=== PATIENT | female | born 1980 | race Caucasian/White ===

== ENCOUNTER 2023-03-11 06:54 | Emergency (ER) | payer SELFPAY ==
[2023-03-11 06:59] VITALS: BP 124/94; PULSE 99; RESP 18; TEMP 36.5; O2SAT 96; BMI 47.4
--- NOTE | 2023-03-11 07:28 | ECG_ITS ---
[facility] Test Date: 2023-03-11 Pat Name: ZELDA SANCHEZ Department: Room: - Gender: Female Viscosity Tester: : 1980 Requested By: MICKIE ALVAREZ Order Number: [id number] Reading MD: ELIGIO DEVLIN Measurements Intervals [place] Rate: 78 P: 27 LA: 142 QRS: 44 QRSD: 72 T: 15 QT: 358 QTc: 391 Interpretive Statements 1100 Sinus rhythm 4068 Nonspecific [place] abnormality 8102 Low QRS voltage in chest leads 9130 borderline ECG No previous ECG available for comparison Electronically Signed On 03-12-2023 9:48:39 EDT by ELIGIO DEVLIN
[2023-03-11 07:51] LABS: Basophils Percent Auto 0.8 % (0.2-2.0); Eosinophils Absolute Auto 0.1 10^3/uL (0.0-0.7); Eosinophils Percent Auto 2.2 % (0.9-7.0); Hematocrit 43.1 % (36.0-48.0); Hemoglobin 13.9 g/dL (12.0-16.0); Immature Granulocytes Abs Auto 0.02 10^3/uL (0.00-0.03); Immature Granulocytes Pct Auto 0.4 % (0.0-0.5); Lymphocytes Absolute Auto 2.6 10^3/uL (1.2-3.8); Lymphocytes Percent Auto 51.8 % (20.5-60.0); Mean Corpuscular HGB Conc 32.3 g/dL (29.9-35.2); Mean Corpuscular Hemoglobin 26.7 pg (26.7-34.0); Mean Corpuscular Volume 82.9 fL (81.0-99.0); Mean Platelet Volume 10.3 fL (9.5-13.5); Monocytes Absolute Auto 0.3 10^3/uL (0.3-0.8); Monocytes Percent Auto 6.7 % (1.7-12.0); Neutrophils Absolute Auto 1.9 10^3/uL (1.4-6.5); Neutrophils Percent Auto 38.1 % (43.0-75.0); Platelet Count 159 10^3/uL (150-450); Red Cell Distribution Width 13.3 % (11.0-15.0); White Blood Count 5.1 10^3/uL (4.0-11.0)
[2023-03-11 08:06] VITALS: O2SAT 96
[2023-03-11 08:20] LABS: Alanine Aminotransferase 40 U/L (14-59); Albumin Globulin Ratio 0.8; Albumin Level 3.8 g/dL (3.4-5.0); Alkaline Phosphatase 73 U/L (46-116); Anion Gap 13.8; Aspartate Amino Transferase 37 U/L (15-37); BUN Creatinine Ratio 16.3; Bilirubin Total 0.4 mg/dL (0.2-1.0); Calcium 9.4 mg/dL (8.5-10.1); Carbon Dioxide 26.7 mmol/L (21.0-32.0); Chloride 101 mmol/L (98-107); Estimated GFR (African America >60 (>=60); Estimated GFR (Non-African Ame >60 (>=60); Globulin 4.6 g/dL; Glucose 157 mg/dL (74-106); Potassium 4.5 mmol/L (3.5-5.1); Sodium 137 mmol/L (136-145); Total Protein 8.4 g/dL (6.4-8.2)
--- NOTE | 2023-03-11 09:50 | ED_ITS ---
HPI - General Adult General Chief complaint: Neuro Symptoms/Deficit Stated complaint: FACIAL TWITCHING Time Seen by Provider: 03/11/23 07:50 Source: patient Mode of arrival: walk-in Limitations: no limitations History of Present Illness HPI narrative: Patient is a 22-year-old female who is presenting to the Emergency Room with chief complaint of right facial twitching, right cervical muscle twitching this been intermittent since last night and this morning. Patient has no strokelike signs or symptoms. Patient has multiple medical diagnoses, multiple medications that she is not taking because she ran out Medications and has not scheduled an appointment with her PCP. Patient read the Internet, so all different signs and symptoms that could be related to facial and neck twitching, including stroke. Patient chief concern is stroke. Patient came into the Emergency Room. Patient is diabetic. Patient has multiple medications that she is not taking further no reason except being noncompliant. Patient has no headache or neck pain. No chest pain or shortness of breath. No abdominal pain, nausea or vomiting. No other acute complaints. . All systems are negative except as noted/marked. All systems reviewed and otherwise negative. . Nurses note and vital signs reviewed and patient is not hypoxic. General: The patient appears well and in no apparent distress. Patient is resting comfortably on cart. Patient is not toxic, lethargic, or listless Skin: Warm, dry, no pallor noted. There is no rash noted. No petechiae, purpura. Head: Normocephalic, atraumatic, Patient currently does not have the twitching to the right for headache, right side of her neck. Patient has no pain over the temporal area, no signs or concerns for giant cell temporal arteritis on physical exam currently. Patient has full range of motion of cervical spine no difficulty. No midline or paracervical tenderness to palpation. Full range of motion the difficulty to cervical spine. Eye: Normal conjunctiva, no drainage, EOMI. PERRL Ears, Nose, Mouth, and Throat: oral mucosa is moist. Nares patent. Mouth without vesicles. Cardiovascular: Regular Rate and Rhythm, no murmur, gallop, rub Respiratory: Patient is in no distress, no accessory muscle use, lungs are clear to auscultation, no wheezing, rales or rhonchi Back: non-tender, no CVA tenderness bilaterally to percussion. No CT LS midline pain GI: soft, obese, no tenderness to palpation, no masses appreciated. No rebound, guarding, or rigidity noted. No flank pain bilateral, No distention Musculoskeletal: Patient has full range of motion of all of the extremities, no motor, sensory, or focal neurological deficits Neurological: A&O x3, normal speech; NIH 0 Psychiatric: Cooperative Related Data Home Medications Medication Instructions Recorded Confirmed No Known Home Medications 03/11/23 03/11/23 Allergies Allergy/AdvReac Type Severity Reaction Status Date / Time No Known Drug Allergies Allergy Verified 03/11/23 07:04 [facility] Medical History (Updated 03/11/23 @ 09:30 by Nilton Lloyd MD) Exam Constitutional Vital Signs, click to edit/add: Last Vital Signs Temp 97.7 F 03/11/23 06:59 Pulse 99 H 03/11/23 06:59 Resp 18 03/11/23 06:59 BP 124/94 H 03/11/23 06:59 Pulse Ox 96 03/11/23 08:06 O2 Del Method Room Air 03/11/23 08:06 Course Vital Signs Vital signs: Vital Signs Temperature 97.7 F 03/11/23 06:59 Pulse Rate 99 H 03/11/23 06:59 Respiratory Rate 18 03/11/23 06:59 Blood Pressure 124/94 H 03/11/23 06:59 Pulse Oximetry 96 03/11/23 06:59 Oxygen Delivery Method Room Air 03/11/23 06:59 Temperature 97.7 F 03/11/23 06:59 Pulse Rate 99 H 03/11/23 06:59 Respiratory Rate 18 03/11/23 06:59 Blood Pressure 124/94 H 03/11/23 06:59 Pulse Oximetry 96 03/11/23 08:06 Oxygen Delivery Method Room Air 03/11/23 08:06 Medical Decision Making MDM Narrative Medical decision making narrative: Patient labwork shows no acute findings. Education was done at bedside. Patient will follow-up the PCP. Patient understands she needs to call the PCP today, and she needs get back on all of her medications could be part of her symptomatology today. Patient understands and agrees. Patient thankful for help. Patient has no strokelike signs or symptoms today. Lab Data Lab results reviewed: Yes I reviewed the patient's lab results Labs: Lab Results 03/11/23 Range/Units 07:15 WBC 5.1 (4.0-11.0) 10^3/uL RBC 5.20 (4.20-5.40) 10^6/uL Hgb 13.9 (12.0-16.0) g/dL Hct 43.1 (36.0-48.0) % MCV 82.9 (81.0-99.0) fL MCH 26.7 (26.7-34.0) pg MCHC 32.3 (29.9-35.2) g/dL RDW 13.3 (11.0-15.0) % Plt Count 159 (150-450) 10^3/uL MPV 10.3 (9.5-13.5) fL Neut % (Auto) 38.1 L (43.0-75.0) % Lymph % (Auto) 51.8 (20.5-60.0) % [place] % (Auto) 6.7 (1.7-12.0) % Eos % (Auto) 2.2 (0.9-7.0) % Baso % (Auto) 0.8 (0.2-2.0) % Neut # (Auto) 1.9 (1.4-6.5) 10^3/uL Lymph # (Auto) 2.6 (1.2-3.8) 10^3/uL [place] # (Auto) 0.3 (0.3-0.8) 10^3/uL Eos # (Auto) 0.1 (0.0-0.7) 10^3/uL Baso # (Auto) 0.0 (0.0-0.1) 10^3/uL Abs Immat Gran (auto) 0.02 (0.00-0.03) 10^3/uL Imm/Tot Granulo (auto) 0.4 (0.0-0.5) % Sodium 137 (136-145) mmol/L Potassium 4.5 (3.5-5.1) mmol/L Chloride 101 (98-107) mmol/L Carbon Dioxide 26.7 (21.0-32.0) mmol/L Anion Gap 13.8 BUN 15.0 (7.0-18.0) mg/dL Creatinine 0.92 (0.55-1.02) mg/dL Est GFR ( Amer) >60 (>=60) Est GFR (Non-Af Amer) >60 (>=60) BUN/Creatinine Ratio 16.3 Glucose 157 H (74-106) mg/dL Calcium 9.4 (8.5-10.1) mg/dL Total Bilirubin 0.4 (0.2-1.0) mg/dL AST 37 (15-37) U/L ALT 40 (14-59) U/L Alkaline Phosphatase 73 (46-116) U/L Total Protein 8.4 H (6.4-8.2) g/dL Albumin 3.8 (3.4-5.0) g/dL Globulin 4.6 g/dL Albumin/Globulin Ratio 0.8 ECG Data Attestation: I personally reviewed and interpreted this ECG as follows: Interpretation: EKG interpretation. Normal sinus rhythm at 78 beats a minute. Normal axis deviation. No acute ST elevation, no acute ectopy. QTC of 391. Discharge Plan Discharge Chief Complaint: Neuro Symptoms/Deficit Clinical Impression: Facial twitching, Medical non-compliance Patient Disposition: Home, Self-Care Time of Disposition Decision: 09:30 Prescriptions / Home Meds: No Action No Known Home Medications Additional Instructions: He needs to call your nurse practitioner Janki today to secure a follow-up appointment, have your medications reestablished Stand Alone Forms: Portal Instructions Referrals: Janki Mora [Primary Care Provider] - 1 week Discharge Date/Time: 03/11/23 09:35
== END 2023-03-11 09:35 | disposition home or self-care (01) ==
PROVIDERS: Emergency Provider Emergency Medicine; PCP Nurse Practitioner
DX: R25.3 Fasciculation (principal); Z91.148 Patient's other noncompliance with medication regimen for other reason; E11.9 Type 2 diabetes mellitus without complications
CPT/HCPCS: 36415; 80053; 85025; 93005; 99284

== ENCOUNTER 2023-12-09 08:13 | Outpatient (OUT) | payer OTHER, SELFPAY ==
[2023-12-09 09:01] LABS: Basophils Percent Auto 0.6 % (0.2-2.0); Eosinophils Absolute Auto 0.2 10^3/uL (0.0-0.7); Eosinophils Percent Auto 3.2 % (0.9-7.0); Hematocrit 41.6 % (36.0-48.0); Hemoglobin 12.9 g/dL (12.0-16.0); Immature Granulocytes Abs Auto 0.02 10^3/uL (0.00-0.03); Immature Granulocytes Pct Auto 0.4 % (0.0-0.5); Lymphocytes Absolute Auto 2.3 10^3/uL (1.2-3.8); Lymphocytes Percent Auto 47.6 % (20.5-60.0); Mean Corpuscular Hemoglobin 26.6 pg (26.7-34.0); Mean Corpuscular Volume 85.8 fL (81.0-99.0); Mean Platelet Volume 10.1 fL (9.5-13.5); Monocytes Absolute Auto 0.3 10^3/uL (0.3-0.8); Monocytes Percent Auto 6.7 % (1.7-12.0); Neutrophils Percent Auto 41.5 % (43.0-75.0); Platelet Count 157 10^3/uL (150-450); Red Blood Count 4.85 10^6/uL (4.20-5.40); Red Cell Distribution Width 13.5 % (11.0-15.0); White Blood Count 4.8 10^3/uL (4.0-11.0)
[2023-12-09 09:13] LABS: Alanine Aminotransferase 99 U/L (14-59); Albumin Globulin Ratio 0.8; Albumin Level 3.5 g/dL (3.4-5.0); Alkaline Phosphatase 75 U/L (46-116); Aspartate Amino Transferase 50 U/L (15-37); BUN Creatinine Ratio 15.2; Bilirubin Total 0.2 mg/dL (0.2-1.0); Calcium 9.1 mg/dL (8.5-10.1); Carbon Dioxide 27.2 mmol/L (21.0-32.0); Chloride 99 mmol/L (98-107); Chol HDL Ratio 3.7; Cholesterol 260 mg/dL (<=200); Estimated GFR (African America >60 (>=60); Estimated GFR (Non-African Ame >60 (>=60); Globulin 4.2 g/dL; Glucose 251 mg/dL (74-106); HDL Cholesterol 70 mg/dL (40-60); Potassium 4.2 mmol/L (3.5-5.1); Sodium 135 mmol/L (136-145); Total Protein 7.7 g/dL (6.4-8.2); Triglycerides 199 mg/dL (<=150); VLDL CHOLESTEROL 39.8 mg/dL
[2023-12-09 09:59] LABS: Estimated Average Glucose 243 mg/dL; Glycohemoglobin A1C 10.1 % (4.5-6.2)
[2023-12-09 17:13] LABS: Bilirubin Urine NEGATIVE (NEGATIVE); Blood Urine NEGATIVE (NEGATIVE); Clarity Urine CLEAR (CLEAR); Color Urine LT. YELLOW (YELLOW); Glucose Urine UA 500 mg/dL (NEGATIVE); Ketones Urine NEGATIVE (NEGATIVE); Leukocyte Esterase Urine NEGATIVE (NEGATIVE); Nitrite Urine NEGATIVE (NEGATIVE); Protein Urine NEGATIVE (NEG/TRACE); Urobilinogen Urine 0.2 EU/dL (0.2-1.0)
[2023-12-09 17:18] LABS: Urine Microscopic Indicated NO
[2023-12-09 17:21] LABS: Microalbum Creatinine Ratio Ur 59.4 mg/g (0.0-29.9)
== END 2023-12-09 08:14 | disposition home or self-care (01) ==
LOC: LAB 08:14
PROVIDERS: PCP Nurse Practitioner; Visit Provider Nurse Practitioner
DX: I10 Essential (primary) hypertension (principal); E11.9 Type 2 diabetes mellitus without complications
CPT/HCPCS: 36415; 80053; 80061; 81003; 82043; 82570; 83036; 85025

== ENCOUNTER 2024-02-29 23:13 | Emergency (ER) | payer OTHER, SELFPAY ==
[2024-02-29 23:16] VITALS: BP 170/118; PULSE 98; TEMP 36.4; O2SAT 99; BMI 45.4
--- NOTE | 2024-02-29 23:41 | PC.NURSE ---
Patient c/o low back pain after doing yard work. Denies any urinary sx, denies numbness/ tingling down legs or weakness
--- NOTE | 2024-02-29 23:51 | ED.BACK1 ---
HPI HPI - Back Pain/Injury General Chief Complaint: Back Pain/Injury Stated Complaint: BACK PAIN Time Seen by Provider: 02/29/24 23:17 Source: patient Mode of arrival: walk-in Limitations: no limitations History of Present Illness HPI Narrative: This 43-year-old female with a history of type 2 diabetes and morbid obesity presents for evaluation of low back pain. The patient states she was doing a lot of yard work over the weekend. She was pushing, pulling, bending and twisting. She states she initially felt fine but over the course of the last several days has developed some pain in her low back. There is no radiation into her buttocks or upper back. She has no loss of bowel or bladder control. She has no lower extremity pain or swelling. She states she has taken some Tylenol but it has not helped. She also took a hot bath without relief. She denies any urinary symptoms but is recently getting over a yeast infection. Related Data Home Medications ?Medication ?Instructions ?Recorded ?Confirmed alcohol swabs (BD Alcohol Swabs) pad topical 02/29/24 atorvastatin 10 mg tablet mg 02/29/24 blood sugar diagnostic (True 02/29/24 02/29/24 Metrix Glucose Test Strip) duloxetine 30 mg capsule,delayed mg PO 02/29/24 release empagliflozin 10 mg tablet mg 02/29/24 (Jardiance) estradiol 1 mg tablet mg 02/29/24 fluconazole 150 mg tablet mg 02/29/24 lancets 33 gauge (Unilet Lancet) 02/29/24 02/29/24 lisinopril 20 mg tablet mg 02/29/24 metformin 500 mg tablet mg 02/29/24 metronidazole 500 mg tablet mg 02/29/24 Allergies Allergy/AdvReac Type Severity Reaction Status Date / Time No Known Drug Allergies Allergy Verified 02/29/24 23:21 Opioid HPI Opioid Management Most Recent Opioid Data: Last Pain Scale 0 03/11/23 08:06 Prescription drug monitoring program results: PDMP reviewed and no issues identified [facility] Medical History (Updated 03/01/24 @ 00:02 by Penny Shepard MD) Diabetes ?E11.9 - Type 2 diabetes mellitus without complications (ICD-10) Gout ?M10.9 - Gout, unspecified (ICD-10) Anxiety ?F41.9 - Anxiety disorder, unspecified (ICD-10) Hypertension ?I10 - Essential (primary) hypertension (ICD-10) Exam Narrative Exam Narrative: Vital signs and Nursing Notes reviewed: Patient is afebrile with a normal pulse, blood pressure is elevated at 170/118, she is not hypoxic with pulse ox of 99% on room air General: Awake, alert, oriented, overweight female sitting comfortably in a chair, no respiratory distress HEENT: Normocephalic atraumatic, mucous membranes are moist and pink, eyes are clear, normal conjunctiva, vision is grossly intact Neck: Supple, no meningeal signs, no anterior or posterior cervical lymphadenopathy Chest: Lungs are clear to auscultation with good air entry, there is no wheezing rhonchi or rales appreciated no accessory muscle use, patient is speaking in complete sentences-no chest wall tenderness to palpation CVS: Regular rate and rhythm S1-S2, no murmurs rubs or gallops, pulses are brisk and equal bilaterally ABD: Soft, nondistended, nontender, no rebound guarding or rigidity, bowel sounds are normal, no pulsatile masses appreciated Musc: There is no midline cervical or thoracic tenderness. There is mild tenderness at the sacral base. There is no skin rash, induration or other notable abnormality in this area. There is no step-off Extremities: Moving all extremities, no lower extremity tenderness or swelling noted, negative Homans' sign, pulses are brisk and equal bilaterally Skin: Normal in appearance without rash,pallor, petechiae or purpura Neuro: No focal deficits, upper and lower extremity strength and sensation is intact. There is no saddle anesthesia. Constitutional Vital Signs, click to edit/add: Last Vital Signs Temp 97.6 F 02/29/24 23:16 Pulse 98 H 02/29/24 23:16 Resp 02/29/24 23:16 BP 170/118 H 02/29/24 23:16 Pulse Ox 99 02/29/24 23:16 Course Vital Signs Vital signs: Vital Signs Temperature 97.6 F 02/29/24 23:16 Pulse Rate 98 H 02/29/24 23:16 Respiratory Rate 02/29/24 23:16 Blood Pressure 170/118 H 02/29/24 23:16 Pulse Oximetry 99 02/29/24 23:16 Temperature 97.6 F 02/29/24 23:16 Pulse Rate 98 H 02/29/24 23:16 Respiratory Rate 02/29/24 23:16 Blood Pressure 170/118 H 02/29/24 23:16 Pulse Oximetry 99 02/29/24 23:16 MDM - Back Pain/Injury MDM Narrative Medical decision making narrative: This 43-year-old female presents for evaluation of low back pain after doing yard work over the weekend that she does not typically do. She has been using Tylenol and took a hot bath without significant improvement. She states when she tried to roll over to lie on her side to go to sleep she felt stiff and increased pain in her back. She has no neurologic symptoms related to this. She has no urinary symptoms. She is tender in the lumbosacral region of her back. There is no skin rash or bony deformity in this area. I did not feel that any radiographic studies were indicated. She has no activity on her OARRS report. She was medicated emergency department with IM Toradol and IM Norflex and given a [place] and Zofran to use tonight and 2 [place] to use as needed if necessary for ongoing pain. She will be discharged home with a prescription for Parafon forte and ibuprofen. She was encouraged to drink plenty of fluids, rest, do gentle stretching and return to the emergency department for worsening symptoms, weakness numbness loss of bowel or bladder control or any concerns. Discharge Plan Discharge Stand Alone Forms: Portal Instructions Chief Complaint: Back Pain/Injury Clinical Impression: Strain of lumbar region Patient Disposition: Home, Self-Care Time of Disposition Decision: 00:02 Condition: Good Prescriptions / Home Meds: No Action metformin 500 mg tablet atorvastatin 10 mg tablet fluconazole 150 mg tablet lisinopril 20 mg tablet metronidazole 500 mg tablet (DME) True Metrix Glucose Test Strip Strip MISCELLANEOUS estradiol 1 mg tablet alcohol swabs [BD Alcohol Swabs] Pads, Medicated TOPICAL duloxetine 30 mg capsule,delayed release(DR/EC) PO (DME) lancets [Unilet Lancet] 33 gauge misc MISCELLANEOUS Jardiance 10 mg tablet Print Language: Frisian Instructions: Muscle Strain (ED), Low Back Strain (ED), Back Pain (ED), Core Strengthening Exercises (ED) Referrals: Janki Mora, UTILITY LOCATE TECHNICIAN [Primary Care Provider] - 1 week
[2024-03-01] MEDS: ONDANSETRON 4 MG RAPDIS TABLET SL (00:26)
[2024-03-01] MEDS: HYDROCODONE/ACET 5-325 MG TABLET 1 TAB PO (00:26)
[2024-03-01] MEDS: ORPHENADRINE 60 MG/ 2 ML VIAL IM (00:27)
[2024-03-01] MEDS: KETOROLAC TROMETHAMINE 60 MG/2 ML VIAL IM (00:28)
[2024-03-01] MEDS: HYDROCODONE/ACET 5-325 MG TABLET 2 TAB PO (00:29)
== END 2024-03-01 00:43 | disposition home or self-care (01) ==
PROVIDERS: Emergency Provider Emergency Medicine; PCP Nurse Practitioner
DX: S39.012A Strain of muscle, fascia and tendon of lower back, initial encounter (principal); X50.9XXA Other and unspecified overexertion or strenuous movements or postures, initial encounter; Y93.H2 Activity, gardening and landscaping; E66.01 Morbid (severe) obesity due to excess calories; E11.9 Type 2 diabetes mellitus without complications; Z79.84 Long term (current) use of oral hypoglycemic drugs; Z68.42 Body mass index [BMI] 45.0-49.9, adult
CPT/HCPCS: 96372; 99284; J1885; J2360; Q0162

== ENCOUNTER 2024-03-31 10:43 | Outpatient (OUT) | payer OTHER, SELFPAY ==
[2024-03-31 11:10] LABS: Estimated Average Glucose 212 mg/dL
[2024-03-31 11:36] LABS: Alanine Aminotransferase 81 U/L (14-59); Albumin Globulin Ratio 1.1; Albumin Level 3.9 g/dL (3.4-5.0); Alkaline Phosphatase 65 U/L (46-116); Anion Gap 16.1; Aspartate Amino Transferase 38 U/L (15-37); BUN Creatinine Ratio 18.3; Bilirubin Total 0.2 mg/dL (0.2-1.0); Calcium 9.2 mg/dL (8.5-10.1); Chloride 98 mmol/L (98-107); Chol HDL Ratio 2.6; Cholesterol 172 mg/dL (<=200); Estimated GFR (African America >60 (>=60); Estimated GFR (Non-African Ame 58 (>=60); Globulin 3.7 g/dL; Glucose 193 mg/dL (74-106); HDL Cholesterol 67 mg/dL (40-60); Potassium 4.1 mmol/L (3.5-5.1); Sodium 137 mmol/L (136-145); Total Protein 7.6 g/dL (6.4-8.2); Triglycerides 122 mg/dL (<=150); VLDL CHOLESTEROL 24.4 mg/dL
== END 2024-03-31 10:44 | disposition home or self-care (01) ==
LOC: LAB 10:44
PROVIDERS: PCP Nurse Practitioner; Visit Provider Nurse Practitioner
DX: E78.2 Mixed hyperlipidemia (principal); E11.9 Type 2 diabetes mellitus without complications; I10 Essential (primary) hypertension
CPT/HCPCS: 36415; 80053; 80061; 83036

== ENCOUNTER 2024-09-30 16:35 | Emergency (ER) | payer OTHER, SELFPAY ==
[2024-09-30 16:43] VITALS: BP 114/68; PULSE 76; TEMP 36.7; O2SAT 100; BMI 39.5
--- OUTSIDE RECORDS SUMMARY | 2024-09-30 16:46 | XMS_ITS | CCD ---
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 Name Role Phone HECTOR RUSSELL Unavailable Unavailable RASHEED DUFFY Unavailable Unavailable AICHHOLZ, DOG POUND ATTENDANT JANKI Admitting Unavailable AICHHOLZ, DOG POUND ATTENDANT JANKI Attending Unavailable AICHHOLZ, DOG POUND ATTENDANT JANKI Primary Care Unavailable AICHHOLZ, DOG POUND ATTENDANT JANKI Consulting Unavailable AICHHOLZ, DOG POUND ATTENDANT JANKI Admitting Unavailable AICHHOLZ, DOG POUND ATTENDANT JANKI Attending Unavailable AICHHOLZ, DOG POUND ATTENDANT JANKI Primary Care Unavailable AICHHOLZ, DOG POUND ATTENDANT JANKI Consulting Unavailable AICHHOLZ, DOG POUND ATTENDANT JANKI Admitting Unavailable AICHHOLZ, DOG POUND ATTENDANT JANKI Attending Unavailable AICHHOLZ, DOG POUND ATTENDANT JANKI Primary Care Unavailable AICHHOLZ, DOG POUND ATTENDANT JANKI Consulting Unavailable AICHHOLZ, DOG POUND ATTENDANT JANKI Admitting Unavailable AICHHOLZ, DOG POUND ATTENDANT JANKI Attending Unavailable AICHHOLZ, DOG POUND ATTENDANT JANKI Primary Care Unavailable AICHHOLZ, DOG POUND ATTENDANT JANKI Consulting Unavailable MATIAS, SERVANDO B Attending Unavailable AICHHOLZ, JANKI J Referring Unavailable AICHHOLZ, JANKI J Primary Care Unavailable MATIAS, SERVANDO B Referring Unavailable AICHHOLZ, JANKI J Primary Care Unavailable MATIAS, SERVANDO B Referring Unavailable AICHHOLZ, JANKI J Primary Care Unavailable MATIAS, SERVANDO B Referring Unavailable AICHHOLZ, JANKI J Primary Care Unavailable Aichholz GAS USAGE METER CLERK, Janki Unavailable Srinath Lay MD Primary Care Provider Aicpako GAS USAGE METER CLERK, Janki Unavailable KIM JANKI Attending Unavailable AICHHOLZ, JANKI Attending Unavailable AICHHOLZ, JANKI Attending Unavailable JANKI MORA Attending Unavailable KIM JANKI Attending Unavailable KIM JANKI Attending Unavailable JANKI MORA Attending Unavailable JANKI MORA Attending Unavailable Medications Current Medications Medication Drug Class(es) Dates Sig (Normalized) Sig (Original) amoxicillin 875 mg / clavulanate 125 mg oral tablet (2 sources) Penicillin-class Antibacterial Start: 04-09-2024 End: 04-19-2024 take 1 tablet by mouth in the morning amoxicillin-clavu lanate (Augmentin) 875-125 MG tablet Indications: Right acute otitis media Take 1 tablet (875 mg) by mouth in the morning and 1 tablet (875 mg) before bedtime. Do all this for 10 days. Take with food. 20 tablet 04/09/2024 04/19/2024 Active aspirin 81 mg delayed release oral tablet (4 sources) Platelet Aggregation Inhibitor, Nonsteroidal Anti-inflammatory Drug Start: 09-10-2024 End: 10-10-2024 take 1 tablet by mouth once daily aspirin 81 MG EC tablet Indications: Primary hypertension (CMS/HCC) , Type 2 diabetes mellitus without complication, without long-term current use of insulin (CMS/HCC) Take 1 tablet (81 mg) by mouth Daily 30 tablet 11 09/10/2024 10/10/2024 Active Blood Glucose Monitoring Suppl (Blood Glucose System Jasvir) kit (13 sources) Start: 03-07-2024 End: 03-07-2025 Blood Glucose Monitoring Suppl (Blood Glucose System Jasvir) kit Indications: Type 2 diabetes mellitus without complication, without long-term current use of insulin (CMS/HCC) 1 kit Daily 1 kit 03/07/2024 03/07/2025 Active dicyclomine hydrochloride 20 mg oral tablet (12 sources) Anticholinergic Start: 07-22-2024 take 1 tablet by mouth every six hours as needed dicyclomine (Bentyl) 20 MG tablet Take 20 mg by mouth every 6 (six) hours if needed 07/22/2024 Active Start: 05-16-2024 End: 07-05-2024 take 1 tablet by mouth every six hours dicyclomine (Bentyl) 20 MG tablet Indications: Unspecified abdominal pain Take 1 tablet (20 mg) by mouth every 6 (six) hours if needed (abd cramping) 120 tablet 1 06/05/2024 07/05/2024 Active 0.5 ml dulaglutide 3 mg/ml auto-injector (12 sources) GLP-1 Receptor Agonist Start: 04-09-2024 End: 05-29-2024 inject 0.75 mg by subcutaneous injection every week dulaglutide (Trulicity) 0.75 MG/0.5ML solution pen-injector Indications: Type 2 diabetes mellitus without complication, without long-term current use of insulin (CMS/HCC) Inject 0.75 mg under the skin 1 (one) time per week for 28 days 2 mL 04/10/2024 05/08/2024 Active Start: 04-09-2024 End: 05-29-2024 inject 1.5 mg by subcutaneous injection every week dulaglutide (Trulicity) 1.5 MG/0.5ML solution pen-injector Indications: Type 2 diabetes mellitus without complication, without long-term current use of insulin (CMS/HCC) Inject 1.5 mg under the skin 1 (one) time per week for 28 days 2 mL 2 04/10/2024 05/08/2024 Active Dulaglutide (Trulicity) 3 MG/0.5ML solution auto-injector (14 sources) Start: 09-10-2024 End: 10-08-2024 Dulaglutide (Trulicity) 3 MG/0.5ML solution auto-injector Indications: Type 2 diabetes mellitus without complication, without long-term current use of insulin (CMS/HCC) Inject 3 mg under the skin every 7 (seven) days for 28 days 2 mL 3 09/10/2024 10/08/2024 Active Start: 07-30-2024 End: 09-10-2024 Dulaglutide (Trulicity) 3 MG /0.5ML solution auto-injector Indications: Type 2 diabetes mellitus without complication, without long-term current use of insulin (CMS/HCC) Inject 3 mg under the skin every 7 (seven) days for 28 days 2 mL 3 07/30/2024 09/10/2024 Discontinued (Reorder) Start: 07-30-2024 Dulaglutide (T rulicity) 3 MG/0.5ML solution auto-injector Indications: Type 2 diabetes mellitus without complication, without long-term current use of insulin (CMS/HCC) Inject 3 mg under the skin every 7 (seven) days for 28 days 2 mL 3 07/30/2024 Active Start: 07-30-2024 End: 08-27-2024 Dulaglutide (Trulicity) 3 MG /0.5ML solution auto-injector Indications: Type 2 diabetes mellitus without complication, without long-term current use of insulin (CMS/HCC) Inject 3 mg under the skin every 7 (seven) days for 28 days 2 mL 3 07/30/2024 08/27/2024 Active Start: 05-29-2024 End: 07-30-2024 Dulaglutide (Trulicity) 3 MG /0.5ML solution auto-injector Indications: Type 2 diabetes mellitus without complication, without long-term current use of insulin (CMS/HCC) Inject 3 mg under the skin every 7 (seven) days for 28 days 2 mL 2 05/29/2024 07/30/2024 Discontinued (Reorder) Start: 05-29-2024 Dulaglutide (T rulicity) 3 MG/0.5ML solution auto-injector Indications: Type 2 diabetes mellitus without complication, without long-term current use of insulin (CMS/HCC) Inject 3 mg under the skin every 7 (seven) days for 28 days 2 mL 2 05/29/2024 Active Start: 05-29-2024 End: 06-26-2024 Dulaglutide (Trulicity) 3 MG /0.5ML solution auto-injector Indications: Type 2 diabetes mellitus without complication, without long-term current use of insulin (CMS/HCC) Inject 3 mg under the skin every 7 (seven) days for 28 days 2 mL 2 05/29/2024 06/26/2024 Active DULoxetine 60 mg delayed release oral capsule (14 sources) Serotonin and Norepinephrine Reuptake Inhibitor Start: 04-09-2024 End: 07-05-2024 take 1 capsule by mouth once daily DULoxetine (Cymbalta) [address] capsule Indications: Anxiety and depression (CMS/HCC) Take 1 capsule (60 mg) by mouth Daily 30 capsule 5 06/05/2024 Active estradiol 1 mg oral tablet (13 sources) Estrogen Start: 02-22-2024 take 0.5 mg by mouth in the morning estradiol (Estrace) 1 MG tablet Take 0.5 mg by mouth in the morning. 02/22/2024 Active fluconazole 150 mg oral tablet (14 sources) Azole Antifungal Start: 04-09-2024 End: 04-11-2024 fluconazole (Diflucan) 150 MG tablet Indications: Vaginal yeast infection 1 pill every 3 days for total of 3 doses 3 tablet 04/11/2024 Active indomethacin 25 mg oral capsule (1 source) Nonsteroidal Anti-inflammatory Drug Start: 08-09-2024 End: 08-16-2024 indomethacin (Indocin) 25 MG capsule Indications: Other secondary gout, multiple sites, unspecified chronicity Take 1 capsule (25 mg) by mouth in the morning and 1 capsule (25 mg) at noon and 1 capsule (25 mg) in the evening. Take with meals. Do all this for 7 days. 21 capsule 08/09/2024 08/16/2024 Active isopropyl alcohol 0.7 ml/ml medicated pad (7 sources) Start: 06-21-2024 Alcohol Swabs (B-D SINGLE USE SWABS REGULAR) pads 1 each by Other route Daily 06/21/2024 Active metFORMIN hydrochloride 500 mg oral tablet (15 sources) Biguanide Start: 01-25-2024 End: 08-29-2024 take 2 tablets by mouth in the morning metFORMIN (Glucophage) 500 MG tablet Indications: Type 2 diabetes mellitus without complication, without long-term current use of insulin (CMS/HCC) Take 2 tablets (1,000 mg) by mouth in the morning and 2 tablets (1,000 mg) in the evening. Take with meals. 120 tablet 2 07/30/2024 Active pantoprazole 40 mg delayed release oral tablet (16 sources) Proton Pump Inhibitor Start: 04-09-2024 End: 08-29-2024 take 1 tablet by mouth before mealtime pantoprazole (ProtoNix) 40 MG EC tablet Indications: Gastroesophageal reflux disease without esophagitis Take 1 tablet (40 mg) by mouth in the morning. Take before meals. 30 tablet 5 07/30/2024 Active Completed/Discontinued Medications Medication Drug Class(es) Dates Sig (Normalized) Sig (Original) ARIPiprazole 5 mg oral tablet (6 sources) Atypical Antipsychotic Start: 07-30-2024 End: 09-10-2024 take 1 tablet by mouth once daily ARIPiprazole (Abilify) 5 MG tablet Indications: Anxiety and depression (CMS/HCC) Take 1 tablet (5 mg) by mouth Daily 30 tablet 1 07/30/2024 09/10/2024 Discontinued (Side effects) atorvastatin 10 mg oral tablet (18 sources) HMG-CoA Reductase Inhibitor Start: 03-07-2024 End: 10-10-2024 take 1 tablet by mouth at bedtime atorvastatin (Lipitor) 10 MG tablet Indications: Mixed hyperlipidemia (CMS/HCC) Take 1 tablet (10 mg) by mouth at bedtime 30 tablet 5 07/30/2024 09/10/2024 Discontinued (Reorder) chlorzoxazone 500 mg oral tablet (5 sources) Muscle Relaxant Start: 03-01-2024 End: 05-29-2024 take 1 tablet by mouth every eight hours as needed chlorzoxazone (Parafon Forte) 500 MG tablet Take 500 mg by mouth every 8 (eight) hours if needed for muscle spasms 03/01/2024 05/29/2024 Discontinued (Therapy completed) empagliflozin 25 mg oral tablet (17 sources) Sodium-Glucose Cotransporter 2 Inhibitor Start: 03-07-2024 End: 10-10-2024 take 1 tablet by mouth once daily empagliflozin (Jardiance) 25 MG Indications: Type 2 diabetes mellitus without complication, without long-term current use of insulin (CMS/HCC) Take 1 tablet (25 mg) by mouth Daily 30 tablet 5 07/30/2024 09/10/2024 Discontinued (Reorder) lisinopril 40 mg oral tablet (18 sources) Angiotensin Converting Enzyme Inhibitor Start: 04-09-2024 End: 10-10-2024 take 1 tablet by mouth once daily lisinopril 40 MG tablet Indications: Primary hypertension (CMS/HCC) Take 1 tablet (40 mg) by mouth Daily 30 tablet 5 07/30/2024 09/10/2024 Discontinued (Reorder) Problems Active Problems Problem Classification Problem Date Documented Date Episodic/Chronic Anxiety disorders (18 sources) Mixed anxiety and depressive disorder; Translations: [Anxiety disorder, unspecified] Onset: 11-29-2023 11-29-2023 Chronic Cancer of ovary (18 sources) Malignant neoplasm of unspecified ovary; Translations: [Malignant tumor of ovary] Onset: 08-07-2018 11-29-2023 Chronic Cancer of ovary (1 source) Personal history of malignant neoplasm of ovary; Translations: [Personal history of malignant neoplasm of ovary] Onset: 02-22-2024 Episodic Complications of surgical procedures or medical care (1 source) Symptomatic postprocedural ovarian failure; Translations: [Symptomatic postprocedural ovarian failure] Onset: 02-22-2024 Chronic Diabetes mellitus with complications (13 sources) Hyperglycemia due to type 2 diabetes mellitus; Translations: [Type 2 diabetes mellitus with hyperglycemia] Onset: 04-09-2024 04-09-2024 Chronic Diabetes mellitus without complication (20 sources) Type 2 diabetes mellitus without complications; Translations: [Type 2 diabetes mellitus without complication] Onset: 11-26-2021 11-29-2023 Chronic Disorders of lipid metabolism (18 sources) Mixed hyperlipidemia; Translations: [Mixed hyperlipidemia] Onset: 12-11-2023 12-11-2023 Chronic Esophageal disorders (16 sources) Gastroesophageal reflux disease without esophagitis; Translations: [Gastro-esophageal reflux disease without esophagitis] Onset: 04-09-2024 04-09-2024 Chronic Essential hypertension (20 sources) Essential hypertension; Translations: [Essential (primary) hypertension] Onset: 11-29-2023 11-29-2023 Chronic Gout and other crystal arthropathies (5 sources) Secondary gout; 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, multiple sites] Onset: 08-09-2024 08-09-2024 Chronic Nutritional deficiencies (4 sources) Vitamin D deficiency, unspecified; Translations: [VITAMIN D DEFICIENCY UNSPECIFIED] Onset: 11-23-2021 Chronic Other female genital disorders (1 source) Abnormal uterine and vaginal bleeding, unspecified; Translations: [Abnormal uterine and vaginal bleeding, unspecified] Onset: 02-22-2024 Chronic Other female genital disorders (2 sources) Other specified noninflammatory disorders of vagina; Translations: [Other specified noninflammatory disorders of vagina] Onset: 02-22-2024 Episodic Other inflammatory condition of skin (17 sources) Psoriasis; Translations: [Psoriasis, unspecified] Onset: 03-08-2024 03-08-2024 Chronic Other nutritional; endocrine; and metabolic disorders (4 sources) Hypercalcemia; Translations: [HYPERCALCEMIA] Onset: 08-27-2021 Chronic Other nutritional; endocrine; and metabolic disorders (1 source) Body mass index (BMI) 40.0-44.9, adult; Translations: [Body mass index (BMI) 40.0-44.9, adult] Onset: 02-22-2024 Chronic Other nutritional; endocrine; and metabolic disorders (14 sources) Morbid obesity; Translations: [Morbid (severe) obesity due to excess calories] Onset: 12-13-2023 12-13-2023 Chronic Other nutritional; endocrine; and metabolic disorders (5 sources) Obesity caused by energy imbalance; Translations: [Morbid (severe) obesity due to excess calories] Onset: 12-13-2023 09-10-2024 Chronic Other nutritional; endocrine; and metabolic disorders (5 sources) Body mass index 40+ - severely obese; Translations: [Body mass index (BMI) 40.0-44.9, adult] Onset: 09-10-2024 09-10-2024 Chronic Unclassified (3 sources) CONTACT W/AND (SUSP) EXPOS COVID-19; Translations: [CONTACT W/AND (SUSP) EXPOS COVID-19] Onset: 08-20-2022 Unclassified (1 source) Annual Exam Onset: 02-22-2024 Past or Other Problems Problem Classification Problem Date Documented Da te Episodic/Chronic Abdominal pain (14 sources) Finding of sensation of abdomen; Translations: [Unspecified abdominal pain] Onset: 03-07-2024 03-07-2024 Episodic Genitourinary symptoms and ill-defined conditions (15 sources) Frequency of micturition; Translations: [Dysuria] Onset: 11-29-2023 11-29-2023 Episodic Malaise and fatigue (4 sources) Other fatigue; Translations: [OTHER FATIGUE] Onset: 12-16-2021 Episodic Mycoses (14 sources) Candidiasis of vagina; Translations: [Vaginal yeast infection] Onset: 04-09-2024 04-09-2024 Episodic Other gastrointestinal disorders (15 sources) Diarrhea; Translations: [Diarrhea, unspecified] Onset: 11-29-2023 11-29-2023 Episodic Other screening for suspected conditions (not mental disorders or infectious disease) (15 sources) Encounter for screening mammogram for malignant neoplasm of breast; Translations: [Patient encounter status] Onset: 11-29-2023 11-29-2023 Episodic Otitis media and related conditions (13 sources) Acute right otitis media; Translations: [Otitis media, unspecified, right ear] Onset: 04-09-2024 04-09-2024 Episodic Residual codes; unclassified (1 source) Asymptomatic menopausal state; Translations: [Asymptomatic menopausal state] Onset: 11-23-2018 Episodic Residual codes; unclassified (13 sources) Menopause present; Translations: [Asymptomatic menopausal state] Onset: 11-23-2018 11-29-2023 Episodic Spondylosis; intervertebral disc disorders; other back problems (13 sources) Low back pain; Translations: [Lumbar back pain] Onset: 03-07-2024 03-07-2024 Episodic Unclassified (1 source) CONTACT W/AND (SUSP) EXPOS COVID-19; Translations: [CONTACT W/AND (SUSP) EXPOS COVID-19] Onset: 08-18-2022 Results Test Name Value Interpretation Reference Range Facility HbA1c (Bld) [Mass fraction]o n 07-30-2024 Interpretation and review of laboratory results Abnormal [facility] 07-30-2024 HbA1c (Bld) [Mass fraction] 7.40 % [facility] MAMM SCREENING BILATERAL W C realtime reporter 03-05-2024 MAMM SCREENING BILATERAL W CAD MAMM SCREENING BILATERAL W CAD EXAM: MAMM SCREENING BILATERAL W CAD, 03/02/2024 2:17 PM CLINICAL INDICATIONS: Screening, Visit for screening mammogram COMPARISON: No prior studies currently available for comparison. TECHNIQUE: Bilateral digital tomosynthesis MLO and CC views of the breasts were obtained, with creation of synthetic 2D views. Computer aided detection was utilized. FINDINGS: The breasts are almost entirely fatty. There are no suspicious masses, calcifications, or areas of architectural distortion. IMPRESSION: No mammographic evidence of malignancy. BI-RADS: BI-RADS 1 - Negative Recommendation: Routine screening mammogram in 1 year. Finalized by Javier Merino MD on 03/05/2024 11:28 AM 1 a MAMM 1 YR Normal [facility] Cancer Ag 125 Qnon CA 125 7 U/mL Normal 0-35 [facility] Comment on above: Result Comment: The method used for this test is [employer] DXI chemiluminescent immunoassay. Values obtained by different assay methods cannot be used interchangeably. Performed By: #### 1 [id number] #### [facility] ([id number]) [address] [place] [address] URINALYSISon 02-22-2024 Bilirubin Ql (U) Negative Normal NEG [facility] Comment on above: Performed By: #### U A #### [facility] ([id number]) [address], [address] [place] [address] BLOOD/HGB Negative Normal NEG [facility] Comment on above: Performed By: #### U A #### [facility] ([id number]) [address], [address] [place] [address] Color (U) YELLOW Normal YELLOW [facility] Comment on above: Performed By: #### U A #### [facility] ([id number]) [address], [address] [place] [address] Glucose Ql (U) >1000 Abnormal NEG [facility] Comment on above: Performed By: #### U A #### [facility] ([id number]) [address], [address] [place] [address] Ketones Ql (U) Negative Normal NEG [facility] Comment on above: Performed By: #### U A #### [facility] ([id number]) [address], [address] [place] [address] Leukocyte esterase Test strip Ql (U) Negative Normal NEG [facility] Comment on above: Result Comment: HIGH CONCENTRATIONS OF GLUCOSE MAY DECREASE THE REACTIVITY OF THE DIPSTICK LEUKOCYTE TEST PAD. Performed By: #### U A #### [facility] ([id number]) [address], [address] [place] [address] Nitrite Ql (U) Negative Normal NEG [facility] Comment on above: Performed By: #### U A #### [facility] ([id number]) [address], [address] [place] [address] pH (U) 6.0 [pH] Normal 5.0-8.5 [facility] Comment on above: Performed By: #### U A #### [facility] ([id number]) [address] [place] [address], [address] [place] [address] Protein Ql (U) Trace Abnormal NEG [facility] Comment on above: Performed By: #### U A #### [facility] ([id number]) [address] [facility], [address] [place] [address] R.B.CELLS 1 /hpf Normal 0-5 [facility] Comment on above: Performed By: #### U A #### [facility] ([id number]) [address] [place] [address] [address] [place] [address] Specific gravity (U) [Rel density] 1.026 Normal 1.003-1.035 [facility] Comment on above: Performed By: #### U A #### [facility] ([id number]) [address] [place] [address], [address] [place] [address] SQUAMOUS EPITHELIUM 15 /hpf High 0-5 [facility] Comment on above: Performed By: #### U A #### [facility] ([id number]) [address] [place] [address], [address] [place] [address] TURBIDITY CLEAR Normal CLEAR [facility] Comment on above: Performed By: #### U A #### [facility] ([id number]) [address] [facility], [address] [place] [address] Urobilinogen (U) [Mass/Vol] mg/dL Normal <1.1 [facility] Comment on above: Performed By: #### U A #### [facility] ([id number]) [address] [place] [address], [address] [place] [address] W.B.CELLS 2 /hpf Normal 0-5 [facility] Comment on above: Performed By: #### U A #### [facility] ([id number]) [address] [place] [address], [address] [place] [address] VAGINITIS PANEL PCRon 2023 VAGINITIS PANEL PCR BACT. VAGINOSIS DNA Detected (qualifier value) Qualitative results are reported based on detection and quantitation of targeted organism markers which include: Lactobacillus spp. (L. crispatus and L. jensenii), Gardnerella vaginalis, Atopobium vaginae, Bacterial Vaginosis Associated Bacteria-2 (BVAB-2) and Megasphaera-1 FARZANA SPECIES DNA Detected (qualifier value) Farzana species result based on detection of one or more of the following species: C. albicans, C. tropicalis, C. parapsilosis or C. dubliniensis FARZANA KRUSEI DNA Not detected (qualifier value) No Farzana krusei detected FARZANA GLABRATA DNA Not detected (qualifier value) No Farzana glabrata detected TRICHOMONAS VAG DNA Not detected (qualifier value) No Trichomonas vaginalis detected NOTE BD MAX Vaginal Panel has not been evaluated for patients under 18 years old. Results for these patients should be reviewed and assessed in accordance with clinical presentation to determine patient diagnosis. Normal [facility] Comment on above: Performed By: #### V PPCR #### [facility] ([id number]) [address] [place] [address], [address] [place] [address] Covid-19 PCR (CVDTB)on 07-23 SARS-CoV-2 (COVID-19) RNA UGO+probe Ql (Unsp spec) Not detected Normal NOT DETECTED [facility] Comment on above: Result Comment: This test is not yet approved or cleared by the [place] FDA. When there are no FDA-approved or cleared tests available, and other criteria are met, FDA can make tests available under an emergency access mechanism called an Emergency Use Authorization (EUA). The EUA for this test is supported by the Assistant Housekeeping Manager of Health and Human Service's (HHS's) declaration that circumstances exist to justify the emergency use of in vitro diagnostics for the detection and/or diagnosis of the virus that causes COVID-19. This EUA will remain in effect (meaning this test can be used) for the duration of the COVID-19 declaration justifying emergency of IVDs, unless it is terminated or revoked by FDA (after which the test may no longer be used). When diagnostic testing is negative, the possibility of a false negative should be considered in the context of a patient's recent exposures and the presence of clinical signs and symptoms consistent with SARS-CoV-2. Performed By: #### C VDTB #### [facility] [address] [place] [address] Dr. Morena Heredia THYROID ANTIBODIESon Thyroglobulin Antibody <1.0 Normal 0.0-0.9 [facility] Comment on above: Result Comment: Thyr oglobulin Antibody measured by [employer] Performed By: #### T HYRABS #### [facility] [address] [place] [address] Dr. Morena Heredia Thyroid Peroxidase (TPO) Ab <8 Normal 0-34 [facility] Comment on above: Performed By: #### T HYBS #### [facility] [facility] [address] [place] [address] Dr. Morena Heredia CBC AUTO DIFFon 12-16-2021 BASO # 0.1 103/ul Normal 0.0-0.1 [facility] [place] Comment on above: Performed By: #### C BC #### [facility] [address] [place] [address] Dr. Morena Heredia Basophils/100 WBC (Bld) 1.1 % Normal 0.2-2.0 [facility] [place] Comment on above: Performed By: #### C BC #### [facility] [address] [place] [address] Dr. Morena Heredia EO # 0.3 103/ul Normal 0.0-0.7 [facility] [place] Comment on above: Performed By: #### C BC #### [facility] [address] [place] [address] Dr. Morena Heredia Eosinophils/100 WBC (Bld) 4.4 % Normal 0.9-7.0 [facility] [place] Comment on above: Performed By: #### C BC #### [facility] [address] [place] [address] Dr. Morena Heredia Erythrocyte distribution width (RBC) [Ratio] 15.2 % Critically high 11.0-15.0 [facility] [place] Comment on above: Performed By: #### C BC #### [facility] [address] [place] [address] Dr. Morena Heredia Hematocrit (Bld) [Volume fraction] 41.2 % Normal 36.0-48.0 [facility] [place] Comment on above: Performed By: #### C BC #### [facility] [address] [place] [address] Dr. Morena Heredia Hemoglobin (Bld) [Mass/Vol] 12.8 g/dL Normal 12.0-16.0 [facility] [place] Comment on above: Performed By: #### C BC #### [facility] [address] [place] [address] Dr. Morena Heredia IG # 0.01 10e3/ul Normal 0.00-0.03 [facility] [place] Comment on above: Performed By: #### C BC #### [facility] [address] [place] [address] Dr. Morena Heredia IG % 0.2 % Normal 0.0-0.5 [facility] [place] Comment on above: Performed By: #### C BC #### [facility] [address] [place] [address] Dr. Morena Heredia LYMPH # 2.5 103/ul Normal 1.2-3.8 [facility] [place] Comment on above: Performed By: #### C BC #### [facility] [address] [place] [address] Dr. Morena Heredia Lymphocytes/100 WBC (Bld) 43.3 % Normal 20.5-60.0 [facility] [place] Comment on above: Performed By: #### C BC #### [facility] [address] [place] [address] Dr. Morena Heredia MANUAL DIFF REQ NO Normal [facility] Comment on above: Performed By: #### C BC #### [facility] [address] [place] [address] Dr. Morena Heredia MCH (RBC) [Entitic mass] 26.3 pg Critically low 26.7-34.0 [facility] [place] Comment on above: Performed By: #### C BC #### [facility] [address] [address] [address] Morena Heredia MCHC (RBC) [Mass/Vol] 31.1 g/dL Normal 29.9-35.2 [facility] [place] Comment on above: Performed By: #### C BC #### [facility] [address] [address] [address] Morena Heredia MCV (RBC) [Entitic vol] 84.8 fL Normal 81.0-99.0 [facility] [place] Comment on above: Performed By: #### C BC #### [facility] [address] [place] [address] Dr. Morena Heredia MONO # 0.4 103/ul Normal 0.3-0.8 [facility] [place] Comment on above: Performed By: #### C BC #### [facility] [address] [place] [address] Dr. Morena Heredia Monocytes/100 WBC (Bld) 6.3 % Normal 1.7-12.0 [facility] [place] Comment on above: Performed By: #### C BC #### [facility] [address] [place] [address] Dr. Morena Heredia NEUT # 2.5 103/ul Normal 1.4-6.5 [facility] [place] Comment on above: Performed By: #### C BC #### [facility] [address] [place] [address] Dr. Morena Heredia Neutrophils/100 WBC (Bld) 44.7 % Normal 43.0-75.0 [facility] Comment on above: Performed By: #### C BC #### [facility] [address] [place] [address] Dr. Morena Heredia Platelet mean volume (Bld) [Entitic vol] 11.5 fL Normal 9.5-13.5 [facility] Comment on above: Performed By: #### C BC #### [facility] [address] [place] [address] Dr. Morena Heredia PLT 155 103/ul Normal 150-450 [facility] Comment on above: Performed By: #### C BC #### [facility] [address] [place] [address] Dr. Morena Heredia RBC 4.86 106/ul Normal 4.20-5.40 [facility] Comment on above: Performed By: #### C BC #### [facility] [address] [place] [address] Dr. Morena Heredia WBC 5.7 103/ul Normal 4.0-11.0 [facility] Comment on above: Performed By: #### C BC #### [facility] [address] [place] [address] Dr. Morena Heredia FERRITINon 12-16-2021 Ferritin [Mass/Vol] 71.0 ng/mL Normal 6.2-137.0 [facility] Comment on above: Performed By: #### I BERNADETTE, FERR, VITB12, FT4 #### [facility] [address] [place] [address] Dr. Morena Heredia FREE T4on 12-16-2021 Free T4 [Mass/Vol] 1.10 ng/dL Normal 0.76-1.46 [facility] Comment on above: Performed By: #### C MP, TSH #### [facility] [address] [place] [address] Dr. Morena Heredia IRONon 12-16-2021 Iron [Mass/Vol] 47.0 ug/dL Critically low 50.0-170.0 [facility] Comment on above: Performed By: #### C MP, TSH #### [facility] [address] [place] [address] Dr. Morena Heredia PROF 14(COMP METB)on 022 Albumin [Mass/Vol] 4.1 g/dL Normal 3.4-5.0 [facility] Comment on above: Performed By: #### C MP, TSH #### [facility] [address] [place] [address] Dr. Morena Heredia Albumin/Globulin [Mass ratio] 1.1 {ratio} Normal [facility] [place] Comment on above: Performed By: #### C MP, TSH #### [facility] [address] [address] [address] Morena Heredia ALP [Catalytic activity/Vol] 58 U/L Normal 46-116 [facility] Comment on above: Performed By: #### C MP, TSH #### [facility] [address] [address] [address] Morena Heredia ALT [Catalytic activity/Vol] 59 U/L Normal 14-59 [facility] Comment on above: Performed By: #### C MP, TSH #### [facility] [address] [address] [address] Morena Heredia Anion gap [Moles/Vol] 13.3 mmol/L Normal [facility] [place] Comment on above: Performed By: #### C MP, TSH #### [facility] [address] [place] [address] Dr. Morena Heredia AST [Catalytic activity/Vol] 41 U/L Critically high 15-37 [facility] [place] Comment on above: Performed By: #### C MP, TSH #### [facility] [address] [place] [address] Dr. Morena Heredia Bilirubin [Mass/Vol] 0.4 mg/dL Normal 0.2-1.0 [facility] [place] Comment on above: Performed By: #### C MP, TSH #### [facility] [address] [place] [address] Dr. Morena Heredai Calcium [Mass/Vol] 9.2 mg/dL Normal 8.5-10.1 [facility] Comment on above: Performed By: #### C MP, TSH #### [facility] [address] [place] [address] Dr. Morena Heredia Chloride [Moles/Vol] 93 mmol/L Critically low 98-107 [facility] Comment on above: Performed By: #### C MP, TSH #### [facility] [address] [address] [address] Morena Heredia CO2 [Moles/Vol] 29.2 mmol/L Normal 21.0-32.0 [facility] Comment on above: Performed By: #### C MP, TSH #### [facility] [address] [address] [address] Morena Heredia Creatinine [Mass/Vol] 1.04 mg/dL Critically high 0.55-1.02 [facility] [place] Comment on above: Performed By: #### C MP, TSH #### [facility] [address] [address] [address] Morena Heredia EGFR-AF NIUEAN >60 Normal >=60 [facility] Comment on above: Performed By: #### C MP, TSH #### [facility] [address] [address] [address] Morena Heredia EGFR-NON AF NIUEAN >60 Normal >=60 [facility] [place] Comment on above: Performed By: #### C MP, TSH #### [facility] [address] [place] [address] Dr. Morena Heredia Globulin (S) [Mass/Vol] 3.8 g/dL Normal [facility] [place] Comment on above: Performed By: #### C MP, TSH #### [facility] [address] [address] [address] Morena Heredia Glucose [Mass/Vol] 109 mg/dL Critically high 74-106 [facility] Comment on above: Performed By: #### C MP, TSH #### [facility] [address] [place] [address] Dr. Morena Heredia Potassium [Moles/Vol] 4.5 mmol/L Normal 3.5-5.1 [facility] [place] Comment on above: Performed By: #### C MP, TSH #### [facility] [address] [place] [address] Dr. Morena Heredia Protein [Mass/Vol] 7.9 g/dL Normal 6.1-8.2 [facility] Comment on above: Performed By: #### C MP, TSH #### [facility] [address] [place] [address] Dr. Morena Heredia Sodium [Moles/Vol] 131 mmol/L Critically low 136-145 [facility] Comment on above: Performed By: #### C MP, TSH #### [facility] [address] [place] [address] Dr. Morena Heredia Urea nitrogen [Mass/Vol] 14.0 mg/dL Normal 7.0-18.0 [facility] [place] Comment on above: Performed By: #### C MP, TSH #### [facility] [address] [place] [address] Dr. Morena Heredia Urea nitrogen/Creatinine [Mass ratio] 13.5 mg/mg Normal [facility] [place] Comment on above: Performed By: #### C MP, TSH #### [facility] [address] [place] [address] Dr. Morena Heredia TSHon 12-16-2021 TSH 2.484 uIU/mL Normal 0.470-4.680 [facility] Comment on above: Performed By: #### C MP, TSH #### [facility] [address] [place] [address] Dr. Morena Heredia TSH RANGE SEE BELOW Normal [facility] Comment on above: Result Comment: <0.3 4 UIU/ml HYPERTHYROID 0.34-5.60 UIU/ml EUTHYROID >5.60 UIU/ml HYPOTHYROID Performed By: #### C MP, TSH #### [facility] [address] [place] [address] Dr. Morena Heredia VITAMIN B12on 12-16-2021 Cobalamin (Vitamin B12) [Mass/Vol] 478.0 pg/mL Normal 239.0-931.0 [facility] [place] Comment on above: Performed By: #### C MP, TSH #### [facility] [address] [place] [address] Dr. Morena Heredia GLYCOHEMOGLOBIN A1Con 2021 ADA RECOMMENDATION ADA THERAPEUTIC TARGET 6.0 - 7.0 ACTION SUGGESTED > 7.0 Normal [facility] [place] Comment on above: Performed By: #### C MP, TSH #### [facility] [address] [place] [address] Dr. Morena Heredia Glucose [Mass/Vol] 186 mg/dL Normal [facility] Comment on above: Performed By: #### C MP, TSH #### [facility] [address] [place] [address] Dr. Morena Heredia HbA1c (Bld) [Mass fraction] 8.1 % Critically high <=6.0 [facility] [place] Comment on above: Performed By: #### C MP, TSH #### [facility] [address] [place] [address] Dr. Morena Heredia PROF 14(COMP METB)on 022 Albumin [Mass/Vol] 3.7 g/dL Normal 3.4-5.0 [facility] Comment on above: Performed By: #### C MP #### [facility] [address] [place] [address] Dr. Morena Heredia Albumin/Globulin [Mass ratio] 0.9 {ratio} Normal [facility] [place] Comment on above: Performed By: #### C MP #### [facility] [address] [place] [address] Dr. Morena Heredia ALP [Catalytic activity/Vol] 69 U/L Normal 46-116 [facility] [place] Comment on above: Performed By: #### C MP #### [facility] [address] [place] [address] Dr. Morena Heredia ALT [Catalytic activity/Vol] 99 U/L Critically high 14-59 [facility] Comment on above: Performed By: #### C MP #### [facility] [address] [place] [address] Dr. Morena Heredia Anion gap [Moles/Vol] 13.9 mmol/L Normal [facility] Comment on above: Performed By: #### C MP #### [facility] [address] [place] [address] Dr. Morena Heredia AST [Catalytic activity/Vol] 61 U/L Critically high 15-37 [facility] [place] Comment on above: Performed By: #### C MP #### [facility] [address] [place] [address] Dr. Morena Heredia Bilirubin [Mass/Vol] 0.3 mg/dL Normal 0.2-1.3 [facility] [place] Comment on above: Performed By: #### C MP #### [facility] [address] [place] [address] Dr. Morena Heredia Calcium [Mass/Vol] 9.2 mg/dL Normal 8.5-10.1 [facility] Comment on above: Performed By: #### C MP #### [facility] [address] [address] [address] Morena Heredia Chloride [Moles/Vol] 98 mmol/L Normal 98-107 [facility] [place] Comment on above: Performed By: #### C MP #### [facility] [address] [place] [address] Dr. Morena Heredia CO2 [Moles/Vol] 27.4 mmol/L Normal 22.0-30.0 [facility] Comment on above: Performed By: #### C MP #### [facility] [address] [place] [address] Dr. Morena Heredia Creatinine [Mass/Vol] 1.02 mg/dL Normal 0.52-1.04 [facility] [place] Comment on above: Performed By: #### C MP #### [facility] [address] [place] [address] Dr. Morena Heredia EGFR-AF NIUEAN >60 Normal >=60 [facility] Comment on above: Performed By: #### C MP #### [facility] [address] [place] [address] Dr. Morena Heredia EGFR-NON AF NIUEAN 60 mL/min/1.73m2 Normal >=60 [facility] [place] Comment on above: Performed By: #### C MP #### [facility] [address] [place] [address] Dr. Morena Heredia Globulin (S) [Mass/Vol] 4.1 g/dL Normal [facility] [place] Comment on above: Performed By: #### C MP #### [facility] [address] [place] [address] Dr. Morena Heredia Glucose [Mass/Vol] 152 mg/dL Critically high 74-106 [facility] Comment on above: Performed By: #### C MP #### [facility] [address] [place] [address] Dr. Morena Heredia Potassium [Moles/Vol] 4.3 mmol/L Normal 3.4-5.0 [facility] [place] Comment on above: Performed By: #### C MP #### [facility] [address] [address] [address] Morena Heredia Protein [Mass/Vol] 7.8 g/dL Normal 6.1-8.2 [facility] Comment on above: Performed By: #### C MP #### [facility] [address] [address] [address] Morena Heredia Sodium [Moles/Vol] 135 mmol/L Critically low 137-145 [facility] Comment on above: Performed By: #### C MP #### [facility] [address] [address] [address] Morena Heredia Urea nitrogen [Mass/Vol] 12.0 mg/dL Normal 7.0-18.0 [facility] [place] Comment on above: Performed By: #### C MP #### [facility] [address] [address] [address] Morena Heredia Urea nitrogen/Creatinine [Mass ratio] 11.8 mg/mg Normal [facility] [place] Comment on above: Performed By: #### C MP #### [facility] [address] [address] [address] Morena Heredia VITAMIN D 25 OHon 11-23-2021 VIT D 25-OH 17.6 ng/mL Normal [facility] Comment on above: Performed By: #### C MP, TSH #### [facility] [address] [place] [address] Dr. Morena Heredia VIT D RANGES SEE BELOW Normal [facility] Comment on above: Result Comment: <20 ng/mL Vit D deficient 20 - <30 ng/mL Vit D insufficient 30 - 100 ng/mL Vit D sufficient >100 ng/mL Potential Toxicity Performed By: #### C MP, TSH #### [facility] [address] [place] [address] Dr. Morena Heredia PTH INTACTon 08-28-2021 PTH, Intact 28 pg/mL Normal 15-65 [facility] [place] Comment on above: Performed By: #### P THINT #### [facility] [address] [address] [address] Morena Heredia VIT D 25-OH LABCORPon 2021 Vitamin D, 25-Hydroxy 16.2 ng/mL Critically low 30.0-100.0 [facility] Comment on above: Result Comment: Gi min D deficiency has been defined by the [place] [employer] and an Endocrine Society practice guideline as a level of serum 25-OH vitamin D less than 20 ng/mL (1,2). The Endocrine Society went on to further define vitamin D insufficiency as a level between 21 and 29 ng/mL (2). 1. IOM ([place] [employer]). 2010. Dietary reference intakes for calcium and D. [place]: The National Academies Press. 2. Margaret MF, Citlali SMITH, Nay PERRY, et al. Evaluation, treatment, and prevention of vitamin D deficiency: an Endocrine Society clinical practice guideline. JCEM. 2010; 96(7):1911-30. Performed By: #### C MP, TSH #### [facility] [address] [address] [address] Morena Heredia FREE T4on 08-27-2021 Free T4 [Mass/Vol] 1.17 ng/dL Normal 0.78-2.19 [facility] Comment on above: Performed By: #### F T4 #### [facility] [address] [address] [address] Morena Heredia GLYCOHEMOGLOBIN A1Con 2021 ADA RECOMMENDATION ADA THERAPEUTIC TARGET 6.0 - 7.0 ACTION SUGGESTED > 7.0 Normal [facility] Comment on above: Performed By: #### A 1C #### [facility] [address] [address] [address] Morena Heredia Glucose [Mass/Vol] 212 mg/dL Normal [facility] Comment on above: Performed By: #### A 1C #### [facility] [address] [place] [address] Dr. Morena Heredia HbA1c (Bld) [Mass fraction] 9.0 % Critically high <=6.0 [facility] Comment on above: Performed By: #### A 1C #### [facility] [address] [place] [address] Dr. Morena Heredia PROF 14(COMP METB)on 022 Albumin [Mass/Vol] 3.9 g/dL Normal 3.5-5.0 [facility] Comment on above: Performed By: #### C MP, TSH #### [facility] [address] [place] [address] Dr. Morena Heredia Albumin/Globulin [Mass ratio] 1.0 {ratio} Normal [facility] [place] Comment on above: Performed By: #### C MP, TSH #### [facility] [address] [place] [address] Dr. Morena Heredia ALP [Catalytic activity/Vol] 92 U/L Normal 38-126 [facility] [place] Comment on above: Performed By: #### C MP, TSH #### [facility] [address] [place] [address] Dr. Morena Heredia ALT [Catalytic activity/Vol] 157 U/L Critically high 9-52 [facility] Comment on above: Performed By: #### C MP, TSH #### [facility] [address] [place] [address] Dr. Morena Heredia Anion gap [Moles/Vol] 16.3 mmol/L Normal [facility] Comment on above: Performed By: #### C MP, TSH #### [facility] [address] [place] [address] Dr. Morena Heredia AST [Catalytic activity/Vol] 127 U/L Critically high 14-36 [facility] [place] Comment on above: Performed By: #### C MP, TSH #### [facility] [address] [place] [address] Dr. Morena Heredia Bilirubin [Mass/Vol] 0.3 mg/dL Normal 0.2-1.3 [facility] Comment on above: Performed By: #### C MP, TSH #### [facility] [address] [place] [address] Dr. Morena Heredia Calcium [Mass/Vol] 9.5 mg/dL Normal 8.4-10.2 [facility] Comment on above: Performed By: #### C MP, TSH #### [facility] [address] [address] [address] Morena Heredia Chloride [Moles/Vol] 92 mmol/L Critically low 98-107 [facility] [place] Comment on above: Performed By: #### C MP, TSH #### [facility] [address] [address] [address] Morena Heredia CO2 [Moles/Vol] 24.9 mmol/L Normal 22.0-30.0 [facility] Comment on above: Performed By: #### C MP, TSH #### [facility] [address] [address] [address] Morena Heredia Creatinine [Mass/Vol] 1.13 mg/dL Critically high 0.52-1.04 [facility] Comment on above: Performed By: #### C MP, TSH #### [facility] [address] [place] [address] Dr. Morena Heredia EGFR-AF NIUEAN >60 Normal >=60 [facility] Comment on above: Performed By: #### C MP, TSH #### [facility] [address] [address] [address] Morena Heredia EGFR-NON AF NIUEAN 53 mL/min/1.73m2 Critically low >=60 [facility] Comment on above: Performed By: #### C MP, TSH #### [facility] [address] [place] [address] Dr. Morena Heredia Globulin (S) [Mass/Vol] 4.1 g/dL Normal [facility] Comment on above: Performed By: #### C MP, TSH #### [facility] [address] [address] [address] Morena Heredia Glucose [Mass/Vol] 323 mg/dL Critically high 74-106 [facility] Comment on above: Performed By: #### C MP, TSH #### [facility] [address] [address] [address] Morena Heredia Potassium [Moles/Vol] 4.2 mmol/L Normal 3.4-5.0 [facility] Comment on above: Performed By: #### C MP, TSH #### [facility] [address] [address] [address] Morena Heredia Protein [Mass/Vol] 8.0 g/dL Normal 6.1-8.2 [facility] Comment on above: Performed By: #### C MP, TSH #### [facility] Laboratory [address] [address] [address] Morena Heredia Sodium [Moles/Vol] 129 mmol/L Critically low 137-145 Th [facility] Comment on above: Performed By: #### C MP, TSH #### [facility] [address] [address] [address] Morena Heredia Urea nitrogen [Mass/Vol] 20.0 mg/dL Critically high 7.0-17.0 [facility] Comment on above: Performed By: #### C MP, TSH #### [facility] [address] [place] [address] Dr. Morena Heredia Urea nitrogen/Creatinine [Mass ratio] 17.7 mg/mg Normal [facility] Comment on above: Performed By: #### C MP, TSH #### [facility] [address] [address] [address] Morena Heredia TSHon 08-27-2021 TSH 5.049 uIU/mL Critically high 0.470-4.680 [facility] Comment on above: Performed By: #### C MP, TSH #### [facility] [address] [place] [address] Dr. Morena Heredia TSH RANGE SEE BELOW Normal [facility] Comment on above: Result Comment: <0.3 4 UIU/ml HYPERTHYROID 0.34-5.60 UIU/ml EUTHYROID >5.60 UIU/ml HYPOTHYROID Performed By: #### C MP, TSH #### [facility] [address] [place] [address] Dr. Morena Heredia Glucose Poct Glucometerson 0 03-05-2021 Commemt1 Glu2: Cleaned Meter Normal [facility] Comment on above: Result Comment: PERF ORMED BY: [facility] [address] [address] PATHOLOGIST BASKET ASSEMBLER MARY CABAN M.D. Performed By: #### G HAZEL #### Point of Care testing , Glucose [Mass/Vol] 213 mg/dL [facility] Comment on above: Result Comment: [facility] Glucose Reference Range is dependent on time and content of last meal. Glucose of more than 200 mg/dL in a nonstressed, ambulatory subject supports the diagnosis of Diabetes Mellitus. Performed By: #### G HAZEL #### Point of Care testing , Bony 03-05-2021 L - -------- Specimen: [id number] Received: 03/05/21 Status: TOSHAPilo Master Num: [id number] Spec Type: Surgical Subm Dr: Yuniel Brown Jr, DO Tissues: A Colon Biopsy (RANDOM COLON) Procedures: HE Stain/2, Gross/Micro L4 -------- Patient Age/Sex Location Account Attending Physician -------- Zelda Sanchez 40/F [id number] Yuniel Brown Jr, DO -------- SPEC NUM: [id number] RECD: 03/05/21 STATUS: RODNEY THAO NUM: [id number] MEREDITH: 03/05/21 DR: Yuniel Brown Jr, DO ENTERED: 03/05/21 [facility] DR: SPEC TYPE: Surgical DEPT: S ORDERED: HE Stain/2, Gross/Micro L4 ORDERED: HE Stain/2, Gross/Micro L4 Pathological Diagnosis Random colon biopsy: Colonic mucosa, no significant histopathologic changes. Gross Description Received in formalin, labeled with the patient's name, identifers, and random colon biopsy are two quiñonez?pink semitranslucent tissue bits 0.3 cm and 0.5 cm in greatest dimension. They are submitted in total one cassette. Microscopic Description Two H E reviewed. Microscopic examination confirms the diagnosis. CPT Codes 63410 -------- -------- Specimen: [id number] Received: 03/05/21 Status: RODNEY Thao Num: [id number] Spec Type: Surgical Subm Dr: Yuniel Brown Jr, DO Tissues: A Colon Biopsy (RANDOM COLON) Procedures: HE Stain/2, Gross/Micro L4 -------- Patient: Zelda Sanchez [id number] (Continued) -------- Signed (signature on file) Nickolas Sexton MD 03/06/21 1034 Normal [facility] COVID[facility]19 [place] [facility] [place] [facility] SARS-CoV-2 (COVID-19) RNA UGO+probe Ql (Unsp spec) Negative Normal Negative [facility] Comment on above: Order Comment: Healt hcare Worker?: N Result Comment: Testing for SARS-CoV-2 by RT-PCR This test was developed and its performance characteristics determined by [employer]) and validated at the [facility]. This test has not been FDA cleared or approved. This test has been authorized by FDA under an Emergency Use Authorization (EUA). This test has been validated in accordance with the FDA's Guidance Document (Policy for Diagnostics Testing in Laboratories Certified to Perform High Complexity Testing under CLIA prior to Emergency Use Authorization for Coronavirus Disease-2019 during the Public Health Emergency) issued on November 22, 2019. This test is only authorized for the duration of time the declaration that circumstances exist justifying the authorization of the emergency use of in vitro diagnostic tests for detection of SARS-CoV-2 virus and/or diagnosis of COVID-19 infection under section 564(b)(1) of the Act, 21 U.S.C. 360bbb-3(b)(1), unless the authorization is terminated or revoked sooner. PERFORMED BY: [place] [address] PATHOLOGIST BASKET ASSEMBLER MARY CABAN M.D. Performed By: #### C OVID 19 [place] [facility] [place] #### [id number] [facility] CNOVon 03-14-2017 CNOV Office Visit ([id number]) ----ZELDA SANCHEZ ([id number]) 1980 FDate Time Provider Department03/14/17 2:30 PM HECTOR RUSSELL [id number] During your visit today, we recorded the following information about you: Blood pressure Weight Height Last Period 134/88 108.7 kg 1.524 m 02/14/17Hector Russell MD 03/14/2017 5:01 PM SignedSUBJECTIVE: Zelda Sanchez is a 36 year old female Patient presents with:Consult Pt was told to have severe scar tissue at the time of an attempted TL.She is here asking for a hysterectomy due to very heavy periods that areaffecting her life.She had x 2.CURRENT MEDICATIONS:Current Outpatient Prescriptions:lisinop ril-hydrochlorothiazi de (PRINZIDE, ZESTORETIC) 20-25 mg per tablet Take1 tablet by mouth once daily.lisinopril-hydr ochlorothiazide (PRINZIDE,ZESTORETIC) 10-12.5 mg per tablet Take1 tablet by mouth once daily.No current facility-administered medications for this visit.Reviewed:PAST SURGICAL HISTORYNo date: NONEPAST MEDICAL HISTORYDiagnosis Date- HTN (hypertension)- Menorrhagia- Pelvic adhesionsSocial History Marital status: Spouse name: Years of education: Number of children:Social History Main Topics Smoking status: Former Smoker Packs/day: 0.00 Years: 0.00 Smokeless status: Never Used Alcohol use: Yes Comment: social Drug use: No Sexual activity: Not Currently control/protection: AbstinenceReview of patient's allergies indicates no known allergies.REVIEW OF SYSTEMS:GENERAL: No weight loss, malaise or feversHEENT: Negative for frequent or significant headaches, No changes in hearing orvision, no nose bleeds or other nasal problemsNECK: Negative for lumps, goiter, pain and significant neck swellingRESPIRATORY: Negative for cough, hemoptysis, wheezing, COPD, dyspnea orshortness of breathCARDIOVASCULAR: Negative for chest pain, leg swelling, hypertension, CHF orpalpitationsGI: No nausea, vomiting, or diarrheaPHYSICAL EXAMINATION:BP 134/88 Ht 5' 0ANDquot; (1.52m) Wt 239 lb 9.6 oz (108.7kg) LMP 02/14/2017 BMI 46.79 kg/(m2).GENERAL APPEARANCE: pleasant, well developed, well nourished, white female inno apparent distressNECK: Full range of motion, no adenopathy, thyroid normal, no goiter andlymphnodes normal, no lymphadenopathyASSESS MENT/PLAN:1. Menorrhagia with regular cycle - ICD9: 626.2, ICD10: N92.0Explained to pt that the best option would be a Mirena IUD.states that she prefers hysterectomy.Advised that insurance might not approve it.Advised her that I do not do TLH and that it will have to be an open BRAD.She wants to think about her options and decide.Hector Russell, MDReferring Provider: RASHEED DUFFY [[id number]]Allergies As of Date: 03/14/2017(No Known Allergies)Date Reviewed: 03/14/2017Reviewed by: Dahiana Arteaga Ma - Fully AssessedReason for Visit: Consult [173]Primary Visit Diagnosis:Menorrhagia with regular cycle [N92.0]Prescriptions as of 03/14/2017 Sig: LISINOPRIL 20 MG-HYDROCHLOROT* Take 1 tablet by mouth once d* LISINOPRIL 10 MG-HYDROCHLOROT* Take 1 tablet by mouth once d*Problem List As Of Date: 03/14/2017(None)Cesar er Number: [id number] Status:Closed by HECTOR RUSSELL MD on 03/14/17 [facility] PROGRESSon 03-14-2017 PROGRESS HNO ID: [id number]: Hector RamonrService: (none)Author Type: PhysicianType: Progress NotesFiled: 03/14/2017 5:01 PMNote Text:SUBJECTIVE: Zelda Sanchez is a 36 year old female Patient presents with:Consult Pt was told to have severe scar tissue at the time of an attempted TL.She is here asking for a hysterectomy due to very heavy periods that areaffecting her life.She had x 2.CURRENT MEDICATIONS:Current Outpatient Prescriptions:lisinop ril-hydrochlorothiazi de (PRINZIDE, ZESTORETIC) 20-25 mg per tabletTake 1 tablet by mouth once daily.lisinopril-hydr ochlorothiazide (PRINZIDE,ZESTORETIC) 10-12.5 mg per tabletTake 1 tablet by mouth once daily.No current facility-administered medications for this visit.Reviewed:PAST SURGICAL HISTORYNo date: NONEPAST MEDICAL HISTORYDiagnosis Date- HTN (hypertension)- Menorrhagia- Pelvic adhesionsSocial History Marital status: Spouse name: Years of education: Number of children:Social History Main Topics Smoking status: Former Smoker Packs/day: 0.00 Years: 0.00 Smokeless status: Never Used Alcohol use: Yes Comment: social Drug use: No Sexual activity: Not Currently control/protection: AbstinenceReview of patient's allergies indicates no known allergies.REVIEW OF SYSTEMS:GENERAL: No weight loss, malaise or feversHEENT: Negative for frequent or significant headaches, No changes inhearing or vision, no nose bleeds or other nasal problemsNECK: Negative for lumps, goiter, pain and significant neck swellingRESPIRATORY: Negative for cough, hemoptysis, wheezing, COPD, dyspnea orshortness of breathCARDIOVASCULAR: Negative for chest pain, leg swelling, hypertension, CHFor palpitationsGI: No nausea, vomiting, or diarrheaPHYSICAL EXAMINATION:BP 134/88 Ht 5' 0 (1.52m) Wt 239 lb 9.6 oz (108.7kg) LMP 02/14/2017 BMI 46.79 kg/(m2).GENERAL APPEARANCE: pleasant, well developed, well nourished, white femalein no apparent distressNECK: Full range of motion, no adenopathy, thyroid normal, no goiter andlymphnodes normal, no lymphadenopathyASSESS MENT/PLAN:1. Menorrhagia with regular cycle - ICD9: 626.2, ICD10: N92.0Explained to pt that the best option would be a Mirena IUD.states that she prefers hysterectomy.Advised that insurance might not approve it.Advised her that I do not do TLH and that it will have to be an open BRAD.She wants to think about her options and decide.Hector Russell MD [facility] Vital Signs Date Time Vital Sign Value Performing Clinician Anandai brooklyn 09-10-2024 14:17-0500 Body height 149.9 cm Janki Mora GAS USAGE METER CLERK Work Phone: [facility] 09-10-2024 14:17-0500 Body mass index (BMI) [Ratio] 42.6 kg/m2 Janki Mora GAS USAGE METER CLERK Work Phone: [facility] 09-10-2024 14:17-0500 Body temperature 98.29 [degF] Janki Mora GAS USAGE METER CLERK Work Phone: [facility] 09-10-2024 14:17-0500 Body weight 95.66 kg Janki Mora GAS USAGE METER CLERK Work Phone: [facility] 09-10-2024 14:17-0500 Diastolic blood pressure 76 mm[Hg] Janki Mora GAS USAGE METER CLERK Work Phone: [facility] 09-10-2024 14:17-0500 Heart rate 83 /min Janki Mora GAS USAGE METER CLERK Work Phone: [facility] 09-10-2024 14:17-0500 Respiratory rate 20 /min Janki Mora GAS USAGE METER CLERK Work Phone: [facility] 09-10-2024 14:17-0500 SaO2% (BldA) [Mass fraction] 94 % Janki Shawnholz GAS USAGE METER CLERK Work Phone: [facility] 09-10-2024 14:17-0500 Systolic blood pressure 116 mm[Hg] Janki Júniorhholz GAS USAGE METER CLERK Work Phone: [facility] 07-30-2024 13:56-0500 Body height 149.9 cm Janki Júniorhholz GAS USAGE METER CLERK Work Phone: [facility] 07-30-2024 13:56-0500 Body mass index (BMI) [Ratio] 42.58 kg/m2 Janki Aichholz GAS USAGE METER CLERK Work Phone: [facility] 07-30-2024 13:56-0500 Body temperature 98.1 [degF] Janki Júniorhholz GAS USAGE METER CLERK Work Phone: [facility] 07-30-2024 13:56-0500 Body weight 95.62 kg Janki Júniorhholz GAS USAGE METER CLERK Work Phone: [facility] 07-30-2024 13:56-0500 Diastolic blood pressure 70 mm[Hg] Janki Aichholz GAS USAGE METER CLERK Work Phone: [facility] 07-30-2024 13:56-0500 Heart rate 90 /min Janki Aichholz GAS USAGE METER CLERK Work Phone: [facility] 07-30-2024 13:56-0500 Respiratory rate 22 /min Janki Aichholz GAS USAGE METER CLERK Work Phone: [facility] 07-30-2024 13:56-0500 SaO2% (BldA) [Mass fraction] 99 % Janki Aichholz GAS USAGE METER CLERK Work Phone: [facility] 07-30-2024 13:56-0500 Systolic blood pressure 110 mm[Hg] Janki Aichholz GAS USAGE METER CLERK Work Phone: [facility] 05-29-2024 14:06-0400 Body height 149.9 cm Janki Aichholz GAS USAGE METER CLERK Work Phone: [facility] 05-29-2024 14:06-0400 Body mass index (BMI) [Ratio] 44.64 kg/m2 Janki Mora GAS USAGE METER CLERK Work Phone: [facility] 05-29-2024 14:06-0400 Body temperature 98.8 [degF] Janki Odonnellz GAS USAGE METER CLERK Work Phone: [facility] 05-29-2024 14:06-0400 Body weight 100.25 kg Janki Odonnellz GAS USAGE METER CLERK Work Phone: [facility] 05-29-2024 14:06-0400 Diastolic blood pressure 76 mm[Hg] Janki Odonnellz GAS USAGE METER CLERK Work Phone: [facility] 05-29-2024 14:06-0400 Heart rate 91 /min Janki Odonnellkostas GAS USAGE METER CLERK Work Phone: [facility] 05-29-2024 14:06-0400 Respiratory rate 20 /min Janki Mora GAS USAGE METER CLERK Work Phone: [facility] 05-29-2024 14:06-0400 SaO2% (BldA) [Mass fraction] 96 % Janki Odonnellz GAS USAGE METER CLERK Work Phone: [facility] 05-29-2024 14:06-0400 Systolic blood pressure 110 mm[Hg] Janki Odonnellz GAS USAGE METER CLERK Work Phone: [facility] Healthcare Encounters Encounter Date Encounter Type Care Provider Facility Start: 09-10-2024 End: 09-10-2024 Bamboo flowsheet Janki Escobarjoe GAS USAGE METER CLERK Work Phone: [facility] Start: 09-10-2024 End: 09-10-2024 Bamboo flowsheet Janki Escobarjoe GAS USAGE METER CLERK Work Phone: [facility] Start: 09-10-2024 End: 09-10-2024 Office outpatient visit 25 minutes Janki Callejaspako GAS USAGE METER CLERK Work Phone: [facility] Comment on above: Anxiety and depressi on (CMS/HCC) (Primary Dx); Morbid (severe) obesity due to excess calories (CMS/HCC); Body mass index (BMI) 40.0-44.9, adult (CMS/HCC); Malignant neoplasm of unspecified ovary (CMS/HCC); Primary hypertension (CMS/HCC); Type 2 diabetes mellitus without complication, without long-term current use of insulin (CMS/HCC); Mixed hyperlipidemia (CMS/HCC) Start: 09-10-2024 End: 09-10-2024 ambulatory JANKI AICHHOLZ Not Available Start: 08-09-2024 End: 08-09-2024 Refill Janki Aichholz GAS USAGE METER CLERK Work Phone: [facility] Comment on above: Other secondary gout , multiple sites, unspecified chronicity (Primary Dx) Start: 07-30-2024 End: 07-30-2024 Bamboo flowsheet Janki Aichholz GAS USAGE METER CLERK Work Phone: [facility] Start: 07-30-2024 End: 07-30-2024 Bamboo flowsheet Janki Aichholz GAS USAGE METER CLERK Work Phone: [facility] Start: 07-30-2024 End: 07-30-2024 Office outpatient visit 25 minutes Janki Bellez GAS USAGE METER CLERK Work Phone: [facility] Comment on above: Type 2 diabetes mare itus without complication, without long- term current use of insulin (CMS/HCC) (Primary Dx); Primary hypertension (CMS/HCC); Gastroesophageal reflux disease without esophagitis; Anxiety and depression (CMS/HCC); Morbid obesity (CMS/HCC); Mixed hyperlipidemia (CMS/HCC); Malignant neoplasm of ovary, unspecified laterality (CMS/HCC); Psoriasis (CMS/HCC) Start: 07-30-2024 End: 07-30-2024 ambulatory JANKI AICHHOLZ Not Available Start: 06-05-2024 End: 06-05-2024 Refill Janki Aichholz GAS USAGE METER CLERK Work Phone: [facility] Comment on above: Anxiety and depressi on (CMS/HCC); Gastroesophageal reflux disease without esophagitis; Primary hypertension (CMS/HCC); Mixed hyperlipidemia (CMS/HCC); Unspecified abdominal pain Start: 05-29-2024 End: 05-29-2024 Bamboo flowsheet Janki Aichholz GAS USAGE METER CLERK Work Phone: [facility] FM Start: 05-29-2024 End: 05-29-2024 Bamboo flowsheet Janki Aichholz GAS USAGE METER CLERK Work Phone: [facility] FM Start: 05-29-2024 End: 05-29-2024 Office outpatient visit 25 minutes Janki Aichholz GAS USAGE METER CLERK Work Phone: [facility] FM Comment on above: Primary hypertension ([facility]) (Primary Dx); Type 2 diabetes mellitus without complication, without long-term current use of insulin ([facility]); Diarrhea, unspecified type; Morbid obesity ([facility]) Start: 05-29-2024 End: 05-29-2024 ambulatory JANKI AICHHOLZ Not Available Start: 04-11-2024 End: 04-11-2024 Refill Janki Aichholz GAS USAGE METER CLERK Work Phone: [facility] FM Comment on above: Vaginal yeast infect ion Start: 04-10-2024 End: 04-10-2024 Refill Janki Aichholz GAS USAGE METER CLERK Work Phone: [facility] FM Comment on above: Type 2 diabetes mare itus without complication, without long- term current use of insulin ([facility]) Start: 04-09-2024 End: 04-09-2024 ambulatory JANKI AICHHOLZ Not Available Start: 03-07-2024 End: 03-07-2024 ambulatory JANKI AICHHOLZ Not Available Start: 03-02-2024 End: 03-02-2024 ambulatory [facility] Start: 02-22-2024 End: 02-22-2024 ambulatory [facility] Start: 02-22-2024 End: 02-22-2024 ambulatory [facility] Start: 01-25-2024 End: 01-25-2024 ambulatory JANKI AICHHOLZ Not Available Start: 12-13-2023 End: 12-13-2023 ambulatory JANIK AICHHOLZ Not Available Start: 11-29-2023 End: 11-29-2023 ambulatory JANKI AICHHOLZ Not Available Start: 08-18-2022 End: 08-18-2022 ambulatory DOG POUND ATTENDANT JANKI AICHHOLZ Facility:[facility] Start: 12-16-2021 End: 12-17-2021 ambulatory DOG POUND ATTENDANT JANKI AICHHOLZ Facility:[facility] Start: 11-23-2021 End: 11-24-2021 ambulatory DOG POUND ATTENDANT JANKI AICHHOLZ Facility:[facility] Start: 08-27-2021 End: 08-28-2021 ambulatory DOG POUND ATTENDANT JANKI AICHHOLZ Facility:[facility] Start: 03-14-2017 End: 03-15-2017 [facility] Procedures Date Procedure Procedure Detail Performing Clinician Start: 07-30-2024 Hemoglobin glycosyla levon a1c Janki Aichholz GAS USAGE METER CLERK Work Phone: Start: 03-02-2024 Mammography Janki Shawnh olz GAS USAGE METER CLERK Work Phone: Plan of Treatment Date Care Activity Detail Author Start: 03-22-2026 Glaucoma screening Diabetes: R etinopathy Screening [facility] Start: 03-02-2025 Screening for malign ant neoplasm of breast Mammogram [facility] Start: 12-09-2024 Urine screening for protein Diabetes: Urine Protein Screening [facility] Start: 10-28-2024 Hemoglobin A1c measurement Diabetes: Hemoglobin A1C [facility] Start: 09-10-2024 End: 09-10-2024 Patient encounter procedure [facility] Comment on above: Primary hypertension (CMS/HCC) (Primary Dx); Morbid (severe) obesity due to excess calories (CMS/HCC); Body mass index (BMI) 40.0-44.9, adult (CMS/HCC); Malignant neoplasm of unspecified ovary (CMS/HCC); Anxiety and depression (CMS/HCC) Start: 07-30-2024 End: 07-30-2024 [facility] Comment on above: Primary hypertension (CMS/HCC) (Primary Dx); Gastroesophageal reflux disease without esophagitis; Type 2 diabetes mellitus without complication, without long-term current use of insulin (CMS/HCC); Anxiety and depression ([facility]) Start: 07-01-2024 Hemoglobin A1c measurement Diabetes: Hemoglobin A1C [facility] Start: 05-29-2024 End: 05-29-2024 Patient encounter procedure 05/29/2024 2:00 PM EDT Office Visit [facility] [address] [place] [phone] Janki Mora, GAS USAGE METER CLERK [address] [place] [phone] Arrived [facility] Comment on above: Arrived Start: 05-10-2024 End: 05-10-2024 Patient encounter procedure 05/10/2024 1:20 PM EDT Office Visit [facility] [address] [place] [phone] Janki Mora, GAS USAGE METER CLERK [address] [place] [phone] [facility] Start: 04-22-2024 Glaucoma screening Diabetes: R etinopathy Screening [facility] Comment on above: Postponed from 04/12 (Other Patient Reasons) Start: 04-22-2024 Screening for malign ant neoplasm of cervix Cervical Cancer Screening [facility] Comment on above: Postponed from 04/12 (Other Patient Reasons) Start: 2010 Screening for malign ant neoplasm of cervix [facility] Start: 2001 Screening for malign ant neoplasm of cervix Pap Smear [facility] Start: 1990 Glaucoma screening Diabetes: R etinopathy Screening [facility] Payers Date Payer Category Payer Private Health Insurance [id number] 2023 Private Health Insurance [id number] 2023 Medicaid [employer] [place] [id number] 2023-Present [address] [place] [id number] 2023 Medicaid (Managed Care) [facility] MEDICAID [id number] 1980 Unknown [id number] 2.16.840.1.315475.3.579.2. 593 1980 Unknown [id number] 2.16.840.1.779520.3.579.2. 593 1980 Unknown [id number] 2.16.840.1.679535.3.579.2. 593 1980 Unknown [id number] 2.16.840.1.173059.3.579.2. 593 1980 Unknown [id number] 2.16.840.1.574264.3.579.2. 1286 1980 Unknown [id number] 2.16.840.1.013504.3.579.2. 1286 1980 Unknown [id number] 2.16.840.1.144185.3.579.2. 1286 1980 Unknown [id number] 2.16.840.1.587319.3.579.2. 1286 1980 Unknown [id number] 2.16.840.1.938411.3.579.2. 1259 1980 Unknown [id number] 2.16.840.1.678478.3.579.2. 1259 1980 Unknown [id number] 2.16.840.1.901485.3.579.2. 9 1980 Unknown [id number] 2.16.840.1.315851.3.579.2. 1258 1980 Unknown [id number] 2.16.840.1.846437.3.579.2. 1258 1980 Unknown [id number] 2.16.840.1.637115.3.579.2. 1258 1980 Unknown [id number] 2.16.840.1.913344.3.579.2. 1258 1980 Unknown [id number] 2.16.840.1.100386.3.579.2. 1259 Unknown [id number] Social History Date Type Detail Facility Start: 11-29-2023 Tobacco smoking status [facility] Ex-smoke r [facility] End: 08-22-2022 History of tobacco use Current smoker [facility] End: 08-22-2022 History of tobacco use Cigarette Smoker [facility] Start: 11-29-2023 Tobacco use and exposure Smoke less tobacco non-user [facility] Start: 04-09-2024 End: 09-10-2024 Alcoholic beverage intake [facility] ([facility] Start: 12-13-2023 End: 09-10-2024 History of Social function [facility] Start: 12-13-2023 End: 09-10-2024 Social connection and isolation panel [facility] Do you belong to any clubs or organizations such as roman catholic groups, unions, fraternal or athletic groups, or school groups? No [facility] Are you now , , , , never or living with a partner? [facility] How often to you hav e a drink containing alcohol? 2-4 times a month [facility] How many [address] inks containing alcohol do you have on a typical day? 1 or 2 [facility] How often do you hav e 6 or more drinks on 1 occasion? Less than monthly [facility] How hard is it for y ou to pay for the very basics like food, housing, medical care, and heating Very hard [facility] Do you feel stress - tense, restless, nervous, or anxious, or unable to sleep at night because your mind is troubled all the time - these days [OSQ] Very much [facility] (I/We) worried wheth er (my/our) food would run out before (I/we) got money to buy more. Often true [facility] In the past 12 month s, has lack of transportation kept you from medical appointments or from getting medications? No [facility] In the past 12 month s, was there a time when you were not able to pay the mortgage or rent on time? Yes [facility] Start: 11-29-2023 Alcohol Comment coffee: 5-6cups [facility] Start: 1980 Sex assigned at Not on file [facility] Medical Equipment Procedure Code Equipment Code Equipment Origin al Text Equipment Identifier Dates [id number] Start: 06-21-2024 End: 11-07-2024 Clinical Notes 05-29-2024 to 09-10-2024 Janki Mora NP - 09/10/2024 2:38 PM THAO BYRNE - 09/10/2024 2:00 PM Neena Mora NP - 09/10/2024 2:00 PM Neena Mora NP - 09/10/2024 6:34 AM ESTPatient Instructions Note Date & Type Note Facility 09-10-2024 History of Presen t illness Narrative Associated Problem(s): Type 2 diabetes mellitus without complication, without long-term current use of insulin ([facility]) Please check blood pressure daily and record DASH diet Limit caffeine Take medication as directed Contact office if chest pain, pressure, dizziness, shortness of breath, swelling legs Recommend slow position changes A1c 7.4% 07/30/24 ,(04/14 was 9%, 7 months ago 10.1%-great job at reduction) 7 day average-132 14 day average-143 30 day average-145 Fasting 8am was at 131 today Pt has not been contacted by dermatology as of today 09/10 Images from the original note were not included. Zelda Sanchez is a 44 y.o. female presents with chief complaint of Diabetes HPI: 7 day average-132 14 day average-143 30 day average-145 Fasting 8am was at 131 today Pt has not been contacted by dermatology as of today 09/10: psoriasis, has number and pt will call Depression/anxiety: last visit started abilify, in addition to her duloxetine as well: stopped taking the abilify made feel dizzy. Went away since she stopped it. Does not want to try anything in addition to this. No SI/HI Diabetes She presents for her follow-up diabetic visit. She has type 2 diabetes mellitus. Her disease course has been improving. Hypoglycemia symptoms include headaches and nervousness/anxiousness. Pertinent negatives for hypoglycemia include no dizziness, seizures or tremors. Pertinent negatives for diabetes include no blurred vision, no chest pain, no polydipsia, no polyphagia, no polyuria and no visual change. There are no hypoglycemic complications. Pertinent negatives for diabetic complications include no CVA, heart disease or nephropathy. Risk factors for coronary artery disease include diabetes mellitus, hypertension, sedentary lifestyle and obesity. Current diabetic treatment includes oral agent (dual therapy) (GLP 1). Her overall blood glucose range is 130-140 mg/dl. An ROCHELLE inhibitor/angiotensin II receptor lesly is being taken. She does not see a pot washer.Eye exam is current. SUBJECTIVE: MEDICATIONS: Current Outpatient Medications Medication Instructions Alcohol Swabs (B-D SINGLE USE SWABS REGULAR) pads 1 each, Daily ARIPiprazole (ABILIFY) 5 mg, Oral, Daily atorvastatin (LIPITOR) 10 mg, Oral, Nightly Blood Glucose Monitoring Suppl (Blood Glucose System Jasvir) kit 1 kit, Does not apply, Daily dicyclomine (BENTYL) 20 mg, Every 6 hours PRN Drug [place] Unilet Lancets 33G mis USE DIRECTED to test BLOOD SUGAR DAILY DULoxetine (CYMBALTA) 60 mg, Oral, Daily empagliflozin (JARDIANCE) 25 mg, Oral, Daily estradiol (ESTRACE) 0.5 mg, Oral, Daily RT fluconazole (Diflucan) 150 MG tablet 1 pill every 3 days for total of 3 doses glucose blood (True Metrix Blood Glucose Test) test strip 1 each, Other, Daily lisinopril 40 mg, Oral, Daily metFORMIN (GLUCOPHAGE) 1,000 mg, Oral, 2 times daily with meals pantoprazole (PROTONIX) 40 mg, Oral, Daily before breakfast Trulicity 3 mg, Subcutaneous, Every 7 days ALLERGIES: No Known Allergies REVIEW OF SYMPTOMS: Review of Systems Constitutional: Negative for appetite change, chills and fever. HENT: Negative for congestion, ear pain and sore throat. Eyes: Negative for blurred vision, pain, discharge, redness and visual disturbance. Respiratory: Negative for cough, shortness of breath and wheezing. Cardiovascular: Negative for chest pain, palpitations and leg swelling. Gastrointestinal: Negative for abdominal pain, blood in stool, constipation, diarrhea, nausea and vomiting. Genitourinary: Negative for difficulty urinating, dysuria and frequency. Musculoskeletal: Negative for arthralgias, back pain, joint swelling and myalgias. Skin: Negative for rash and wound. Neurological: Positive for headaches. Negative for dizziness, tremors, seizures and syncope. Psychiatric/Behavioral: Negative for behavioral problems, self-injury and suicidal ideas. The patient is nervous/anxious. Depression Hematological: Does not bruise/bleed easily. Endocrine: Negative for polydipsia, polyphagia and polyuria. Allergic/Immunologic: Negative for environmental allergies and food allergies. PAST MEDICAL HISTORY No past medical history on file. Past Surgical History: Procedure Laterality Date INNER EAR SURGERY Right TOTAL ABDOMINAL HYSTERECTOMY W/ BILATERAL SALPINGOOPHORECTOMY family history is not on file. OBJECTIVE: Visit Vitals BP 116/76 (BP Location: Left arm, Patient Position: Sitting, BP Cuff Size: Adult long) Pulse 83 Temp 98.3 F (Temporal) Resp 20 Ht 4' 11 Wt 210 lb 14.4 oz SpO2 94% BMI 42.60 kg/m Smoking Status Former BSA 2 m Physical Exam Vitals and nursing note reviewed. Constitutional: General: She is not in acute distress. Appearance: Normal appearance. HENT: Head: Normocephalic and atraumatic. Right Ear: External ear normal. Left Ear: External ear normal. Nose: Nose normal. Mouth/Throat: Mouth: Mucous membranes are moist. Eyes: Extraocular Movements: Extraocular movements intact. Conjunctiva/sclera: Conjunctivae normal. Neck: Vascular: No carotid bruit. Cardiovascular: Rate and Rhythm: Normal rate and regular rhythm. Pulses: Normal pulses. Heart sounds: Normal heart sounds. Pulmonary: Effort: Pulmonary effort is normal. Breath sounds: Normal breath sounds. No wheezing or rales. Abdominal: General: Bowel sounds are normal. There is no distension. Palpations: Abdomen is soft. There is no mass. Tenderness: There is no abdominal tenderness. Musculoskeletal: General: Normal range of motion. Cervical back: Normal range of motion and neck supple. Right lower leg: No edema. Left lower leg: No edema. Lymphadenopathy: Cervical: No cervical adenopathy. Skin: General: Skin is warm and dry. Capillary Refill: Capillary refill takes 2 to 3 seconds. Findings: No rash. Neurological: General: No focal deficit present. Mental Status: She is alert and oriented to person, place, and time. Psychiatric: Mood and Affect: Mood normal. Behavior: Behavior normal. Thought Content: Thought content normal. Judgment: Judgment normal. ASSESSMENT AND PLAN: No follow-ups on file. Problem List Items Addressed This Visit Malignant neoplasm of unspecified ovary ([facility]) Has had hyst, non compliant with fu with [employer] Encouraged pt to schedule Primary hypertension ([facility]) Please check blood pressure daily and record DASH diet Limit caffeine Take medication as directed Contact office if chest pain, pressure, dizziness, shortness of breath, swelling legs Recommend slow position changes Current med rochelle Relevant Medications lisinopril 40 MG tablet Type 2 diabetes mellitus without complication, without long-term current use of insulin ([facility]) Please check blood pressure daily and record DASH diet Limit caffeine Take medication as directed Contact office if chest pain, pressure, dizziness, shortness of breath, swelling legs Recommend slow position changes A1c 7.4% 07/30/24 ,(04/14 was 9%, 7 months ago 10.1%-great job at reduction) Relevant Medications empagliflozin (Jardiance) 25 MG Dulaglutide (Trulicity) 3 MG/0.5ML solution auto-injector Anxiety and depression ([facility]) - Primary Last appt added meagan, she stopped this d/t dizziness, does not want to try new meds. Does feel that her depression is a huge contributor to her unable to remain working Attempted to file for disability, was denied She does still try to apply for jobs Mixed hyperlipidemia (CMS/HCC) Relevant Medications atorvastatin (Lipitor) 10 MG tablet Morbid (severe) obesity due to excess calories (CMS/HCC) Discussed with patient their BMI (actual, verses recommended). We have also discussed lifestyle modifications: attempts to perform physical activity as chronic conditions allow, also to monitor dietary intake: increasing protein/fruits/veggies and lowering carb intake (unless contraindicated). Limit sodas, juices, and sugary drinks. Also discussed oral medications that can be utilized for weight loss, as well as surgical options for weight loss. Is currently taking trulicity for her DM, and is demonstrating weight loss Current weight loss: 23 pounds Body mass index (BMI) 40.0-44.9, adult (CMS/HCC) Associated Problem(s): Anxiety and depression (CMS/HCC) Last appt added meagan, she stopped this d/t dizziness, does not want to try new meds. Does feel that her depression is a huge contributor to her unable to remain working. Although her other chronic conditions to contribute as well: DM, gout, etc Attempted to file for disability, was denied She does still try to apply for jobs Associated Problem(s): Morbid (severe) obesity due to excess calories (CMS/HCC) Discussed with patient their BMI (actual, verses recommended). We have also discussed lifestyle modifications: attempts to perform physical activity as chronic conditions allow, also to monitor dietary intake: increasing protein/fruits/veggies and lowering carb intake (unless contraindicated). Limit sodas, juices, and sugary drinks. Also discussed oral medications that can be utilized for weight loss, as well as surgical options for weight loss. Is currently taking trulicity for her DM, and is demonstrating weight loss Current weight loss: 23 pounds Associated Problem(s): Malignant neoplasm of unspecified ovary (CMS/HCC) Has had hyst, non compliant with fu with [employer] Encouraged pt to schedule Associated Problem(s): Primary hypertension (CMS/HCC) Please check blood pressure daily and record DASH diet Limit caffeine Take medication as directed Contact office if chest pain, pressure, dizziness, shortness of breath, swelling legs Recommend slow position changes Current med rochelle documented in this encounter [facility] 09-10-2024 Instructions Janki Mora NP - 09/10/2024 2:00 PM EST No changes in meds Keep working on weight loss documented in this encounter [facility] 07-30-2024 History of Presen t illness Narrative Associated Problem(s): Psoriasis (CMS/HCC) Refer to derm, could not see [facility] derm d/t bill not paid Will trial [facility] Associated Problem(s): Malignant neoplasm of ovary (CMS/HCC) Has had hyst, non compliant with fu with [employer] Encouraged pt to schedule Associated Problem(s): Anxiety and depression (CMS/HCC) cont duloxetine to 60mg , will abilify at 5mg daily Many life stressors: single parent, car is not working, soon with autism/bipolar 6 weeks Associated Problem(s): Morbid obesity (CMS/HCC) Discussed with patient their BMI (actual, verses recommended). We have also discussed lifestyle modifications: attempts to perform physical activity as chronic conditions allow, also to monitor dietary intake: increasing protein/fruits/veggies and lowering carb intake (unless contraindicated). Limit sodas, juices, and sugary drinks. Also discussed oral medications that can be utilized for weight loss, as well as surgical options for weight loss. Has lost 23 pounds so far Pt has been having headaches lately Pt is wandering if she has gout Pt is also having dry cracked heels/ bottom of her feet are bleeding. Pt is concerned she is getting psoriasis below the knee, hands and patches on her head (she states she is bleeding and she can not get in to see derm until she pays her bill) 7 day avg-[id number] 14 day avg-[id number] 30 day avg-[id number] Today at 11:28am 183 Images from the original note were not included. Zelda Sanchez is a 44 y.o. female presents with chief complaint of Hypertension HPI: Hypertension This is a chronic problem. The current episode started more than 1 year ago. The problem is unchanged. The problem is controlled. Associated symptoms include headaches. Pertinent negatives include no blurred vision, chest pain, palpitations, peripheral edema or shortness of breath. Risk factors for coronary artery disease include diabetes mellitus, dyslipidemia, obesity and sedentary lifestyle. Past treatments include ROCHELLE inhibitors. The current treatment provides significant improvement. There are no compliance problems. Diabetes She has type 2 diabetes mellitus. Her disease course has been improving. Hypoglycemia symptoms include headaches and nervousness/anxiousness. Pertinent negatives for hypoglycemia include no dizziness, seizures, sleepiness or tremors. Associated symptoms include polydipsia and polyuria. Pertinent negatives for diabetes include no blurred vision, no chest pain, no polyphagia and no visual change. There are no hypoglycemic complications. Symptoms are improving. There are no diabetic complications. Risk factors for coronary artery disease include diabetes mellitus, hypertension, obesity, dyslipidemia and sedentary lifestyle. Current diabetic treatment includes oral agent (dual therapy) (GLP 1). Her overall blood glucose range is 140-180 mg/dl. An ROCHELLE inhibitor/angiotensin II receptor lesly is being taken. Eye exam is current. Psoriasis This is a chronic problem. The current episode started more than 1 year ago. The problem occurs constantly. The problem has been gradually worsening since onset. The affected locations include the scalp, left elbow and right elbow. Associated symptoms include itching and plaques. Nothing aggravates the symptoms. Past treatments include topical steroids. The treatment provided no relief. Depression Visit Type: follow-up Patient presents with the following symptoms: depressed mood, excessive worry, irritability, muscle tension and nervousness/anxiety. Patient is not experiencing: anhedonia, palpitations, shortness of breath, suicidal ideas, suicidal planning and thoughts of . Frequency of symptoms: constantly Severity: moderate Compliance with medications: 76-100% SUBJECTIVE: MEDICATIONS: Current Outpatient Medications Medication Instructions Alcohol Swabs (B-D SINGLE USE SWABS REGULAR) pads 1 each, Daily ARIPiprazole (ABILIFY) 5 mg, Oral, Daily atorvastatin (LIPITOR) 10 mg, Oral, Nightly Blood Glucose Monitoring Suppl (Blood Glucose System Jasvir) kit 1 kit, Does not apply, Daily dicyclomine (BENTYL) 20 mg, Every 6 hours PRN Drug [place] Unilet [facility] DIRECTED to test BLOOD SUGAR DAILY DULoxetine (CYMBALTA) 60 mg, Oral, Daily empagliflozin (JARDIANCE) 25 mg, Oral, Daily estradiol (ESTRACE) 0.5 mg, Oral, Daily RT fluconazole (Diflucan) 150 MG tablet 1 pill every 3 days for total of 3 doses glucose blood (True Metrix Blood Glucose Test) test strip 1 each, Other, Daily lisinopril 40 mg, Oral, Daily metFORMIN (GLUCOPHAGE) 1,000 mg, Oral, 2 times daily with meals pantoprazole (PROTONIX) 40 mg, Oral, Daily before breakfast Trulicity 3 mg, Subcutaneous, Every 7 days ALLERGIES: No Known Allergies REVIEW OF SYMPTOMS: Review of Systems Constitutional: Positive for irritability. Negative for appetite change, chills and fever. HENT: Negative for congestion, ear pain and sore throat. Eyes: Negative for blurred vision, pain, discharge, redness and visual disturbance. Respiratory: Negative for cough, shortness of breath and wheezing. Cardiovascular: Negative for chest pain, palpitations and leg swelling. Gastrointestinal: Negative for abdominal pain, blood in stool, constipation, diarrhea, nausea and vomiting. Genitourinary: Negative for difficulty urinating, dysuria and frequency. Musculoskeletal: Negative for arthralgias, back pain, joint swelling and myalgias. Skin: Positive for itching and rash. Negative for wound. Thickened skin bilat heels, dry and cracked Neurological: Positive for headaches. Negative for dizziness, tremors, seizures and syncope. Psychiatric/Behavioral: Positive for depression. Negative for behavioral problems, self-injury and suicidal ideas. The patient is nervous/anxious. Depression Hematological: Bruises/bleeds easily. Endocrine: Positive for polydipsia and polyuria. Negative for polyphagia. Allergic/Immunologic: Negative for environmental allergies and food allergies. PAST MEDICAL HISTORY History reviewed. No pertinent past medical history. Past Surgical History: Procedure Laterality Date INNER EAR SURGERY Right TOTAL ABDOMINAL HYSTERECTOMY W/ BILATERAL SALPINGOOPHORECTOMY family history is not on file. OBJECTIVE: Visit Vitals BP 110/70 (BP Location: Left arm, Patient Position: Sitting, BP Cuff Size: Adult long) Pulse 90 Temp 98.1 F (Temporal) Resp 22 Ht 4' 11 Wt 210 lb 12.8 oz SpO2 99% BMI 42.58 kg/m Smoking Status Former BSA 2 m Physical Exam Vitals and nursing note reviewed. Constitutional: General: She is not in acute distress. Appearance: Normal appearance. HENT: Head: Normocephalic and atraumatic. Right Ear: External ear normal. Left Ear: External ear normal. Nose: Nose normal. Mouth/Throat: Mouth: Mucous membranes are moist. Eyes: Extraocular Movements: Extraocular movements intact. Conjunctiva/sclera: Conjunctivae normal. Cardiovascular: Rate and Rhythm: Normal rate and regular rhythm. Pulses: Normal pulses. Heart sounds: Normal heart sounds. Pulmonary: Effort: Pulmonary effort is normal. Breath sounds: Normal breath sounds. No wheezing or rales. Abdominal: General: Bowel sounds are normal. There is no distension. Palpations: Abdomen is soft. There is no mass. Tenderness: There is no abdominal tenderness. Musculoskeletal: General: Normal range of motion. Cervical back: Normal range of motion and neck supple. Skin: General: Skin is warm and dry. Capillary Refill: Capillary refill takes 2 to 3 seconds. Findings: No rash (rash c/w psoriasis to bilat elbows, wrist and scalp). Comments: Soles of feet with dry cracked skin, discussed skin care Neurological: General: No focal deficit present. Mental Status: She is alert and oriented to person, place, and time. Psychiatric: Mood and Affect: Mood normal. Behavior: Behavior normal. Thought Content: Thought content normal. Judgment: Judgment normal. ASSESSMENT AND PLAN: Follow up in about 6 weeks (around 09/10/2024) for Recheck. Problem List Items Addressed This Visit Malignant neoplasm of ovary ([facility]) Has had hyst, non compliant with fu with [employer] Encouraged pt to schedule Primary hypertension ([facility]) Please check blood pressure daily and record DASH diet Limit caffeine Take medication as directed Contact office if chest pain, pressure, dizziness, shortness of breath, swelling legs Recommend slow position changes Current med rochelle Relevant Medications lisinopril 40 MG tablet Type 2 diabetes mellitus without complication, without long-term current use of insulin ([facility]) - Primary Please check blood pressure daily and record DASH diet Limit caffeine Take medication as directed Contact office if chest pain, pressure, dizziness, shortness of breath, swelling legs Recommend slow position changes A1c 7.4%, 04/14 was 9%, 7 months ago 10.1%-great job at reduction Relevant Medications Dulaglutide (Trulicity) 3 MG/0.5ML solution auto-injector empagliflozin (Jardiance) 25 MG metFORMIN (Glucophage) 500 MG tablet glucose blood (True Metrix Blood Glucose Test) test strip Other Relevant Orders POCT glycosylated hemoglobin (Hb A1C) docked device (Completed) Anxiety and depression (CMS/HCC) cont duloxetine to 60mg , will abilify at 5mg daily Many life stressors: single parent, car is not working, soon with autism/bipolar 6 weeks Relevant Medications ARIPiprazole (Abilify) 5 MG tablet Mixed hyperlipidemia (CMS/HCC) Relevant Medications atorvastatin (Lipitor) 10 MG tablet Morbid obesity (CMS/HCC) Discussed with patient their BMI (actual, verses recommended). We have also discussed lifestyle modifications: attempts to perform physical activity as chronic conditions allow, also to monitor dietary intake: increasing protein/fruits/veggies and lowering carb intake (unless contraindicated). Limit sodas, juices, and sugary drinks. Also discussed oral medications that can be utilized for weight loss, as well as surgical options for weight loss. Has lost 23 pounds so far Psoriasis ([facility]) Refer to derm, could not see [facility] d/t bill not paid Will trial [facility] Relevant Orders Ambulatory referral to Dermatology Gastroesophageal reflux disease without esophagitis Recommendations: freq small meals, nothing to eat or drink at least 2 hours prior to bed, limit caffeine, alcohol, as well as spicy foods Meds to limit or avoid if possible: NSAIDS Elevate HOB if possible Continue PPI Relevant Medications pantoprazole (ProtoNix) 40 MG EC tablet Associated Problem(s): Type 2 diabetes mellitus without complication, without long-term current use of insulin ([facility]) Please check blood pressure daily and record DASH diet Limit caffeine Take medication as directed Contact office if chest pain, pressure, dizziness, shortness of breath, swelling legs Recommend slow position changes A1c 7.4%, 04/14 was 9%, 7 months ago 10.1%-great job at reduction Associated Problem(s): Gastroesophageal reflux disease without esophagitis Recommendations: freq small meals, nothing to eat or drink at least 2 hours prior to bed, limit caffeine, alcohol, as well as spicy foods Meds to limit or avoid if possible: NSAIDS Elevate HOB if possible Continue PPI Associated Problem(s): Primary hypertension ([facility]) Please check blood pressure daily and record DASH diet Limit caffeine Take medication as directed Contact office if chest pain, pressure, dizziness, shortness of breath, swelling legs Recommend slow position changes Current med rochelle documented in this encounter [facility] 07-30-2024 Instructions Janki Mora NP - 07/30/2024 2:00 PM EST Doing great on your diabetes management and your weight loss, keep up the great work Psoriasis: I will send referral to [facility] in [facility], they should call you, if no call in 10 days call me back Depression and anxiety: continue duloxetine at 60mg, we will add abilify at 5mg daily (ariprazole) Take medication only as directed. If any suicidal thoughts, thoughts of hurting others, or hallucinations contact the office or proceed to the Emergency Room for mental health evaluation. Medication may cause dry mouth, dizziness, and in some cases worsening in depression symptoms. Please contact the office if these occur. documented in this encounter [facility] 05-29-2024 History of Presen t illness Narrative Associated Problem(s): Morbid obesity ([facility]) Has lost 12 pounds, keep up the good work Associated Problem(s): Type 2 diabetes mellitus without complication, without long-term current use of insulin ([facility]) Check blood sugars daily, notify if <70 or >200. Take medications (pills or insulin) as directed. Monitor for s/s of hypoglycemia (sweaty, dizziness, nausea, vomiting, or shakiness). Watch for increase in thirst, urination, or appetite. Inspect feet frequently monitoring for open wounds , and also recommend yearly eye exam. Pt should attempt to remain as physically active as chronic conditions allow, as well as trying to follow a diet low in carbohydrates, and simple sugars. Increase trulicity to 3mg Fu in 2 months Associated Problem(s): Diarrhea Resolved with use of metamucil Associated Problem(s): Primary hypertension (CMS/HCC) At goal no changes Fu in 3 months 7day average :184 14day average:169 30day average:172 Images from the original note were not included. Zelda Sanchez is a 44 y.o. female presents with chief complaint of No chief complaint on file. HPI: Here for a recheck. Overall is doing pretty good Her blood sugars are 160-180 average. No low blood sugar, some polyuria/polydipsia. Less appetite with trulicty. Tolerating well Blood pressure : no side effects feeling good Is using metamucil OTC now have regular bowel movements SUBJECTIVE: MEDICATIONS: Current Outpatient Medications Medication Instructions atorvastatin (LIPITOR) 10 mg, Oral, Every evening Blood Glucose Monitoring Suppl (Blood Glucose System Jasvir) kit 1 kit, Does not apply, Daily dicyclomine (BENTYL) 20 mg, Oral, Every 6 hours PRN DULoxetine (CYMBALTA) 60 mg, Oral, Daily, Do not crush or chew. empagliflozin (JARDIANCE) 25 mg, Oral, Daily estradiol (ESTRACE) 0.5 mg, Oral, Daily RT fluconazole (Diflucan) 150 MG tablet 1 pill every 3 days for total of 3 doses lisinopril 40 mg, Oral, Daily metFORMIN (GLUCOPHAGE) 1,000 mg, Oral, 2 times daily with meals pantoprazole (PROTONIX) 40 mg, Oral, Daily before breakfast, Do not crush, chew, or split. Trulicity 3 mg, Subcutaneous, Every 7 days ALLERGIES: No Known Allergies REVIEW OF SYMPTOMS: Review of Systems Constitutional: Negative for appetite change, chills and fever. HENT: Negative for congestion, ear pain and sore throat. Eyes: Negative for pain, discharge, redness and visual disturbance. Respiratory: Negative for cough, shortness of breath and wheezing. Cardiovascular: Negative for chest pain, palpitations and leg swelling. Gastrointestinal: Negative for abdominal pain, blood in stool, constipation, diarrhea, nausea and vomiting. Genitourinary: Negative for difficulty urinating, dysuria and frequency. Musculoskeletal: Negative for arthralgias, back pain, joint swelling and myalgias. Skin: Negative for rash and wound. Neurological: Negative for dizziness, tremors, seizures, syncope and headaches. Psychiatric/Behavioral: Negative for behavioral problems, self-injury and suicidal ideas. The patient is not nervous/anxious. Hematological: Does not bruise/bleed easily. Endocrine: Negative for polydipsia, polyphagia and polyuria. Allergic/Immunologic: Negative for environmental allergies and food allergies. PAST MEDICAL HISTORY History reviewed. No pertinent past medical history. History reviewed. No pertinent surgical history. family history is not on file. OBJECTIVE: Visit Vitals BP 110/76 (BP Location: Left arm, Patient Position: Sitting, BP Cuff Size: Adult long) Pulse 91 Temp 98.8 F (Temporal) Resp 20 Ht 4' 11 Wt 221 lb SpO2 96% BMI 44.64 kg/m Smoking Status Former BSA 2.04 m Physical Exam Vitals and nursing note reviewed. Constitutional: General: She is not in acute distress. Appearance: Normal appearance. HENT: Head: Normocephalic and atraumatic. Right Ear: External ear normal. Left Ear: External ear normal. Nose: Nose normal. Mouth/Throat: Mouth: Mucous membranes are moist. Eyes: Extraocular Movements: Extraocular movements intact. Conjunctiva/sclera: Conjunctivae normal. Cardiovascular: Rate and Rhythm: Normal rate and regular rhythm. Pulses: Normal pulses. Heart sounds: Normal heart sounds. Pulmonary: Effort: Pulmonary effort is normal. Breath sounds: Normal breath sounds. Abdominal: General: Bowel sounds are normal. There is no distension. Palpations: Abdomen is soft. There is no mass. Tenderness: There is no abdominal tenderness. Musculoskeletal: General: Normal range of motion. Cervical back: Normal range of motion and neck supple. Skin: General: Skin is warm and dry. Capillary Refill: Capillary refill takes 2 to 3 seconds. Findings: No rash. Neurological: General: No focal deficit present. Mental Status: She is alert and oriented to person, place, and time. Psychiatric: Mood and Affect: Mood normal. Behavior: Behavior normal. Thought Content: Thought content normal. Judgment: Judgment normal. ASSESSMENT AND PLAN: Follow up in about 2 months (around 07/29/2024). Problem List Items Addressed This Visit Diarrhea Resolved with use of metamucil Primary hypertension (CMS/HCC) - Primary At goal no changes Fu in 3 months Type 2 diabetes mellitus without complication, without long-term current use of insulin ([facility]) Check blood sugars daily, notify if <70 or >200. Take medications (pills or insulin) as directed. Monitor for s/s of hypoglycemia (sweaty, dizziness, nausea, vomiting, or shakiness). Watch for increase in thirst, urination, or appetite. Inspect feet frequently monitoring for open wounds , and also recommend yearly eye exam. Pt should attempt to remain as physically active as chronic conditions allow, as well as trying to follow a diet low in carbohydrates, and simple sugars. Increase trulicity to 3mg Fu in 2 months Relevant Medications Dulaglutide (Trulicity) 3 MG/0.5ML solution auto-injector Morbid obesity (CMS/HCC) Has lost 12 pounds, keep up the good work documented in this encounter [facility] Healthcare Evaluation note Diagnosis Primary hypertension (CMS/HCC)- Primary Unspecified essential hypertension Type 2 diabetes mellitus without complication, without long-term current use of insulin (CMS/HCC) Diarrhea, unspecified type Morbid obesity (CMS/HCC) Morbid obesity documented in this encounter [facility] HealthcareEvaluation note* Diagnosis Type 2 diabetes mellitus without complication, without long-term current use of insulin (CMS/HCC)- Primary Primary hypertension (CMS/HCC) Unspecified essential hypertension Encounter for screening mammogram for malignant neoplasm of breast Dysuria Anxiety and depression (CMS/HCC) Primary hypertension (CMS/HCC)- Primary Unspecified essential hypertension Type 2 diabetes mellitus without complication, without long-term current use of insulin ([facility]) Morbid obesity ([facility]) Morbid obesity Type 2 diabetes mellitus without complication, without long-term current use of insulin ([facility])- Primary Primary hypertension ([facility]) Unspecified essential hypertension Anxiety and depression ([facility] Mixed hyperlipidemia ([facility]) Mixed hyperlipidemia Morbid obesity ([facility]/HCC) Morbid obesity Type 2 diabetes mellitus without complication, without long-term current use of insulin ([facility])- Primary Primary hypertension ([facility]) Unspecified essential hypertension Mixed hyperlipidemia ([facility] Mixed hyperlipidemia Type 2 diabetes mellitus with hyperglycemia ([facility]) Morbid (severe) obesity due to excess calories ([facility]) Body mass index (BMI) 45.0-49.9, adult ([facility]) Malignant neoplasm of unspecified ovary ([facility]) Lumbar back pain Lumbago Abdominal cramping Abdominal pain, unspecified site Morbid obesity ([facility]) Morbid obesity Malignant neoplasm of ovary, unspecified laterality ([facility]) Psoriasis ([facility]) Other psoriasis Primary hypertension ([facility])- Primary Unspecified essential hypertension Type 2 diabetes mellitus with hyperglycemia ([facility]) Gastroesophageal reflux disease without esophagitis Esophageal reflux Vaginal yeast infection Candidiasis of vulva and vagina Right acute otitis media Unspecified otitis media Type 2 diabetes mellitus without complication, without long-term current use of insulin ([facility]) Anxiety and depression ([facility]) Dysuria Primary hypertension ([facility])- Primary Unspecified essential hypertension Type 2 diabetes mellitus without complication, without long-term current use of insulin ([facility]) Diarrhea, unspecified type Morbid obesity ([facility]) Morbid obesity Anxiety and depression ([facility]) Gastroesophageal reflux disease without esophagitis Esophageal reflux Primary hypertension ([facility]) Unspecified essential hypertension Mixed hyperlipidemia ([facility]) Mixed hyperlipidemia Unspecified abdominal pain documented in this encounter [facility] HealthcareEvaluation note* Diagnosis Type 2 diabetes mellitus without complication, without long-term current use of insulin ([facility])- Primary Primary hypertension ([facility]) Unspecified essential hypertension Encounter for screening mammogram for malignant neoplasm of breast Dysuria Anxiety and depression ([facility]) Primary hypertension ([facility])- Primary Unspecified essential hypertension Type 2 diabetes mellitus without complication, without long-term current use of insulin ([facility]) Morbid obesity ([facility]) Morbid obesity Type 2 diabetes mellitus without complication, without long-term current use of insulin ([facility])- Primary Primary hypertension ([facility]) Unspecified essential hypertension Anxiety and depression ([facility] Mixed hyperlipidemia ([facility]) Mixed hyperlipidemia Morbid obesity ([facility]) Morbid obesity Type 2 diabetes mellitus without complication, without long-term current use of insulin ([facility])- Primary Primary hypertension ([facility]) Unspecified essential hypertension Mixed hyperlipidemia ([facility] Mixed hyperlipidemia Type 2 diabetes mellitus with hyperglycemia ([facility]) Morbid (severe) obesity due to excess calories ([facility]) Body mass index (BMI) 45.0-49.9, adult ([facility]) Malignant neoplasm of unspecified ovary ([facility]) Lumbar back pain Lumbago Abdominal cramping Abdominal pain, unspecified site Morbid obesity ([facility]) Morbid obesity Malignant neoplasm of ovary, unspecified laterality ([facility]) Psoriasis ([facility] Other psoriasis Primary hypertension ([facility])- Primary Unspecified essential hypertension Type 2 diabetes mellitus with hyperglycemia ([facility]) Gastroesophageal reflux disease without esophagitis Esophageal reflux Vaginal yeast infection Candidiasis of vulva and vagina Right acute otitis media Unspecified otitis media Type 2 diabetes mellitus without complication, without long-term current use of insulin ([facility]) Anxiety and depression ([facility] Dysuria Primary hypertension ([facility])- Primary Unspecified essential hypertension Type 2 diabetes mellitus without complication, without long-term current use of insulin ([facility]) Diarrhea, unspecified type Morbid obesity ([facility]) Morbid obesity Type 2 diabetes mellitus without complication, without long-term current use of insulin ([facility])- Primary Primary hypertension ([facility]) Unspecified essential hypertension Gastroesophageal reflux disease without esophagitis Esophageal reflux Anxiety and depression ([facility]) Morbid obesity ([facility]) Morbid obesity Mixed hyperlipidemia ([facility]) Mixed hyperlipidemia Malignant neoplasm of ovary, unspecified laterality ([facility]) Psoriasis ([facility]) Other psoriasis documented in this encounter [facility] HealthcareEvaluation note* Diagnosis Type 2 diabetes mellitus without complication, without long-term current use of insulin ([facility]) documented in this encounter [facility] HealthcareEvaluation note* Diagnosis Vaginal yeast infection Candidiasis of vulva and vagina documented in this encounter [facility] HealthcareEvaluation note* Diagnosis Type 2 diabetes mellitus without complication, without long-term current use of insulin ([facility])- Primary Primary hypertension ([facility] Unspecified essential hypertension Encounter for screening mammogram for malignant neoplasm of breast Dysuria Anxiety and depression ([facility]/HCC) Primary hypertension ([facility])- Primary Unspecified essential hypertension Type 2 diabetes mellitus without complication, without long-term current use of insulin ([facility]/HCC) Morbid obesity ([facility]/HCC) Morbid obesity Type 2 diabetes mellitus without complication, without long-term current use of insulin ([facility])- Primary Primary hypertension (CMS/HCC) Unspecified essential hypertension Anxiety and depression (CMS/HCC) Mixed hyperlipidemia (CMS/HCC) Mixed hyperlipidemia Morbid obesity ([facility]) Morbid obesity Type 2 diabetes mellitus without complication, without long-term current use of insulin ([facility])- Primary Primary hypertension ([facility]/HCC) Unspecified essential hypertension Mixed hyperlipidemia ([facility]) Mixed hyperlipidemia Type 2 diabetes mellitus with hyperglycemia ([facility]) Morbid (severe) obesity due to excess calories ([facility]) Body mass index (BMI) 45.0-49.9, adult ([facility]) Malignant neoplasm of unspecified ovary ([facility]) Lumbar back pain Lumbago Abdominal cramping Abdominal pain, unspecified site Morbid obesity ([facility]) Morbid obesity Malignant neoplasm of ovary, unspecified laterality ([facility]) Psoriasis ([facility]/HCC) Other psoriasis Primary hypertension ([facility])- Primary Unspecified essential hypertension Type 2 diabetes mellitus with hyperglycemia ([facility]) Gastroesophageal reflux disease without esophagitis Esophageal reflux Vaginal yeast infection Candidiasis of vulva and vagina Right acute otitis media Unspecified otitis media Type 2 diabetes mellitus without complication, without long-term current use of insulin ([facility]) Anxiety and depression ([facility] Dysuria Primary hypertension ([facility])- Primary Unspecified essential hypertension Type 2 diabetes mellitus without complication, without long-term current use of insulin ([facility]) Diarrhea, unspecified type Morbid obesity ([facility]) Morbid obesity Type 2 diabetes mellitus without complication, without long-term current use of insulin ([facility])- Primary Primary hypertension ([facility] Unspecified essential hypertension Gastroesophageal reflux disease without esophagitis Esophageal reflux Anxiety and depression (CMS/HCC) Morbid obesity ([facility]/HCC) Morbid obesity Mixed hyperlipidemia ([facility]) Mixed hyperlipidemia Malignant neoplasm of ovary, unspecified laterality ([facility]/HCC) Psoriasis ([facility]/HCC) Other psoriasis Other secondary gout, multiple sites, unspecified chronicity- Primary documented in this encounter [facility] HealthcareEvaluation note* Diagnosis Type 2 diabetes mellitus without complication, without long-term current use of insulin ([facility])- Primary Primary hypertension ([facility]) Unspecified essential hypertension Encounter for screening mammogram for malignant neoplasm of breast Dysuria Anxiety and depression ([facility]) Primary hypertension ([facility])- Primary Unspecified essential hypertension Type 2 diabetes mellitus without complication, without long-term current use of insulin ([facility]) Morbid obesity ([facility]) Morbid obesity Type 2 diabetes mellitus without complication, without long-term current use of insulin ([facility])- Primary Primary hypertension ([facility]) Unspecified essential hypertension Anxiety and depression ([facility] Mixed hyperlipidemia ([facility]) Mixed hyperlipidemia Morbid obesity ([facility]) Morbid obesity Type 2 diabetes mellitus without complication, without long-term current use of insulin ([facility])- Primary Primary hypertension ([facility]) Unspecified essential hypertension Mixed hyperlipidemia ([facility]) Mixed hyperlipidemia Type 2 diabetes mellitus with hyperglycemia ([facility]) Morbid (severe) obesity due to excess calories ([facility]) Body mass index (BMI) 45.0-49.9, adult ([facility]) Malignant neoplasm of unspecified ovary ([facility]) Lumbar back pain Lumbago Abdominal cramping Abdominal pain, unspecified site Morbid obesity ([facility]) Morbid obesity Malignant neoplasm of ovary, unspecified laterality ([facility]) Psoriasis ([facility] Other psoriasis Primary hypertension ([facility])- Primary Unspecified essential hypertension Type 2 diabetes mellitus with hyperglycemia ([facility]) Gastroesophageal reflux disease without esophagitis Esophageal reflux Vaginal yeast infection Candidiasis of vulva and vagina Right acute otitis media Unspecified otitis media Type 2 diabetes mellitus without complication, without long-term current use of insulin ([facility]) Anxiety and depression ([facility] Dysuria Primary hypertension ([facility])- Primary Unspecified essential hypertension Type 2 diabetes mellitus without complication, without long-term current use of insulin ([facility]) Diarrhea, unspecified type Morbid obesity ([facility]) Morbid obesity Type 2 diabetes mellitus without complication, without long-term current use of insulin ([facility] [facility] Primary Primary hypertension ([facility]) Unspecified essential hypertension Gastroesophageal reflux disease without esophagitis Esophageal reflux Anxiety and depression (CMS/HCC) Morbid obesity (CMS/HCC) Morbid obesity Mixed hyperlipidemia (CMS/HCC) Mixed hyperlipidemia Malignant neoplasm of ovary, unspecified laterality (CMS/HCC) Psoriasis (CMS/HCC) Other psoriasis Anxiety and depression (CMS/HCC)- Primary Morbid (severe) obesity due to excess calories (CMS/HCC) Body mass index (BMI) 40.0-44.9, adult (CMS/HCC) Malignant neoplasm of unspecified ovary (CMS/HCC) Primary hypertension (CMS/HCC) Unspecified essential hypertension Type 2 diabetes mellitus without complication, without long-term current use of insulin (CMS/HCC) Mixed hyperlipidemia (CMS/HCC) Mixed hyperlipidemia documented in this encounter [facility] Summary Purpose Family History No Family History Records FoundNo Family History Records FoundNo Family History Records FoundNo Family History Records FoundNo Family History Records FoundNo Family History Records FoundNo Family History Records Found Advance Directives No Advanced Directives Records FoundNo Advanced Directives Records FoundNo Advanced Directives Records FoundNo Advanced Directives Records FoundNo Advanced Directives Records FoundNo Advanced Directives Records FoundNo Advanced Directives Records Found Additional Source Comments INFORMATION SOURCE (unrecogn ized section and content) DATE CREATED AUTHOR 02/15/2018 [facility] DATE CREATED AUTHOR AUTHOR'S ORGANIZ ATION 09/13/2021 [facility] DATE CREATED AUTHOR AUTHOR'S ORGANIZ ATION 08/20/[address] [facility] DATE CREATED AUTHOR AUTHOR'S ORGANIZ ATION 02/24/2024 [facility] DATE CREATED AUTHOR AUTHOR'S ORGANIZ ATION 02/24/2024 [facility] DATE CREATED AUTHOR AUTHOR'S ORGANIZ ATION 03/08/2024 [facility] DATE CREATED AUTHOR AUTHOR'S ORGANIZ ATION 09/12/2024 [facility] dical Specialists EPIC Care Teams (unrecognized sec tion and content) 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 Relationship Specialty Start Date End Date Srinath Lay MD [address] [place] [phone] PCP - General Family Medicine 03/18/23 Janki Mora NP [address] [place] [address] Referring Physician Nurse Practitioner 03/18/23 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 Relationship Specialty Start Date End Date Srinath Lay MD [address] [place] [phone] PCP - General Family Medicine 03/18/23 Janki Mora NP [address] [place] [address] Referring Physician Nurse Practitioner 03/18/23 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 Relationship Specialty Start Date End Date Srinath Lay MD [address] [place] [address] PCP - [facility] 03/18/23 Janki Mora NP [address] [place] [phone] Referring Physician Nurse Practitioner 03/18/23 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 Relationship Specialty Start Date End Date Srinath Lay MD [address] [place] [phone] PCP - [facility] 03/18/23 Janki Mora NP [address] [place] [phone] PCP - [facility] 05/22/24 Janki Mora NP [address] [place] [address] Referring Physician Nurse Practitioner 03/18/23 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 Relationship Specialty Start Date End Date Srinath Lay MD [address] [place] [phone] PCP - General Family Medicine 03/18/23 Janki Mora NP [address] [place] [phone] PCP - [facility] 05/22/24 Janki Mora NP [address] [place] [phone] Referring Physician Nurse Practitioner 03/18/23 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 Relationship Specialty Start Date End Date Srinath Lay MD [address] [place] [phone] PCP - [facility] 03/18/23 Janki Mora NP [address] [place] [phone] Referring Physician Nurse Practitioner 03/18/23 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 Relationship Specialty Start Date End Date Srinath Lay MD [address] [place] [phone] PCP - [facility] Medicine 03/18/23 Janki Mora NP [address] [place] [address] Referring Physician Nurse Practitioner 03/18/23 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 Relationship Specialty Start Date End Date Srinath Lay MD [address] [place] [phone] PCP - General Family Medicine 03/18/23 Janki Mora NP [address] [place] [phone] PCP - [facility] 05/22/24 Janki Mora NP [address] [place] [phone] Referring Physician Nurse Practitioner 03/18/23 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 Relationship Specialty Start Date End Date Srinath Lay MD [address] [place] [address] PCP - [facility] 03/18/23 Janki Mora NP [address] [place] [address] [facility] 05/22/24 Janki Mora NP [address] [place] [address] Referring Physician Nurse Practitioner 03/18/23 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 Relationship Specialty Start Date End Date Srinath Lay MD [address] [place] [address] PCP - [facility] 03/18/23 Janki Mora NP [address] [place] [address] [facility] 05/22/24 Janki Mora NP [address] [place] [address] Referring Physician Nurse Practitioner 03/18/23 Reason for Visit (unrecogniz ed section and content) Reason Comments Med Refill Reason Comments Hypertension Reason Comments Diabetes FOR RECORDS PERTAINING TO PATIENTS WHO ARE OR HAVE BEEN ENROLLED IN A CHEMICAL DEPENDENCY/SUBSTANCEABUSE PROGRAM, SOME INFORMATION MAY BE OMITTED. This clinical summary was aggregated from multiple sources. Caution should be exercised in using it in the provision of clinical care. This summary normalizes information from multiple sources, and as a consequence, information in this document may materially change the coding, format and clinical context of patient data. In addition, data may be omitted in some cases. CLINICAL DECISIONS SHOULD BE BASED ON THE PRIMARY CLINICAL RECORDS. [employer] [facility]. provides no warranty or guarantee of the accuracy or completeness of information in this document.
[2024-09-30] MEDS: PREDNISONE 20 MG TABLET 40 MG PO (17:04)
[2024-09-30] MEDS: METHOCARBAMOL 500 MG TABLET PO (17:04)
[2024-09-30] MEDS: KETOROLAC TROMETHAMINE 60 MG/2 ML VIAL IM (17:05)
--- NOTE | 2024-09-30 17:16 | ED.GENADUL1 ---
HPI HPI - General Adult General Chief complaint: Extremity Problem, Nontraumatic Stated complaint: Back Pain Time Seen by Provider: 09/30/24 16:52 Source: patient Mode of arrival: Wheelchair Limitations: no limitations History of Present Illness HPI narrative: Patient is a 44-year-old female presents to the ER with concerns of right lower back pain. Patient states symptoms started around Tuesday she was moving furniture at home and developed some right lower back pain. Patient states she took Tylenol and Motrin and did some stretching with some improvement but then last night pain returned radiating into the right leg posterior thigh and calf into the bottom of her foot. She denies any numbness or tingling. She notes the pain is present when she stands improved with laying in certain positions. She has had similar low back pain before with moving objects. She denies any numbness or tingling in her bowel or bladder area or saddle paresthesias. She denies any bowel or bladder incontinence. She reports a history of diabetes which is well-controlled with medication and sees Janki BROWNING. . She denies any symptoms into her left leg. She denies any abdominal pain. Location: Reports back Radiation: Reports back and extremity (right leg S1 dermatome) Severity: moderate Quality: Reports aching and sharp Pain Consistency: Reports constant (worse with standing. ) Relieving factors: Reports rest Exacerbating factors: Reports movement Associated symptoms: Denies confusion, chest pain, diaphoresis, fever/chills, headaches, malaise, nausea/vomiting, rash, shortness of breath or syncope Treatments prior to arrival: Reports NSAID Related Data Home Medications ?Medication ?Instructions ?Recorded ?Confirmed alcohol swabs (BD Alcohol Swabs) pad topical 02/29/24 atorvastatin 10 mg tablet mg 02/29/24 blood sugar diagnostic (True 02/29/24 02/29/24 Metrix Glucose Test Strip) duloxetine 30 mg capsule,delayed mg PO 02/29/24 release empagliflozin 10 mg tablet mg 02/29/24 (Jardiance) estradiol 1 mg tablet mg 02/29/24 fluconazole 150 mg tablet mg 02/29/24 lancets 33 gauge (Unilet Lancet) 02/29/24 02/29/24 lisinopril 20 mg tablet mg 02/29/24 metformin 500 mg tablet mg 02/29/24 metronidazole 500 mg tablet mg 02/29/24 Previous Rx's ?Medication ?Instructions ?Recorded methocarbamol 750 mg tablet 750 mg PO BID PRN spasms 7 days 09/30/24 #14 tabs prednisone 20 mg tablet 40 mg (2 x 20 mg) PO DAILY 5 days 09/30/24 #10 tabs Allergies Allergy/AdvReac Type Severity Reaction Status Date / Time No Known Drug Allergies Allergy Verified 02/29/24 23:21 Opioid HPI Opioid Management Most Recent Opioid Data: Last Pain Scale 8 09/30/24 16:52 09/30/24 Review of Systems ROS Constitutional Denies: fever or chills Eyes Denies: change in vision or blurry vision Ears, nose, mouth, and throat Denies: throat pain or neck pain Cardiovascular Denies: chest pain or palpitations Respiratory Denies: shortness of breath or cough Gastrointestinal Denies: abdominal pain, nausea or vomiting Genitourinary Reports: other (hysterectomy- denies chance of ); Denies: painful urination, urinary frequency or urinary urgency Musculoskeletal Reports: back pain and extremity pain (right leg. ); Denies: neck pain Integumentary/Breast Denies: rash, itching or redness Neurological Denies: headache or numbness in extremities Psychiatric Denies: anxiety or mood swings Hematologic/Lymphatic Denies: easy bruising [facility] Medical History (Updated 09/30/24 @ 17:17 by EDISON Gallego) Diabetes ?E11.9 - Type 2 diabetes mellitus without complications (ICD-10) Gout ?M10.9 - Gout, unspecified (ICD-10) Anxiety ?F41.9 - Anxiety disorder, unspecified (ICD-10) Hypertension ?I10 - Essential (primary) hypertension (ICD-10) Exam Narrative Exam Narrative: Vital Signs reviewed and nurse's notes reviewed. The patient is not hypoxic. General: Alert, no acute distress, patient resting comfortably Skin: warm, intact, no pallor noted, no rash Head: Normocephalic, atraumatic Eye: Normal conjunctiva, EOMI Respiratory: No acute distress Abdomen: Normal bowel sounds, soft, nontender, no masses detected. No rebound, guarding, or rigidity noted. No midline pulsatile mass. Back: inspection of the back shows no obvious deformity, no swelling, no ecchymosis, contusion, abrasion, swelling, erythema, fluctuance or induration. No step offs or crepitus noted. No CVA tenderness noted bilaterally. Tenderness noted to right paravertebral lumbar area . Straight leg raise on left is negative. Straight leg raise on right is positive at 30 degrees. . Musculoskeletal: No deformity noted to bilateral lower extremities. no cyanosis or mottling noted. normal pulses at DP and PT 2+ bilaterally and symmetrically. Normal 5/5 strength at ankles with dorsiflexion and plantar flexion. Patient is able to ambulate. Normal sensation noted to the bilateral lower extremities. Painless rom bilateral hips. Neurological: alert and oriented x4, normal sensory and motor observed. DTR 2+ at patellar and achilles bilaterally. Psychiatric: Cooperative Constitutional Vital Signs, click to edit/add: Last Vital Signs Temp 98.1 F 09/30/24 16:43 Pulse 76 09/30/24 16:43 Resp 18 09/30/24 16:43 BP 114/68 09/30/24 16:43 Pulse Ox 100 09/30/24 16:43 O2 Del Method Room Air 09/30/24 16:43 Course Vital Signs Vital signs: Vital Signs Temperature 98.1 F 09/30/24 16:43 Pulse Rate 76 09/30/24 16:43 Respiratory Rate 18 09/30/24 16:43 Blood Pressure 114/68 09/30/24 16:43 Pulse Oximetry 100 09/30/24 16:43 Oxygen Delivery Method Room Air 09/30/24 16:43 Temperature 98.1 F 09/30/24 16:43 Pulse Rate 76 09/30/24 16:43 Respiratory Rate 18 09/30/24 16:43 Blood Pressure 114/68 09/30/24 16:43 Pulse Oximetry 100 09/30/24 16:43 Oxygen Delivery Method Room Air 09/30/24 16:43 Medical Decision Making MDM Narrative Medical decision making narrative: We discussed the risks and benefits of prednisone given her radicular symptoms I feel this is indicated. She will need to practice a diabetic diet and continue with her diabetic medication. She is not on insulin. She may require a longer prednisone taper pending follow-up with her PCP. We discussed a muscle relaxant she will take this at home 1 given to take home today as she is driving Toradol 60 mg IM given today at the bedside. She denies any dysuria. We discussed red flag symptoms and the need to return to the ER if any of those symptoms develop in layman's terms such as bowel or bladder incontinence or numbness or tingling in the bowel or bladder region. Patient verbalized understanding. She is encouraged not to move any furniture but she was doing when symptoms started. The patient was noted to be grossly neurologically intact. The patient was treated with adequate analgesia here in the emergency department. The patient vital signs were reviewed in the patient had no neurologic deficit noted. Due to the nature of the patient's history of present illness and the benign physical exam we do not feel that x-rays were clinically warranted. The patient is to followup in the next 3-5 days for repeat evaluation or to return to the emergency department if symptoms worsen or new symptoms develop. The patient will be discharged home with adequate analgesia. The patient has no other questions or concerns at this time. Discharge Plan Discharge Chief Complaint: Extremity Problem, Nontraumatic Clinical Impression: Acute right lumbar radiculopathy Patient Disposition: Home, Self-Care Time of Disposition Decision: 17:17 Condition: Good Prescriptions / Home Meds: New methocarbamol 750 mg tablet 750 mg PO BID PRN (Reason: spasms) 7 Days Qty: 14 0RF prednisone 20 mg tablet 40 mg PO DAILY 5 Days Qty: 10 0RF No Action metformin 500 mg tablet atorvastatin 10 mg tablet fluconazole 150 mg tablet lisinopril 20 mg tablet metronidazole 500 mg tablet (DME) True Metrix Glucose Test Strip Strip MISCELLANEOUS estradiol 1 mg tablet alcohol swabs [BD Alcohol Swabs] Pads, Medicated TOPICAL duloxetine 30 mg capsule,delayed release(DR/EC) PO (DME) lancets [Unilet Lancet] 33 gauge misc MISCELLANEOUS Jardiance 10 mg tablet Print Language: Occitan Instructions: Lumbar Radiculopathy (ED) Referrals: Janki Mora NP [Primary Care Provider] - As soon as possible
[2024-09-30 17:25] VITALS: BP 136/88; PULSE 78; O2SAT 98
== END 2024-09-30 17:25 | disposition home or self-care (01) ==
PROVIDERS: Emergency Provider Emergency Medicine; PCP Nurse Practitioner
DX: M54.16 Radiculopathy, lumbar region (principal); E11.9 Type 2 diabetes mellitus without complications; Z79.84 Long term (current) use of oral hypoglycemic drugs; Z90.710 Acquired absence of both cervix and uterus
CPT/HCPCS: 96372; 99284; J1885; J7512

== ENCOUNTER 2024-10-09 11:04 | Outpatient (OUT) | payer OTHER, SELFPAY ==
--- NOTE | 2024-10-09 11:09 | XR_ITS ---
[facility] [place] [id number] Patient Name: ZELDA SANCHEZ MRN: [id number] date: 1980 Sex: F Assigned Patient Location: [facility] Current Patient Location: [facility] Accession/Order Number: [id number] Exam Date: 10/10/2024 22:41 Report Date: 10/10/2024 22:42 At the request of: MICKIE ALVAREZ NP Procedure: XR lumbar spine 2-3V XR lumbar spine 2-3V 10/09/2024 11:18 AM SIGNS AND SYMPTOMS: ^acute lumbar back pain PROTOCOLS: Frontal and lateral radiograph the lumbar spine COMPARISON: None FINDINGS: The alignment, development and bony structures are normal. There is no fracture or destructive lesion. There is mild vertebral disc height loss at L4-5. There is minimal anterior osteophyte formation at L3-L4 and L4-5. The sacrum and sacroiliac joints are normal. XR/XR lumbar spine 2-3V IMPRESSION: No fracture or dislocation. Mild degenerative changes are noted, greatest at L4-5. Impression dictated by: Brad Waddell M.D.10/10/2024 10:42 PM Dictation Location: [place] [address] Electronically authenticated by: [id number] Y Date: 10/10/2024 22:42
--- OUTSIDE RECORDS SUMMARY | 2024-10-09 11:27 | XMS_ITS | CCD ---
Demographics Address [facility] [address] [place] [address] Mobile Phone Preferred Language en Marital Status Mu-Ism Affiliation Unknown Race White Ethnic Group Not or Lati no Author Organization [facility] Care Team Providers Care Valve Machine Operator Name Role Phone SHAHIDA RUSSELL Unavailable Unavailable RASHEED DUFFY Unavailable Unavailable AICHHOLZ, EXTRACTOR PLANT OPERATOR JANKI Admitting Unavailable AICHHOLZ, EXTRACTOR PLANT OPERATOR JANKI Attending Unavailable AICHHOLZ, EXTRACTOR PLANT OPERATOR JANKI Primary Care Unavailable AICHHOLZ, EXTRACTOR PLANT OPERATOR JANKI Consulting Unavailable AICHHOLZ, EXTRACTOR PLANT OPERATOR JANKI Admitting Unavailable AICHHOLZ, EXTRACTOR PLANT OPERATOR JANKI Attending Unavailable AICHHOLZ, EXTRACTOR PLANT OPERATOR JANKI Primary Care Unavailable AICHHOLZ, EXTRACTOR PLANT OPERATOR JANKI Consulting Unavailable AICHHOLZ, EXTRACTOR PLANT OPERATOR JANKI Admitting Unavailable AICHHOLZ, EXTRACTOR PLANT OPERATOR JANKI Attending Unavailable AICHHOLZ, EXTRACTOR PLANT OPERATOR JANKI Primary Care Unavailable AICHHOLZ, EXTRACTOR PLANT OPERATOR JANKI Consulting Unavailable AICHHOLZ, EXTRACTOR PLANT OPERATOR JANKI Admitting Unavailable AICHHOLZ, EXTRACTOR PLANT OPERATOR JANKI Attending Unavailable AICHHOLZ, EXTRACTOR PLANT OPERATOR JANKI Primary Care Unavailable AICHHOLZ, EXTRACTOR PLANT OPERATOR JANKI Consulting Unavailable JOHNS, ALIYAH B Attending Unavailable AICHHOLZ, JANKI J Referring Unavailable AICHHOLZ, JANKI J Primary Care Unavailable JOHNS, ALIYAH B Referring Unavailable AICHHOLZ, JANKI J Primary Care Unavailable JOHNS, ALIYAH B Referring Unavailable AICHHOLZ, JANKI J Primary Care Unavailable JOHNS, ALIYAH B Referring Unavailable AICHHOLZ, JANKI J Primary Care Unavailable Aichholz DRY CLEANER APPRENTICE, Janki Unavailable Srinath Lay MD Primary Care Provider [phone] Aichholz DRY CLEANER APPRENTICE, Janki Unavailable Aichholz JESSICA-FRANCIS Janki Nataliia Primary Care Provider AICUSHAZ, JANKI Attending Unavailable AICHHOLZ, JANKI Attending Unavailable AICHHOLZ, JANKI Attending Unavailable AICHHOLZ, JANKI Attending Unavailable ABBY JANKI Attending Unavailable AICHHOLZ, JANKI Attending Unavailable AICHHOLZ, JANKI Attending Unavailable AICHHOLZ, JANKI Attending Unavailable ABBY JANKI Attending Unavailable Medications Current Medications Medication Drug Class(es) Dates Sig (Normalized) Sig (Original) allopurinol 100 mg oral tablet (4 sources) Xanthine Oxidase Inhibitor Start: 09-26-2017 allopurinol (ZYLOPRIM) 100 mg tablet 1 tablet (100 mg total) in the morning. 09/26/2017 Active amoxicillin 875 mg / clavulanate 125 mg oral tablet (2 sources) Penicillin-class Antibacterial Start: 04-09-2024 End: 04-19-2024 take 1 tablet by mouth in the morning amoxicillin-clavula anni (Augmentin) 875-125 MG tablet Indications: Right acute otitis media Take 1 tablet (875 mg) by mouth in the morning and 1 tablet (875 mg) before bedtime. Do all this for 10 days. Take with food. 20 tablet 04/09/2024 04/19/2024 Active aspirin 81 mg delayed release oral tablet (7 sources) Platelet Aggregation Inhibitor, Nonsteroidal Anti-inflammatory Drug Start: 09-10-2024 End: 10-10-2024 take 1 tablet by mouth once daily aspirin 81 MG EC tablet Indications: Primary hypertension (CMS/HCC) , Type 2 diabetes mellitus without complication, without long-term current use of insulin (CMS/HCC) Take 1 tablet (81 mg) by mouth Daily 30 tablet 11 09/10/2024 10/10/2024 Active atorvastatin 10 mg oral tablet (20 sources) HMG-CoA Reductase Inhibitor Start: 03-07-2024 End: 10-10-2024 take 1 tablet by mouth at bedtime atorvastatin (Lipitor) 10 MG tablet Indications: Mixed hyperlipidemia (CMS/HCC) Take 1 tablet (10 mg) by mouth at bedtime 30 tablet 5 09/10/2024 10/10/2024 Active take 1 tablet by mouth in the mo rning atorvastatin (LIPITOR) 10 mg tablet Take 1 tablet (10 mg total) by mouth in the morning. Active Blood Glucose Monitoring Suppl (Blood Glucose System Jasvir) kit (16 sources) Start: 03-07-2024 End: 03-07-2025 Blood Glucose Monitoring Suppl (Blood Glucose System Jasvir) kit Indications: Type 2 diabetes mellitus without complication, without long-term current use of insulin (CMS/HCC) 1 kit Daily 1 kit 03/07/2024 03/07/2025 Active dapagliflozin 10 mg oral tablet (4 sources) Sodium-Glucose Cotransporter 2 Inhibitor Start: 05-18-2021 take 1 tablet by mouth once daily FARXIGA 10 mg tablet Take 10 mg by mouth daily. 05/18/2021 Active dicyclomine hydrochloride 20 mg oral tablet (15 sources) Anticholinergic Start: 07-22-2024 take 1 tablet [...] Active Dulaglutide (Trulicity) 3 MG/0.5ML solution auto-injector (17 sources) Start: 09-10-2024 End: 10-08-2024 Dulaglutide (Trulicity) [...] DULoxetine 60 mg delayed release oral capsule (20 sources) Serotonin and Norepinephrine Reuptake Inhibitor Start: 04-09-2024 End: 11-03-2024 take 1 capsule by mouth once daily DULoxetine (Cymbalta) [address] capsule Indications: Anxiety and depression (CMS/HCC) Take 1 capsule (60 mg) by mouth Daily 30 capsule 5 10/04/2024 11/03/2024 Active take 1 capsule by mouth in the m orning DULoxetine (CYMBALTA) 30 mg capsule Take 1 capsule (30 mg total) by mouth in the morning. Active empagliflozin 25 mg oral tablet (20 sources) Sodium-Glucose Cotransporter 2 Inhibitor Start: 03-07-2024 End: 10-10-2024 take 1 tablet by mouth once daily empagliflozin (Jardiance) 25 MG Indications: Type 2 diabetes mellitus without complication, without long-term current use of insulin (CMS/HCC) Take 1 tablet (25 mg) by mouth Daily 30 tablet 5 09/10/2024 10/10/2024 Active take 1 tablet by mouth in the mo rning empagliflozin (JARDIANCE) 10 mg tablet tablet Take 1 tablet (10 mg total) by mouth in the morning. Active estradiol 1 mg oral tablet (20 sources) Estrogen Start: 09-22-2021 End: 02-22-2024 take 0.5 tablet by mouth in the morning estradioL (ESTRACE) 1 mg tablet Indications: Malignant neoplasm of ovary, unspecified laterality ([facility]-HCC) , Menopause Take 0.5 tablets (0.5 mg total) by mouth in the morning. 30 tablet 11 02/22/2024 Active fluconazole 150 mg oral tablet (18 sources) Azole Antifungal Start: 04-09-2024 End: 04-11-2024 fluconazole (Diflucan) 150 MG tablet Indications: Vaginal yeast infection 1 pill every 3 days for total of 3 doses 3 tablet 04/11/2024 Active Start: 02-24-2024 End: 02-24-2024 take 1 tablet by mouth once fluconazole (DIFLUCAN) 150 mg tablet Indications: Vaginal yeast infection Take 1 tablet (150 mg total) by mouth once for 1 dose. 1 tablet 02/24/2024 02/24/2024 Active indomethacin 25 mg oral capsule (1 [...] Active isopropyl alcohol 0.7 ml/ml medicated pad (10 sources) Start: 06-21-2024 Alcohol Swabs (B-D SINGLE USE SWABS REGULAR) pads 1 each by Other route Daily 06/21/2024 Active lisinopril 40 mg oral tablet (20 sources) Angiotensin Converting Enzyme Inhibitor Start: 04-09-2024 End: 10-10-2024 take 1 tablet by mouth once daily lisinopril 40 MG tablet Indications: Primary hypertension (CMS/HCC) Take 1 tablet (40 mg) by mouth Daily 30 tablet 5 09/10/2024 10/10/2024 Active Start: 09-23-2017 lisinopril (ID INIVIL,ZESTRIL) 20 mg tablet 1 tablet (20 mg total) in the morning. 09/23/2017 Active metFORMIN hydrochloride 500 mg oral tablet (20 sources) Biguanide Start: 01-25-2024 End: 11-03-2024 take 2 tablets by mouth in the morning metFORMIN (Glucophage) 500 MG tablet Indications: Type 2 diabetes mellitus without complication, without long-term current use of insulin (CMS/HCC) Take 2 tablets (1,000 mg) by mouth in the morning and 2 tablets (1,000 mg) in the evening. Take with meals. 120 tablet 2 10/04/2024 11/03/2024 Active Start: 05-18-2021 take 1 tablet by forrest th in the morning, then take 1 tablet by mouth at bedtime metFORMIN (GLUCOPHAGE) 500 mg tablet Take 1 tablet (500 mg total) by mouth in the morning and 1 tablet (500 mg total) before bedtime. 05/18/2021 Active methocarbamol 750 mg oral tablet (3 sources) Muscle Relaxant Start: 10-01-2024 End: 10-04-2024 take 1 tablet by mouth twice daily as needed methocarbamol (Robaxin) 750 MG tablet Take 750 mg by mouth 2 (two) times a day as needed 10/01/2024 10/04/2024 Discontinued (Ineffective) metroNIDAZOLE 500 mg oral tablet (1 source) Nitroimidazole Antimicrobial Start: 02-24-2024 End: 02-29-2024 take 1 tablet by mouth three times daily metroNIDAZOLE (FlagyL) 500 mg tablet Indications: BV (bacterial vaginosis) Take 1 tablet (500 mg total) by mouth 3 (three) times a day for 5 days. 15 tablet 02/24/2024 02/29/2024 Active naproxen 500 mg oral tablet (2 sources) Nonsteroidal Anti-inflammatory Drug Start: 10-04-2024 End: 10-19-2024 take 1 tablet by mouth in the morning naproxen (Naprosyn) 500 MG tablet Indications: Back pain of lumbosacral region with sciatica Take 1 tablet (500 mg) by mouth in the morning and 1 tablet (500 mg) in the evening. Take with meals. Do all this for 15 days. 30 tablet 10/04/2024 10/19/2024 Active pantoprazole 40 mg delayed release oral tablet (20 sources) Proton Pump Inhibitor Start: 04-09-2024 End: 08-29-2024 take 1 tablet by mouth before mealtime pantoprazole (ProtoNix) 40 MG EC tablet Indications: Gastroesophageal reflux disease without esophagitis Take 1 tablet (40 mg) by mouth in the morning. Take before meals. 30 tablet 5 07/30/2024 Active take 1 tablet by mouth once brianne y pantoprazole (PROTONIX) 40 mg EC tablet Take 40 mg by mouth daily. Active predniSONE 20 mg oral tablet (3 sources) Start: 10-01-2024 take 2 tablets by mouth once daily predniSONE (Deltasone) 20 MG tablet Take 40 mg by mouth Daily 10/01/2024 Active tiZANidine 4 mg oral tablet (2 sources) Central alpha-2 Adrenergic Agonist Start: 10-04-2024 End: 10-19-2024 take 1 tablet by mouth once tiZANidine (Zanaflex) 4 MG tablet Indications: Back pain of lumbosacral region with sciatica Take 1 tablet (4 mg) by mouth every 12 (twelve) hours if needed for muscle spasms for up to 15 days 30 tablet 10/04/2024 10/19/2024 Active Completed/Discontinued Medications Medication Drug Class(es) Dates Sig (Normalized) Sig (Original) ARIPiprazole 5 mg oral tablet (6 sources) Atypical Antipsychotic Start: 07-30-2024 End: 09-10-2024 take 1 tablet by mouth once daily ARIPiprazole (Abilify) 5 MG tablet Indications: Anxiety and depression (CMS/HCC) Take 1 tablet (5 mg) by mouth Daily 30 tablet 1 07/30/2024 09/10/2024 Discontinued (Side effects) chlorzoxazone 500 mg oral tablet (5 sources) Muscle Relaxant Start: 03-01-2024 End: 05-29-2024 take 1 tablet by mouth every eight hours as needed chlorzoxazone (Parafon Forte) 500 MG tablet Take 500 mg by mouth every 8 (eight) hours if needed for muscle spasms 03/01/2024 05/29/2024 Discontinued (Therapy completed) Problems Active Problems Problem Classification Problem Date Documented Date Episodic/Chronic Anxiety disorders (20 sources) Mixed anxiety and depressive disorder; Translations: [Anxiety disorder, unspecified] Onset: 11-29-2023 11-29-2023 Chronic Cancer of ovary (20 sources) Malignant neoplasm of unspecified ovary; Translations: [Malignant tumor of ovary] Onset: 08-07-2018 11-29-2023 Chronic Cancer of ovary (2 sources) Personal history of malignant neoplasm of ovary; Translations: [History of malignant neoplasm of ovary] Onset: 02-22-2024 02-22-2024 Episodic Complications of surgical procedures or medical care (2 sources) Symptomatic postprocedural ovarian failure; Translations: [Menopausal flushing] Onset: 02-22-2024 02-22-2024 Chronic Diabetes mellitus with complications (16 sources) Hyperglycemia due to type 2 diabetes mellitus; Translations: [Type 2 diabetes mellitus with hyperglycemia] Onset: 04-09-2024 04-09-2024 Chronic Diabetes mellitus without complication (20 sources) Type 2 diabetes mellitus without complications; Translations: [Type 2 diabetes mellitus without complication] Onset: 11-26-2021 11-29-2023 Chronic Disorders of lipid metabolism (20 sources) Mixed hyperlipidemia; Translations: [Mixed hyperlipidemia] Onset: 12-11-2023 12-11-2023 Chronic Esophageal disorders (19 sources) Gastroesophageal reflux disease without esophagitis; Translations: [Gastro-esophageal reflux disease without esophagitis] Onset: 04-09-2024 04-09-2024 Chronic Essential hypertension (20 sources) Essential hypertension; Translations: [Essential (primary) hypertension] Onset: 11-29-2023 11-29-2023 Chronic Gout and other crystal arthropathies (8 sources) Secondary gout; 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, multiple sites] Onset: 08-09-2024 08-09-2024 Chronic Nutritional deficiencies (4 sources) Vitamin D deficiency, unspecified; Translations: [VITAMIN D DEFICIENCY UNSPECIFIED] Onset: 11-23-2021 Chronic Other female genital disorders (1 source) Abnormal uterine and vaginal bleeding, unspecified; Translations: [Abnormal uterine and vaginal bleeding, unspecified] Onset: 02-22-2024 Chronic Other female genital disorders (1 source) Vaginal bleeding; Translations: [Abnormal uterine and vaginal bleeding, unspecified] 02-22-2024 Chronic Other female genital disorders (2 sources) Other specified noninflammatory disorders of vagina; Translations: [Other specified noninflammatory disorders of vagina] Onset: 02-22-2024 Episodic Other inflammatory condition of skin (20 sources) Psoriasis; Translations: [Psoriasis, unspecified] Onset: 03-08-2024 [...] Chronic Other nutritional; endocrine; and metabolic disorders (10 sources) Obesity caused by energy imbalance; Translations: [Morbid (severe) obesity due to excess calories] Onset: 12-13-2023 09-10-2024 Chronic Other nutritional; endocrine; and metabolic disorders (11 sources) Body mass index 40+ - severely obese; Translations: [Body mass index (BMI) 40.0-44.9, adult] Onset: 09-10-2024 09-10-2024 Chronic Spondylosis; intervertebral disc disorders; other back problems (20 sources) Low back pain; Translations: [Lumbar back pain] Onset: 03-07-2024 03-07-2024 Episodic Unclassified (3 sources) CONTACT W/AND (SUSP) EXPOS COVID-19; Translations: [CONTACT W/AND (SUSP) EXPOS COVID-19] Onset: 08-20-2022 Unclassified (1 source) Annual Exam Onset: 02-22-2024 Past or Other Problems Problem Classification Problem Date Documented Da te Episodic/Chronic Abdominal pain (17 sources) Finding of sensation of abdomen; Translations: [Unspecified abdominal pain] Onset: 03-07-2024 03-07-2024 Episodic Genitourinary symptoms and ill-defined conditions (19 sources) Frequency of micturition; Translations: [Dysuria] Onset: 11-29-2023 11-29-2023 Episodic Inflammatory diseases of female pelvic organs (1 source) Bacterial vaginosis; Translations: [Acute vaginitis] 02-24-2024 Episodic Malaise and fatigue (4 sources) Other fatigue; Translations: [OTHER FATIGUE] Onset: 12-16-2021 Episodic Mycoses (18 sources) Candidiasis of vagina; Translations: [Vaginal yeast infection] Onset: 04-09-2024 04-09-2024 Episodic Other female genital disorders (1 source) Pruritus of vagina; Translations: [Other specified noninflammatory disorders of vagina] 02-22-2024 Episodic Other gastrointestinal disorders (18 sources) Diarrhea; Translations: [Diarrhea, unspecified] Onset: 11-29-2023 11-29-2023 Episodic Other gastrointestinal disorders (4 sources) Pelvic mass; Translations: [Intra-abdominal and pelvic swelling, mass and lump, unspecified site] Onset: 11-15-2017 Resolved: 02-22-2024 11-15-2017 Episodic Other screening for suspected conditions (not mental disorders or infectious disease) (19 sources) Encounter for screening mammogram for malignant neoplasm of breast; Translations: [Patient encounter status] Onset: 11-29-2023 11-29-2023 Episodic Otitis media and related conditions (16 sources) Acute right otitis media; Translations: [Otitis media, unspecified, right ear] Onset: 04-09-2024 Resolved: 10-04-2024 04-09-2024 Episodic Residual codes; unclassified (1 source) Asymptomatic menopausal state; Translations: [Asymptomatic menopausal state] Onset: 11-23-2018 Episodic Residual codes; unclassified (20 sources) Menopause present; Translations: [Asymptomatic menopausal state] Onset: 11-23-2018 11-29-2023 Episodic Unclassified (1 source) CONTACT W/AND (SUSP) EXPOS COVID-19; Translations: [CONTACT W/AND (SUSP) EXPOS COVID-19] Onset: 08-18-2022 Unclassified (4 sources) Onset: 08-07-2018 08-07-2018 Results Test Name Value Interpretation Reference Range Facility HbA1c (Bld) [Mass fraction]o n 07-30-2024 Interpretation and review of laboratory results Abnormal [facility] - Hematology and Cell countson 07-30-2024 HbA1c (Bld) [Mass fraction] 7.40 % [facility] MAMM SCREENING BILATERAL W C shirt bander 03-05-2024 MAMM SCREENING BILATERAL W CAD MAMM [...] AM 1 a MAMM 1 YR Normal [facility] [place] 125on 02-22-2024 Cancer Ag 125 Qn 7 [arb'U]/mL 0 - 35 U/mL [facility] Comment on above: The method used for this test is [employer] [place] DXI chemiluminescent immunoassay. Values obtained by different assay methods cannot be used interchangeably. Cancer Ag 125 Qnon [facility] [place] 125 7 U/mL Normal 0-35 [facility] Comment on above: Result Comment: The method used for this test is [employer] [place] DXI chemiluminescent immunoassay. Values obtained by different assay methods cannot be used interchangeably. Performed By: #### 1 [id number] #### [facility] ([id number]) [address], [address] [place] [address] URINALYSISon 02-22-2024 Bilirubin Ql (U) Negative Normal NEG [facility] Comment on above: Performed By: #### U A #### [facility] ([id number]) [address], [address] [place] [address] BLOOD/HGB Negative Normal NEG [facility] Comment on above: Performed By: #### U A #### [facility] ([id number]) [address], [address] [place] [address] Color (U) YELLOW Normal YELLOW [facility] Comment on above: Performed By: #### U A #### [facility] ([id number]) [address], [address] [place] [address] Glucose Ql (U) >1000 Abnormal NEG [facility] Comment on above: Performed By: #### U A #### [facility] ([id number]) [address] [place] [address] Ketones Ql (U) Negative Normal NEG [facility] Comment on above: Performed By: #### U A #### [facility] ([id number]) [address] [place] [address] Leukocyte esterase Test strip Ql (U) Negative Normal NEG [facility] Comment on above: Result Comment: HIGH CONCENTRATIONS OF GLUCOSE MAY DECREASE THE REACTIVITY OF THE DIPSTICK LEUKOCYTE TEST PAD. Performed By: #### U A #### [facility] ([id number]) [address], [address] [place] [address] Nitrite Ql (U) Negative Normal NEG [facility] Comment on above: Performed By: #### U A #### [facility] ([id number]) [address], [address] [place] [address] pH (U) 6.0 [pH] Normal 5.0-8.5 [facility] Comment on above: Performed By: #### U A #### [facility] ([id number]) [address] [place] [address] Protein Ql (U) Trace Abnormal NEG [facility] Comment on above: Performed By: #### U A #### [facility] ([id number]) [address] [place] [address] R.B.CELLS 1 /hpf Normal 0-5 [facility] Comment on above: Performed By: #### U A #### [facility] ([id number]) [address] [address] [place] [address] Specific gravity (U) [Rel density] 1.026 Normal 1.003-1.035 [facility] Comment on above: Performed By: #### U A #### [facility] ([id number]) [address] [address] [place] [address] SQUAMOUS EPITHELIUM 15 /hpf High 0-5 [facility] Comment on above: Performed By: #### U A #### [facility] ([id number]) [address] [address] [address] [address] [place] [address] TURBIDITY CLEAR Normal CLEAR [facility] Comment on above: Performed By: #### U A #### [facility] ([id number]) [address], [address] [place] [address] Urobilinogen (U) [Mass/Vol] mg/dL Normal <1.1 [facility] Comment on above: Performed By: #### U A #### [facility] ([id number]) [address] [place] [address] W.B.CELLS 2 /hpf Normal 0-5 [facility] Comment on above: Performed By: #### U A #### [facility] ([id number]) [address] [place] [address] Urinalysison 02-22-2024 Bilirubin Ql (U) Negative Negative^Ne gat naomi [facility] Color (U) YELLOW YELLOW^YELLOW [facility] Epithelial cells Auto (Urine sed) [#/Area] 15 High [facility] Glucose (U) [Mass/Vol] mg/dL Abnormal Negative^Negat naomi mg/dL [facility] Hemoglobin Auto test strip Ql (U) Negative Negative^Negat naomi [facility] Interpretation and review of laboratory results Abnormal [facility] Ketones (U) [Mass/Vol] Negative Negative^Negat naomi mg/dL [facility] Leukocyte esterase Auto test strip Ql (U) Negative Negative^Negat naomi [facility] Comment on above: HIGH CONCENTRATIONS OF GLUCOSE MAY DECREASE THE REACTIVITY OF THE DIPSTICK LEUKOCYTE TEST PAD. Nitrite Auto test strip Ql (U) Negative Negative^Negat naomi [facility] pH (U) 6.0 [pH] 5.0 - 8.5 [facility] Protein (U) [Mass/Vol] Trace Abnormal Negative^Negat naomi mg/dL [facility] RBC Auto (Urine sed) [#/Area] 1 [facility] Specific gravity Refractometry automated (U) [Rel density] 1.026 1.003 - 1.035 [facility] Turbidity Ql (U) CLEAR CLEAR^CLEAR [facility] Urobilinogen Qn (U) NINF [facility] WBC Auto (Urine sed) [#/Area] 2 [facility] VAGINITIS PANEL PCRon 2023 VAGINITIS PANEL PCR BACT. VAGINOSIS DNA Detected (qualifier value) Qualitative results are reported based on detection and quantitation of targeted organism markers which include: Lactobacillus spp. (L. crispatus and L. jensenii), Gardnerella vaginalis, Atopobium vaginae, Bacterial Vaginosis Associated Bacteria-2 (BVAB-2) and Megasphaera-1 KALI SPECIES DNA Detected (qualifier value) Kali species result based on detection of one or more of the following species: C. albicans, C. tropicalis, C. parapsilosis or C. dubliniensis KALI KRUSEI DNA Not detected (qualifier value) No Kali krusei detected KALI GLABRATA DNA Not detected (qualifier value) No Kali glabrata detected TRICHOMONAS VAG DNA Not detected (qualifier value) No Trichomonas vaginalis detected NOTE BD MAX Vaginal Panel has not been evaluated for patients under 18 years old. Results for these patients should be reviewed and assessed in accordance with clinical presentation to determine patient diagnosis. Normal [facility] Comment on above: Performed By: #### V PPCR #### [facility] ([id number]) [address] [place] [address], [address] [place] [address] Covid-19 PCR (CVDTB)on 07-23 SARS-CoV-2 (COVID-19) RNA UGO+probe Ql (Unsp spec) Not detected Normal NOT DETECTED [facility] Comment on above: Result Comment: This test is not yet approved or cleared by the [place] FDA. When there are no FDA-approved or cleared tests available, and other criteria are met, FDA can make tests available under an emergency access mechanism called an Emergency Use Authorization (EUA). The EUA for this test is supported by the [place] of Health and Human Service's (HHS's) declaration [...] SARS-CoV-2. Performed By: #### C VDTB #### [facility] [address] [place] [address] Dr. Morena Heredia THYROID ANTIBODIESon 022 Thyroglobulin Antibody <1.0 Normal 0.0-0.9 [facility] [facility] Comment on above: Result Comment: Thyr oglobulin Antibody measured by ROOOMERS Methodology Performed By: #### T HYBS #### [facility] [address] [place] [address] Dr. Morena Heredia Thyroid Peroxidase (TPO) Ab <8 Normal 0-34 [facility] Comment on above: Performed By: #### T AUSTIN #### [facility] [address] [place] [address] Dr. Morena Heredia CBC AUTO DIFFon 12-16-2021 BASO # 0.1 103/ul Normal 0.0-0.1 [facility] Comment on above: Performed By: #### C BC #### [facility] [address] [place] [address] Dr. Morena Heredia Basophils/100 WBC (Bld) 1.1 % Normal 0.2-2.0 [facility] Comment on above: Performed By: #### C BC #### [facility] [address] [place] [address] Dr. Morena Heredia EO # 0.3 103/ul Normal 0.0-0.7 [facility] Comment on above: Performed By: #### C BC #### [facility] [address] [place] [address] Dr. Morena Heredia Eosinophils/100 WBC (Bld) 4.4 % Normal 0.9-7.0 [facility] Comment on above: Performed By: #### C BC #### [facility] [address] [place] [address] Dr. Morena Heredia Erythrocyte distribution width (RBC) [Ratio] 15.2 % Critically high 11.0-15.0 [facility] Comment on above: Performed By: #### C BC #### [facility] [address] [place] [address] Dr. Morena Heredia Hematocrit (Bld) [Volume fraction] 41.2 % Normal 36.0-48.0 [facility] Comment on above: Performed By: #### C BC #### [facility] [address] [place] [address] Dr. Morena Heredia Hemoglobin (Bld) [Mass/Vol] 12.8 g/dL Normal 12.0-16.0 [facility] Comment on above: Performed By: #### C BC #### [facility] [address] [place] [address] Dr. Morena Heredia IG # 0.01 10e3/ul Normal 0.00-0.03 [facility] Comment on above: Performed By: #### C BC #### [facility] [address] [place] [address] Dr. Morena Heredia IG % 0.2 % Normal 0.0-0.5 [facility] Comment on above: Performed By: #### C BC #### [facility] [address] [place] [address] Dr. Morena Heredia LYMPH # 2.5 103/ul Normal 1.2-3.8 [facility] Comment on above: Performed By: #### C BC #### [facility] [address] [place] [address] Dr. Morena Heredia Lymphocytes/100 WBC (Bld) 43.3 % Normal 20.5-60.0 [facility] Comment on above: Performed By: #### C BC #### [facility] [address] [place] [address] Dr. Morena Heredia MANUAL DIFF REQ NO Normal [facility] Comment on above: Performed By: #### C BC #### [facility] [address] [place] [address] Dr. Morena Heredia MCH (RBC) [Entitic mass] 26.3 pg Critically low 26.7-34.0 [facility] Comment on above: Performed By: #### C BC #### [facility] [address] [address] [address] Morena Heredia MCHC (RBC) [Mass/Vol] 31.1 g/dL Normal 29.9-35.2 [facility] Comment on above: Performed By: #### C BC #### [facility] [address] [place] [address] Dr. Morena Heredia MCV (RBC) [Entitic vol] 84.8 fL Normal 81.0-99.0 [facility] Comment on above: Performed By: #### C BC #### [facility] [address] [place] [address] Dr. Morena Heredia MONO # 0.4 103/ul Normal 0.3-0.8 [facility] Comment on above: Performed By: #### C BC #### [facility] [address] [place] [address] Dr. Morena Heredia Monocytes/100 WBC (Bld) 6.3 % Normal 1.7-12.0 [facility] Comment on above: Performed By: #### C BC #### [facility] [address] [place] [address] Dr. Morena Heredia NEUT # 2.5 103/ul Normal 1.4-6.5 [facility] Comment on above: Performed By: #### C BC #### [facility] [address] [place] [address] Dr. Morena Heredia Neutrophils/100 WBC (Bld) 44.7 % Normal 43.0-75.0 [facility] Comment on above: Performed By: #### C BC #### [facility] [address] [place] [address] Dr. Moerna Heredia Platelet mean volume (Bld) [Entitic vol] 11.5 fL Normal 9.5-13.5 [facility] Comment on above: Performed By: #### C BC #### [facility] [address] [place] [address] Dr. Morena Heredia PLT 155 103/ul Normal 150-450 [facility] Comment on above: Performed By: #### C BC #### [facility] [address] [place] [address] Dr. Morena Heredia RBC 4.86 106/ul Normal 4.20-5.40 [facility] Comment on above: Performed By: #### C BC #### [facility] [address] [place] [address] Dr. Morena Heredia WBC 5.7 103/ul Normal 4.0-11.0 [facility] Comment on above: Performed By: #### C BC #### [facility] [address] [place] [address] Dr. Morena Heredia FERRITINon 12-16-2021 Ferritin [Mass/Vol] 71.0 ng/mL Normal 6.2-137.0 [facility] Comment on above: Performed By: #### I BERNADETTE, FERR, VITB12, FT4 #### [facility] [address] [place] [address] Dr. Morena Heredia FREE T4on 12-16-2021 Free T4 [Mass/Vol] 1.10 ng/dL Normal 0.76-1.46 [facility] Comment on above: Performed By: #### C MP, TSH #### [facility] [address] [place] [address] Dr. Morena Heredia IRONon 12-16-2021 Iron [Mass/Vol] 47.0 ug/dL Critically low 50.0-170.0 [facility] Comment on above: Performed By: #### C MP, TSH #### [facility] [address] [place] [address] Dr. Morena Heredia PROF 14(COMP METB)on 022 Albumin [Mass/Vol] 4.1 g/dL Normal 3.4-5.0 [facility] Comment on above: Performed By: #### C MP, TSH #### [facility] [address] [place] [address] Dr. Morena Heredia Albumin/Globulin [Mass ratio] 1.1 {ratio} Normal [facility] Comment on above: Performed By: #### C MP, TSH #### [facility] [address] [place] [address] Dr. Morena Heredia ALP [Catalytic activity/Vol] 58 U/L Normal 46-116 [facility] Comment on above: Performed By: #### C MP, TSH #### [facility] [address] [address] [address] Morena Heredia ALT [Catalytic activity/Vol] 59 U/L Normal 14-59 [facility] Comment on above: Performed By: #### C MP, TSH #### [facility] [address] [address] [address] Morena Heredia Anion gap [Moles/Vol] 13.3 mmol/L Normal [facility] Comment on above: Performed By: #### C MP, TSH #### [facility] [address] [address] [address] Morena Heredia AST [Catalytic activity/Vol] 41 U/L Critically high 15-37 [facility] Comment on above: Performed By: #### C MP, TSH #### [facility] [address] [address] [address] Morena Heredia Bilirubin [Mass/Vol] 0.4 mg/dL Normal 0.2-1.0 [facility] Comment on above: Performed By: #### C MP, TSH #### [facility] [address] [address] [address] Morena Heredia Calcium [Mass/Vol] 9.2 mg/dL Normal 8.5-10.1 [facility] Comment on above: Performed By: #### C MP, TSH #### [facility] [address] [address] [address] Morena Heredia Chloride [Moles/Vol] 93 mmol/L Critically low 98-107 [facility] Comment on above: Performed By: #### C MP, TSH #### [facility] [address] [address] [address] Morena Heredia CO2 [Moles/Vol] 29.2 mmol/L Normal 21.0-32.0 [facility] Comment on above: Performed By: #### C MP, TSH #### [facility] [address] [address] [address] Morena Heredia Creatinine [Mass/Vol] 1.04 mg/dL Critically high 0.55-1.02 [facility] Comment on above: Performed By: #### C MP, TSH #### [facility] [address] [address] [address] Morena Heredia EGFR-AF TURKISH >60 Normal >=60 [facility] Comment on above: Performed By: #### C MP, TSH #### [facility] [address] [address] [address] Morena Heredia EGFR-NON AF TURKISH >60 Normal >=60 [facility] Comment on above: Performed By: #### C MP, TSH #### [facility] [address] [address] [address] Morena Heredia Globulin (S) [Mass/Vol] 3.8 g/dL Normal [facility] Comment on above: Performed By: #### C MP, TSH #### [facility] [address] [address] [address] Morena Heredia Glucose [Mass/Vol] 109 mg/dL Critically high 74-106 [facility] Comment on above: Performed By: #### C MP, TSH #### [facility] [address] [address] [address] Morena Heredia Potassium [Moles/Vol] 4.5 mmol/L Normal 3.5-5.1 [facility] Comment on above: Performed By: #### C MP, TSH #### [facility] [address] [address] [address] Morena Heredia Protein [Mass/Vol] 7.9 g/dL Normal 6.1-8.2 [facility] Comment on above: Performed By: #### C MP, TSH #### [facility] [address] [address] [address] Morena Heredia Sodium [Moles/Vol] 131 mmol/L Critically low 136-[address] [facility] Comment on above: Performed By: #### C MP, TSH #### [facility] [address] [address] [address] Morena Heredia Urea nitrogen [Mass/Vol] 14.0 mg/dL Normal 7.0-18.0 [facility] Comment on above: Performed By: #### C MP, TSH #### [facility] [address] [address] [address] Morena Heredia Urea nitrogen/Creatinine [Mass ratio] 13.5 mg/mg Normal [facility] Comment on above: Performed By: #### C MP, TSH #### [facility] [address] [address] [address] Morena Heredia TSHon 12-16-2021 TSH 2.484 uIU/mL Normal 0.470-4.680 [facility] Comment on above: Performed By: #### C MP, TSH #### [facility] [address] [place] [address] Dr. Morena Heredia TSH RANGE SEE BELOW Normal [facility] Comment on above: Result Comment: <0.3 4 UIU/ml HYPERTHYROID 0.34-5.60 UIU/ml EUTHYROID >5.60 UIU/ml HYPOTHYROID Performed By: #### C MP, TSH #### [facility] [address] [place] [address] Dr. Morena Heredia VITAMIN B12on 12-16-2021 Cobalamin (Vitamin B12) [Mass/Vol] 478.0 pg/mL Normal 239.0-931.0 [facility] Comment on above: Performed By: #### C MP, TSH #### [facility] [address] [place] [address] Dr. Morena Heredia GLYCOHEMOGLOBIN A1Con 2021 ADA RECOMMENDATION ADA THERAPEUTIC TARGET 6.0 - 7.0 ACTION SUGGESTED > 7.0 Normal [facility] Comment on above: Performed By: #### C MP, TSH #### [facility] [address] [place] [address] Dr. Morena Heredia Glucose [Mass/Vol] 186 mg/dL Normal [facility] Comment on above: Performed By: #### C MP, TSH #### [facility] [address] [place] [address] Dr. Morena Heredia HbA1c (Bld) [Mass fraction] 8.1 % Critically high <=6.0 [facility] Comment on above: Performed By: #### C MP, TSH #### [facility] [address] [address] [address] Morena Heredia PROF 14(COMP METB)on 022 Albumin [Mass/Vol] 3.7 g/dL Normal 3.4-5.0 [facility] Comment on above: Performed By: #### C MP #### [facility] [address] [place] [address] Dr. Morena Heredia Albumin/Globulin [Mass ratio] 0.9 {ratio} Normal [facility] Comment on above: Performed By: #### C MP #### [facility] [address] [place] [address] Dr. Morena Heredia ALP [Catalytic activity/Vol] 69 U/L Normal 46-116 [facility] Comment on above: Performed By: #### C MP #### [facility] [address] [place] [address] Dr. Morena Heredia ALT [Catalytic activity/Vol] 99 U/L Critically high 14-59 [facility] Comment on above: Performed By: #### C MP #### [facility] [address] [place] [address] Dr. Morena Heerdia Anion gap [Moles/Vol] 13.9 mmol/L Normal [facility] Comment on above: Performed By: #### C MP #### [facility] [address] [place] [address] Dr. Morena Heredia AST [Catalytic activity/Vol] 61 U/L Critically high 15-37 [facility] Comment on above: Performed By: #### C MP #### [facility] [address] [address] [address] Morena Heredia Bilirubin [Mass/Vol] 0.3 mg/dL Normal 0.2-1.3 [facility] Comment on above: Performed By: #### C MP #### [facility] [address] [place] [address] Dr. Morena Heredia Calcium [Mass/Vol] 9.2 mg/dL Normal 8.5-10.1 [facility] Comment on above: Performed By: #### C MP #### [facility] [address] [address] [address] Morena Heredia Chloride [Moles/Vol] 98 mmol/L Normal 98-107 [facility] Comment on above: Performed By: #### C MP #### [facility] [address] [address] [address] Morena Heredia CO2 [Moles/Vol] 27.4 mmol/L Normal 22.0-30.0 [facility] Comment on above: Performed By: #### C MP #### [facility] [address] [address] [address] Morena Heredia Creatinine [Mass/Vol] 1.02 mg/dL Normal 0.52-1.04 [facility] Comment on above: Performed By: #### C MP #### [facility] [address] [address] [address] Morena Heredia EGFR-AF TURKISH >60 Normal >=60 [facility] Comment on above: Performed By: #### C MP #### [facility] [address] [address] [address] Morena Heredia EGFR-NON AF TURKISH 60 mL/min/1.73m2 Normal >=60 [facility] Comment on above: Performed By: #### C MP #### [facility] [address] [address] [address] Morena Heredia Globulin (S) [Mass/Vol] 4.1 g/dL Normal [facility] Comment on above: Performed By: #### C MP #### [facility] [address] [address] [address] Morena Heredia Glucose [Mass/Vol] 152 mg/dL Critically high 74-106 [facility] Comment on above: Performed By: #### C MP #### [facility] [address] [address] [address] Morena Heredia Potassium [Moles/Vol] 4.3 mmol/L Normal 3.4-5.0 [facility] Comment on above: Performed By: #### C MP #### [facility] [address] [address] [address] Morena Heredia Protein [Mass/Vol] 7.8 g/dL Normal 6.1-8.2 [facility] Comment on above: Performed By: #### C MP #### [facility] [address] [address] [address] Morena Heredia Sodium [Moles/Vol] 135 mmol/L Critically low 137-145 [facility] Comment on above: Performed By: #### C MP #### [facility] [address] [address] [address] Morena Heredia Urea nitrogen [Mass/Vol] 12.0 mg/dL Normal 7.0-18.0 [facility] Comment on above: Performed By: #### C MP #### [facility] [address] [place] [address] Dr. Morena Heredia Urea nitrogen/Creatinine [Mass ratio] 11.8 mg/mg Normal [facility] Comment on above: Performed By: #### C MP #### [facility] [address] [place] [address] Dr. Morena Heredia VITAMIN D 25 OHon 11-23-2021 VIT D 25-OH 17.6 ng/mL Normal [facility] Comment on above: Performed By: #### C MP, TSH #### [facility] [address] [place] [address] Dr. Morena Heredia VIT D RANGES SEE BELOW Normal [facility] Comment on above: Result Comment: <20 ng/mL Vit D deficient 20 - <30 ng/mL Vit D insufficient 30 - 100 ng/mL Vit D sufficient >100 ng/mL Potential Toxicity Performed By: #### C MP, TSH #### [facility] [address] [place] [address] Dr. Morena Heredia PTH INTACTon 08-28-2021 PTH, Intact 28 pg/mL Normal 15-65 [facility] Comment on above: Performed By: #### P THINT #### [facility] [address] [place] [address] Dr. Morena Heredia VIT D 25-OH LABCORPon 2021 Vitamin D, 25-Hydroxy 16.2 ng/mL Critically low 30.0-100.0 [facility] Comment on above: Result Comment: Gi min D deficiency has been defined by the [place] of [employer] and an Endocrine Society practice guideline as a level of serum 25-OH vitamin D less than 20 ng/mL (1,2). The Endocrine Society went on to further define vitamin D insufficiency as a level between 21 and 29 ng/mL (2). 1. IOM ([place] of [employer]). 2010. Dietary reference intakes for calcium and D. [place]: The National AcademTruly Accomplished Press. 2. Margaret MF, [place], Nay PERRY, et al. Evaluation, treatment, and prevention of vitamin D deficiency: an Endocrine Society clinical practice guideline. JCEM. 2010; 96(7):1911-30. Performed By: #### C MP, TSH #### [facility] [address] [place] [address] Dr. Moerna Heredia FREE T4on 08-27-2021 Free T4 [Mass/Vol] 1.17 ng/dL Normal 0.78-2.19 [facility] Comment on above: Performed By: #### F T4 #### [facility] [address] [address] [address] Morena Heredia GLYCOHEMOGLOBIN A1Con 2021 ADA RECOMMENDATION ADA THERAPEUTIC TARGET 6.0 - 7.0 ACTION SUGGESTED > 7.0 Normal [facility] Comment on above: Performed By: #### A 1C #### [facility] [address] [address] [address] Morena Heredia Glucose [Mass/Vol] 212 mg/dL Normal [facility] Comment on above: Performed By: #### A 1C #### [facility] [address] [address] [address] Morena Heredia HbA1c (Bld) [Mass fraction] 9.0 % Critically high <=6.0 [facility] Comment on above: Performed By: #### A 1C #### [facility] [address] [place] [address] Dr. Morean Heredia PROF 14(COMP METB)on 022 Albumin [Mass/Vol] 3.9 g/dL Normal 3.5-5.0 [facility] Comment on above: Performed By: #### C MP, TSH #### [facility] [address] [place] [address] Dr. Morena Heredia Albumin/Globulin [Mass ratio] 1.0 {ratio} Normal [facility] Comment on above: Performed By: #### C MP, TSH #### [facility] [address] [address] [address] Morena Heredia ALP [Catalytic activity/Vol] 92 U/L Normal 38-126 [facility] Comment on above: Performed By: #### C LINDA, TSH #### [facility] [address] [place] [address] Dr. Morena Heredia ALT [Catalytic activity/Vol] 157 U/L Critically high 9-52 [facility] Comment on above: Performed By: #### C LINDA, TSH #### [facility] [address] [place] [address] Dr. Morena Heredia Anion gap [Moles/Vol] 16.3 mmol/L Normal [facility] Comment on above: Performed By: #### C MP, TSH #### [facility] [address] [place] [address] Dr. Morena Heredia AST [Catalytic activity/Vol] 127 U/L Critically high 14-36 [facility] Comment on above: Performed By: #### C LINDA, TSH #### [facility] [address] [place] [address] Dr. Morena Heredia Bilirubin [Mass/Vol] 0.3 mg/dL Normal 0.2-1.3 [facility] Comment on above: Performed By: #### C MP, TSH #### [facility] [address] [place] [address] Dr. Morena Heredia Calcium [Mass/Vol] 9.5 mg/dL Normal 8.4-10.2 [facility] Comment on above: Performed By: #### C MP, TSH #### [facility] [address] [place] [address] Dr. Morena Heredia Chloride [Moles/Vol] 92 mmol/L Critically low 98-107 [facility] Comment on above: Performed By: #### C MP, TSH #### [facility] [address] [address] [address] Morena Heredia CO2 [Moles/Vol] 24.9 mmol/L Normal 22.0-30.0 [facility] Comment on above: Performed By: #### C MP, TSH #### [facility] [address] [address] [address] Morena Heredia Creatinine [Mass/Vol] 1.13 mg/dL Critically high 0.52-1.04 [facility] Comment on above: Performed By: #### C MP, TSH #### [facility] [address] [place] [address] Dr. Morena Heredia EGFR-AF TURKISH >60 Normal >=60 [facility] Comment on above: Performed By: #### C MP, TSH #### [facility] [address] [place] [address] Dr. Morena Heredia EGFR-NON AF TURKISH 53 mL/min/1.73m2 Critically low >=60 [facility] Comment on above: Performed By: #### C MP, TSH #### [facility] [address] [place] [address] Dr. Morena Heredia Globulin (S) [Mass/Vol] 4.1 g/dL Normal [facility] Comment on above: Performed By: #### C MP, TSH #### [facility] [address] [address] [address] Morena Heredia Glucose [Mass/Vol] 323 mg/dL Critically high 74-106 [facility] Comment on above: Performed By: #### C MP, TSH #### [facility] [address] [place] [address] Dr. Morena Heredia Potassium [Moles/Vol] 4.2 mmol/L Normal 3.4-5.0 [facility] Comment on above: Performed By: #### C MP, TSH #### [facility] [address] [place] [address] Dr. Morena Heredia Protein [Mass/Vol] 8.0 g/dL Normal 6.1-8.2 [facility] Comment on above: Performed By: #### C MP, TSH #### [facility] [address] [address] [address] Morena Heredia Sodium [Moles/Vol] 129 mmol/L Critically low 137-145 [facility] Comment on above: Performed By: #### C MP, TSH #### [facility] [facility] [address] [address] [address] Morena Heredia Urea nitrogen [Mass/Vol] 20.0 mg/dL Critically high 7.0-17.0 [facility] Comment on above: Performed By: #### C MP, TSH #### [facility] [address] [place] [address] Dr. Morena Heredia Urea nitrogen/Creatinine [Mass ratio] 17.7 mg/mg Normal [facility] Comment on above: Performed By: #### C MP, TSH #### [facility] [address] [place] [address] Dr. Morena Heredia TSHon 08-27-2021 TSH 5.049 uIU/mL Critically high 0.470-4.680 [facility] Comment on above: Performed By: #### C MP, TSH #### [facility] [address] [place] [address] Dr. Morena Heredia TSH RANGE SEE BELOW Normal [facility] Comment on above: Result Comment: <0.3 4 UIU/ml HYPERTHYROID 0.34-5.60 UIU/ml EUTHYROID >5.60 UIU/ml HYPOTHYROID Performed By: #### C MP, TSH #### [facility] [address] [place] [address] Dr. Morena Heredia Glucose Poct Glucometerson 0 03-05-2021 Commemt1 Glu2: Cleaned Meter Normal [facility] Comment on above: Result Comment: PERF ORMED BY: [address] [place] [address] PATHOLOGIST NOTCHER MARY CABAN M.D. Performed By: #### G HAZEL #### Point of Care testing , Glucose [Mass/Vol] 213 mg/dL Normal [facility] Comment on above: Result Comment: Reynolds Glucose Reference Range is dependent on time and content of last meal. Glucose of more than 200 mg/dL in a nonstressed, ambulatory subject supports the diagnosis of Diabetes Mellitus. Performed By: #### G HAZEL #### Point of Care testing , Bony 03-05-2021 L - -------- Specimen: [id number] Received: 03/05/21 Status: RODNEY Master Num: [id number] Spec Type: Surgical Subm Dr: Yuniel Brown Jr, Tissues: A Colon Biopsy (RANDOM COLON) Procedures: HE Stain/2, Gross/Micro L4 -------- Patient Age/Sex Location Account Attending Physician -------- Zelda Martin 40/F [id number] Yuniel Brown Jr, DO -------- SPEC NUM: [id number] RECD: 03/05/21 STATUS: RODNEY HAMMONDSammi NUM: [id number] MEREDITH: 03/05/21 DR: Yuniel Brown Jr, DO ENTERED: 03/05/21 [facility] DR: SPEC TYPE: Surgical DEPT: S ORDERED: [...] Microscopic examination confirms the diagnosis. CPT Codes 75410 -------- -------- Specimen: [id number] Received: 03/05/21 Status: RODNEY Hammondsammi Num: [id number] Spec Type: Surgical Subm Dr: Yuniel Brown Jr, DO Tissues: A Colon Biopsy (RANDOM COLON) Procedures: HE Stain/2, Gross/Micro L4 -------- Patient: Zelda Martin [id number] (Continued) -------- Signed (signature on file) Nickolas Sexton MD 03/06/21 1034 Normal [facility] COVID-19 [facility] [place] SARS-CoV-2 (COVID-19) RNA UGO+probe Ql (Unsp spec) Negative Normal Negative [facility] Comment on above: Order Comment: Healt hcare Worker?: N Result Comment: Testing for SARS-CoV-2 by RT-PCR This test was developed and its performance characteristics determined by [employer] and validated at the [facility]. This test has not been FDA [...] is terminated or revoked sooner. PERFORMED BY: [place] [address] PATHOLOGIST NOTCHER MARY CABAN M.D. Performed By: #### C OVID 19 [facility] [place] [place] #### [id number] [facility] CNOVon 03-14-2017 CNOV Office Visit ([id number]) ----MARIOZELDA Gianna ([id number]) 1980 FDate Time Provider Department03/14/17 2:30 PM SHAHIDA RUSSELL [id number] During your visit today, we recorded the following information about you: Blood pressure Weight Height Last Period 134/88 108.7 kg 1.524 m 02/14/17Shahida Russell MD 03/14/2017 5:01 PM SignedSUBJECTIVE: Zelda Lopez Mario is a 36 year old female Patient [...] wants to think about her options and decide.Shahida Russell, MDReferring Provider: RASHEED DUFFY [[id number]]Allergies As of Date: 03/14/2017(No Known Allergies)Date Reviewed: 03/14/2017Reviewed by: Dahiana Arteaga Ma - Fully AssessedReason for Visit: Consult [173]Primary Visit Diagnosis:Menorrhagia with regular cycle [N92.0]Prescriptions as of 03/14/2017 Sig: LISINOPRIL 20 MG-HYDROCHLOROT* Take 1 tablet by mouth once d* LISINOPRIL 10 MG-HYDROCHLOROT* Take 1 tablet by mouth once d*Problem List As Of Date: 03/14/2017(None)Encou nter Number: [id number] Status:Closed by SHAHIDA RUSSELL MD on 03/14/17 [facility] PROGRESSon 03-14-2017 PROGRESS HNO ID: [id number]: Shahida Rodriguezervice: (none)Author Type: PhysicianType: Progress NotesFiled: 03/14/2017 5:01 PMNote Text:SUBJECTIVE: Zelda Martin is a 36 year old female Patient [...] wants to think about her options and decide.Shahida Russell MD [facility] Vital Signs Date Time Vital Sign Value Performing Clinician Facility 10-04-2024 10:13-0500 Body mass index (BMI) [Ratio] 41.04 kg/m2 Janki Mora DRY CLEANER APPRENTICE Work Phone: [facility] 10-04-2024 10:13-0500 Body temperature 98.71 [degF] Janki Mora DRY CLEANER APPRENTICE Work Phone: [facility] 10-04-2024 10:13-0500 Body weight 92.17 kg Janki Mora DRY CLEANER APPRENTICE Work Phone: [facility] 10-04-2024 10:13-0500 Diastolic blood pressure 82 mm[Hg] Janki Mora DRY CLEANER APPRENTICE Work Phone: [facility] 10-04-2024 10:13-0500 Heart rate 97 /min Janki Mora DRY CLEANER APPRENTICE Work Phone: [facility] 10-04-2024 10:13-0500 Respiratory rate 20 /min Janki Mora DRY CLEANER APPRENTICE Work Phone: [facility] 10-04-2024 10:13-0500 SaO2% (BldA) [Mass fraction] 99 % Janki Mora DRY CLEANER APPRENTICE Work Phone: [facility] 10-04-2024 10:13-0500 Systolic blood pressure 120 mm[Hg] Janki Mora DRY CLEANER APPRENTICE Work Phone: [facility] 09-10-2024 14:17-0500 Body height 149.9 cm Janki Mora DRY CLEANER APPRENTICE Work Phone: [facility] 09-10-2024 14:17-0500 Body mass index (BMI) [Ratio] 42.6 kg/m2 Janki Odonnellz DRY CLEANER APPRENTICE Work Phone: [facility] 09-10-2024 14:17-0500 Body temperature 98.29 [degF] Janki Odonnellkostas DRY CLEANER APPRENTICE Work Phone: [facility] 09-10-2024 14:17-0500 Body weight 95.66 kg Janki Odonnellz DRY CLEANER APPRENTICE Work Phone: [facility] 09-10-2024 14:17-0500 Diastolic blood pressure 76 mm[Hg] Janki Odonnellz DRY CLEANER APPRENTICE Work Phone: [facility] 09-10-2024 14:17-0500 Heart rate 83 /min Janki Odonnellz DRY CLEANER APPRENTICE Work Phone: [facility] 09-10-2024 14:17-0500 Respiratory rate 20 /min Janki Odonnellz DRY CLEANER APPRENTICE Work Phone: [facility] 09-10-2024 14:17-0500 SaO2% (BldA) [Mass fraction] 94 % Janki Odonnellkostas DRY CLEANER APPRENTICE Work Phone: [facility] 09-10-2024 14:17-0500 Systolic blood pressure 116 mm[Hg] Janki Odonnellkostas DRY CLEANER APPRENTICE Work Phone: [facility] 07-30-2024 13:56-0500 Body height 149.9 cm Janki Odonnellz DRY CLEANER APPRENTICE Work Phone: [facility] 07-30-2024 13:56-0500 Body mass index (BMI) [Ratio] 42.58 kg/m2 Janki Escobarlyubovz DRY CLEANER APPRENTICE Work Phone: [facility] 07-30-2024 13:56-0500 Body temperature 98.1 [degF] Janki Júniorhholz DRY CLEANER APPRENTICE Work Phone: [facility] 07-30-2024 13:56-0500 Body weight 95.62 kg Janki Aichholz DRY CLEANER APPRENTICE Work Phone: [facility] 07-30-2024 13:56-0500 Diastolic blood pressure 70 mm[Hg] Janki Aichholz DRY CLEANER APPRENTICE Work Phone: [facility] 07-30-2024 13:56-0500 Heart rate 90 /min Janki Aichholz DRY CLEANER APPRENTICE Work Phone: [facility] 07-30-2024 13:56-0500 Respiratory rate 22 /min Janki Aichholz DRY CLEANER APPRENTICE Work Phone: [facility] 07-30-2024 13:56-0500 SaO2% (BldA) [Mass fraction] 99 % Janki Aichholz DRY CLEANER APPRENTICE Work Phone: [facility] 07-30-2024 13:56-0500 Systolic blood pressure 110 mm[Hg] Janki Aichholz DRY CLEANER APPRENTICE Work Phone: [facility] 05-29-2024 14:06-0400 Body height 149.9 cm Janki Aichholz DRY CLEANER APPRENTICE Work Phone: [facility] 05-29-2024 14:06-0400 Body mass index (BMI) [Ratio] 44.64 kg/m2 Janki Aichholz DRY CLEANER APPRENTICE Work Phone: [facility] 05-29-2024 14:06-0400 Body temperature 98.8 [degF] Janki Aichholz DRY CLEANER APPRENTICE Work Phone: [facility] 05-29-2024 14:06-0400 Body weight 100.25 kg Janki Aichholz DRY CLEANER APPRENTICE Work Phone: [facility] 05-29-2024 14:06-0400 Diastolic blood pressure 76 mm[Hg] Janki Aichholz DRY CLEANER APPRENTICE Work Phone: [facility] 05-29-2024 14:06-0400 Heart rate 91 /min Janki Odonnellz DRY CLEANER APPRENTICE Work Phone: [facility] 05-29-2024 14:06-0400 Respiratory rate 20 /min Janki Shawnholz DRY CLEANER APPRENTICE Work Phone: [facility] 05-29-2024 14:06-0400 SaO2% (BldA) [Mass fraction] 96 % Janki Odonnellz DRY CLEANER APPRENTICE Work Phone: [facility] 05-29-2024 14:06-0400 Systolic blood pressure 110 mm[Hg] Janki Escobarholz DRY CLEANER APPRENTICE Work Phone: [facility] 02-22-2024 14:24-0400 Diastolic blood pressure 66 mm[Hg] Aliyah Johns PACKAGING TECHNICIAN-EXTRACTOR PLANT OPERATOR Work Phone: [facility] 02-22-2024 14:24-0400 Heart rate 79 /min Aliyah Mourahop PACKAGING TECHNICIAN-EXTRACTOR PLANT OPERATOR Work Phone: [facility] 02-22-2024 14:24-0400 Respiratory rate 16 /min Aliyah Johns PACKAGING TECHNICIAN-EXTRACTOR PLANT OPERATOR Work Phone: [facility] 02-22-2024 14:24-0400 SaO2% (BldA) [Mass fraction] 98 % Aliyahgregorio Mourahop PACKAGING TECHNICIAN-EXTRACTOR PLANT OPERATOR Work Phone: [facility] 02-22-2024 14:24-0400 Systolic blood pressure 128 mm[Hg] Aliyah Johns PACKAGING TECHNICIAN-EXTRACTOR PLANT OPERATOR Work Phone: [facility] 02-22-2024 14:18-0400 Body mass index (BMI) [Ratio] 43.94 kg/m2 Aliyahgregorio Johns PACKAGING TECHNICIAN-EXTRACTOR PLANT OPERATOR Work Phone: [facility] 02-22-2024 14:18-0400 Body weight 102.06 kg Aliyahxiao Johns PACKAGING TECHNICIAN-EXTRACTOR PLANT OPERATOR Work Phone: [facility] Encounters Encounter Date Encounter Type Care Provider Facility Start: 10-04-2024 End: 10-04-2024 Bamboo flowsheet Jankifransisco Escobarholz DRY CLEANER APPRENTICE Work Phone: [facility] Start: 10-04-2024 End: 10-04-2024 Bamboo flowsheet Jankifransisco Callejashholz DRY CLEANER APPRENTICE Work Phone: [facility] Start: 10-04-2024 End: 10-04-2024 Office outpatient visit 15 minutes Jankifransisco Mora DRY CLEANER APPRENTICE Work Phone: [facility] Comment on above: Back pain of lumbosa cral region with sciatica (Primary Dx); Morbid (severe) obesity due to excess calories (CMS/HCC); Body mass index (BMI) 40.0-44.9, adult (CMS/HCC); Type 2 diabetes mellitus without complication, without long-term current use of insulin (CMS/HCC); Anxiety and depression (CMS/HCC) Start: 10-04-2024 End: 10-04-2024 ambulatory JANKI AICHHOLZ Not Available Start: 09-10-2024 End: 09-10-2024 Bamboo flowsheet Janki Shawnholz DRY CLEANER APPRENTICE Work Phone: [facility] Start: 09-10-2024 End: 09-10-2024 Bamboo flowsheet Janki Júniorhholz DRY CLEANER APPRENTICE Work Phone: [facility] Start: 09-10-2024 End: 09-10-2024 Office outpatient visit 25 minutes Janki Bellez DRY CLEANER APPRENTICE Work Phone: [facility] Comment on above: Anxiety and depressi on [...] Start: 08-09-2024 End: 08-09-2024 Refill Janki Aichholz DRY CLEANER APPRENTICE Work Phone: [facility] Comment on above: Other secondary gout , multiple sites, unspecified chronicity (Primary Dx) Start: 07-30-2024 End: 07-30-2024 Bamboo flowsheet Janki Bellez DRY CLEANER APPRENTICE Work Phone: [facility] Start: 07-30-2024 End: 07-30-2024 Bamboo flowsheet Janki Aichholz DRY CLEANER APPRENTICE Work Phone: [facility] Start: 07-30-2024 End: 07-30-2024 Office outpatient visit 25 minutes Jankifransisco Mora DRY CLEANER APPRENTICE Work Phone: [facility] Comment on above: Type 2 diabetes [...] Start: 06-05-2024 End: 06-05-2024 Refill Janki Aichholz DRY CLEANER APPRENTICE Work Phone: [facility] Comment on above: Anxiety and depressi on (CMS/HCC); Gastroesophageal reflux disease without esophagitis; Primary hypertension (CMS/HCC); Mixed hyperlipidemia (CMS/HCC); Unspecified abdominal pain Start: 05-29-2024 End: 05-29-2024 Bamboo flowsheet Janki Bellez DRY CLEANER APPRENTICE Work Phone: [facility] Start: 05-29-2024 End: 05-29-2024 Bamboo flowsheet Janki Aichholz DRY CLEANER APPRENTICE Work Phone: [facility] Start: 05-29-2024 End: 05-29-2024 Office outpatient visit 25 minutes Janki Aichholz DRY CLEANER APPRENTICE Work Phone: [facility] Comment on above: Primary hypertension ([facility]) (Primary Dx); Type 2 diabetes mellitus without complication, without long-term current use of insulin ([facility]); Diarrhea, unspecified type; Morbid obesity ([facility]) Start: 05-29-2024 End: 05-29-2024 ambulatory JANKI AICHHOLZ Not Available Start: 04-11-2024 End: 04-11-2024 Refill Janki Aichholz DRY CLEANER APPRENTICE Work Phone: [facility] Comment on above: Vaginal yeast infect ion Start: 04-10-2024 End: 04-10-2024 Refill Janki Aichholz DRY CLEANER APPRENTICE Work Phone: [facility] Comment on above: Type 2 diabetes mare itus without complication, without long- term current use of insulin ([facility]) Start: 04-09-2024 End: 04-09-2024 ambulatory JANKI AICHHOLZ Not Available Start: 03-07-2024 End: 03-07-2024 ambulatory JANKI AICHHOLZ Not Available Start: 03-02-2024 End: 03-02-2024 ambulatory [facility] Start: 02-24-2024 End: 02-24-2024 Telephone encounter Lucia Lazar RN [facility] Start: 02-22-2024 End: 02-22-2024 ambulatory [facility] Start: 02-22-2024 End: 02-22-2024 Office outpatient visit 25 minutes Aliyah Johns PACKAGING TECHNICIAN-EXTRACTOR PLANT OPERATOR Work Phone: [facility] Comment on above: Vaginal itching ([facility] yossi Dx); History of ovarian cancer; Visit for screening mammogram; Urinary frequency; Hot flashes due to surgical menopause; BMI 40.0-44.9, adult ([facility]); Vaginal bleeding; Malignant neoplasm of ovary, unspecified laterality ([facility]); Menopause Start: 02-22-2024 End: 02-22-2024 ambulatory ALIYAH JOHNS [facility] Start: 02-20-2024 End: 02-20-2024 Telephone encounter Amy Maria [facility] Start: 01-25-2024 End: 01-25-2024 ambulatory JANKI AICHHOLZ Not Available Start: 12-29-2023 End: 12-29-2023 Telephone encounter Germania Gamino [facility] Start: 12-13-2023 End: 12-13-2023 ambulatory JANKI AICHHOLZ Not Available Start: 11-29-2023 End: 11-29-2023 ambulatory JANKI AICHHOLZ Not Available Start: 08-18-2022 End: 08-18-2022 ambulatory EXTRACTOR PLANT OPERATOR JANKI AICHHOLZ Facility:[facility] Start: 12-16-2021 End: 12-17-2021 ambulatory EXTRACTOR PLANT OPERATOR JANKI AICHHOLZ Facility:[facility] Start: 11-23-2021 End: 11-24-2021 ambulatory EXTRACTOR PLANT OPERATOR JANKI AICHHOLZ Facility:[facility] Start: 08-27-2021 End: 08-28-2021 ambulatory EXTRACTOR PLANT OPERATOR JANKI AICHHOLZ Facility:[facility] Start: 03-14-2017 End: 03-15-2017 Ambulatory SHAHIDA RUSSELL [facility] Procedures Date Procedure Procedure Detail Performing Clinician Start: 07-30-2024 Hemoglobin glycosyla levon a1c Janki Aichholz DRY CLEANER APPRENTICE Work Phone: Start: 03-02-2024 Mammography Janki Aichh olz DRY CLEANER APPRENTICE Work Phone: Plan of Treatment Date Care Activity Detail Author Start: 03-22-2026 Glaucoma screening Diabetes: R etinopathy Screening [facility] Start: 03-02-2025 Screening for malign ant neoplasm of breast Mammogram [facility] Start: 02-27-2025 End: 02-27-2025 Patient encounter procedure 02/27/2025 2:00 PM EDT Office Visit [facility] [address] [place] [address] Awilda Cervantes PA [address] [place] [address] [facility] Start: 02-21-2025 Adult BMI Screening Adult BMI Screen ing [facility] Start: 02-21-2025 Tobacco Screening Tobacco Screening [facility] Start: 12-10-2024 End: 12-10-2024 Patient encounter procedure 12/10/2024 1:00 PM EDT Office Visit [facility] [address] [address] Janki Mora, NAM [address] [phone] [facility] Start: 12-09-2024 Urine screening for protein Diabetes: Urine Protein Screening [facility] Start: 10-28-2024 Hemoglobin A1c measurement Diabetes: Hemoglobin A1C [facility] Start: 10-04-2024 End: 10-04-2025 XR Lumbar spine 2 or 3 Views XR lumbar spine 2 or 3 views Imaging Routine Back pain of lumbosacral region with sciatica Expected: 10/04/2024 (Approximate), Expires: 10/04/2025 [facility] Work Phone: Comment on above: Expected: 10/04/2024 (Approximate), Expires: 10/04/2025 Start: 10-04-2024 End: 10-04-2024 Patient encounter procedure 10/04/2024 10:20 AM EST Office Visit [facility] [address] [place] [address] Janki Mora, DRY CLEANER APPRENTICE [address] [phone] Morbid (severe) obesity due to excess calories (CMS/HCC) (Primary Dx); Body mass index (BMI) 40.0-44.9, adult (CMS/HCC); Lumbar back pain [facility] Comment on above: Morbid (severe) obes ity due to excess calories (CMS/HCC) (Primary Dx); Body mass index (BMI) 40.0-44.9, adult (CMS/HCC); Lumbar back pain Start: 09-10-2024 End: 09-10-2024 Patient encounter procedure [facility] Comment on above: Primary hypertension ([facility]/HCC) (Primary Dx); Morbid (severe) obesity due to excess calories ([facility]); Body mass index (BMI) 40.0-44.9, adult ([facility]); Malignant neoplasm of unspecified ovary ([facility]); Anxiety and depression ([facility]/HCC) Start: 07-30-2024 End: 07-30-2024 Patient encounter procedure [facility] Comment on above: Primary hypertension ([facility]/HCC) (Primary Dx); Gastroesophageal reflux disease without esophagitis; Type 2 diabetes mellitus without complication, without long-term current use of insulin ([facility]); Anxiety and depression ([facility]) Start: 07-01-2024 Hemoglobin A1c measurement Diabetes: Hemoglobin A1C [facility] Start: 05-29-2024 End: 05-29-2024 Patient encounter procedure 05/29/2024 2:00 PM EDT Office Visit [facility] [address] [address] Janki Mora, DRY CLEANER APPRENTICE [address] [place] [phone] Arrived [facility] Comment on above: Arrived Start: 05-10-2024 End: 05-10-2024 Patient encounter procedure 05/10/2024 1:20 PM EDT Office Visit [facility] [address] [place] [address] Janki Mora, DRY CLEANER APPRENTICE [address] [phone] [facility] Start: 04-22-2024 Glaucoma screening Diabetes: R etinopathy Screening [facility] Comment on above: Postponed from 04/12 (Other Patient Reasons) Start: 04-22-2024 Influenza vaccination Influenza Vacc ine [facility] Start: 04-22-2024 Screening for malign ant neoplasm of cervix Cervical Cancer Screening [facility] Comment on above: Postponed from 04/12 (Other Patient Reasons) Start: 02-22-2024 End: 02-22-2024 Patient encounter procedure 02/22/2024 2:30 PM EDT Office Visit [facility] [address] [place] [address] Aliyah Johns, PACKAGING TECHNICIAN-EXTRACTOR PLANT OPERATOR [address] [facility] [place] [address] [facility] Start: 02-22-2024 End: 02-21-2025 DBT Breast - bilateral screening Mammography screening bilateral with CAD Imaging Routine Visit for screening mammogram Expected: 02/22/2024, Expires: 02/21/2025 [facility] Work Phone: Comment on above: Expected: 02/22/2024 , Expires: 02/21/2025 Start: 02-22-2024 End: 02-21-2025 Vaginitis Panel PCR Vaginitis Panel PCR Microbiology Routine Vaginal itching Expected: 02/22/2024 (Approximate), Expires: 02/21/2025 [facility] Comment on above: Expected: 02/22/2024 (Approximate), Expires: 02/21/2025 Start: 01-02-2024 End: 01-02-2024 Patient encounter procedure 01/02/2024 3:30 PM EDT Office Visit [facility] [address] [place] [phone] Aliyah Johns, PACKAGING TECHNICIAN-EXTRACTOR PLANT OPERATOR [address] [facility] [facility] [place] [address] [facility] Start: 06-10-2022 Adult BMI Screening Adult BMI Screen [facility] Start: 2010 Screening for malign ant neoplasm of cervix [facility] Start: 2001 Screening for malign ant neoplasm of cervix Pap Smear [facility] Start: 1999 DTaP,Tdap and Td Vaccines (1 - Tdap) DTaP,Tdap and Td Vaccines (1 - Tdap) [facility] Start: 1992 Depression Screening Depression Scre ening [facility] Start: 1992 Tobacco Screening Tobacco Screening [facility] Start: 1990 Glaucoma screening Diabetes: R etinopathy Screening [facility] Start: 1980 Tobacco Counseling Tobacco Counselin g [facility] Bacteria identified in Urine by Culture Urine culture Microbiology Routine Urinary frequency Ordered: 02/22/2024 [facility] Comment on above: Ordered: 02/22/2024 Payers Date Payer Category Payer Private Health Insurance [id number] 2023 Private Health Insurance [id number] 2023 Medicaid (Managed Care) [employer] [id number] 2003 Medicaid [id number] 1980 Unknown [id number] 2.16.840.1.723371.3.579.2. 593 1980 Unknown [id number] 2.16840.1.008890.3.579.2. 593 1980 Unknown [id number] 2.16.840.1.764880.3.579.2. 593 1980 Unknown [id number] 2.16.840.1.733829.3.579.2. 593 1980 Unknown [id number] 2.16.840.1.682859.3.579.2. 1285 1980 Unknown [id number] 2.16.840.1.442309.3.579.2. 1285 1980 Unknown [id number] 2.16.840.1.836038.3.579.2. 1285 1980 Unknown [id number] 2.16.840.1.015505.3.579.2. 1285 1980 Unknown [id number] 2.16.840.1.238062.3.579.2. 1258 1980 Unknown [id number] 2.16.840.1.126035.3.579.2. 1258 1980 Unknown [id number] 2.16.840.1.030065.3.579.2. 1258 1980 Unknown [id number] 2.16.840.1.471058.3.579.2. 1258 1980 Unknown [id number] 1980 Unknown [id number] 1980 Unknown [id number] 1980 Unknown [id number] 1980 Unknown [id number] Unknown [id number] Social History Date Type Detail Facility Start: 11-29-2023 Tobacco smoking status NEIS Ex-smoker [facility] End: 08-22-2022 History of tobacco use Current smoker [facility] End: 08-22-2022 History of tobacco use Cigarette Smoker [facility] Start: 04-23-2020 End: 11-29-2023 Tobacco use and exposure Smokeless tobacco non-user [facility] Start: 04-09-2024 End: 10-04-2024 Alcoholic beverage intake Ex-drinker (finding) [facility] Start: 10-02-2020 End: 12-13-2023 History of Social function [facility] Start: 10-02-2020 End: 12-13-2023 Social connection and isolation panel [facility] Do you belong to any clubs or organizations such as moravian groups, unions, fraternal or athletic groups, or [...] 1980 Sex assigned at Not on file [facility] Start: 04-23-2020 Tobacco smoking status NHIS Occasional tobacco smoker [facility] Start: 06-10-2021 End: 02-22-2024 Alcoholic beverage intake Current drinker of alcohol (finding) [facility] Start: 11-01-2017 Alcohol Comment social [facility] Medical Equipment Procedure Code Equipment Code Equipment Origin al Text Equipment Identifier Dates [id number] Start: 06-21-2024 End: 11-07-2024 Goals Date Patient Goal Desired Activity /State Personal health goal Comment on above: Formatting of this n ote might be different from the original. Evaluation of progress towards goal: home with self care.- Alexa Carmona RN 11/16/17 9:49 AM Clinical Notes 12-29-2023 to 10-04-2024 THAO SANDERS - 10/04/2024 10:20 AM ESTLisa Abby, NAM - 10/04/2024 10:20 AM ESTLisa Aichholz, DRY CLEANER APPRENTICE - 10/04/2024 6:28 AM ESTLisa Júniorhjoe, DRY CLEANER APPRENTICE - 10/04/2024 6:27 AM ESTPatient Instructions Note Date & Type Note Facility 10-04-2024 History of Present illness Narrative Pt was moving furniture thought she pulled a muscle, lower back pain hurt for a couple days however pain started to run down her right leg she went to the ER on 09/30 they prescribed her robaxin and prednisone. She started medications on Sunday 10/01 pt states that the medication does not seem to be helping. Pt has been doing the exercises given to her from the hospital however she states the pain is now so bad that she has a hard time completing any of the exercises. Ice therapy for 20 mins Zelda Martin is a 44 y.o. female presents with chief complaint of Back Pain HPI: Pt was moving furniture thought she pulled a muscle, lower back pain hurt for a couple days however pain started to run down her right leg she went to the ER on 09/30 they prescribed her robaxin and prednisone. She started medications on Sunday 10/01 pt states that the medication does not seem to be helping. Pt has been doing the exercises given to her from the hospital however she states the pain is now so bad that she has a hard time completing any of the exercises. Ice therapy for 20 mins Back Pain This is a new problem. The current episode started 1 to 4 weeks ago. The problem occurs constantly. The problem has been gradually worsening since onset. The pain is present in the lumbar spine. The quality of the pain is described as cramping, aching and stabbing. The pain radiates to the right thigh, right knee and right foot. The pain is at a severity of 10/10. The pain is severe. The symptoms are aggravated by bending, standing, sitting and twisting. Stiffness is present All day. Associated symptoms include leg pain. Pertinent negatives include no abdominal pain, bladder incontinence, bowel incontinence, chest pain, dysuria, fever, headaches, numbness, paresthesias, perianal numbness or tingling. Risk factors include history of cancer, obesity, poor posture and sedentary lifestyle. She has tried NSAIDs, muscle relaxant and home exercises for the symptoms. The treatment provided no relief. SUBJECTIVE: MEDICATIONS: Current Outpatient Medications Medication Instructions Alcohol Swabs (B-D SINGLE USE SWABS REGULAR) pads 1 each, Daily aspirin 81 mg, Oral, Daily atorvastatin (LIPITOR) 10 mg, Oral, Nightly Blood Glucose Monitoring Suppl (Blood Glucose System Jasvir) kit 1 kit, Does not apply, Daily dicyclomine (BENTYL) 20 mg, Every 6 hours PRN Drug Gary Unilet Lancets 33G [facility] USE DIRECTED to test BLOOD SUGAR DAILY DULoxetine (CYMBALTA) 60 mg, Oral, Daily empagliflozin (JARDIANCE) 25 mg, Oral, Daily estradiol (ESTRACE) 0.5 mg, Daily RT fluconazole (Diflucan) 150 MG tablet 1 pill every 3 days for total of 3 doses glucose blood (True Metrix Blood Glucose Test) test strip 1 each, Other, Daily lisinopril 40 mg, Oral, Daily metFORMIN (GLUCOPHAGE) 1,000 mg, Oral, 2 times daily with meals naproxen (NAPROSYN) 500 mg, Oral, 2 times daily with meals pantoprazole (PROTONIX) 40 mg, Oral, Daily before breakfast predniSONE (DELTASONE) 40 mg, Daily tiZANidine (ZANAFLEX) 4 mg, Oral, Every 12 hours PRN Trulicity 3 mg, Subcutaneous, Every 7 days [...] Negative for abdominal pain, blood in stool, bowel incontinence, constipation, diarrhea, nausea and vomiting. Genitourinary: Negative for bladder incontinence, difficulty urinating, dysuria and frequency. Musculoskeletal: Positive for back pain. Negative for arthralgias, joint swelling and myalgias. Skin: Negative for rash and wound. Neurological: Negative for dizziness, tingling, tremors, seizures, syncope, numbness, headaches and paresthesias. Psychiatric/Behavioral: Negative for behavioral problems, self-injury and suicidal ideas. The patient is nervous/anxious. Hematological: Does not bruise/bleed easily. Endocrine: Negative for polydipsia, polyphagia and polyuria. Allergic/Immunologic: Negative for environmental allergies and food allergies. PAST MEDICAL HISTORY History reviewed. No pertinent past medical history. Past Surgical History: Procedure Laterality Date INNER EAR SURGERY Right TOTAL ABDOMINAL HYSTERECTOMY W/ BILATERAL SALPINGOOPHORECTOMY family history is not on file. OBJECTIVE: Visit Vitals BP 120/82 (BP Location: Left arm, Patient Position: Sitting, BP Cuff Size: Adult long) Pulse 97 Temp 98.7 F (Temporal) Resp 20 Wt 203 lb 3.2 oz SpO2 99% BMI 41.04 kg/m Smoking Status Former BSA 1.96 m Physical Exam Vitals and nursing note reviewed. Constitutional: General: She is not in acute distress (mild d/t lumbar back pain). Appearance: Normal appearance. She is not ill-appearing. HENT: Head: Normocephalic and atraumatic. Right Ear: External ear normal. Left Ear: External ear normal. Nose: Nose normal. Mouth/Throat: Mouth: Mucous membranes are moist. Eyes: Extraocular Movements: Extraocular movements intact. Conjunctiva/sclera: Conjunctivae normal. Cardiovascular: Rate and Rhythm: Normal rate and regular rhythm. Pulses: Normal pulses. Heart sounds: Normal heart sounds. Pulmonary: Effort: Pulmonary effort is normal. No respiratory distress. Breath sounds: Normal breath sounds. No wheezing. Abdominal: General: Bowel sounds are normal. There is no distension. Palpations: Abdomen is soft. There is no mass. Tenderness: There is no abdominal tenderness. Musculoskeletal: Cervical back: Normal range of motion and neck supple. Right lower leg: No edema. Left lower leg: No edema. Comments: Tenderness right lower lumbar buttock area: no rash DTR's 2+ bilat patellar/achilles MMT: 4/5 RLE, 5/5 LLE Pain in right leg with heel/toe walk, no pain on left Flex: 40, ext less than 10, and pain with rotation and bending to the right +mild tightness to right lower lumbar Skin: General: Skin is warm and dry. Capillary Refill: Capillary refill takes 2 to 3 seconds. Findings: No rash. Neurological: General: No focal deficit present. Mental Status: She is alert and oriented to person, place, and time. Psychiatric: Mood and Affect: Mood normal. Behavior: Behavior normal. Thought Content: Thought content normal. Judgment: Judgment normal. ASSESSMENT AND PLAN: Follow up in about 3 weeks (around 10/25/2024) for Recheck. Problem List Items Addressed This Visit Type 2 diabetes mellitus without complication, without long-term current use of insulin ([facility]) Relevant Medications metFORMIN (Glucophage) 500 MG tablet Anxiety and depression ([facility]) Relevant Medications DULoxetine (Cymbalta) [address] capsule Morbid (severe) obesity due to excess calories ([facility]) Discussed with patient their BMI (actual, verses recommended). We have also discussed lifestyle modifications: attempts to perform physical activity as chronic conditions allow, also to monitor dietary intake: increasing protein/fruits/veggies and lowering carb intake (unless contraindicated). Limit sodas, juices, and sugary drinks. Also discussed oral medications that can be utilized for weight loss, as well as surgical options for weight loss. She does take trulicity for her DM Back pain of lumbosacral region with sciatica - Primary Recent ER trip, notes reviewed No help with current meds No images completed: no trauma, however does have hx of ovarian malignancy To be complete check plain film xray Order PT Stop robaxin Tiral tizanidine, ice 4 times daily 20 minutes at a time Relevant Medications tiZANidine (Zanaflex) 4 MG tablet naproxen (Naprosyn) 500 MG tablet Other Relevant Orders XR lumbar spine 2 or 3 views Ambulatory referral to Physical Therapy Body mass index (BMI) 40.0-44.9, adult ([facility]) Associated Problem(s): Back pain of lumbosacral region with sciatica Recent ER trip, notes reviewed No help with current meds No images completed: no trauma, however does have hx of ovarian malignancy To be complete check plain film xray Order PT Stop robaxin Tiral tizanidine, ice 4 times daily 20 minutes at a time Associated Problem(s): Morbid (severe) obesity due to [...] well as surgical options for weight loss. She does take trulicity for her DM documented in this encounter [facility] 10-04-2024 Instructions Janki Mora NP - 10/04/2024 10:20 AM EST Finish steroids, once finished with steroids, THEN start Naproxen-take with food stop methocarbamol, Trial tizanidine 4mg 1 pill every 12 hours needed for muscle relaxer Check back xray Order PT-[facility], they should call Ice to low back area 4-5 times daily documented in this encounter [facility] 09-10-2024 History of Present illness Narrative Associated Problem(s): Type 2 diabetes mellitus without complication, without long-term current use of insulin (CMS/HCC) Please check blood pressure daily and [...] the original note were not included. Zelda Martin is a 44 y.o. female presents with [...] blood glucose range is 130-140 mg/dl. An SONIA inhibitor/angiotensin II receptor lesly is being taken. She does not see a dining car hop.Eye exam is current. SUBJECTIVE: MEDICATIONS: Current Outpatient Medications Medication Instructions Alcohol Swabs (B-D SINGLE USE SWABS REGULAR) pads 1 each, Daily ARIPiprazole (ABILIFY) 5 mg, Oral, Daily atorvastatin (LIPITOR) 10 mg, Oral, Nightly Blood Glucose Monitoring Suppl (Blood Glucose System Jasvir) kit 1 kit, Does not apply, Daily dicyclomine (BENTYL) 20 mg, Every 6 hours PRN Drug Gary Unilet Lancets 33G misc USE DIRECTED to test BLOOD SUGAR DAILY [...] This Visit Malignant neoplasm of unspecified ovary (CMS/HCC) Has had hyst, non compliant with fu with Ad [employer] Onc Encouraged pt to schedule Primary hypertension (CMS/HCC) Please check blood pressure daily and record DASH diet Limit caffeine Take medication as directed Contact office if chest pain, pressure, dizziness, shortness of breath, swelling legs Recommend slow position changes Current med sonia Relevant Medications lisinopril 40 MG tablet Type 2 diabetes mellitus without complication, without long-term current use of insulin (CMS/HCC) Please check blood pressure daily and record DASH diet Limit caffeine Take medication as directed Contact office if chest pain, pressure, dizziness, shortness of breath, swelling legs Recommend slow position changes A1c 7.4% 07/30/24 ,(04/14 was 9%, 7 months ago 10.1%-great job at reduction) Relevant Medications empagliflozin (Jardiance) 25 MG Dulaglutide (Trulicity) 3 MG/0.5ML solution auto-injector Anxiety and depression (CMS/HCC) - Primary Last appt added abilify, she stopped this d/t dizziness, does not [...] Anxiety and depression (CMS/HCC) Last appt added abijadey, she stopped this d/t dizziness, does not [...] had hyst, non compliant with fu with Ad Clerk Onc Encouraged pt to schedule Associated Problem(s): Primary hypertension (CMS/HCC) Please check blood pressure daily and record DASH diet Limit caffeine Take medication as directed Contact office if chest pain, pressure, dizziness, shortness of breath, swelling legs Recommend slow position changes Current med sonia documented in this encounter [facility] 09-10-2024 Instructions Janki Mora NP - 09/10/2024 2:00 PM EST No changes in meds Keep working on weight loss documented in this encounter [facility] 07-30-2024 History of Present illness Narrative Associated Problem(s): Psoriasis (CMS/HCC) Refer to derm, could not see [facility] d/t bill not paid Will trial [facility] Associated Problem(s): Malignant neoplasm of ovary (CMS/HCC) Has had hyst, non compliant with fu with Ad Clerk Onc Encouraged pt to schedule Associated Problem(s): [...] the original note were not included. Zelda Martin is a 44 y.o. female presents with [...] obesity and sedentary lifestyle. Past treatments include SONIA inhibitors. The current treatment provides significant improvement. [...] blood glucose range is 140-180 mg/dl. An SONIA inhibitor/angiotensin II receptor lesly is being taken. [...] 20 mg, Every 6 hours PRN Drug Gary Unilet Lancets 33G misc USE DIRECTED to test BLOOD SUGAR DAILY [...] Addressed This Visit Malignant neoplasm of ovary (CMS/HCC) Has had hyst, non compliant with fu with Ad Clerk Onc Encouraged pt to schedule Primary hypertension (CMS/HCC) Please check blood pressure daily and record DASH diet Limit caffeine Take medication as directed Contact office if chest pain, pressure, dizziness, shortness of breath, swelling legs Recommend slow position changes Current med sonia Relevant Medications lisinopril 40 MG tablet Type 2 diabetes mellitus without complication, without long-term current use of insulin (CMS/HCC) - Primary Please check blood pressure daily [...] A1C) docked device (Completed) Anxiety and depression ([facility]) cont duloxetine to 60mg , will abilify at 5mg daily Many life stressors: single parent, car is not working, soon with autism/bipolar 6 weeks Relevant Medications ARIPiprazole (Abilify) 5 MG tablet Mixed hyperlipidemia (CMS/HCC) Relevant Medications atorvastatin (Lipitor) 10 MG tablet Morbid obesity (CMS/[facility]) Discussed with patient their BMI (actual, verses [...] Has lost 23 pounds so far Psoriasis (CMS/[facility]) Refer to derm, could not see [facility] [...] complication, without long-term current use of insulin ([facility]) Please check blood pressure daily and record [...] possible Continue PPI Associated Problem(s): Primary hypertension (CMS/HCC) Please check blood pressure daily and record DASH diet Limit caffeine Take medication as directed Contact office if chest pain, pressure, dizziness, shortness of breath, swelling legs Recommend slow position changes Current med sonia documented in this encounter [facility] 07-30-2024 Instructions Janki Mora NP - 07/30/2024 2:00 PM EST Doing great on your diabetes management and your weight loss, keep up the great work Psoriasis: I will send referral to [facility] in [facility], they should call you, if no call [...] if these occur. documented in this encounter [facility] 05-29-2024 History of Present illness Narrative Associated Problem(s): Morbid obesity (CMS/HCC) Has lost 12 pounds, keep up the good work Associated Problem(s): Type 2 diabetes mellitus without complication, without long-term current use of insulin ([facility]) Check blood sugars daily, notify if <70 [...] use of metamucil Associated Problem(s): Primary hypertension ([facility]) At goal no changes Fu in 3 months 7day average :184 14day average:169 30day average:172 Images from the original note were not included. Zelda Martin is a 44 y.o. female presents with [...] without long-term current use of insulin (CMS/HCC) Check blood sugars daily, notify if <70 [...] the good work documented in this encounter [facility] 02-24-2024 Miscellaneous Notes ----- Message from ROMMEL Aguilar sent at 02/24/2024 10:59 AM EDT ----- Regarding: FW: Can you guys send over flagyl 500 tid x 5 days and diflucan 150 once? ----- Message ----- From: Interface - Lab Results/Orders In Sent: 02/23/2024 7:36 AM EDT To: ROMMEL Matthews Left VM. Relayed results and KB recommendations. Meds sent to pharmacy. documented in this encounter [facility] 02-24-2024 Telephone encounter Note ----- Message from ROMMEL Aguilar sent at 02/24/2024 10:59 AM EDT ----- Regarding: FW: Can you guys send over flagyl 500 tid x 5 days and diflucan 150 once? ----- Message ----- From: Interface - Lab Results/Orders In Sent: 02/23/2024 7:36 AM EDT To: ROMMEL Matthews [facility] 02-24-2024 Telephone encounter Note Left VM. Relayed results and KB recommendations. Meds sent to pharmacy. [facility] 02-22-2024 History of Present illness Narrative Subjective: Zelda Martin is a 43 y.o. 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 She has previously undergone BRAD/BSO with debulking on 11/15/2017. Today she reports burning w urination. She reports several episodes of vaginal bleeding, bright red, noticed when wiping for the past 2 weeks. This was at the same time urinary frequency began. She also reports mild vaginal itching. She also reports hot flashes and night sweats. She was previously on estradiol 1mg PO, but discontinued this. She does not have a recent ca125. Preventative Care: History of abnormal Pap smear: no Regular self breast exam: yes Last Mammogram: none Last Dexascan: n/a Last Colonoscopy: n/a Oncology History No overview note Zelda : Denies Early satiety Denies Abdominal distention Denies Leg swelling Denies Shortness of breath Reports Vaginal bleeding Denies Change in bowel habits Denies Change in bladder habits Denies Nausea and vomiting All other systems negative, unless specifically noted in HPI. Past Gynecologic History: OB History No obstetric history on file. Patient's last menstrual period was 10/20/2017 (approximate). Hormonal Contraceptives No HRT use No Past Surgical History: Procedure Laterality Date DILATION AND CURETTAGE OF UTERUS INNER EAR SURGERY Right ruptured ear drum MODIFIED RADICAL HYSTERECTOMY, BSO,EXCISION PELVIC MASS, BIOPSY VAGINA, CYTOLOGIC PELVIC WASHINGS, STAGING BIOPSIES, PELVIC LYMPHADENECTOMY, RIGHT URETEROLYSIS, PARTIAL GREATER OMENTECTOMY N/A 11/15/2017 Performed by Dhaval Upton MD at [facility] REMOVAL OF OVARY(S) Past Medical History: Diagnosis Date Depression GERD (gastroesophageal reflux disease) Hypertension Obesity Pelvic mass Family History Family history of uterine or ovarian cancer: no Family history of breast cancer: no Family history of colon cancer: no Social History Tobacco Use Smoking status: Some Days Types: Cigarettes Smokeless tobacco: Never Substance Use Topics Alcohol use: Yes Comment: social Review of Symptoms: Pertinent items are noted in HPI. Objective: BP 128/66 Pulse 79 Resp 16 Wt 102.1 kg (225 lb) LMP 10/20/2017 (Approximate) SpO2 98% BMI 43.94 kg/m Physical Exam: ECO- Asymptomatic General: alert, appears stated age and cooperative Heart: regular rate and rhythm Lungs: clear to auscultation bilaterally Breast: normal appearance, no masses/tenderness/nipple discharge bilaterally Abdomen: soft, non-tender, without masses or organomegaly Vulva: normal, Bartholin's, Urethra, Aplington's normal Vagina: Atrophy: yes Vaginal Cuff: yes - intact Bleeding: no Discharge: no Rectal: Not performed. VNAP collected Cervix: absent Uterus: absent Adnexa: absent Lymphatics: No abnormally enlarged lymph nodes. Musculoskeletal: Normal. Skin: Skin color, texture, turgor normal. No rashes or lesions Neuro: normal without focal findings, mental status, speech normal, alert and oriented x3, BILL and reflexes normal and symmetric Psychological: normal mood, behavior, speech, dress, and thought processes Lead Massage Therapist Present: Yes - Amy Maria, MA Assessment: Patient is diagnosed with Patient Active Problem List Diagnosis Malignant neoplasm of ovary ([facility]-HCC) Menopause Plan: Hx of mucinous borderline ovarian tumor, 2018 - No s/sx of recurrence on todays ROS and PE. - ca125 ordered. - RTC 1 year, ca125 prior. Urinary burning, Vaginal bleeding - UA, C&S ordered. VNAP collected. - No lesions found on PE, vaginal bleeding like r/t concurrent infection. Hot flashes, night sweats - Re-ordered estrace 1mg PO. Body mass index is 43.94 kg/m . Breast self exam technique reviewed and patient encouraged to perform self-exam monthly. Discussed healthy lifestyle modifications including dietary changes and exercise for weight loss Follow up as needed. The patient was also counseled osteoporosis and adequate intake of calcium and vitamin D. We had a long discussion regarding the signs and symptoms of a recurrence that would warrant an earlier appointment. All questions answered. Patient understands and agrees with plan. Encouraged to call if questions or concerns. Return to office in 1 year. Total time spent was 35 minutes: Preparing to see the patient (e.g., review of tests) Performing a medically appropriate examination and/or evaluation Counseling and educating the patient/family/caregiver Ordering medications, tests, or procedures Referring and communicating with other health nanny caregiver (not separately reported) Documenting clinical information in the electronic or other health record Independently interpreting results (not separately reported) and communicating results to the patient/family/caregiver Care coordination (not separately reported) Dr. Shepherd was physically present in the office, available for the entirety of the patient's visit, and participated in the coordination of treatment plan. ROMMEL MATTHEWS APRN-CNP 02/22/24 1440 documented in this encounter [facility] 02-20-2024 Miscellaneous Notes [employer] Executive called patient regarding scheduled appt on 02/21 with Aliyah BROWNING @ 1430. [employer] Executive was calling to see if patient can come in sooner than scheduled time. Appt times of 1300 or 1400 were provided. Advised patient give out office a c/b. Office number was provided. documented in this encounter [facility] 02-20-2024 Telephone encounter Note [employer] Executive called patient regarding scheduled appt on 02/21 with DRY CLEANER APPRENTICEAliyah @ 1430. [employer] Executive was calling to see if patient can come in sooner than scheduled time. Appt times of 1300 or 1400 were provided. Advised patient give out office a c/b. Office number was provided. [facility] 12-29-2023 Miscellaneous Notes Called patient regarding her missed 3:30 PM appointment with Aliyah HOGAN. Patient did not answer. Voicemail was left encouraging patient to call our office and get appointment rescheduled. Office number was provided. documented in this encounter [facility] 12-29-2023 Telephone encounter Note Called patient regarding her missed 3:30 PM appointment with Aliyah HOGAN. Patient did not answer. Voicemail was left encouraging patient to call our office and get appointment rescheduled. Office number was provided. [facility] Evaluation note Diagnosis Primary hypertension (CMS/HCC)- Primary Unspecified essential hypertension Type 2 diabetes mellitus without complication, without long-term current use of insulin (CMS/HCC) Diarrhea, unspecified type Morbid obesity (CMS/HCC) Morbid obesity documented in this encounter [facility] HealthcareEvaluation note* Diagnosis Type 2 diabetes mellitus without complication, without long-term current use of insulin ([facility])- Primary Primary hypertension ([facility]) Unspecified essential hypertension Encounter for screening mammogram for malignant neoplasm of breast Dysuria Anxiety and depression ([facility]) Primary hypertension ([facility])- Primary Unspecified essential hypertension Type 2 diabetes mellitus without complication, without long-term current use of insulin ([facility]) Morbid obesity ([facility]/HCC) Morbid obesity Type 2 diabetes mellitus without complication, without long-term current use of insulin ([facility])- Primary Primary hypertension ([facility]) Unspecified essential hypertension Anxiety and depression ([facility] Mixed hyperlipidemia ([facility]) Mixed hyperlipidemia Morbid obesity ([facility]) Morbid obesity Type 2 diabetes mellitus without complication, without long-term current use of insulin ([facility])- Primary Primary hypertension ([facility]) Unspecified essential hypertension Mixed hyperlipidemia ([facility]) Mixed hyperlipidemia Type 2 diabetes mellitus with hyperglycemia ([facility]) Morbid (severe) obesity due to excess calories ([facility]) Body mass index (BMI) 45.0-49.9, adult ([facility]) Malignant neoplasm of unspecified ovary ([facility]) Lumbar back pain Lumbago Abdominal cramping Abdominal pain, unspecified site Morbid obesity ([facility]) Morbid obesity Malignant neoplasm of ovary, unspecified laterality ([facility]) Psoriasis ([facility] Other psoriasis Primary hypertension ([facility])- Primary Unspecified essential hypertension Type 2 diabetes mellitus with hyperglycemia ([facility]) Gastroesophageal reflux disease without esophagitis Esophageal reflux Vaginal yeast infection Candidiasis of vulva and vagina Right acute otitis media Unspecified otitis media Type 2 diabetes mellitus without complication, without long-term current use of insulin ([facility]) Anxiety and depression ([facility] Dysuria Primary hypertension ([facility])- Primary Unspecified essential hypertension Type 2 diabetes mellitus without complication, without long-term current use of insulin ([facility]) Diarrhea, unspecified type Morbid obesity ([facility]/HCC) Morbid obesity Anxiety and depression ([facility]) Gastroesophageal reflux disease without esophagitis Esophageal reflux Primary hypertension ([facility]) Unspecified essential hypertension Mixed hyperlipidemia ([facility]) Mixed hyperlipidemia Unspecified abdominal pain documented in this encounter [facility] HealthcareEvaluation note* Diagnosis Type 2 diabetes mellitus without complication, without long-term current use of insulin ([facility])- Primary Primary hypertension ([facility]/HCC) Unspecified essential hypertension Encounter for screening mammogram for malignant neoplasm of breast Dysuria Anxiety and depression ([facility]/HCC) Primary hypertension ([facility]/HCC)- Primary Unspecified essential hypertension Type 2 diabetes mellitus without complication, without long-term current use of insulin ([facility]) Morbid obesity ([facility]/HCC) Morbid obesity Type 2 diabetes mellitus without complication, without long-term current use of insulin ([facility])- Primary Primary hypertension (CMS/HCC) Unspecified essential hypertension Anxiety and depression (CMS/HCC) Mixed hyperlipidemia (CMS/HCC) Mixed hyperlipidemia Morbid obesity ([facility]) Morbid obesity Type 2 diabetes mellitus without complication, without long-term current use of insulin ([facility])- Primary Primary hypertension ([facility]/HCC) Unspecified essential hypertension Mixed hyperlipidemia ([facility]/HCC) Mixed hyperlipidemia Type 2 diabetes mellitus with hyperglycemia ([facility]) Morbid (severe) obesity due to excess calories ([facility]) Body mass index (BMI) 45.0-49.9, adult ([facility]) Malignant neoplasm of unspecified ovary ([facility]/HCC) Lumbar back pain Lumbago Abdominal cramping Abdominal pain, unspecified site Morbid obesity ([facility]) Morbid obesity Malignant neoplasm of ovary, unspecified laterality ([facility]) Psoriasis ([facility]/HCC) Other psoriasis Primary hypertension ([facility])- Primary Unspecified essential hypertension Type 2 diabetes mellitus with hyperglycemia ([facility]) Gastroesophageal reflux disease without esophagitis Esophageal reflux Vaginal yeast infection Candidiasis of vulva and vagina Right acute otitis media Unspecified otitis media Type 2 diabetes mellitus without complication, without long-term current use of insulin ([facility]) Anxiety and depression ([facility] Dysuria Primary hypertension ([facility])- Primary Unspecified essential hypertension Type 2 diabetes mellitus without complication, without long-term current use of insulin ([facility]) Diarrhea, unspecified type Morbid obesity ([facility]) Morbid obesity Type 2 diabetes mellitus without complication, without long-term current use of insulin ([facility])- Primary Primary hypertension ([facility]) Unspecified essential hypertension Gastroesophageal reflux disease without esophagitis Esophageal reflux Anxiety and depression (CMS/HCC) Morbid obesity ([facility]/HCC) Morbid obesity Mixed hyperlipidemia ([facility]) Mixed hyperlipidemia Malignant neoplasm of ovary, unspecified laterality ([facility]/HCC) Psoriasis ([facility]) Other psoriasis documented in this encounter [facility] HealthcareEvaluation note* Diagnosis Type 2 diabetes mellitus without complication, without long-term current use of insulin ([facility]) documented in this encounter [facility] HealthcareEvaluation note* Diagnosis Vaginal yeast infection Candidiasis of vulva and vagina documented in this encounter [facility] HealthcareEvaluation note* Diagnosis Type 2 diabetes mellitus without complication, without long-term current use of insulin ([facility])- Primary Primary hypertension ([facility]) Unspecified essential hypertension Encounter for screening mammogram for malignant neoplasm of breast Dysuria Anxiety and depression ([facility]) Primary hypertension ([facility])- Primary Unspecified essential hypertension Type 2 diabetes mellitus without complication, without long-term current use of insulin ([facility]) Morbid obesity ([facility]) Morbid obesity Type 2 diabetes mellitus without complication, without long-term current use of insulin ([facility])- Primary Primary hypertension ([facility]) Unspecified essential hypertension Anxiety and depression ([facility] Mixed hyperlipidemia ([facility]) Mixed hyperlipidemia Morbid obesity ([facility]) Morbid obesity Type 2 diabetes mellitus without complication, without long-term current use of insulin ([facility])- Primary Primary hypertension ([facility]) Unspecified essential hypertension Mixed hyperlipidemia ([facility]) Mixed hyperlipidemia Type 2 diabetes mellitus with hyperglycemia ([facility]) Morbid (severe) obesity due to excess calories ([facility]) Body mass index (BMI) 45.0-49.9, adult ([facility]) Malignant neoplasm of unspecified ovary ([facility]) Lumbar back pain Lumbago Abdominal cramping Abdominal pain, unspecified site Morbid obesity ([facility]) Morbid obesity Malignant neoplasm of ovary, unspecified laterality ([facility]) Psoriasis ([facility]) Other psoriasis Primary hypertension ([facility])- Primary Unspecified essential hypertension Type 2 diabetes mellitus with hyperglycemia ([facility]) Gastroesophageal reflux disease without esophagitis Esophageal reflux Vaginal yeast infection Candidiasis of vulva and vagina Right acute otitis media Unspecified otitis media Type 2 diabetes mellitus without complication, without long-term current use of insulin ([facility]) Anxiety and depression ([facility] Dysuria Primary hypertension ([facility])- Primary Unspecified essential hypertension Type 2 diabetes mellitus without complication, without long-term current use of insulin ([facility]) Diarrhea, unspecified type Morbid obesity ([facility]) Morbid obesity Type 2 diabetes mellitus without complication, without long-term current use of insulin (CMS/HCC)- Primary Primary hypertension (CMS/HCC) Unspecified essential hypertension Gastroesophageal reflux disease without esophagitis Esophageal reflux Anxiety and depression (CMS/HCC) Morbid obesity (CMS/HCC) Morbid obesity Mixed hyperlipidemia (CMS/HCC) Mixed hyperlipidemia Malignant neoplasm of ovary, unspecified laterality (CMS/HCC) Psoriasis (CMS/HCC) Other psoriasis Other secondary gout, multiple sites, unspecified chronicity- Primary documented in this encounter [facility] HealthcareEvaluation note* Diagnosis Type 2 diabetes mellitus without complication, without long-term current use of insulin (CMS/[facility])- Primary Primary hypertension (CMS/HCC) Unspecified essential hypertension Encounter for screening mammogram for malignant neoplasm of breast Dysuria Anxiety and depression ([facility]) Primary hypertension ([facility]/HCC)- Primary Unspecified essential hypertension Type 2 diabetes mellitus without complication, without long-term current use of insulin (CMS/[facility]) Morbid obesity (CMS/HCC) Morbid obesity Type 2 diabetes mellitus without complication, without long-term current use of insulin ([facility])- Primary Primary hypertension (CMS/HCC) Unspecified essential hypertension Anxiety and depression (CMS/HCC) Mixed hyperlipidemia (CMS/HCC) Mixed hyperlipidemia Morbid obesity (CMS/HCC) Morbid obesity Type 2 diabetes mellitus without complication, without long-term current use of insulin ([facility])- Primary Primary hypertension ([facility]/HCC) Unspecified essential hypertension Mixed hyperlipidemia ([facility]/HCC) Mixed hyperlipidemia Type 2 diabetes mellitus with hyperglycemia ([facility]) Morbid (severe) obesity due to excess calories ([facility]) Body mass index (BMI) 45.0-49.9, adult ([facility]) Malignant neoplasm of unspecified ovary (CMS/HCC) Lumbar back pain Lumbago Abdominal cramping Abdominal pain, unspecified site Morbid obesity (CMS/HCC) Morbid obesity Malignant neoplasm of ovary, unspecified laterality (CMS/HCC) Psoriasis (CMS/HCC) Other psoriasis Primary hypertension ([facility]/HCC)- Primary Unspecified essential hypertension Type 2 diabetes mellitus with hyperglycemia ([facility]/HCC) Gastroesophageal reflux disease without esophagitis Esophageal reflux Vaginal yeast infection Candidiasis of vulva and vagina Right acute otitis media Unspecified otitis media Type 2 diabetes mellitus without complication, without long-term current use of insulin (CMS/HCC) Anxiety and depression (CMS/HCC) Dysuria Primary hypertension ([facility]/HCC)- Primary Unspecified essential hypertension Type 2 diabetes mellitus without complication, without long-term current use of insulin (CMS/HCC) Diarrhea, unspecified type Morbid obesity (CMS/HCC) Morbid obesity Type 2 diabetes mellitus without complication, without long-term current use of insulin (CMS/HCC)- Primary Primary hypertension (CMS/HCC) Unspecified essential hypertension Gastroesophageal reflux disease without [...] (CMS/HCC) Mixed hyperlipidemia documented in this encounter [facility] HealthcareEvaluation note* Diagnosis Type 2 diabetes mellitus without complication, without long-term current use of insulin (CMS/HCC)- Primary Primary hypertension (CMS/HCC) Unspecified essential hypertension Encounter for screening mammogram for malignant neoplasm of breast Dysuria Anxiety and depression (CMS/HCC) Primary hypertension (CMS/HCC)- Primary Unspecified essential hypertension Type 2 diabetes mellitus without complication, without long-term current use of insulin (CMS/HCC) Morbid obesity (CMS/HCC) Morbid obesity Type 2 diabetes mellitus without complication, without long-term current use of insulin (CMS/HCC)- Primary Primary hypertension (CMS/HCC) Unspecified essential hypertension Anxiety and depression (CMS/HCC) Mixed hyperlipidemia (CMS/HCC) Mixed hyperlipidemia Morbid obesity (CMS/HCC) Morbid obesity Type 2 diabetes mellitus without complication, without long-term current use of insulin (CMS/HCC)- Primary Primary hypertension (CMS/HCC) Unspecified essential hypertension Mixed hyperlipidemia (CMS/HCC) Mixed hyperlipidemia Type 2 diabetes mellitus with hyperglycemia (CMS/HCC) Morbid (severe) obesity due to excess calories (CMS/HCC) Body mass index (BMI) 45.0-49.9, adult (CMS/HCC) Malignant neoplasm of unspecified ovary (CMS/HCC) Lumbar back pain Lumbago Abdominal cramping Abdominal pain, unspecified site Morbid obesity (CMS/HCC) Morbid obesity Malignant neoplasm of ovary, unspecified laterality (CMS/HCC) Psoriasis (CMS/HCC) Other psoriasis Primary hypertension (CMS/HCC)- Primary Unspecified essential hypertension Type 2 diabetes mellitus with hyperglycemia (CMS/HCC) Gastroesophageal reflux disease without esophagitis Esophageal reflux Vaginal yeast infection Candidiasis of vulva and vagina Right acute otitis media Unspecified otitis media Type 2 diabetes mellitus without complication, without long-term current use of insulin (CMS/HCC) Anxiety and depression (CMS/HCC) Dysuria Primary hypertension (CMS/HCC)- Primary Unspecified essential hypertension Type 2 diabetes mellitus without complication, without long-term current use of insulin (CMS/HCC) Diarrhea, unspecified type Morbid obesity (CMS/HCC) Morbid obesity Type 2 diabetes mellitus without complication, without long-term current use of insulin (CMS/HCC)- Primary Primary hypertension (CMS/HCC) Unspecified essential hypertension Gastroesophageal reflux disease without [...] insulin (CMS/HCC) Mixed hyperlipidemia (CMS/HCC) Mixed hyperlipidemia Back pain of lumbosacral region with sciatica- Primary Morbid (severe) obesity due to excess calories (CMS/HCC) Body mass index (BMI) 40.0-44.9, adult (CMS/HCC) Type 2 diabetes mellitus without complication, without long-term current use of insulin (CMS/HCC) Anxiety and depression (CMS/HCC) documented in this encounter [facility] HealthcareEvaluation note* Diagnosis Vaginal itching- Primary Pruritus of genital organs History of ovarian cancer Personal history of malignant neoplasm of ovary Visit for screening mammogram Urinary frequency Hot flashes due to surgical menopause BMI 40.0-44.9, adult ([facility]) Vaginal bleeding Other specified noninflammatory disorder of vagina Malignant neoplasm of ovary, unspecified laterality ([facility]-HCC) Menopause Symptomatic menopausal or female climacteric states [facility] BV (bacterial vaginosis)- Primary Unspecified vaginitis and vulvovaginitis Vaginal yeast infection Candidiasis of vulva and vagina [facility] filed[facility] filed[facility] filed[facility] Summary Purpose Family History No Family History [...] section and content) DATE CREATED AUTHOR 02/15/2018 [facility] DATE CREATED AUTHOR AUTHOR'S ORGANIZ ATION 09/13/[address] [facility] DATE CREATED AUTHOR AUTHOR'S ORGANIZ ATION 08/20/2022 [facility] DATE CREATED AUTHOR AUTHOR'S ORGANIZ ATION 02/24/2024 [facility] DATE CREATED AUTHOR AUTHOR'S ORGANIZ ATION 02/24/2024 [facility] DATE CREATED AUTHOR AUTHOR'S ORGANIZ ATION 03/08/2024 [facility] DATE CREATED AUTHOR AUTHOR'S ORGANIZ ATION 10/06/2024 [facility] [employer] Care Teams (unrecognized sec tion and content) Valve Machine Operator Relationship Specialty Start Date End Date Srinath Lay MD [address] [address] PCP - General Family Medicine 03/18/23 Janki Mora NP [address] [place] [address] Referring Physician Nurse Practitioner 03/18/23 [employer]ve Machine Operator Relationship Specialty Start Date End Date Srinath Lay MD [address] [place] [phone] PCP - General Family Medicine 03/18/23 Janki Mora NP [address] [place] [phone] Referring Physician Nurse Practitioner 03/18/23 Valve Machine Operator Relationship Specialty Start Date End Date Srinath Lay MD [address] [place] [phone] PCP - [facility] 03/18/23 Janki Mora NP [address] [place] [phone] Referring Physician Nurse Practitioner 03/18/23 Valve Machine Operator Relationship Specialty Start Date End Date Srinath Lay MD [address] [place] [phone] PCP - [facility] 03/18/23 Janki Mora NP [address] [place] [phone] PCP [facility] 05/22/24 Janki Mora NP [address] [place] [phone] Referring Physician Nurse Practitioner 03/18/23 Valve Machine Operator Relationship Specialty Start Date End Date Srinath Lay MD [address] [place] [phone] PCP - General Family Medicine 03/18/23 Janki Mora NP [address] [place] [address] [facility] 05/22/24 Janki Mora NP [address] [place] [phone] Referring Physician Nurse Practitioner 03/18/23 Valve Machine Operator Relationship Specialty Start Date End Date Srinath Lay MD [address] [place] [phone] PCP - General Family Medicine 03/18/23 Janki Mora NP [address] [place] [phone] Referring Physician Nurse Practitioner 03/18/23 Valve Machine Operator Relationship Specialty Start Date End Date Srinath Lay MD [address] [place] [phone] PCP - General Family Medicine 03/18/23 Janki Mora NP [address] [place] [phone] Referring Physician Nurse Practitioner 03/18/23 Valve Machine Operator Relationship Specialty Start Date End Date Srinath Lay MD [address], [place] [phone] PCP - General Family Medicine 03/18/23 Janki Mora NP [address] [place] [phone] [facility] - [facility] 05/22/24 Janki Mora NP [address] [place] [phone] Referring Physician Nurse Practitioner 03/18/23 Valve Machine Operator Relationship Specialty Start Date End Date Srinath Lay MD [address] [place] [phone] PCP - [facility] 03/18/23 Janki Mora NP [address] [place] [phone] [facility] 05/22/24 Janki Mora NP [address] [place] [phone] Referring Physician Nurse Practitioner 03/18/23 Valve Machine Operator Relationship Specialty Start Date End Date Srinath Lay MD [address] [place] [phone] PCP - [facility] 03/18/23 Janki Mora NP [address] [place] [phone] [facility] 05/22/24 Janki Mora NP [address] [place] [phone] Referring Physician Nurse Practitioner 03/18/23 Valve Machine Operator Relationship Specialty Start Date End Date Janki Mora, PACKAGING TECHNICIAN-EXTRACTOR PLANT OPERATOR [address] [place] [address] PCP - General Nurse Practitioner 10/17/17 Valve Machine Operator Relationship Specialty Start Date End Date Srinath Lay MD [address] [place] [phone] PCP - General Family Medicine 03/18/23 Janki Mora NP [address] [place] [phone] [facility] 05/22/24 Janki Mora NP [address] [place] [phone] Referring Physician Nurse Practitioner 03/18/23 Valve Machine Operator Relationship Specialty Start Date End Date Srinath Lay MD [address] [place] [phone] PCP - General Family [facility] 03/18/23 Janki Moar NP [address] [place] [address] [facility] 05/22/24 Janki Mora NP [address] [place] [address] Referring Physician Nurse Practitioner 03/18/23 Valve Machine Operator Relationship Specialty Start Date End Date Janki Mora, JESSICA-EXTRACTOR PLANT OPERATOR [address] [place] [address] PCP - General Nurse Practitioner 10/17/17 Valve Machine Operator Relationship Specialty Start Date End Date Janki Mora APRN-EXTRACTOR PLANT OPERATOR [address] [place] [address] PCP - General Nurse Practitioner 10/17/17 Reason for Visit (unrecogniz ed section and content) Reason Comments Med Refill Reason Comments Hypertension Reason Comments Diabetes Reason Comments Back Pain Reason Comments Annual Exam FOR RECORDS PERTAINING TO PATIENTS WHO ARE [...] BE BASED ON THE PRIMARY CLINICAL RECORDS. [employer] provides no warranty or guarantee of the accuracy or completeness of information in this document.
== END 2024-10-09 11:05 | disposition home or self-care (01) ==
LOC: RAD 11:04
PROVIDERS: PCP Nurse Practitioner; Visit Provider Nurse Practitioner
DX: M54.40 Lumbago with sciatica, unspecified side (principal); M51.369 Other intervertebral disc degeneration, lumbar region without mention of lumbar back pain or lower extremity pain
CPT/HCPCS: 72100

== ENCOUNTER 2024-10-22 15:27 | Emergency (ER) | payer OTHER, SELFPAY ==
[2024-10-22 15:31] VITALS: BP 120/85; PULSE 79; TEMP 36.6; O2SAT 100; BMI 38.2
--- NOTE | 2024-10-22 16:56 | ED_ITS ---
Documented by User: EDISON Vazquez 10/22/24 17:53 HPI HPI - Fall General Chief Complaint: Fall Stated Complaint: FALL-R LEG PAIN Time Seen by Provider: 10/22/24 16:42 Source: patient Mode of arrival: walk-in Limitations: no limitations History of Present Illness HPI Narrative: 44-year-old female presents to the emergency department with son with complaint of injury to her right leg. Patient has been undergoing therapy for back problems, using a walker. Today, while outside, states her leg gave out, falling. Locating pain to the front of her knee and to the back of her thigh. Patient worried about fracturing something. States history of degenerative disc disease in her back. 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 Modifying factors:?pain worse with palpation, movement Associated symptoms: none Related Data Home Medications ?Medication ?Instructions ?Recorded ?Confirmed alcohol swabs (BD Alcohol Swabs) pad topical 02/29/24 atorvastatin 10 mg tablet mg 02/29/24 blood sugar diagnostic (True 02/29/24 02/29/24 Metrix Glucose Test Strip) duloxetine 30 mg capsule,delayed mg PO 02/29/24 release empagliflozin 10 mg tablet mg 02/29/24 (Jardiance) estradiol 1 mg tablet mg 02/29/24 fluconazole 150 mg tablet mg 02/29/24 lancets 33 gauge (Unilet Lancet) 02/29/24 02/29/24 lisinopril 20 mg tablet mg 02/29/24 metformin 500 mg tablet mg 02/29/24 metronidazole 500 mg tablet mg 02/29/24 Previous Rx's ?Medication ?Instructions ?Recorded methocarbamol 750 mg tablet 750 mg PO BID PRN spasms 7 days 09/30/24 #14 tabs prednisone 20 mg tablet 40 mg (2 x 20 mg) PO DAILY 5 days 09/30/24 #10 tabs ibuprofen 600 mg tablet 600 mg PO Q8H PRN pain #20 tabs 10/22/24 tizanidine 4 mg capsule 4 mg PO TID PRN muscle spasticity 10/22/24 #10 caps Allergies Allergy/AdvReac Type Severity Reaction Status Date / Time No Known Drug Allergies Allergy Verified 02/29/24 23:21 Opioid HPI Opioid Management Most Recent Pain and Opioid Data: Last Pain Scale 8 09/30/24 16:52 09/30/24 Last MAR Pain Assessment 10/22/24 17:32 Review of Systems ROS Narrative CONST: Denies activity change, weakness MS: + arthralgias, myalgias.? + joint swelling. SKIN: Denies color change, wound NEURO: Denies numbness, paresthesias, weakness PFSH PFSH Medical History Diabetes ?E11.9 - Type 2 diabetes mellitus without complications (ICD-10) Gout ?M10.9 - Gout, unspecified (ICD-10) Anxiety ?F41.9 - Anxiety disorder, unspecified (ICD-10) Hypertension ?I10 - Essential (primary) hypertension (ICD-10) Social History Little interest or pleasure in doing things: not at all Feeling down, depressed, or hopeless: not at all Exam Narrative Exam Narrative: Vital signs noted Nurses notes reviewed CONST: Nontoxic, well appearing, well nourished, in no distress.? HENT: normocephalic, atraumatic. CV: 2+ palpable right DP pulse MS: Right leg: +tenderness to the anterior aspect of the right knee and over the hamstring.? No tenderness to the medial or lateral joint lines, posterior fossa, distal extremity.? No swelling, ecchymosis, discoloration, crepitus, deformity, instability, warmth.? Active ROM is limited due to pain.? Strength 5/5 NEURO: Sensory intact throughout and distal to the injury SKIN: intact, warm, dry.? No wound PSYCHIATRIC: normal mood, affect Constitutional Vital Signs, click to edit/add: Last Vital Signs Temp 97.8 F 10/22/24 15:31 Pulse 79 10/22/24 15:31 Resp 16 10/22/24 15:31 BP 120/85 10/22/24 15:31 Pulse Ox 100 10/22/24 15:31 O2 Del Method Room Air 10/22/24 15:31 Course Reevaluation(s) Reevaluation #1: Discussed with patient and family results, plan, and disposition. Patient and pain are agreeable. Time: 17:51 Vital Signs Vital signs: Vital Signs Temperature 97.8 F 10/22/24 15:31 Pulse Rate 79 10/22/24 15:31 Respiratory Rate 16 10/22/24 15:31 Blood Pressure 120/85 10/22/24 15:31 Pulse Oximetry 100 10/22/24 15:31 Oxygen Delivery Method Room Air 10/22/24 15:31 Temperature 97.8 F 10/22/24 15:31 Pulse Rate 79 10/22/24 15:31 Respiratory Rate 16 10/22/24 15:31 Blood Pressure 120/85 10/22/24 15:31 Pulse Oximetry 100 10/22/24 15:31 Oxygen Delivery Method Room Air 10/22/24 15:31 MDM - Fall MDM Narrative Medical decision making narrative: This is a pleasant 44-year-old female who presents to the emergency department for evaluation of right leg pain following injury On arrival, afebrile, vital signs stable. On exam, nontoxic, well appearing patient, in no apparent distress. She has anterior tenderness to her knee and hamstring tenderness to her thigh. Range of motion limited due to pain. Pulses intact. Sensory intact. X-ray imaging right knee, right femur, per radiologist reveals no acute findings Patient received Motrin and Ultram during the course with some improvement. Favor right knee sprain, contusion, right hamstring strain Fx/Dislocation less likely based on imaging History and Record Review Discussion with independent historian: Son Management Independent interpretation: Right knee: No fracture, dislocation, or other acute abnormality noted. Disposition ? The patient was discharged. Prescriptions sent to pharmacy: Tizanidine and Motrin Patient placed in splint Patient advised rest, ice, elevation, compression Patient advised Ibuprofen/Tylenol as needed for pain Plan: Patient will be discharged to home. Condition at time of disposition: stable, improved. ? Advised to follow up with primary provider. Advised to return for any worsening and/or development of new, concerning signs or symptoms PLEASE NOTE: Portions of the medical record may have been produced using electronic assistant to the director and may contain errors with respect to translation of words which may not have been identified prior to finalization of the chart. Medical Records Attestation: I reviewed the patient's medical records. Imaging Data Right knee, right femur: Attestation: I have reviewed the pertinent imaging results. Radiologist's impression: No acute finding Discharge Plan Discharge Chief Complaint: Fall Clinical Impression: Right knee sprain Qualifiers: Encounter type: initial encounter Involved ligament of knee: unspecified ligament Qualified Code(s): S83.91XA - Sprain of unspecified site of right knee, initial encounter Hamstring muscle strain Qualifiers: Encounter type: initial encounter Laterality: right Qualified Code(s): S76.311A - Strain of muscle, fascia and tendon of the posterior muscle group at thigh level, right thigh, initial encounter Contusion of knee, right Qualifiers: Encounter type: initial encounter Qualified Code(s): S80.01XA - Contusion of right knee, initial encounter Patient Disposition: Home, Self-Care Time of Disposition Decision: 17:49 Condition: Good Mode of Transportation: Private Vehicle Prescriptions / Home Meds: New ibuprofen 600 mg tablet 600 mg PO Q8H PRN (Reason: pain) Qty: 20 0RF tizanidine 4 mg capsule 4 mg PO TID PRN (Reason: muscle spasticity) Qty: 10 0RF No Action methocarbamol 750 mg tablet 750 mg PO BID PRN (Reason: spasms) 7 Days Qty: 14 0RF prednisone 20 mg tablet 40 mg PO DAILY 5 Days Qty: 10 0RF metformin 500 mg tablet atorvastatin 10 mg tablet fluconazole 150 mg tablet lisinopril 20 mg tablet metronidazole 500 mg tablet (DME) True Metrix Glucose Test Strip Strip MISCELLANEOUS estradiol 1 mg tablet alcohol swabs [BD Alcohol Swabs] Pads, Medicated TOPICAL duloxetine 30 mg capsule,delayed release(DR/EC) PO (DME) lancets [Unilet Lancet] 33 gauge misc MISCELLANEOUS Jardiance 10 mg tablet Print Language: Welsh Instructions: Knee Sprain (ED), Muscle Strain (ED), Contusion in Adults (ED) Referrals: Janki Mora [employer] [Primary Care Provider] - 1 week Discharge Date/Time: 10/22/24 18:11 Documented by User: Nilton Lloyd MD 10/22/24 20:00 HPI HPI - Fall General Chief Complaint: Fall Stated Complaint: FALL-R LEG PAIN Time Seen by Provider: 10/22/24 16:42 Related Data Home Medications ?Medication ?Instructions ?Recorded ?Confirmed alcohol swabs (BD Alcohol Swabs) pad topical 02/29/24 atorvastatin 10 mg tablet mg 02/29/24 blood sugar diagnostic (True 02/29/24 02/29/24 Metrix Glucose Test Strip) duloxetine 30 mg capsule,delayed mg PO 02/29/24 release empagliflozin 10 mg tablet mg 02/29/24 (Jardiance) estradiol 1 mg tablet mg 02/29/24 fluconazole 150 mg tablet mg 02/29/24 lancets 33 gauge (Unilet Lancet) 02/29/24 02/29/24 lisinopril 20 mg tablet mg 02/29/24 metformin 500 mg tablet mg 02/29/24 metronidazole 500 mg tablet mg 02/29/24 Previous Rx's ?Medication ?Instructions ?Recorded methocarbamol 750 mg tablet 750 mg PO BID PRN spasms 7 days 09/30/24 #14 tabs prednisone 20 mg tablet 40 mg (2 x 20 mg) PO DAILY 5 days 09/30/24 #10 tabs ibuprofen 600 mg tablet 600 mg PO Q8H PRN pain #20 tabs 10/22/24 tizanidine 4 mg capsule 4 mg PO TID PRN muscle spasticity 10/22/24 #10 caps Allergies Allergy/AdvReac Type Severity Reaction Status Date / Time No Known Drug Allergies Allergy Verified 02/29/24 23:21 Opioid HPI Opioid Management Most Recent Pain and Opioid Data: Last Pain Scale 8 09/30/24 16:52 09/30/24 Last MAR Pain Assessment 10/22/24 17:32 PFSH PFSH Medical History Diabetes ?E11.9 - Type 2 diabetes mellitus without complications (ICD-10) Gout ?M10.9 - Gout, unspecified (ICD-10) Anxiety ?F41.9 - Anxiety disorder, unspecified (ICD-10) Hypertension ?I10 - Essential (primary) hypertension (ICD-10) Social History Little interest or pleasure in doing things: not at all Feeling down, depressed, or hopeless: not at all Exam Constitutional Vital Signs, click to edit/add: Last Vital Signs Temp 97.8 F 10/22/24 15:31 Pulse 79 10/22/24 15:31 Resp 16 10/22/24 15:31 BP 120/85 10/22/24 15:31 Pulse Ox 100 10/22/24 15:31 O2 Del Method Room Air 10/22/24 15:31 Course Vital Signs Vital signs: Vital Signs Temperature 97.8 F 10/22/24 15:31 Pulse Rate 79 10/22/24 15:31 Respiratory Rate 16 10/22/24 15:31 Blood Pressure 120/85 10/22/24 15:31 Pulse Oximetry 100 10/22/24 15:31 Oxygen Delivery Method Room Air 10/22/24 15:31 Temperature 97.8 F 10/22/24 15:31 Pulse Rate 79 10/22/24 15:31 Respiratory Rate 16 10/22/24 15:31 Blood Pressure 120/85 10/22/24 15:31 Pulse Oximetry 100 10/22/24 15:31 Oxygen Delivery Method Room Air 10/22/24 15:31 MDM - Fall MDM Narrative Medical decision making narrative: This is a pleasant 44-year-old female who presents to the emergency department for evaluation of right leg pain following injury On arrival, afebrile, vital signs stable. On exam, nontoxic, well appearing patient, in no apparent distress. She has anterior tenderness to her knee and hamstring tenderness to her thigh. Range of motion limited due to pain. Pulses intact. Sensory intact. X-ray imaging right knee, right femur, per radiologist reveals no acute findings Patient received Motrin and Ultram during the course with some improvement. Favor right knee sprain, contusion, right hamstring strain Fx/Dislocation less likely based on imaging History and Record Review Discussion with independent historian: Son Management Independent interpretation: Right knee: No fracture, dislocation, or other acute abnormality noted. Disposition ? The patient was discharged. Prescriptions sent to pharmacy: Tizanidine and Motrin Patient placed in splint Patient advised rest, ice, elevation, compression Patient advised Ibuprofen/Tylenol as needed for pain Plan: Patient will be discharged to home. Condition at time of disposition: stable, improved. ? Advised to follow up with primary provider. Advised to return for any worsening and/or development of new, concerning signs or symptoms PLEASE NOTE: Portions of the medical record may have been produced using electronic assistant to the director and may contain errors with respect to translation of words which may not have been identified prior to finalization of the chart. I, Dr Lloyd, have reviewed the above progress note and course of action in the ER; agree with the above. I have personally gone over history and physical, and discussed disposition and treatment plan with the PA. Discharge Plan Discharge Chief Complaint: Fall Clinical Impression: Right knee sprain Qualifiers: Encounter type: initial encounter Involved ligament of knee: unspecified ligament Qualified Code(s): S83.91XA - Sprain of unspecified site of right knee, initial encounter Hamstring muscle strain Qualifiers: Encounter type: initial encounter Laterality: right Qualified Code(s): S76.311A - Strain of muscle, fascia and tendon of the posterior muscle group at thigh level, right thigh, initial encounter Contusion of knee, right Qualifiers: Encounter type: initial encounter Qualified Code(s): S80.01XA - Contusion of right knee, initial encounter Patient Disposition: Home, Self-Care Time of Disposition Decision: 17:49 Condition: Good Mode of Transportation: Private Vehicle Prescriptions / Home Meds: New ibuprofen 600 mg tablet 600 mg PO Q8H PRN (Reason: pain) Qty: 20 0RF tizanidine 4 mg capsule 4 mg PO TID PRN (Reason: muscle spasticity) Qty: 10 0RF No Action methocarbamol 750 mg tablet 750 mg PO BID PRN (Reason: spasms) 7 Days Qty: 14 0RF prednisone 20 mg tablet 40 mg PO DAILY 5 Days Qty: 10 0RF metformin 500 mg tablet atorvastatin 10 mg tablet fluconazole 150 mg tablet lisinopril 20 mg tablet metronidazole 500 mg tablet (DME) True Metrix Glucose Test Strip Strip MISCELLANEOUS estradiol 1 mg tablet alcohol swabs [BD Alcohol Swabs] Pads, Medicated TOPICAL duloxetine 30 mg capsule,delayed release(DR/EC) PO (DME) lancets [Unilet Lancet] 33 gauge misc MISCELLANEOUS Jardiance 10 mg tablet Print Language: Welsh Instructions: Knee Sprain (ED), Muscle Strain (ED), Contusion in Adults (ED) Referrals: Janki Mora [employer] [Primary Care Provider] - 1 week Discharge Date/Time: 10/22/24 18:11
[2024-10-22] MEDS: IBUPROFEN 600 MG TABLET PO (17:32)
[2024-10-22] MEDS: TRAMADOL HCL 50 MG TABLET PO (17:33)
== END 2024-10-22 18:11 | disposition home or self-care (01) ==
PROVIDERS: Emergency Provider Emergency Medicine; PCP Nurse Practitioner
DX: S83.91XA Sprain of unspecified site of right knee, initial encounter (principal); S76.311A Strain of muscle, fascia and tendon of the posterior muscle group at thigh level, right thigh, initial encounter; S80.01XA Contusion of right knee, initial encounter; W18.39XA Other fall on same level, initial encounter
CPT/HCPCS: 73552; 73564; 99284

== ENCOUNTER 2024-11-15 10:47 | Outpatient (OUT) | payer OTHER, SELFPAY ==
--- NOTE | 2024-11-15 10:56 | XR_ITS ---
[place] [address] Patient Name: ZELDA SANCHEZ MRN: [id number] date: 1980 Sex: F Assigned Patient Location: [facility] Current Patient Location: [facility] Accession/Order Number: [id number] Exam Date: 11/15/2024 12:49 Report Date: 11/15/2024 12:50 At the request of: MICKIE ALVAREZ NP Procedure: XR ankle RT min 3V 3 views right ankle plain film COMPARISON: None HISTORY: Acute right ankle pain and swelling. Fell 2 1/2 weeks ago ACUTE FINDINGS: Tiny bony densities near the medial malleolus likely chronic DEGENERATIVE CHANGE: Inferior calcaneal spurring SOFT TISSUE FINDINGS: Mild soft tissue swelling JOINT EFFUSION: None POSTOP CHANGES: None BONE MINERALIZATION: Adequate XR/XR ankle RT min 3V IMPRESSION: No acute displaced fracture. Soft tissue swelling Impression dictated by: Nilton Youssef M.D.11/15/2024 12:50 PM Dictation Location: [place] [address] Electronically authenticated by: [id number] Y Date: 11/15/2024 12:50
--- OUTSIDE RECORDS SUMMARY | 2024-11-15 10:56 | XMS_ITS | CCD ---
Demographics Address [facility] [address] [place] [address] Mobile Phone Preferred Language en Marital Status Congregational Affiliation Unknown Race White Ethnic Group Not or Lati no Author Organization [facility] Care Team Providers Care Warp Placer Name Role Phone SHAHIDA RUSSELL Unavailable Unavailable RASHEED DUFFY Unavailable Unavailable AICHHOLZ, MEDICAL MANAGER JANKI Admitting Unavailable AICHHOLZ, MEDICAL MANAGER JANKI Attending Unavailable AICHHOLZ, MEDICAL MANAGER JANKI Primary Care Unavailable AICHHOLZ, MEDICAL MANAGER JANKI Consulting Unavailable AICHHOLZ, MEDICAL MANAGER JANKI Admitting Unavailable AICHHOLZ, MEDICAL MANAGER JANKI Attending Unavailable AICHHOLZ, MEDICAL MANAGER JANKI Primary Care Unavailable AICHHOLZ, MEDICAL MANAGER JANKI Consulting Unavailable AICHHOLZ, MEDICAL MANAGER JANKI Admitting Unavailable AICHHOLZ, MEDICAL MANAGER JANKI Attending Unavailable AICHHOLZ, MEDICAL MANAGER JANKI Primary Care Unavailable AICHHOLZ, MEDICAL MANAGER JANKI Consulting Unavailable AICHHOLZ, MEDICAL MANAGER JANKI Admitting Unavailable AICHHOLZ, MEDICAL MANAGER JANKI Attending Unavailable AICHHOLZ, MEDICAL MANAGER JANKI Primary Care Unavailable AICHHOLZ, MEDICAL MANAGER JANKI Consulting Unavailable JOHNS, ALIYAH B Attending Unavailable AICHHOLZ, JANKI J Referring Unavailable AICHHOLZ, JANKI J Primary Care Unavailable JOHNS, ALIYAH B Referring Unavailable AICHHOLZ, JANKI J Primary Care Unavailable JOHNS, ALIYAH B Referring Unavailable AICHHOLZ, JANKI J Primary Care Unavailable JOHNS, ALIYAH B Referring Unavailable AICHHOLZ, JANKI J Primary Care Unavailable Aichholz APPAREL DESIGNER, Janki Unavailable Srinath Lay MD Primary Care Provider Aichholz APPAREL DESIGNER, Janki Unavailable Aichholz PRECISION INSTRUMENT MAKER-FRANCIS, Janki Nataliia Primary Care Provider AICUSHAZ, JANKI Attending Unavailable MARTHA COLES Attending Unavailable AICHHOLZ, JANKI Referring Unavailable KELBLEY, PENNY Attending Unavailable AICHHOLZ, JANKI Referring Unavailable AICHHOLZ, JANKI Attending Unavailable KELBLEY, PENNY Attending Unavailable AICHHOLZ, JANKI Referring Unavailable KELBLEY, PENNY Attending Unavailable AICHHOLZ, JANKI Referring Unavailable MANDEEP MARTHA Pilo Attending Unavailable AICHHOLZ, JANKI Referring Unavailable AICHHOLZ, JANKI Attending Unavailable AICHHOLZ, JANKI Attending Unavailable AICHHOLZ, JANKI Attending Unavailable AICHHOLZ, JANKI Attending Unavailable AICHHOLZ, JANKI Attending Unavailable AICHHOLZ, JANKI Attending Unavailable AICHHOLZ, JANKI Attending Unavailable AICHHOLZ, JANKI Attending Unavailable Medications Current Medications Medication Drug Class(es) Dates Sig (Normalized) Sig (Original) acetaminophen 325 mg / HYDROcodone bitartrate 5 mg oral tablet (3 sources) Opioid Agonist Start: 11-14-2024 End: 11-29-2024 take 1 tablet by mouth once HYDROcodone-acetami nophen (Mcelhattan) 5-325 MG tablet Indications: Lumbar back pain with radiculopathy affecting right lower extremity , Back pain of lumbosacral region with sciatica Take 1 tablet by mouth every 12 (twelve) hours if needed for severe pain for up to 15 days 30 tablet 11/14/2024 11/29/2024 Active Start: 11-01-2024 End: 11-06-2024 take 1 tablet by mouth once HYDROcodone-acetaminophen (Mcelhattan) 5-325 MG tablet Indications: Lumbar back pain with radiculopathy affecting right lower extremity Take 1 tablet by mouth every 12 (twelve) hours if needed for severe pain for up to 5 days 10 tablet 11/01/2024 11/06/2024 Active allopurinol 100 mg oral tablet (4 sources) [...] aspirin 81 mg delayed release oral tablet (13 sources) Platelet Aggregation Inhibitor, Nonsteroidal Anti-inflammatory Drug [...] sources) HMG-CoA Reductase Inhibitor Start: 03-07-2024 End: 11-23-2024 take 1 tablet by mouth at bedtime atorvastatin (Lipitor) 10 MG tablet Indications: Mixed hyperlipidemia (CMS/HCC) Take 1 tablet (10 mg) by mouth at bedtime 30 tablet 5 10/24/2024 11/23/2024 Active take 1 tablet by mouth in the mo rning atorvastatin (LIPITOR) 10 mg tablet Take 1 tablet (10 mg total) by mouth in the morning. Active Blood Glucose Monitoring Suppl (Blood Glucose System Jasvir) kit (20 sources) Start: 03-07-2024 End: 03-07-2025 Blood Glucose [...] Active dicyclomine hydrochloride 20 mg oral tablet (20 sources) Anticholinergic Start: 07-22-2024 take 1 tablet [...] Active Dulaglutide (Trulicity) 3 MG/0.5ML solution auto-injector (20 sources) Start: 10-24-2024 End: 11-21-2024 Dulaglutide (Trulicity) 3 MG/0.5ML solution auto-injector Indications: Type 2 diabetes mellitus without complication, without long-term current use of insulin (CMS/HCC) Inject 3 mg under the skin every 7 (seven) days for 28 days 2 mL 3 10/24/2024 11/21/2024 Active Start: 09-10-2024 End: 10-24-2024 Dulaglutide (Trulicity) 3 MG /0.5ML solution auto-injector Indications: Type 2 diabetes mellitus without complication, without long-term current use of insulin (CMS/HCC) Inject 3 mg under the skin every 7 (seven) days for 28 days 2 mL 3 09/10/2024 10/24/2024 Discontinued (Reorder) Start: 09-10-2024 Dulaglutide (T rulicity) 3 MG/0.5ML solution auto-injector Indications: Type 2 diabetes mellitus without complication, without long-term current use of insulin (CMS/HCC) Inject 3 mg under the skin every 7 (seven) days for 28 days 2 mL 3 09/10/2024 Active Start: 09-10-2024 End: 10-08-2024 Dulaglutide (Trulicity) 3 MG /0.5ML solution auto-injector [...] days 2 mL 2 05/29/2024 06/26/2024 Active empagliflozin 25 mg oral tablet (20 sources) Sodium-Glucose Cotransporter 2 Inhibitor Start: 03-07-2024 End: 11-23-2024 take 1 tablet by mouth once daily empagliflozin (Jardiance) 25 MG Indications: Type 2 diabetes mellitus without complication, without long-term current use of insulin (CMS/HCC) Take 1 tablet (25 mg) by mouth Daily 30 tablet 5 10/24/2024 11/23/2024 Active take 1 tablet by mouth in the mo rning empagliflozin (JARDIANCE) 10 mg tablet tablet Take 1 tablet (10 mg total) by mouth in the morning. Active estradiol 1 mg oral tablet (20 sources) Estrogen Start: 09-22-2021 End: 02-22-2024 take 0.5 mg by mouth in the morning estradiol (Estrace) 1 MG tablet Take 0.5 mg by mouth in the morning. 02/22/2024 Active fluconazole 150 mg oral tablet (20 sources) Azole Antifungal Start: 04-09-2024 End: 04-11-2024 [...] 1 dose. 1 tablet 02/24/2024 02/24/2024 Active gabapentin 300 mg oral capsule (19 sources) Anti-epileptic Agent Start: 10-08-2024 End: 12-14-2024 take 1 capsule by mouth in the morning gabapentin (Neurontin) 300 MG capsule Indications: Back pain of lumbosacral region with sciatica Take 1 capsule (300 mg) by mouth in the morning and 1 capsule (300 mg) before bedtime. 60 capsule 1 11/14/2024 12/14/2024 Active ibuprofen 600 mg oral tablet (7 sources) Nonsteroidal Anti-inflammatory Drug Start: 10-22-2024 ibuprofen 600 MG tablet 10/22/2024 Active indomethacin 25 mg oral capsule (1 [...] Active isopropyl alcohol 0.7 ml/ml medicated pad (20 sources) Start: 06-21-2024 Alcohol Swabs (B-D SINGLE USE SWABS REGULAR) pads 1 each by Other route Daily 06/21/2024 Active lisinopril 40 mg oral tablet (20 sources) Angiotensin Converting Enzyme Inhibitor Start: 04-09-2024 End: 11-23-2024 take 1 tablet by mouth once daily lisinopril 40 MG tablet Indications: Primary hypertension (CMS/HCC) Take 1 tablet (40 mg) by mouth Daily 30 tablet 5 10/24/2024 11/23/2024 Active Start: 09-23-2017 lisinopril (NV INIVIL,ZESTRIL) 20 mg tablet 1 tablet (20 mg total) in the morning. 09/23/2017 Active methocarbamol 750 mg oral tablet (3 [...] 5 days. 15 tablet 02/24/2024 02/29/2024 Active pantoprazole 40 mg delayed release oral tablet (20 sources) Proton Pump Inhibitor Start: 04-09-2024 End: 11-23-2024 take 1 tablet by mouth before mealtime pantoprazole (ProtoNix) 40 MG EC tablet Indications: Gastroesophageal reflux disease without esophagitis Take 1 tablet (40 mg) by mouth in the morning. Take before meals. 30 tablet 5 10/24/2024 11/23/2024 Active take 1 tablet by mouth once brianne y pantoprazole (PROTONIX) 40 mg EC tablet Take 40 mg by mouth daily. Active tiZANidine 4 mg oral capsule (20 sources) Central alpha-2 Adrenergic Agonist Start: 10-22-2024 tiZANidine (Zanaflex ) 4 MG capsule 10/22/2024 Active Start: 10-04-2024 End: 10-19-2024 take 1 tablet by mouth once tiZANidine (Zanaflex) 4 MG tablet Indications: Back pain of lumbosacral region with sciatica Take 1 tablet (4 mg) by mouth every 12 (twelve) hours if needed for muscle spasms for up to 15 days 30 tablet 10/04/2024 Active Completed/Discontinued Medications Medication Drug Class(es) Dates [...] muscle spasms 03/01/2024 05/29/2024 Discontinued (Therapy completed) DULoxetine 60 mg delayed release oral capsule (20 sources) Serotonin and Norepinephrine Reuptake Inhibitor Start: 04-09-2024 End: 12-14-2024 take 1 capsule by mouth once daily DULoxetine (Cymbalta) [address] capsule Indications: Anxiety and depression (CMS/HCC) Take 1 capsule (60 mg) by mouth Daily 30 capsule 5 10/04/2024 11/14/2024 Discontinued (Reorder) take 1 capsule by mouth in the m orning DULoxetine (CYMBALTA) 30 mg capsule Take 1 capsule (30 mg total) by mouth in the morning. Active metFORMIN hydrochloride 500 mg oral tablet (20 sources) Biguanide Start: 01-25-2024 End: 12-14-2024 take 2 tablets by mouth in the morning metFORMIN (Glucophage) 500 MG tablet Indications: Type 2 diabetes mellitus without complication, without long-term current use of insulin (CMS/HCC) Take 2 tablets (1,000 mg) by mouth in the morning and 2 tablets (1,000 mg) in the evening. Take with meals. 120 tablet 2 10/04/2024 11/14/2024 Discontinued (Reorder) Start: 05-18-2021 take 1 tablet by forrest th in the morning, then take 1 tablet by mouth at bedtime metFORMIN (GLUCOPHAGE) 500 mg tablet Take 1 tablet (500 mg total) by mouth in the morning and 1 tablet (500 mg total) before bedtime. 05/18/2021 Active naproxen 500 mg oral tablet (13 sources) Nonsteroidal Anti-inflammatory Drug Start: 10-04-2024 End: 10-24-2024 take 1 tablet by mouth in the morning naproxen (Naprosyn) 500 MG tablet Indications: Back pain of lumbosacral region with sciatica Take 1 tablet (500 mg) by mouth in the morning and 1 tablet (500 mg) in the evening. Take with meals. Do all this for 15 days. 30 tablet 10/04/2024 10/24/2024 Discontinued (Therapy completed) predniSONE 20 mg oral tablet (16 sources) Start: 10-01-2024 End: 10-24-2024 take 2 tablets by mouth once daily predniSONE (Deltasone) 20 MG tablet Take 40 mg by mouth Daily 10/01/2024 10/24/2024 Discontinued (Therapy completed) Problems Active Problems Problem Classification Problem Date Documented Da te Episodic/Chronic Anxiety disorders (20 sources) Mixed anxiety and depressive disorder; Translations: [Anxiety disorder, unspecified] Onset: 4 11-29-2023 Chronic Cancer of ovary (20 sources) Malignant neoplasm of unspecified ovary; Translations: [Malignant tumor of ovary] Onset: 8 11-29-2023 Chronic Cancer of ovary (2 sources) Personal history of malignant neoplasm of ovary; Translations: [History of malignant neoplasm of ovary] Onset: 4 02-22-2024 Episodic Complications of surgical procedures or medical care (2 sources) Symptomatic postprocedural ovarian failure; Translations: [Menopausal flushing] Onset: 4 02-22-2024 Chronic Diabetes mellitus with complications (20 sources) Hyperglycemia due to type 2 diabetes mellitus; Translations: [Type 2 diabetes mellitus with hyperglycemia] Onset: 4 04-09-2024 Chronic Diabetes mellitus without complication (20 sources) Type 2 diabetes mellitus without complications; Translations: [Type 2 diabetes mellitus without complication] Onset: 2 11-29-2023 Chronic Disorders of lipid metabolism (20 sources) Mixed hyperlipidemia; Translations: [Mixed hyperlipidemia] Onset: 4 12-11-2023 Chronic Esophageal disorders (20 sources) Gastroesophageal reflux disease without esophagitis; Translations: [Gastro-esophageal reflux disease without esophagitis] Onset: 4 04-09-2024 Chronic Essential hypertension (20 sources) Essential hypertension; Translations: [Essential (primary) hypertension] Onset: 4 11-29-2023 Chronic Gout and other crystal arthropathies (20 sources) Secondary gout; 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, multiple sites] Onset: 4 08-09-2024 Chronic Nutritional deficiencies (4 sources) Vitamin D deficiency, unspecified; Translations: [VITAMIN D DEFICIENCY UNSPECIFIED] Onset: 2 Chronic Other female genital disorders (1 source) Abnormal uterine and vaginal bleeding, unspecified; Translations: [Abnormal uterine and vaginal bleeding, unspecified] Onset: 4 Chronic Other female genital disorders (1 source) Vaginal bleeding; Translations: [Abnormal uterine and vaginal bleeding, unspecified] 02-22-2024 Chronic Other female genital disorders (2 sources) Other specified noninflammatory disorders of vagina; Translations: [Other specified noninflammatory disorders of vagina] Onset: 4 Episodic Other gastrointestinal disorders (2 sources) Complete fecal incontinence; Translations: [Full incontinence of feces] 11-14-2024 Episodic Other gastrointestinal disorders (2 sources) Incontinence of feces; Translations: [Full incontinence of feces] Onset: 5 11-14-2024 Episodic Other inflammatory condition of skin (20 sources) Psoriasis; Translations: [Psoriasis, unspecified] Onset: 4 03-08-2024 Chronic Other non-traumatic joint disorders (9 sources) Pain in right knee; Translations: [Pain in joint, lower leg] Onset: 5 10-24-2024 Episodic Other non-traumatic joint disorders (4 sources) Acute ankle pain; Translations: [Pain in right ankle and joints of right foot] Onset: 5 11-14-2024 Episodic Other nutritional; endocrine; and metabolic disorders (4 sources) Hypercalcemia; Translations: [HYPERCALCEMIA] Onset: 2 Chronic Other nutritional; endocrine; and metabolic disorders (1 source) Body mass index (BMI) 40.0-44.9, adult; Translations: [Body mass index (BMI) 40.0-44.9, adult] Onset: 4 Chronic Other nutritional; endocrine; and metabolic disorders (14 sources) Morbid obesity; Translations: [Morbid (severe) obesity due to excess calories] Onset: 4 12-13-2023 Chronic Other nutritional; endocrine; and metabolic disorders (20 sources) Obesity caused by energy imbalance; Translations: [Morbid (severe) obesity due to excess calories] Onset: 4 09-10-2024 Chronic Other nutritional; endocrine; and metabolic disorders (20 sources) Body mass index 40+ - severely obese; Translations: [Body mass index (BMI) 40.0-44.9, adult] Onset: 5 09-10-2024 Chronic Spondylosis; intervertebral disc disorders; other back problems (20 sources) Low back pain; Translations: [Lumbar back pain] Onset: 4 03-07-2024 Episodic Unclassified (3 sources) CONTACT W/AND (SUSP) EXPOS COVID-19; Translations: [CONTACT W/AND (SUSP) EXPOS COVID-19] Onset: 2 Unclassified (1 source) Annual Exam Onset: 4 Past or Other Problems Problem Classification Problem Date Documented Da te Episodic/Chronic Abdominal pain (20 sources) Finding of sensation of abdomen; Translations: [Unspecified abdominal pain] Onset: 03-07-2024 03-07-2024 Episodic Genitourinary symptoms and ill-defined conditions (20 sources) Frequency of micturition; Translations: [Dysuria] Onset: 11-29-2023 11-29-2023 Episodic Inflammatory diseases of female pelvic organs (1 source) Bacterial vaginosis; Translations: [Acute vaginitis] 02-24-2024 Episodic Malaise and fatigue (4 sources) Other fatigue; Translations: [OTHER FATIGUE] Onset: 12-16-2021 Episodic Mycoses (20 sources) Candidiasis of vagina; Translations: [Vaginal yeast infection] Onset: 04-09-2024 04-09-2024 Episodic Other female genital disorders (1 source) Pruritus of vagina; Translations: [Other specified noninflammatory disorders of vagina] 02-22-2024 Episodic Other gastrointestinal disorders (20 sources) Diarrhea; Translations: [Diarrhea, unspecified] Onset: 11-29-2023 11-29-2023 Episodic Other gastrointestinal disorders (4 sources) Pelvic mass; Translations: [Intra-abdominal and pelvic swelling, mass and lump, unspecified site] Onset: 11-15-2017 Resolved: 02-22-2024 11-15-2017 Episodic Other screening for suspected conditions (not mental disorders or infectious disease) (20 sources) Encounter for screening mammogram for malignant neoplasm of breast; Translations: [Patient encounter status] Onset: 11-29-2023 11-29-2023 Episodic Otitis media and related conditions (20 sources) Acute right otitis media; Translations: [Otitis [...] Range Facility HbA1c (Bld) [Mass fraction]o n 11-14-2024 Interpretation and review of laboratory results Abnormal [facility] Laboratory - Hematology and Cell countson 11-14-2024 HbA1c (Bld) [Mass fraction] 6.70 % [facility] XR LUMBAR SPINE 2 [place] [address] [address] XRay Report Signed Patient: ZELDA SANCHEZ MR#: [id number] : 1980 Acct:[id number] Age/Sex: 44 / F ADM Date: 10/09/24 Loc: [facility] Attending Dr: Janki Mora NP Ordering Physician: Janki Mora NP Date of Service: 10/09/24 Procedure(s): XR lumbar spine 2-3V Accession Number(s): [id number] cc: Janki Mora NP [address] [address] Patient Name: ZELDA SANCHEZ MRN: [id number] date: 1980 Sex: F Assigned Patient Location: [facility] Current Patient Location: [facility] Accession/Order Number: [id number] Exam Date: 10/10/2024 22:41 Report Date: 10/10/2024 22:42 At the request of: JANKI MORA NP Procedure: XR lumbar spine 2-3V XR lumbar spine 2-3V 10/09/2024 11:18 AM SIGNS AND SYMPTOMS: acute lumbar back pain PROTOCOLS: Frontal and lateral radiograph the lumbar spine COMPARISON: None FINDINGS: The alignment, development and bony structures are normal. There is no fracture or destructive lesion. There is mild vertebral disc height loss at L4-5. There is minimal anterior osteophyte formation at L3-L4 and L4-5. The sacrum and sacroiliac joints are normal. XR/XR lumbar spine 2-3V IMPRESSION: No fracture or dislocation. Mild degenerative changes are noted, greatest at L4-5. Impression dictated by: Brad Waddell M.D.10/10/2024 10:42 PM Dictation Location: [place] [address] Electronically authenticated by: [id number] Y Date: 10/10/2024 22:42 Dictated By: Brad Waddell M.D. Signed By: 10/10/242243 DD/ 41 TD/TT: Security Threat Analyst: [facility] Radiology, Radiologist, MD - 10/10/2024 [place] [address] XRay Report Signed Patient: ZELDA SANCHEZ MR#: [id number] : 1980 Acct:[id number] Age/Sex: 44 / F ADM Date: 10/09/24 Loc: [facility] Attending Dr: Janki Mora NP Ordering Physician: Janki Mora NP Date of Service: 10/09/24 Procedure(s): XR lumbar spine 2-3V Accession Number(s): [id number] cc: Janki Mora NP [place] [id number] Patient Name: ZELDA SANCHEZ MRN: [facility]:[id number] date: 1980 Sex: F Assigned Patient Location: [facility] Current Patient Location: [facility] Accession/Order Number: [id number] Exam Date: 10/10/2024 22:41 Report Date: 10/10/2024 22:42 At the request of: JANKI MORA NP Procedure: XR lumbar spine 2-3V XR lumbar spine 2-3V 10/09/2024 11:18 AM SIGNS AND SYMPTOMS: acute lumbar back pain PROTOCOLS: Frontal and lateral radiograph the lumbar spine COMPARISON: None FINDINGS: The alignment, development and bony structures are normal. There is no fracture or destructive lesion. There is mild vertebral disc height loss at L4-5. There is minimal anterior osteophyte formation at L3-L4 and L4-5. The sacrum and sacroiliac joints are normal. XR/XR lumbar spine 2-3V IMPRESSION: No fracture or dislocation. Mild degenerative changes are noted, greatest at L4-5. Impression dictated by: Brad Waddell M.D.10/10/2024 10:42 PM Dictation Location: [place] [address] Electronically authenticated by: [id number] Y Date: 10/10/2024 22:42 Dictated By: Brad Waddell M.D. 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 Values obtained by different assay methods cannot be used interchangeably. Cancer Ag 125 Qnon [facility] [place] 125 7 U/mL Normal 0-35 [facility] Comment on above: Result Comment: The method used for this test is Regla Gregoria DXI chemiluminescent immunoassay. Values obtained by different assay methods cannot be used interchangeably. Performed By: #### 1 [id number] #### [facility] ([id number]) [address], [address] [place] [address] URINALYSISon 02-22-2024 Bilirubin Ql (U) Negative Normal NEG [facility] Comment on above: Performed By: #### U A #### [facility] ([id number]) [address], [address] [place] [address] BLOOD/HGB Negative Normal NEG [facility] Comment on above: Performed By: #### U A #### [facility] ([id number]) [address], [address] [place] [address] Color (U) YELLOW Normal YELLOW [facility] Comment on above: Performed By: #### U A #### [facility] ([id number]) [address], [address] [place] [address] Glucose Ql (U) >1000 Abnormal NEG [facility] Comment on above: Performed By: #### U A #### [facility] ([id number]) [address], [address] [place] [address] Ketones Ql (U) Negative Normal NEG [facility] Comment on above: Performed By: #### U A #### [facility] ([id number]) [address], [address] [place] [address] Leukocyte esterase Test strip Ql (U) Negative Normal NEG [facility] Comment on above: Result Comment: HIGH CONCENTRATIONS OF GLUCOSE MAY DECREASE THE REACTIVITY OF THE DIPSTICK LEUKOCYTE TEST PAD. Performed By: #### U A #### [facility] ([id number]) [address], [address] [place] [address] Nitrite Ql (U) Negative Normal NEG [facility] Comment on above: Performed By: #### U A #### [facility] ([id number]) [address], [address] [place] [address] pH (U) 6.0 [pH] Normal 5.0-8.5 [facility] Comment on above: Performed By: #### U A #### [facility] ([id number]) [address], [address] [place] [address] Protein Ql (U) Trace Abnormal NEG [facility] Comment on above: Performed By: #### U A #### [facility] ([id number]) [address], [address] [place] [address] R.B.CELLS 1 /hpf Normal 0-5 [facility] Comment on above: Performed By: #### U A #### [facility] ([id number]) [address], [address] [place] [address] Specific gravity (U) [Rel density] 1.026 Normal 1.003-1.035 [facility] Comment on above: Performed By: #### U A #### [facility] ([id number]) [address], [address] [place] [address] SQUAMOUS EPITHELIUM 15 /hpf High 0-5 [facility] Comment on above: Performed By: #### U A #### [facility] ([id number]) [address], [address] [place] [address] TURBIDITY CLEAR Normal CLEAR [facility] Comment on above: Performed By: #### U A #### [facility] ([id number]) [address], [address] [place] [address] Urobilinogen (U) [Mass/Vol] mg/dL Normal <1.1 [facility] Comment on above: Performed By: #### U A #### [facility] ([id number]) [address], [address] [place] [address] W.B.CELLS 2 /hpf Normal 0-5 [facility] Comment on above: Performed By: #### U A #### [facility] ([id number]) [address], [address] [place] [address] Urinalysison 02-22-2024 Bilirubin Ql (U) Negative Negative^Ne gat naomi [facility] Color (U) YELLOW YELLOW^YELLOW [facility] Epithelial cells Auto (Urine sed) [#/Area] 15 High [facility] Glucose (U) [Mass/Vol] mg/dL Abnormal Negative^Negat naomi mg/dL [facility] Hemoglobin Auto test strip Ql (U) Negative Negative^Negat naomi [facility] Interpretation and review of laboratory results Abnormal [facility] Ketones (U) [Mass/Vol] Negative Negative^Negat naomi mg/dL [facility] Leukocyte esterase Auto test strip Ql (U) Negative Negative^Negat naomi [facility] Comment on above: HIGH CONCENTRATIONS OF GLUCOSE MAY DECREASE THE REACTIVITY OF THE DIPSTICK LEUKOCYTE TEST PAD. Nitrite Auto test strip Ql (U) Negative Negative^Negat naomi [facility] pH (U) 6.0 [pH] 5.0 - 8.5 [facility] Protein (U) [Mass/Vol] Trace Abnormal Negative^Negat naomi mg/dL [facility] RBC Auto (Urine sed) [#/Area] 1 [facility] Specific gravity Refractometry automated (U) [Rel density] 1.026 1.003 - 1.035 [facility] Turbidity Ql (U) CLEAR CLEAR^CLEAR [facility] Urobilinogen Qn (U) NINF [facility] WBC Auto (Urine sed) [#/Area] 2 [facility] VAGINITIS PANEL PCRon 2023 VAGINITIS PANEL PCR [...] clinical presentation to determine patient diagnosis. Normal [facility] Comment on above: Performed By: #### V PPCR #### [facility] ([id number]) [address] [place] [address], [address] [place] [address] Covid-19 PCR (CVDTB)on 07-23 SARS-CoV-2 (COVID-19) RNA UGO+probe Ql (Unsp spec) Not detected Normal NOT DETECTED [facility] Comment on above: Result Comment: This test is not yet approved or cleared by the [place] FDA. When there are no FDA-approved or cleared tests available, and other criteria are met, FDA can make tests available under an emergency access mechanism called an Emergency Use Authorization (EUA). The EUA for this test is supported by the [place] of Health and Human Service's (HHS's) declaration [...] SARS-CoV-2. Performed By: #### C VDTB #### [facility] [address] [place] [address] Dr. Morena Heredia THYROID ANTIBODIESon 022 Thyroglobulin Antibody <1.0 Normal 0.0-0.9 [facility] Comment on above: Result Comment: Thyr oglobulin Antibody measured by [employer] Methodology Performed By: #### T HYBS #### [facility] [address] [place] [address] Dr. Morena Heredia Thyroid Peroxidase (TPO) Ab <8 Normal 0-34 [facility] Comment on above: Performed By: #### T MARTINBS #### [facility] [address] [place] [address] Dr. Morena Heredia CBC AUTO DIFFon 12-16-2021 BASO # 0.1 103/ul Normal 0.0-0.1 [facility] Comment on above: Performed By: #### C BC #### [facility] [address] [place] [address] Dr. Morena Heredia Basophils/100 WBC (Bld) 1.1 % Normal 0.2-2.0 [facility] Comment on above: Performed By: #### C BC #### [facility] [address] [place] [address] Dr. Morena Heredia EO # 0.3 103/ul Normal 0.0-0.7 [facility] Comment on above: Performed By: #### C BC #### [facility] [address] [place] [address] Dr. Morena Heredia Eosinophils/100 WBC (Bld) 4.4 % Normal 0.9-7.0 [facility] Comment on above: Performed By: #### C BC #### [facility] [address] [place] [address] Dr. Morena Heredia Erythrocyte distribution width (RBC) [Ratio] 15.2 % Critically high 11.0-15.0 [facility] Comment on above: Performed By: #### C BC #### [facility] [address] [place] [address] Dr. Morena Heredia Hematocrit (Bld) [Volume fraction] 41.2 % Normal 36.0-48.0 [facility] Comment on above: Performed By: #### C BC #### [facility] [address] [place] [address] Dr. Morena Heredia Hemoglobin (Bld) [Mass/Vol] 12.8 g/dL Normal 12.0-16.0 [facility] Comment on above: Performed By: #### C BC #### [facility] [address] [place] [address] Dr. Morena Heredia IG # 0.01 10e3/ul Normal 0.00-0.03 [facility] Comment on above: Performed By: #### C BC #### [facility] [address] [place] [address] Dr. Morena Heredia IG % 0.2 % Normal 0.0-0.5 [facility] Comment on above: Performed By: #### C BC #### [facility] [address] [place] [address] Dr. Morena Heredia LYMPH # 2.5 103/ul Normal 1.2-3.8 [facility] Comment on above: Performed By: #### C BC #### [facility] [address] [place] [address] Dr. Morena Heredia Lymphocytes/100 WBC (Bld) 43.3 % Normal 20.5-60.0 [facility] Comment on above: Performed By: #### C BC #### [facility] [address] [place] [address] Dr. Morena Heredia MANUAL DIFF REQ NO Normal [facility] Comment on above: Performed By: #### C BC #### [facility] [address] [place] [address] Dr. Morena Heredia MCH (RBC) [Entitic mass] 26.3 pg Critically low 26.7-34.0 [facility] Comment on above: Performed By: #### C BC #### [facility] [address] [place] [address] Dr. Morena Heredia MCHC (RBC) [Mass/Vol] 31.1 g/dL Normal 29.9-35.2 [facility] Comment on above: Performed By: #### C BC #### [facility] [address] [address] [address] Morena Heredia MCV (RBC) [Entitic vol] 84.8 fL Normal 81.0-99.0 [facility] Comment on above: Performed By: #### C BC #### [facility] [address] [place] [address] Dr. Morena Heredia MONO # 0.4 103/ul Normal 0.3-0.8 [facility] Comment on above: Performed By: #### C BC #### [facility] [address] [place] [address] Dr. Morena Heredia Monocytes/100 WBC (Bld) 6.3 % Normal 1.7-12.0 [facility] Comment on above: Performed By: #### C BC #### [facility] [address] [place] [address] Dr. Morena Heredia NEUT # 2.5 103/ul Normal 1.4-6.5 [facility] Comment on above: Performed By: #### C BC #### [facility] [address] [place] [address] Dr. Morena Heredia Neutrophils/100 WBC (Bld) 44.7 % Normal 43.0-75.0 [facility] Comment on above: Performed By: #### C BC #### [facility] [address] [place] [address] Dr. Morena Heredia Platelet mean volume (Bld) [Entitic vol] 11.5 fL Normal 9.5-13.5 [facility] Comment on above: Performed By: #### C BC #### [facility] [address] [place] [address] Dr. Morena Heredia PLT 155 103/ul Normal 150-450 [facility] Comment on above: Performed By: #### C BC #### [facility] [address] [place] [address] Dr. Morena Heredia RBC 4.86 106/ul Normal 4.20-5.40 [facility] Comment on above: Performed By: #### C BC #### [facility] [address] [place] [address] Dr. Morena Heredia WBC 5.7 103/ul Normal 4.0-11.0 [facility] Comment on above: Performed By: #### C BC #### [facility] [address] [place] [address] Dr. Morena Heredia FERRITINon 12-16-2021 Ferritin [Mass/Vol] 71.0 ng/mL Normal 6.2-137.0 [facility] Comment on above: Performed By: #### I BERNADETTE, FERR, VITB12, FT4 #### [facility] [address] [place] [address] Dr. Morena Heredia FREE T4on 12-16-2021 Free T4 [Mass/Vol] 1.10 ng/dL Normal 0.76-1.46 [facility] Comment on above: Performed By: #### C MP, TSH #### [facility] [address] [place] [address] Dr. Morena Heredia IRONon 12-16-2021 Iron [Mass/Vol] 47.0 ug/dL Critically low 50.0-170.0 [facility] Comment on above: Performed By: #### C MP, TSH #### [facility] [address] [place] [address] Dr. Morena Heredia PROF 14(COMP METB)on 022 Albumin [Mass/Vol] 4.1 g/dL Normal 3.4-5.0 [facility] Comment on above: Performed By: #### C MP, TSH #### [facility] [address] [place] [address] Dr. Morena Heredia Albumin/Globulin [Mass ratio] 1.1 {ratio} Normal [facility] Comment on above: Performed By: #### C MP, TSH #### [facility] [address] [place] [address] Dr. Morena Heredia ALP [Catalytic activity/Vol] 58 U/L Normal 46-116 [facility] Comment on above: Performed By: #### C MP, TSH #### [facility] [address] [address] [address] Morena Heredia ALT [Catalytic activity/Vol] 59 U/L Normal 14-59 [facility] Comment on above: Performed By: #### C MP, TSH #### [facility] [address] [address] [address] Morena Heredia Anion gap [Moles/Vol] 13.3 mmol/L Normal [facility] Comment on above: Performed By: #### C MP, TSH #### [facility] [address] [address] [address] Morena Heredia AST [Catalytic activity/Vol] 41 U/L Critically high 15-37 [facility] Comment on above: Performed By: #### C MP, TSH #### [facility] [address] [address] [address] Morena Heredia Bilirubin [Mass/Vol] 0.4 mg/dL Normal 0.2-1.0 [facility] Comment on above: Performed By: #### C MP, TSH #### [facility] [address] [address] [address] Morena Heredia Calcium [Mass/Vol] 9.2 mg/dL Normal 8.5-10.1 [facility] Comment on above: Performed By: #### C MP, TSH #### [facility] [address] [address] [address] Morena Heredia Chloride [Moles/Vol] 93 mmol/L Critically low 98-107 [facility] Comment on above: Performed By: #### C MP, TSH #### [facility] [address] [address] [address] Morena Heredia CO2 [Moles/Vol] 29.2 mmol/L Normal 21.0-32.0 [facility] Comment on above: Performed By: #### C MP, TSH #### [facility] [address] [address] [address] Morena Heredia Creatinine [Mass/Vol] 1.04 mg/dL Critically high 0.55-1.02 [facility] Comment on above: Performed By: #### C MP, TSH #### [facility] [address] [address] [address] Morena Heredia EGFR-AF HONG KONGER >60 Normal >=60 [facility] Comment on above: Performed By: #### C MP, TSH #### [facility] [address] [address] [address] Morena Heredia EGFR-NON AF [place]ER >60 Normal >=60 [facility] Comment on above: Performed By: #### C MP, TSH #### [facility] [address] [address] [address] Morena Heredia Globulin (S) [Mass/Vol] 3.8 g/dL Normal [facility] Comment on above: Performed By: #### C MP, TSH #### [facility] [address] [address] [address] Morena Heredia Glucose [Mass/Vol] 109 mg/dL Critically high 74-106 [facility] Comment on above: Performed By: #### C MP, TSH #### [facility] [address] [address] [address] Morena Heredia Potassium [Moles/Vol] 4.5 mmol/L Normal 3.5-5.1 [facility] Comment on above: Performed By: #### C MP, TSH #### [facility] [address] [address] [address] oMrena Heredia Protein [Mass/Vol] 7.9 g/dL Normal 6.1-8.2 [facility] Comment on above: Performed By: #### C MP, TSH #### [facility] [address] [address] [address] Morena Heredia Sodium [Moles/Vol] 131 mmol/L Critically low 136-145 [facility] Comment on above: Performed By: #### C MP, TSH #### [facility] [address] [address] [address] Morena Heredia Urea nitrogen [Mass/Vol] 14.0 mg/dL Normal 7.0-18.0 [facility] Comment on above: Performed By: #### C MP, TSH #### [facility] [address] [address] [address] Morena Heredia Urea nitrogen/Creatinine [Mass ratio] 13.5 mg/mg Normal [facility] Comment on above: Performed By: #### C MP, TSH #### [facility] [address] [address] [address] Morena Heredia TSHon 12-16-2021 TSH 2.484 uIU/mL Normal 0.470-4.680 [facility] Comment on above: Performed By: #### C MP, TSH #### [facility] [address] [address] [address] Morena Heredia TSH RANGE SEE BELOW Normal [facility] Comment on above: Result Comment: <0.3 4 UIU/ml HYPERTHYROID 0.34-5.60 UIU/ml EUTHYROID >5.60 UIU/ml HYPOTHYROID Performed By: #### C MP, TSH #### [facility] [address] [place] [address] Dr. Morena Heredia VITAMIN B12on 12-16-2021 Cobalamin (Vitamin B12) [Mass/Vol] 478.0 pg/mL Normal 239.0-931.0 [facility] Comment on above: Performed By: #### C MP, TSH #### [facility] [address] [address] [address] Morena Heredia GLYCOHEMOGLOBIN A1Con 2021 ADA RECOMMENDATION ADA THERAPEUTIC TARGET 6.0 - 7.0 ACTION SUGGESTED > 7.0 Normal [facility] Comment on above: Performed By: #### C MP, TSH #### [facility] [address] [address] [address] Morena Heredia Glucose [Mass/Vol] 186 mg/dL Normal [facility] Comment on above: Performed By: #### C MP, TSH #### [facility] [address] [place] [address] Dr. Morena Heredia HbA1c (Bld) [Mass fraction] 8.1 % Critically high <=6.0 [facility] Comment on above: Performed By: #### C MP, TSH #### [facility] [address] [address] [address] Morena Heredia PROF 14(COMP METB)on 022 Albumin [Mass/Vol] 3.7 g/dL Normal 3.4-5.0 [facility] Comment on above: Performed By: #### C MP #### [facility] [address] [address] [address] Morena Heredia Albumin/Globulin [Mass ratio] 0.9 {ratio} Normal [facility] Comment on above: Performed By: #### C MP #### [facility] [address] [address] [address] Morena Heredia ALP [Catalytic activity/Vol] 69 U/L Normal 46-116 [facility] Comment on above: Performed By: #### C MP #### [facility] [address] [address] [address] Morena Heredia ALT [Catalytic activity/Vol] 99 U/L Critically high 14-59 [facility] Comment on above: Performed By: #### C MP #### [facility] [address] [address] [address] Morena Heredia Anion gap [Moles/Vol] 13.9 mmol/L Normal [facility] Comment on above: Performed By: #### C MP #### [facility] [address] [address] [address] Morena Heredia AST [Catalytic activity/Vol] 61 U/L Critically high 15-37 [facility] Comment on above: Performed By: #### C MP #### [facility] [address] [address] [address] Morena Heredia Bilirubin [Mass/Vol] 0.3 mg/dL Normal 0.2-1.3 [facility] Comment on above: Performed By: #### C MP #### [facility] [address] [place] [address] Dr. Morena Heredia Calcium [Mass/Vol] 9.2 mg/dL Normal 8.5-10.1 [facility] Comment on above: Performed By: #### C MP #### [facility] [address] [address] [address] Morena Heredia Chloride [Moles/Vol] 98 mmol/L Normal 98-107 [facility] Comment on above: Performed By: #### C MP #### [facility] [address] [address] [address] Morena Heredia CO2 [Moles/Vol] 27.4 mmol/L Normal 22.0-30.0 [facility] Comment on above: Performed By: #### C MP #### [facility] [address] [address] [address] Morena Heredia Creatinine [Mass/Vol] 1.02 mg/dL Normal 0.52-1.04 [facility] Comment on above: Performed By: #### C MP #### [facility] [address] [address] [address] Morena Heredia EGFR-AF [place] >60 Normal >=60 [facility] Comment on above: Performed By: #### C MP #### [facility] [address] [address] [address] Morena Heredia EGFR-NON AF [place] 60 mL/min/1.73m2 Normal >=60 [facility] Comment on above: Performed By: #### C MP #### [facility] [address] [address] [address] Morena Heredia Globulin (S) [Mass/Vol] 4.1 g/dL Normal [facility] Comment on above: Performed By: #### C MP #### [facility] [address] [address] [address] Morena Heredia Glucose [Mass/Vol] 152 mg/dL Critically high 74-106 [facility] Comment on above: Performed By: #### C MP #### [facility] [address] [address] [address] Morena Heredia Potassium [Moles/Vol] 4.3 mmol/L Normal 3.4-5.0 [facility] Comment on above: Performed By: #### C MP #### [facility] [address] [address] [address] Morena Heredia Protein [Mass/Vol] 7.8 g/dL Normal 6.1-8.2 [facility] Comment on above: Performed By: #### C MP #### [facility] [address] [address] [address] Morena Heredia Sodium [Moles/Vol] 135 mmol/L Critically low 137-145 [facility] [place] Comment on above: Performed By: #### C MP #### [facility] [address] [address] [address] Morena Heredia Urea nitrogen [Mass/Vol] 12.0 mg/dL Normal 7.0-18.0 [facility] Comment on above: Performed By: #### C MP #### [facility] [address] [place] [address] Dr. Morena Heredia Urea nitrogen/Creatinine [Mass ratio] 11.8 mg/mg Normal [facility] Comment on above: Performed By: #### C MP #### [facility] [address] [place] [address] Dr. Morena Heredia VITAMIN D 25 OHon 11-23-2021 VIT D 25-OH 17.6 ng/mL Normal [facility] Comment on above: Performed By: #### C MP, TSH #### [facility] [address] [place] [address] Dr. Morena Heredia VIT D RANGES SEE BELOW Normal [facility] Comment on above: Result Comment: <20 ng/mL Vit D deficient 20 - <30 ng/mL Vit D insufficient 30 - 100 ng/mL Vit D sufficient >100 ng/mL Potential Toxicity Performed By: #### C MP, TSH #### [facility] [address] [address] [address] Morena Heredia PTH INTACTon 08-28-2021 PTH, Intact 28 pg/mL Normal 15-65 [facility] Comment on above: Performed By: #### P THINT #### [facility] [address] [address] [address] Morena Heredia VIT D 25-OH LABCORPon 2021 Vitamin D, 25-Hydroxy 16.2 ng/mL Critically low 30.0-100.0 [facility] Comment on above: Result Comment: Gi min D deficiency has been defined by the [place] of [employer] and an Endocrine Society practice guideline as a level of serum 25-OH vitamin D less than 20 ng/mL (1,2). The Endocrine Society went on to further define vitamin D insufficiency as a level between 21 and 29 ng/mL (2). 1. IOM ([place] of [employer]). 2010. Dietary reference intakes for calcium and D. [place]: The National AcademJammin [employer]. 2. Margaret MF, [place], Nay PERRY, et al. Evaluation, treatment, and prevention of vitamin D deficiency: an Endocrine Society clinical practice guideline. JCEM. 2010; 96(7):1911-30. Performed By: #### C MP, TSH #### [facility] [address] [address] [address] Morena Heredia FREE T4on 08-27-2021 Free T4 [Mass/Vol] 1.17 ng/dL Normal 0.78-2.19 [facility] Comment on above: Performed By: #### F T4 #### [facility] [address] [address] [address] Morena Heredia GLYCOHEMOGLOBIN A1Con 2021 ADA RECOMMENDATION ADA THERAPEUTIC TARGET 6.0 - 7.0 ACTION SUGGESTED > 7.0 Normal [facility] Comment on above: Performed By: #### A 1C #### [facility] [address] [address] [address] Morena Heredia Glucose [Mass/Vol] 212 mg/dL Normal [facility] Comment on above: Performed By: #### A 1C #### [facility] [address] [address] [address] Morena Heredia HbA1c (Bld) [Mass fraction] 9.0 % Critically high <=6.0 [facility] Comment on above: Performed By: #### A 1C #### [facility] [address] [place] [address] Dr. Morena Heredia PROF 14(COMP METB)on 022 Albumin [Mass/Vol] 3.9 g/dL Normal 3.5-5.0 [facility] Comment on above: Performed By: #### C MP, TSH #### [facility] [address] [place] [address] Dr. Morena Heredia Albumin/Globulin [Mass ratio] 1.0 {ratio} Normal [facility] Comment on above: Performed By: #### C MP, TSH #### [facility] [address] [address] [address] Morena Heredia ALP [Catalytic activity/Vol] 92 U/L Normal 38-126 [facility] Comment on above: Performed By: #### C MP, TSH #### [facility] [address] [place] [address] Dr. Morena Heredia ALT [Catalytic activity/Vol] 157 U/L Critically high 9-52 [facility] Comment on above: Performed By: #### C MP, TSH #### [facility] [address] [place] [address] Dr. Morena Heredia Anion gap [Moles/Vol] 16.3 mmol/L Normal [facility] Comment on above: Performed By: #### C MP, TSH #### [facility] [address] [place] [address] Dr. Morena Heredia AST [Catalytic activity/Vol] 127 U/L Critically high 14-36 [facility] Comment on above: Performed By: #### C MP, TSH #### [facility] [address] [place] [address] Dr. Morena Heredia Bilirubin [Mass/Vol] 0.3 mg/dL Normal 0.2-1.3 [facility] Comment on above: Performed By: #### C MP, TSH #### [facility] [address] [place] [address] Dr. Morena Heredia Calcium [Mass/Vol] 9.5 mg/dL Normal 8.4-10.2 [facility] Comment on above: Performed By: #### C MP, TSH #### [facility] [address] [place] [address] Dr. Morena Heredia Chloride [Moles/Vol] 92 mmol/L Critically low 98-107 [facility] Comment on above: Performed By: #### C MP, TSH #### [facility] [address] [address] [address] Morena Heredia CO2 [Moles/Vol] 24.9 mmol/L Normal 22.0-30.0 [facility] Comment on above: Performed By: #### C MP, TSH #### [facility] [address] [address] [address] Morena Heredia Creatinine [Mass/Vol] 1.13 mg/dL Critically high 0.52-1.04 [facility] Comment on above: Performed By: #### C MP, TSH #### [facility] [address] [place] [address] Dr. Morena Heredia EGFR-AF [place] >60 Normal >=60 [facility] Comment on above: Performed By: #### C MP, TSH #### [facility] [address] [place] [address] Dr. Morena Heredia EGFR-NON AF [place] 53 mL/min/1.73m2 Critically low >=60 [facility] Comment on above: Performed By: #### C MP, TSH #### [facility] [address] [place] [address] Dr. Morena Heredia Globulin (S) [Mass/Vol] 4.1 g/dL Normal [facility] Comment on above: Performed By: #### C MP, TSH #### [facility] [address] [address] [address] Morena Heredia Glucose [Mass/Vol] 323 mg/dL Critically high 74-106 T [facility] Comment on above: Performed By: #### C MP, TSH #### [facility] [address] [place] [address] Dr. Morena Heredia Potassium [Moles/Vol] 4.2 mmol/L Normal 3.4-5.0 [facility] Comment on above: Performed By: #### C MP, TSH #### [facility] [address] [place] [address] Dr. Morena Heredia Protein [Mass/Vol] 8.0 g/dL Normal 6.1-8.2 [facility] Comment on above: Performed By: #### C MP, TSH #### [facility] [address] [address] [address] Morena Heredia Sodium [Moles/Vol] 129 mmol/L Critically low 137-145 Th [place] Comment on above: Performed By: #### C MP, TSH #### [facility] [address] [address] [address] Morena Heredia Urea nitrogen [Mass/Vol] 20.0 mg/dL Critically high 7.0-17.0 [facility] Comment on above: Performed By: #### C MP, TSH #### [facility] [address] [address] [address] Morena Heredia Urea nitrogen/Creatinine [Mass ratio] 17.7 mg/mg Normal [facility] Comment on above: Performed By: #### C MP, TSH #### [facility] [address] [address] [address] Morena Heredia TSHon 08-27-2021 TSH 5.049 uIU/mL Critically high 0.470-4.680 [facility] Comment on above: Performed By: #### C MP, TSH #### [facility] [address] [place] [address] Dr. Morena Heredia TSH RANGE SEE BELOW Normal [facility] Comment on above: Result Comment: <0.3 4 UIU/ml HYPERTHYROID 0.34-5.60 UIU/ml EUTHYROID >5.60 UIU/ml HYPOTHYROID Performed By: #### C MP, TSH #### [facility] [address] [place] [address] Dr. Morena Heredia Glucose Poct Glucometerson 0 03-05-2021 Commemt1 Glu2: Cleaned Meter Normal [facility] Comment on above: Result Comment: PERF ORMED BY: [address] [place] [address] PATHOLOGIST SYSTEM PLANNING ENGINEER MARY CABAN M.D. Performed By: #### G LULS #### Point of Care testing , Glucose [Mass/Vol] 213 mg/dL Normal [facility] Comment on above: Result Comment: [place] Glucose Reference Range is dependent on time and content of last meal. Glucose of more than 200 mg/dL in a nonstressed, ambulatory subject supports the diagnosis of Diabetes Mellitus. Performed By: Dayron### Ubaldo OLIVA #### Point of Care testing , Bony 03-05-2021 L - -------- Specimen: [id number] Received: 03/05/21 Status: RODNEY Master Num: [id number] Spec Type: Surgical Subm Dr: Yuniel Brown Jr, DO Tissues: A Colon Biopsy (RANDOM COLON) Procedures: HE Stain/2, Gross/Micro L4 -------- Patient Age/Sex Location Account Attending Physician -------- Zelda Sanchez 40/F [id number] Yuniel Brown Jr, -------- SPEC NUM: [id number] RECD: 03/05/21 STATUS: RODNEY THAO NUM: [id number] MEREDITH: 03/05/21 DR: Yuniel Brown Jr, DO ENTERED: 03/05/[address] [facility] [address]: SPEC TYPE: Surgical DEPT: S ORDERED: [...] Microscopic examination confirms the diagnosis. CPT Codes 70623 -------- -------- Specimen: [id number] Received: 03/05/21 Status: RODNEY Thao Num: [id number] Spec Type: Surgical Subm Dr: Yuniel Brown Jr, Tissues: A Colon Biopsy (RANDOM COLON) Procedures: HE Stain/2, Gross/Micro L4 -------- Patient: Zelda Sanchez [id number] (Continued) -------- Signed (signature on file) Nickolas Sexton MD 03/06/21 1034 Normal [facility] SARS-CoV-2 (COVID-19) RNA UGO+probe Ql (Unsp spec) Negative Normal Negative [facility] Comment on above: Order Comment: Healt hcare Worker?: N Result Comment: Testing for SARS-CoV-2 by RT-PCR This test was developed and its performance characteristics determined by [employer] and validated at the [facility]. This test has not been FDA cleared [...] is terminated or revoked sooner. PERFORMED BY: [place] [address] PATHOLOGIST SYSTEM PLANNING ENGINEER MARY CABAN M.D. Performed By: #### C OVID 19 [facility] #### [id number] [facility] CNOVon 03-14-2017 CNOV Office Visit ([id number]) ----ZELDA SANCHEZ ([id number]) 1980 FDate Time Provider Department03/14/17 2:30 PM SHAHIDA RUSSELL [id number] During your visit today, we recorded the following information about you: Blood pressure Weight Height Last Period 134/88 108.7 kg 1.524 m 02/14/17Shahida Russell MD 03/14/2017 5:01 PM SignedSUBJECTIVE: Zelda Gianna Sanchez is a 36 year old female [...] think about her options and decide.Shahida Russell [facility] HEALTHeftysoning Provider: RASHEED DUFFY [[id number]]Allergies As of Date: 03/14/2017(No Known Allergies)Date Reviewed: 03/14/2017Reviewed by: Dahiana Arteaga Ma - Fully AssessedReason for Visit: Consult [173]Primary Visit Diagnosis:Menorrhagia with regular cycle [N92.0]Prescriptions as of 03/14/2017 Sig: LISINOPRIL 20 MG-HYDROCHLOROT* Take 1 tablet by mouth once d* LISINOPRIL 10 MG-HYDROCHLOROT* Take 1 tablet by mouth once d*Problem List As Of Date: 03/14/2017(None)Encou nter Number: [id number] Status:Closed by SHAHIDA RUSSELL MD on 03/14/17 Normal [facility] [place] PROGRESSon 03-14-2017 PROGRESS HNO ID: [id number]: Shahida Rodriguezervice: (none)Author Type: PhysicianType: Progress NotesFiled: [...] about her options and decide.Shahida Russell MD Normal [facility] Vital Signs Date Time Vital Sign Value Performing Clinician Facility 11-14-2024 13:37-0400 Body mass index (BMI) [Ratio] 42.29 kg/m2 Janki Mora APPAREL DESIGNER Work Phone: [facility] 11-14-2024 13:37-0400 Body temperature 98.49 [degF] Janki Mora APPAREL DESIGNER Work Phone: [facility] 11-14-2024 13:37-0400 Body weight 94.98 kg Janki Mora APPAREL DESIGNER Work Phone: [facility] 11-14-2024 13:37-0400 Diastolic blood pressure 90 mm[Hg] Janki Mora APPAREL DESIGNER Work Phone: [facility] 11-14-2024 13:37-0400 Heart rate 64 /min Janki Mora APPAREL DESIGNER Work Phone: [facility] 11-14-2024 13:37-0400 Respiratory rate 19 /min Janki Mora APPAREL DESIGNER Work Phone: [facility] 11-14-2024 13:37-0400 SaO2% (BldA) [Mass fraction] 99 % Janki Mora APPAREL DESIGNER Work Phone: [facility] 11-14-2024 13:37-0400 Systolic blood pressure 132 mm[Hg] Janki Mora APPAREL DESIGNER Work Phone: [facility] 10-24-2024 14:42-0500 Body mass index (BMI) [Ratio] 42.05 kg/m2 Jankifransisco Escobarlyubovz APPAREL DESIGNER Work Phone: [facility] 10-24-2024 14:42-0500 Body temperature 98.1 [degF] Janki Júniorhholz APPAREL DESIGNER Work Phone: [facility] 10-24-2024 14:42-0500 Body weight 94.44 kg Janki Júniorhholz APPAREL DESIGNER Work Phone: [facility] 10-24-2024 14:42-0500 Diastolic blood pressure 76 mm[Hg] Janki Júniorhholz APPAREL DESIGNER Work Phone: [facility] 10-24-2024 14:42-0500 Heart rate 82 /min Janki Júniorrosaleeholz APPAREL DESIGNER Work Phone: [facility] 10-24-2024 14:42-0500 Respiratory rate 20 /min Janki Shawnholz APPAREL DESIGNER Work Phone: [facility] 10-24-2024 14:42-0500 SaO2% (BldA) [Mass fraction] 93 % Janki Shawnholz APPAREL DESIGNER Work Phone: [facility] 10-24-2024 14:42-0500 Systolic blood pressure 112 mm[Hg] Janki Júniorrosaleeholz APPAREL DESIGNER Work Phone: [facility] 10-04-2024 10:13-0500 Body mass index (BMI) [Ratio] 41.04 kg/m2 Janki Júniorhholz APPAREL DESIGNER Work Phone: [facility] 10-04-2024 10:13-0500 Body temperature 98.71 [degF] Janki Júniorhholz APPAREL DESIGNER Work Phone: [facility] 10-04-2024 10:13-0500 Body weight 92.17 kg Janki Jnúiorhholz APPAREL DESIGNER Work Phone: [facility] 10-04-2024 10:13-0500 Diastolic blood pressure 82 mm[Hg] Janki Shawnholz APPAREL DESIGNER Work Phone: [facility] 10-04-2024 10:13-0500 Heart rate 97 /min Janki Júniorhholz APPAREL DESIGNER Work Phone: [facility] 10-04-2024 10:13-0500 Respiratory rate 20 /min Janki Júniorhholz APPAREL DESIGNER Work Phone: [facility] 10-04-2024 10:13-0500 SaO2% (BldA) [Mass fraction] 99 % Janki Shwanholz APPAREL DESIGNER Work Phone: [facility] 10-04-2024 10:13-0500 Systolic blood pressure 120 mm[Hg] Janki Aichholz APPAREL DESIGNER Work Phone: [facility] 09-10-2024 14:17-0500 Body height 149.9 cm Janki Júniorhholz APPAREL DESIGNER Work Phone: [facility] 09-10-2024 14:17-0500 Body mass index (BMI) [Ratio] 42.6 kg/m2 Janki Shawnholz APPAREL DESIGNER Work Phone: [facility] 09-10-2024 14:17-0500 Body temperature 98.29 [degF] Janki Shawnholz APPAREL DESIGNER Work Phone: [facility] 09-10-2024 14:17-0500 Body weight 95.66 kg Janki Shawnholz APPAREL DESIGNER Work Phone: [facility] 09-10-2024 14:17-0500 Diastolic blood pressure 76 mm[Hg] Janki Júniorhholz APPAREL DESIGNER Work Phone: [facility] 09-10-2024 14:17-0500 Heart rate 83 /min Janki Aichholz APPAREL DESIGNER Work Phone: [facility] 09-10-2024 14:17-0500 Respiratory rate 20 /min Janki Aichholz APPAREL DESIGNER Work Phone: [facility] 09-10-2024 14:17-0500 SaO2% (BldA) [Mass fraction] 94 % Janki Shawnholz APPAREL DESIGNER Work Phone: [facility] 09-10-2024 14:17-0500 Systolic blood pressure 116 mm[Hg] Janki Júniorhholz APPAREL DESIGNER Work Phone: [facility] 07-30-2024 13:56-0500 Body height 149.9 cm Janki Júniorhholz APPAREL DESIGNER Work Phone: [facility] 07-30-2024 13:56-0500 Body mass index (BMI) [Ratio] 42.58 kg/m2 Janki Júniorhholz APPAREL DESIGNER Work Phone: [facility] 07-30-2024 13:56-0500 Body temperature 98.1 [degF] Janki Shawnholz APPAREL DESIGNER Work Phone: [facility] 07-30-2024 13:56-0500 Body weight 95.62 kg Janki Júniorhholz APPAREL DESIGNER Work Phone: [facility] 07-30-2024 13:56-0500 Diastolic blood pressure 70 mm[Hg] Janki Júniorhholz APPAREL DESIGNER Work Phone: [facility] 07-30-2024 13:56-0500 Heart rate 90 /min Janki Júniorhholz APPAREL DESIGNER Work Phone: [facility] 07-30-2024 13:56-0500 Respiratory rate 22 /min Janki Júniorhholz APPAREL DESIGNER Work Phone: [facility] 07-30-2024 13:56-0500 SaO2% (BldA) [Mass fraction] 99 % Janki Júniorhholz APPAREL DESIGNER Work Phone: [facility] 07-30-2024 13:56-0500 Systolic blood pressure 110 mm[Hg] Janki Aichholz APPAREL DESIGNER Work Phone: [facility] 05-29-2024 14:06-0400 Body height 149.9 cm Janki Aichholz APPAREL DESIGNER Work Phone: [facility] 05-29-2024 14:06-0400 Body mass index (BMI) [Ratio] 44.64 kg/m2 Janki Mora APPAREL DESIGNER Work Phone: [facility] 05-29-2024 14:06-0400 Body temperature 98.8 [degF] Janki Odonnellz APPAREL DESIGNER Work Phone: [facility] 05-29-2024 14:06-0400 Body weight 100.25 kg Janki Odonnellz APPAREL DESIGNER Work Phone: [facility] 05-29-2024 14:06-0400 Diastolic blood pressure 76 mm[Hg] Janki Escobarholz APPAREL DESIGNER Work Phone: [facility] 05-29-2024 14:06-0400 Heart rate 91 /min Janki Odonnellz APPAREL DESIGNER Work Phone: [facility] 05-29-2024 14:06-0400 Respiratory rate 20 /min Janki Odonnellz APPAREL DESIGNER Work Phone: [facility] 05-29-2024 14:06-0400 SaO2% (BldA) [Mass fraction] 96 % Janki Escobarholz APPAREL DESIGNER Work Phone: [facility] 05-29-2024 14:06-0400 Systolic blood pressure 110 mm[Hg] Janki Odonnellz APPAREL DESIGNER Work Phone: [facility] 02-22-2024 14:24-0400 Diastolic blood pressure 66 mm[Hg] Aliyah Johns PRECISION INSTRUMENT MAKER-MEDICAL MANAGER Work Phone: [facility] 02-22-2024 14:24-0400 Heart rate 79 /min Aliyah Mourahop PRECISION INSTRUMENT MAKER-MEDICAL MANAGER Work Phone: [facility] 02-22-2024 14:24-0400 Respiratory rate 16 /min Aliyah Mourahop PRECISION INSTRUMENT MAKER-MEDICAL MANAGER Work Phone: [facility] 02-22-2024 14:24-0400 SaO2% (BldA) [Mass fraction] 98 % Aliyah Johns PRECISION INSTRUMENT MAKER-MEDICAL MANAGER Work Phone: [facility] 02-22-2024 14:24-0400 Systolic blood pressure 128 mm[Hg] Aliyah Johns PRECISION INSTRUMENT MAKER-MEDICAL MANAGER Work Phone: [facility] 02-22-2024 14:18-0400 Body mass index (BMI) [Ratio] 43.94 kg/m2 Aliyah Johns PRECISION INSTRUMENT MAKER-MEDICAL MANAGER Work Phone: [facility] 02-22-2024 14:18-0400 Body weight 102.06 kg Aliyah Johns PRECISION INSTRUMENT MAKER-MEDICAL MANAGER Work Phone: [facility] Encounters Encounter Date Encounter Type Care Provider Facility Start: 11-14-2024 End: 11-14-2024 Bamboo flowsheet Janki Mora APPAREL DESIGNER Work Phone: [facility] Start: 11-14-2024 End: 11-14-2024 Bamboo flowsheet Janki Mora APPAREL DESIGNER Work Phone: [facility] Start: 11-14-2024 End: 11-14-2024 Office outpatient visit 25 minutes Janki Mora APPAREL DESIGNER Work Phone: [facility] Comment on above: Lumbar back pain wit h radiculopathy affecting right lower extremity (Primary Dx); Morbid (severe) obesity due to excess calories ([facility]); Type 2 diabetes mellitus without complication, without long-term current use of insulin ([facility]); Back pain of lumbosacral region with sciatica; Anxiety and depression ([facility]); Acute right ankle pain; Full incontinence of feces Start: 11-06-2024 End: 11-06-2024 ambulatory MARTHA COLES Not Available Start: 11-01-2024 End: 11-01-2024 Refill Janki Mora APPAREL DESIGNER Work Phone: [facility] Comment on above: Lumbar back pain wit h radiculopathy affecting right lower extremity (Primary Dx) Start: 10-30-2024 End: 10-30-2024 ambulatory Penny Kelbley INDEPENDENT INSURANCE ADJUSTER [facility] Comment on above: Back pain of lumbosa cral region with sciatica (Primary Dx) Start: 10-25-2024 End: 10-25-2024 ambulatory PENNY CHAN Not Available Start: 10-24-2024 End: 10-24-2024 Office outpatient visit 25 minutes Janki Mora APPAREL DESIGNER Work Phone: [facility] Comment on above: Lumbar back pain wit h radiculopathy affecting right lower extremity (Primary Dx); Body mass index (BMI) 40.0-44.9, adult ([facility]); Morbid (severe) obesity due to excess calories ([facility]); Back pain of lumbosacral region with sciatica; Gastroesophageal reflux disease without esophagitis; Mixed hyperlipidemia ([facility]); Type 2 diabetes mellitus without complication, without long-term current use of insulin ([facility]); Primary hypertension ([facility]); Acute pain of right knee Start: 10-24-2024 End: 10-24-2024 ambulatory JANKI MORA Not Available Start: 10-22-2024 End: 10-23-2024 Telephone encounter Penny Chan INDEPENDENT INSURANCE ADJUSTER [facility] Comment on above: CX PT 10/22/24 Start: 10-19-2024 End: 10-22-2024 Telephone encounter Penny Chan INDEPENDENT INSURANCE ADJUSTER [facility] Comment on above: Missed PT today (Shelby ble to contact; will retry if no hearback.); FU; Confirmation Start: 10-16-2024 End: 10-16-2024 Telephone encounter Penny Chan INDEPENDENT INSURANCE ADJUSTER [facility] Comment on above: CX PT today Start: 10-11-2024 End: 10-11-2024 Telephone encounter Janki Mora APPAREL DESIGNER Work Phone: [facility] Start: 10-11-2024 End: 10-11-2024 ambulatory Penny Chan INDEPENDENT INSURANCE ADJUSTER [facility] Comment on above: Back pain of lumbosa cral region with sciatica (Primary Dx) Start: 10-10-2024 End: 10-10-2024 Clinisync Result Encounter Janki Mora APPAREL DESIGNER Work Phone: [facility] Unsolicited Start: 10-10-2024 End: 10-10-2024 Clinisync Result Encounter Janki Mora APPAREL DESIGNER Work Phone: [facility] External Department Unsolicited Start: 10-09-2024 End: 10-09-2024 Bamboo flowsheet Martha Coles PT Work Phone: [facility] Start: 10-09-2024 End: 10-09-2024 Bamboo flowsheet Martha Coles PT Work Phone: [facility] Start: 10-09-2024 End: 10-09-2024 ambulatory Martha Daigle [place] PT Work Phone: [facility] Comment on above: Back pain of lumbosa cral region with sciatica (Primary Dx) Start: 10-08-2024 End: 10-09-2024 Refill Janki Mora APPAREL DESIGNER Work Phone: [facility] Comment on above: Back pain of lumbosa cral region with sciatica (Primary Dx) PT CX per pt 10/09; R S needed; FU Start: 10-04-2024 End: 10-04-2024 Bamboo flowsheet Janki Mora APPAREL DESIGNER Work Phone: [facility] Start: 10-04-2024 End: 10-04-2024 Bamboo flowsheet Janki Mora APPAREL DESIGNER Work Phone: [facility] Start: 10-04-2024 End: 10-04-2024 Office outpatient visit 15 minutes Janki Mora APPAREL DESIGNER Work Phone: [facility] Comment on above: Back pain of lumbosa cral region with sciatica (Primary Dx); Morbid (severe) obesity due to excess calories (CMS/HCC); Body mass index (BMI) 40.0-44.9, adult (CMS/HCC); Type 2 diabetes mellitus without complication, without long-term current use of insulin (CMS/HCC); Anxiety and depression (CMS/HCC) Start: 10-04-2024 End: 10-04-2024 ambulatory JANKI AICHHOLZ Not Available Start: 09-10-2024 End: 09-10-2024 Bamboo flowsheet Janki Aichholz APPAREL DESIGNER Work Phone: [facility] Start: 09-10-2024 End: 09-10-2024 Bamboo flowsheet Janki Aichholz APPAREL DESIGNER Work Phone: [facility] Start: 09-10-2024 End: 09-10-2024 Office outpatient visit 25 minutes Janki Aichholz APPAREL DESIGNER Work Phone: [facility] Comment on above: Anxiety and depressi on ([facility]) (Primary Dx); Morbid (severe) obesity due to excess calories ([facility]); Body mass index (BMI) 40.0-44.9, adult ([facility]); Malignant neoplasm of unspecified ovary ([facility] Primary hypertension ([facility]); Type 2 diabetes mellitus without complication, without long-term current use of insulin ([facility]); Mixed hyperlipidemia ([facility]) Start: 09-10-2024 End: 09-10-2024 ambulatory JANKI AICHHOLZ Not Available Start: 08-09-2024 End: 08-09-2024 Refill Janki Aichholz APPAREL DESIGNER Work Phone: [facility] Comment on above: Other secondary gout , multiple sites, unspecified chronicity (Primary Dx) Start: 07-30-2024 End: 07-30-2024 Bamboo flowsheet Janki Aichholz APPAREL DESIGNER Work Phone: [facility] Start: 07-30-2024 End: 07-30-2024 Bamboo flowsheet Janki Aichholz APPAREL DESIGNER Work Phone: [facility] Start: 07-30-2024 End: 07-30-2024 Office outpatient visit 25 minutes Janki Aichholz APPAREL DESIGNER Work Phone: [facility] Comment on above: Type 2 diabetes mare itus without complication, without long- term current use of insulin ([facility]) (Primary Dx); Primary hypertension ([facility]); Gastroesophageal reflux disease without esophagitis; Anxiety and depression ([facility]/HCC); Morbid obesity ([facility]/HCC); Mixed hyperlipidemia ([facility]); Malignant neoplasm of ovary, unspecified laterality ([facility]); Psoriasis ([facility]) Start: 07-30-2024 End: 07-30-2024 ambulatory JANKI AICHHOLZ Not Available Start: 06-05-2024 End: 06-05-2024 Refill Janki Aichholz APPAREL DESIGNER Work Phone: [facility] Comment on above: Anxiety and depressi on ([facility]); Gastroesophageal reflux disease without esophagitis; Primary hypertension ([facility]); Mixed hyperlipidemia ([facility]); Unspecified abdominal pain Start: 05-29-2024 End: 05-29-2024 Bamboo flowsheet Janki Aichholz APPAREL DESIGNER Work Phone: [facility] Start: 05-29-2024 End: 05-29-2024 Bamboo flowsheet Janki Aichholz APPAREL DESIGNER Work Phone: [facility] Start: 05-29-2024 End: 05-29-2024 Office outpatient visit 25 minutes Janki Aichholz APPAREL DESIGNER Work Phone: [facility] Comment on above: Primary hypertension ([facility]) (Primary Dx); Type 2 diabetes mellitus without complication, without long-term current use of insulin ([facility]); Diarrhea, unspecified type; Morbid obesity ([facility]) Start: 05-29-2024 End: 05-29-2024 ambulatory JANKI AICHHOLZ Not Available Start: 04-11-2024 End: 04-11-2024 Refill Janki Aichholz APPAREL DESIGNER Work Phone: [facility] Comment on above: Vaginal yeast infect ion Start: 04-10-2024 End: 04-10-2024 Refill Janki Aichholz APPAREL DESIGNER Work Phone: [facility] Comment on above: Type 2 diabetes mare itus without complication, without long- term current use of insulin ([facility]) Start: 04-09-2024 End: 04-09-2024 ambulatory JANKI AICHHOLZ Not Available Start: 03-07-2024 End: 03-07-2024 ambulatory JANKI AICHHOLZ Not Available Start: 03-02-2024 End: 03-02-2024 ambulatory [facility] Start: 02-24-2024 End: 02-24-2024 Telephone encounter Lucia Lazar RN [facility] Start: 02-22-2024 End: 02-22-2024 ambulatory [facility] Start: 02-22-2024 End: 02-22-2024 Office outpatient visit 25 minutes Aliyah Mourahop PRECISION INSTRUMENT MAKER-MEDICAL MANAGER Work Phone: [facility] Comment on above: Vaginal itching ([place] yossi Dx); History of ovarian cancer; Visit for screening mammogram; Urinary frequency; Hot flashes due to surgical menopause; BMI 40.0-44.9, adult (CMS-HCC); Vaginal bleeding; Malignant neoplasm of ovary, unspecified laterality ([facility]); Menopause Start: 02-22-2024 End: 02-22-2024 ambulatory [facility] Start: 02-20-2024 End: 02-20-2024 Telephone encounter Amy Maria CMA [facility] Start: 01-25-2024 End: 01-25-2024 ambulatory JANKI AICHHOLZ Not Available Start: 12-29-2023 End: 12-29-2023 Telephone encounter Germania Gamino CMA [facility] Start: 12-13-2023 End: 12-13-2023 ambulatory JANKI AICHHOLZ Not Available Start: 11-29-2023 End: 11-29-2023 ambulatory JANKI AICHHOLZ Not Available Start: 08-18-2022 End: 08-18-2022 ambulatory MEDICAL MANAGER JANKI AICHHOLZ Facility:[facility] Start: 12-16-2021 End: 12-17-2021 ambulatory MEDICAL MANAGER JANKI AICHHOLZ Facility:[facility] Start: 11-23-2021 End: 11-24-2021 ambulatory MEDICAL MANAGER JANKI AICRosaleeJASSON Facility:[facility] Start: 08-27-2021 End: 08-28-2021 ambulatory MEDICAL MANAGER JANKI ABBY Facility:[facility] Start: 03-14-2017 End: 03-15-2017 Ambulatory SHAHIDA RUSSELL [facility] Procedures Date Procedure Procedure Detail Performing Clinician Start: 11-14-2024 Hemoglobin glycosyla levon a1c Janki Abby APPAREL DESIGNER Work Phone: Start: 10-10-2024 XR LUMBAR SPINE 2 OR 3V Janki Abby APPAREL DESIGNER Work Phone: Start: 07-30-2024 Hemoglobin glycosyla levon a1c Janki Júniorhholz APPAREL DESIGNER Work Phone: Start: 03-02-2024 Mammography Janki Crystal florian APPAREL DESIGNER Work Phone: Plan of Treatment Date Care Activity Detail Author Start: 03-22-2026 Glaucoma screening Diabetes: R etinopathy Screening [facility] Start: 03-02-2025 Screening for malign ant neoplasm of breast Mammogram [facility] Start: 02-27-2025 End: 02-27-2025 Patient encounter procedure 02/27/2025 2:00 PM EDT Office Visit Ariana Ca Amelia [facility] - Medical Oncology [facility] [place] [phone] Awilda Cervantes PA [address] [place] [address] Ariana Ca [facility] - Medical Oncology Start: 02-21-2025 Adult BMI Screening Adult BMI Screen ing [facility] Start: 02-21-2025 Tobacco Screening Tobacco Screening [facility] Start: 02-14-2025 Hemoglobin A1c measurement Diabetes: Hemoglobin A1C [facility] Start: 12-10-2024 End: 12-10-2024 Patient encounter procedure 12/10/2024 1:00 PM EDT Office Visit [facility] [address] [place] [phone] Janki Mora NP [address] [place] [address] [facility] Start: 12-09-2024 Urine screening for protein Diabetes: Urine Protein Screening [facility] Start: 11-14-2024 End: 11-14-2025 XR Ankle - right 3 Views XR ankle 3+ views right Imaging Routine Acute right ankle pain Expected: 11/14/2024, Expires: 11/14/2025 [facility] Work Phone: Comment on above: Expected: 11/14/2024 , Expires: 11/14/2025 Start: 11-14-2024 End: 11-14-2024 Patient encounter procedure [facility] Comment on above: Morbid (severe) obes ity due to excess calories ([facility]/HCC) (Primary Dx); Lumbar back pain with radiculopathy affecting right lower extremity; Type 2 diabetes mellitus without complication, without long-term current use of insulin ([facility]/HCC) Start: 11-06-2024 End: 11-06-2024 ambulatory 11/06/2024 12:30 PM EDT Treatment [facility] [address] [place] [address] Martha Coles, PT [address] [place] [address] [facility] Start: 11-01-2024 End: 11-01-2024 ambulatory 11/01/2024 1:30 PM EDT Treatment [facility] [address] [place] [address] Penny Chan, INDEPENDENT INSURANCE ADJUSTER [facility] Start: 10-28-2024 Hemoglobin A1c measurement Diabetes: Hemoglobin A1C [facility] Start: 10-25-2024 End: 10-25-2024 ambulatory 10/25/2024 2:00 PM EST Treatment [facility] [address] [place] [address] Penny Chan, INDEPENDENT INSURANCE ADJUSTER [facility] Start: 10-24-2024 End: 10-24-2024 Patient encounter procedure 10/24/2024 2:20 PM EST Office Visit [facility] [address] [place] [address] Janki Mora, NAM [address] [place] [address] [facility] Start: 10-24-2024 End: 10-24-2025 MR Lumbar spine WO contrast MR lumbar spine wo contrast Imaging High Priority Lumbar back pain with radiculopathy affecting right lower extremity Expected: 10/24/2024 (Approximate), Expires: 10/24/2025 [facility] Work Phone: Comment on above: Expected: 10/24/2024 (Approximate), Expires: 10/24/2025 Start: 10-22-2024 End: 10-22-2024 ambulatory 10/22/2024 2:30 PM EST Treatment [facility] [address] [facility] [address] [place] [address] Stacy Chanissa, INDEPENDENT INSURANCE ADJUSTER [facility] Start: 10-19-2024 End: 10-19-2024 ambulatory 10/19/2024 2:30 PM EST Treatment [facility] [address] [facility] [address] Stacy Chanissa, INDEPENDENT INSURANCE ADJUSTER [facility] Start: 10-16-2024 End: 10-16-2024 ambulatory 10/16/2024 10:00 AM EST Treatment [facility] [address] [facility] [address] [place] [address] Stacy Chanissa, INDEPENDENT INSURANCE ADJUSTER [facility] Start: 10-11-2024 End: 10-11-2024 ambulatory 10/11/2024 11:30 AM EST Treatment [facility] [address] [facility] [address] [place] [address] Stacy Chanissa, INDEPENDENT INSURANCE ADJUSTER [facility] Start: 10-09-2024 End: 10-09-2024 ambulatory 10/09/2024 10:00 AM EST Evaluation [facility] [address] [facility] [address] [place] [address] Martha Coles, PT [address] [facility] [address] [place] [address] Back pain of lumbosacral region with sciatica [facility] Comment on above: Back pain of lumbosa cral region with sciatica Start: 10-04-2024 End: 10-04-2025 XR Lumbar spine 2 or 3 Views XR lumbar spine 2 or 3 views Imaging Routine Back pain of lumbosacral region with sciatica Expected: 10/04/2024 (Approximate), Expires: 10/04/2025 [facility] Work Phone: Comment on above: Expected: 10/04/2024 (Approximate), Expires: 10/04/2025 Start: 10-04-2024 End: 10-04-2024 Patient encounter procedure 10/04/2024 10:20 AM EST Office Visit [facility] [address] [address] Janki Mora NP [address] [place] [phone] Morbid (severe) obesity due to excess calories (CMS/HCC) (Primary Dx); Body mass index (BMI) 40.0-44.9, adult (CMS/HCC); Lumbar back pain [facility] Comment on above: Morbid (severe) obes ity due to excess calories (CMS/HCC) (Primary Dx); Body mass index (BMI) 40.0-44.9, adult (CMS/HCC); Lumbar back pain Start: 09-10-2024 End: 09-10-2024 Patient encounter procedure [facility] Comment on above: Primary hypertension (CMS/HCC) (Primary Dx); Morbid (severe) obesity due to excess calories (CMS/HCC); Body mass index (BMI) 40.0-44.9, adult (CMS/HCC); Malignant neoplasm of unspecified ovary (CMS/HCC); Anxiety and depression (CMS/HCC) Start: 07-30-2024 End: 07-30-2024 Patient encounter procedure [facility] Comment on above: Primary hypertension ([facility]) (Primary Dx); Gastroesophageal reflux disease without esophagitis; Type 2 diabetes mellitus without complication, without long-term current use of insulin ([facility]); Anxiety and depression ([facility]) Start: 07-01-2024 Hemoglobin A1c measurement Diabetes: Hemoglobin A1C [facility] Start: 05-29-2024 End: 05-29-2024 Patient encounter procedure 05/29/2024 2:00 PM EDT Office Visit [facility] [address] [place] [address] Janki Mora NP [address] [place] [address] Arrived [facility] Comment on above: Arrived Start: 05-10-2024 End: 05-10-2024 Patient encounter procedure 05/10/2024 1:20 PM EDT Office Visit [facility] [address] [place] [address] Janki Mora NP [address] [place] [address] [facility] Start: 04-22-2024 Glaucoma screening Diabetes: R etinopathy Screening [facility] Comment on above: Postponed from 04/12 (Other Patient Reasons) Start: 04-22-2024 Influenza vaccination Influenza Vacc ine [facility] Start: 04-22-2024 Screening for malign ant neoplasm of cervix Cervical Cancer Screening [facility] Comment on above: Postponed from 04/12 (Other Patient Reasons) Start: 02-22-2024 End: 02-22-2024 Patient encounter procedure 02/22/2024 2:30 PM EDT Office Visit [facility] [address] [phone] Aliyah Johns, PRECISION INSTRUMENT MAKER-MEDICAL MANAGER [address] [place] [address], [address] [place] [address] [facility] Start: 02-22-2024 End: 02-21-2025 DBT Breast - bilateral screening Mammography screening bilateral with CAD Imaging Routine Visit for screening mammogram Expected: 02/22/2024, Expires: 02/21/2025 [facility] Work Phone: Comment on above: Expected: 02/22/2024 , Expires: 02/21/2025 Start: 02-22-2024 End: 02-21-2025 Vaginitis Panel PCR Vaginitis Panel PCR Microbiology Routine Vaginal itching Expected: 02/22/2024 (Approximate), Expires: 02/21/2025 [facility] Comment on above: Expected: 02/22/2024 (Approximate), Expires: 02/21/2025 Start: 01-02-2024 End: 01-02-2024 Patient encounter procedure 01/02/2024 3:30 PM EDT Office Visit [facility] [address] [place] [address] [address] [place] [address] Aliyah Johns, [address], [address] [place] [address] [facility] Start: 06-10-2022 Adult BMI Screening Adult BMI Screen ing [facility] Start: 2010 Screening for malign ant neoplasm of cervix [facility] Start: 2001 Screening for malign ant neoplasm of cervix Pap Smear [facility] Start: 1999 DTaP,Tdap and Td Vaccines (1 - Tdap) DTaP,Tdap and Td Vaccines (1 - Tdap) [facility] Start: 1992 Depression Screening Depression Scre ening [facility] Start: 1992 Tobacco Screening Tobacco Screening [facility] Start: 1990 Glaucoma screening Diabetes: R etinopathy Screening [facility] Start: 1980 Tobacco Counseling Tobacco Counselin g [facility] Bacteria identified in Urine by Culture Urine culture Microbiology Routine Urinary frequency Ordered: 02/22/2024 [facility] Comment on above: Ordered: 02/22/2024 Payers Date Payer Category Payer Private Health Insurance [id number] 2023 Private Health Insurance [id number] 2023 Medicaid (Managed Care) [employer] Member Subscriber Plan / Payer (Effective 2023-Present) Name: Sam Sanchezbennie Lopez Relation to Subscriber: Self Name: CandyZelda bailey Payer ID: Not on file Group ID: Not on file Type: Not on file Address: [place] [phone] [id number] 2003 Medicaid [id number] 1980 Unknown [id number] 2.16840.1.341864.3.579.2. 593 1980 Unknown [id number] 2.840.1.688045.3.579.2. 593 1980 Unknown [id number] 2.16840.1.788423.3.579.2. 593 1980 Unknown [id number] 2.16.840.1.293140.3.579.2. 593 1980 Unknown [id number] 2.16.840.1.567324.3.579.2. 1285 1980 Unknown [id number] 2.16.840.1.823661.3.579.2. 128 1980 Unknown [id number] 2.16.840.1.824174.3.579.2. 1285 1980 Unknown [id number] 2..840.1.805854.3.579.2. 1285 1980 Unknown [id number] 2.840.1.225078.3.579.2. 1258 1980 Unknown [id number] 2..840.1.733697.3.579.2. 1258 1980 Unknown [id number] 2.840.1.674472.3.579.2. 1258 1980 Unknown [id number] 2.840.1.249292.3.579.2. 1258 1980 Unknown [id number] 2.840.1.744375.3.579.2. 1258 1980 Unknown [id number] 2.840.1.197166.3.579.2. 1258 1980 Unknown [id number] 2.840.1.022915.3.579.2. 1258 1980 Unknown [id number] .840.1.184954.3.579.2. 1258 1980 Unknown [id number] 2.840.1.540342.3.579.2. 1258 1980 Unknown [id number] 840.1.981016.3.579.2. 1258 1980 Unknown [id number] 2.840.1.041553.3.579.2. 1258 1980 Unknown [id number] .840.1.754109.3.579.2. 1258 1980 Unknown [id number] 2.840.1.314008.3.579.2. 1258 1980 Unknown [id number] 2.840.1.490666.3.579.2. 1258 1980 Unknown [id number] 2.840.1.683391.3.579.2. 1258 Unknown [id number] Social History Date Type Detail Facility Start: 11-29-2023 Tobacco smoking status NHIS Ex-smoker [facility] End: 08-22-2022 History of tobacco use Current smoker [facility] End: 08-22-2022 History of tobacco use Cigarette Smoker [facility] Start: 04-23-2020 End: 11-29-2023 Tobacco use and exposure Smokeless tobacco non-user [facility] Start: 04-09-2024 End: 11-14-2024 Alcoholic beverage intake Ex-drinker (finding) [facility] Start: 12-13-2023 End: 11-14-2024 History of Social function [facility] Start: 12-13-2023 End: 11-14-2024 Social connection and isolation panel [facility] Do you belong to any clubs or organizations such as muslim groups, unions, fraternal or athletic groups, or [...] 1980 Sex assigned at Not on file [facility] Start: 04-23-2020 Tobacco smoking status NHIS Occasional tobacco smoker [facility] Start: 06-10-2021 End: 02-22-2024 Alcoholic beverage intake Current drinker of alcohol (finding) [facility] Start: 11-01-2017 Alcohol Comment social [facility] Medical Equipment Procedure Code Equipment Code Equipment Origin al Text Equipment Identifier Dates [id number], [id number] Start: 06-21-2024 End: 02-22-2025 Goals Date Patient Goal Desired Activity /State Personal health goal Comment on above: Formatting of this n ote might be different from the original. Evaluation of progress towards goal: home with self care.- Alexa Carmona RN 11/16/17 9:49 AM Clinical Notes 12-29-2023 to 11-14-2024 Janki Mora NP - 11/14/2024 2:15 PM Luana Mora NP - 11/14/2024 2:14 PM EDTHTHAO LINCOLN - 11/14/2024 1:20 PM Luana Mora NP - 11/14/2024 1:20 PM EDTPatient Instructions Note Date & Type Note Facility 11-14-2024 History of Present illness Narrative Associated Problem(s): Bowel incontinence 2 episodes in the past 10 days Good rectal tone Associated Problem(s): Acute right ankle pain Check xray, possible sprain, r/o fracture from falling Pt used walker for ambulation today. Pain is currently at an 8 for lumbar back pain and down both legs. Right ankle swelling and pain- no bruising or discoloration. Pt is having leg spasms in right leg- calf has several cramps. Left leg is still fine. IBU is not helping Pt also states she is having dry cracking painful right hand Pt completed physical therapy. States that she did not get any direction after therapy to continue improving with exercises. She completed 5 sessions with PT She states that she has gotten her insurance figured out and needs to check with [facility] so they can finally get this mri going Images from the original note were not included. Zelda Sanchez is a 44 y.o. female presents with chief complaint of Pain (Lumbar back and legs) HPI: Back Pain The current episode started more than 1 month ago. The problem occurs constantly. The problem has been gradually worsening since onset. The pain is present in the lumbar spine. The quality of the pain is described as aching, burning, cramping and stabbing. The pain radiates to the right thigh, right knee and right foot. The pain is at a severity of 10/10. The pain is severe. The symptoms are aggravated by bending, lying down, standing, sitting and twisting. Stiffness is present All day. Associated symptoms include bowel incontinence, leg pain, paresthesias and weakness. Pertinent negatives include no abdominal pain, bladder incontinence, chest pain, dysuria, fever or headaches. She has tried NSAIDs and muscle relaxant (PT) for the symptoms. The treatment provided no relief. SUBJECTIVE: MEDICATIONS: Current Outpatient Medications Medication Instructions Alcohol Swabs (B-D SINGLE USE SWABS REGULAR) pads 1 each, Daily atorvastatin (LIPITOR) 10 mg, Oral, Nightly Blood Glucose Monitoring Suppl (Blood Glucose System Jasvir) kit 1 kit, Does not apply, Daily dicyclomine (BENTYL) 20 mg, Every 6 hours PRN Drug [place] Unilet Lancets 33G [facility] USE DIRECTED to test BLOOD SUGAR DAILY DULoxetine (CYMBALTA) 60 mg, Oral, Daily empagliflozin (JARDIANCE) 25 mg, Oral, Daily estradiol (ESTRACE) 0.5 mg, Daily RT fluconazole (Diflucan) 150 MG tablet 1 pill every 3 days for total of 3 doses gabapentin (NEURONTIN) 300 mg, Oral, 2 times daily glucose blood (True Metrix Blood Glucose Test) test strip 1 each, Other, Daily HYDROcodone-acetaminophen (Mcelhattan) 5-325 MG tablet 1 tablet, Oral, Every 12 hours PRN ibuprofen 600 MG tablet lisinopril 40 mg, Oral, Daily metFORMIN (GLUCOPHAGE) 1,000 mg, Oral, 2 times daily with meals pantoprazole (PROTONIX) 40 mg, Oral, Daily before breakfast tiZANidine (Zanaflex) 4 MG capsule True Metrix Blood Glucose Test test strip 1 each, Daily Trulicity 3 mg, Subcutaneous, Every 7 days ALLERGIES: No Known Allergies REVIEW OF SYMPTOMS: Review of Systems Constitutional: Negative for appetite change, chills and fever. HENT: Negative for congestion, ear pain and sore throat. Eyes: Negative for pain, discharge, redness and visual disturbance. Respiratory: Negative for cough, shortness of breath and wheezing. Cardiovascular: Negative for chest pain, palpitations and leg swelling. Gastrointestinal: Positive for bowel incontinence. Negative for abdominal pain, blood in stool, constipation, diarrhea, nausea and vomiting. Genitourinary: Negative for bladder incontinence, difficulty urinating, dysuria and frequency. Musculoskeletal: Positive for arthralgias and back pain. Negative for joint swelling and myalgias. Skin: Negative for rash and wound. Neurological: Positive for weakness and paresthesias. Negative for dizziness, tremors, seizures, syncope and [...] not on file. OBJECTIVE: Visit Vitals BP 132/90 (BP Location: Left arm, Patient Position: Sitting, BP Cuff Size: Large adult) Pulse 64 Temp 98.5 F (Temporal) Resp 19 Wt 209 lb 6.4 oz SpO2 99% BMI 42.29 kg/m Smoking Status Former BSA 1.99 m Physical Exam Vitals and nursing note [...] neck supple. Right lower leg: No edema. Comments: Right ankle: STS lateral, pain with inversion/eversion of the ankle No definite laxity +DP/PT pulse Decreased ROM lumbar, antalgic gait, tenderness right lower lumbar DTR's 1-2+ patellar/achilles MMT 4/5 RLE, 5/5LLE Rectal exam: +good rectal tone Skin: General: Skin is warm and dry. [...] file. Problem List Items Addressed This Visit Type 2 diabetes mellitus without complication, without long-term current use of insulin ([facility]) Please check blood pressure daily and record DASH diet Limit caffeine Take medication as directed Contact office if chest pain, pressure, dizziness, shortness of breath, swelling legs Recommend slow position changes A1c 6.7% 11/14/24, (7.4% 07/30/24 ,04/14 was 9%, 7 months ago 10.1%-great job at reduction) Relevant Medications glucose blood (True Metrix Blood Glucose Test) test strip metFORMIN (Glucophage) 500 MG tablet Other Relevant Orders POCT glycosylated hemoglobin (Hb A1C) docked device (Completed) Anxiety and depression (CMS/HCC) Relevant Medications DULoxetine (Cymbalta) [address] capsule Morbid (severe) obesity due to excess calories ([facility]) - Primary Discussed with patient their BMI (actual, verses [...] Back pain of lumbosacral region with sciatica Relevant Medications gabapentin (Neurontin) 300 MG capsule HYDROcodone-acetaminophen (Mcelhattan) 5-325 MG tablet Other Relevant Orders Ambulatory referral to Pain Medicine Lumbar back pain with radiculopathy affecting right lower extremity Failed NSAID, MR, pain meds, steroids, is already on gabapentin PT: difficulty tolerating, has been 3 times Right LE is giving out, recent fall knee injury Using walker Failed conservative treatment Ordered an MRI lumbar spine, this was ordered on 10/24/24 There was an issue with insurance fraud she did not have commercial insurance, this has been addressed :increase kush to 300mg BID OARRS reviewed Relevant Medications HYDROcodone-acetaminophen ([place]) 5-325 MG tablet Other Relevant Orders Ambulatory referral to Pain Medicine Acute right ankle pain Check xray, possible sprain, r/o fracture from falling Relevant Orders XR ankle 3+ views right Bowel incontinence 2 episodes in the past 10 days Good rectal tone Associated Problem(s): Type 2 diabetes mellitus without complication, without long-term current use of insulin ([facility]) Please check blood pressure daily and record DASH diet Limit caffeine Take medication as directed Contact office if chest pain, pressure, dizziness, shortness of breath, swelling legs Recommend slow position changes A1c 6.7% 11/14/24, (7.4% 07/30/24 ,04/14 was 9%, 7 months ago 10.1%-great job at reduction) Associated Problem(s): Lumbar back pain with radiculopathy affecting right lower extremity Failed NSAID, MR, pain meds, steroids, is already on gabapentin PT: difficulty tolerating, has been 3 times Right LE is giving out, recent fall knee injury Using walker Failed conservative treatment Ordered an MRI lumbar spine, this was ordered on 10/24/24 There was an issue with insurance fraud she did not have commercial insurance, this has been addressed :increase kush to 300mg BID OARRS reviewed Associated Problem(s): Morbid (severe) obesity due to [...] She does take trulicity for her DM Associated Problem(s): Primary hypertension (CMS/HCC) Please check blood pressure daily and record DASH diet Limit caffeine Take medication as directed Contact office if chest pain, pressure, dizziness, shortness of breath, swelling legs Recommend slow position changes Current med sonia documented in this encounter [facility] 11-14-2024 Instructions Janki Mora NP - 11/14/2024 1:20 PM EDT Check xray ankle Refilled pain medication, increase gabapentin to twice a day Referred to [facility] Pain Management Await MRI lumbar spine documented in this encounter [facility] 10-24-2024 History of Present illness Narrative Associated Problem(s): Acute pain of right knee S/p fall yesterday d/t lumbar sxs Will review xray, pt stated sm fracture, ER notes do not mention that, physical exam seems more c/w contusion and sprain Ice, NSAID, gentle ROM May use walker for safety Associated Problem(s): Lumbar back pain with radiculopathy affecting right lower extremity Failed NSAID, MR, pain meds, steroids, is already on gabapentin PT: difficulty tolerating, has been 3 times Right LE is giving out, recent fall knee injury Using walker Failed conservative treatment Request MRI: lumbar without No metal, no recent surgery, mild claustorphobia Associated Problem(s): Gastroesophageal reflux disease without esophagitis Recommendations: freq small meals, nothing to eat or drink at least 2 hours prior to bed, limit caffeine, alcohol, as well as spicy foods Meds to limit or avoid if possible: NSAIDS Elevate HOB if possible Current med: pantoprazole Pt has to wear a right knee brace she was told that she does have a fracture. She was prescribed tizanidine 4mg and IBU 600mg Pt came in with a walker. Pt states her right knee keeps giving out. She falls frequently; in the bathroom and at home. Pt states her whole right side is bruised. Pt states that her bathroom and bedroom is on the main floor and not upstairs Images from the original note were not included. Zelda Sanchez is a 44 y.o. female presents with chief complaint of Pain HPI: Under my care for acute lumbar back pain, DDD, w suspected disc herniation or bulging disc Has been prescribed NSAIDS, opiates, muscle relaxers. Not a lot of relief D/t her lumbar back pain, she reports that her right leg gave out and caused a fall. She ultimately went to the [facility] Er, see the ER notes for HPI etc Here today walking with a walker, feels unsteady as her right LE continues to unpredictably give out She denies any cauda equina, and reports a generalized numbness about her RLE Mild knee pain with palpation SUBJECTIVE: MEDICATIONS: Current Outpatient Medications Medication Instructions Alcohol Swabs (B-D SINGLE USE SWABS REGULAR) pads 1 each, Daily atorvastatin (LIPITOR) 10 mg, Oral, Nightly Blood Glucose Monitoring Suppl (Blood Glucose System Jasvir) kit 1 kit, Does not apply, Daily dicyclomine (BENTYL) 20 mg, Every 6 hours PRN Drug [place] Unilet Lancets 33G misc USE DIRECTED to test BLOOD SUGAR DAILY DULoxetine (CYMBALTA) 60 mg, Oral, Daily empagliflozin (JARDIANCE) 25 mg, Oral, Daily estradiol (ESTRACE) 0.5 mg, Daily RT fluconazole (Diflucan) 150 MG tablet 1 pill every 3 days for total of 3 doses gabapentin (NEURONTIN) 300 mg, Oral, Nightly glucose blood (True Metrix Blood Glucose Test) test strip 1 each, Other, Daily ibuprofen 600 MG tablet lisinopril 40 mg, Oral, Daily metFORMIN (GLUCOPHAGE) 1,000 mg, Oral, 2 times daily with meals pantoprazole (PROTONIX) 40 mg, Oral, Daily before breakfast tiZANidine (Zanaflex) 4 MG capsule Trulicity 3 mg, Subcutaneous, Every 7 days [...] for difficulty urinating, dysuria and frequency. Musculoskeletal: Positive for arthralgias and back pain. Negative for joint swelling and myalgias. Skin: Negative for rash and wound. Neurological: Positive for numbness. Negative for dizziness, tremors, seizures, syncope and [...] not on file. OBJECTIVE: Visit Vitals BP 112/76 Pulse 82 Temp 98.1 F (Temporal) Resp 20 Wt 208 lb 3.2 oz SpO2 93% BMI 42.05 kg/m Smoking Status Former BSA 1.98 m Physical Exam Vitals and nursing note reviewed. Constitutional: General: She is not in acute distress. Appearance: Normal appearance. She is obese. She is not ill-appearing. HENT: Head: Normocephalic [...] edema. Left lower leg: No edema. Comments: Right knee: no swelling or gross deformity noted Neg valgas/varus stress, no bruising +antalgic gait, using a walker MMT 3.5-4/5 RLE, 5/5 LLE Tenderness to lower lumbar region, Mild + SLR on the right Skin: General: Skin is warm and dry. [...] file. Problem List Items Addressed This Visit Primary hypertension ([facility]) Relevant Medications lisinopril 40 MG tablet Type 2 diabetes mellitus without complication, without long-term current use of insulin ([facility]) Relevant Medications Dulaglutide (Trulicity) 3 MG/0.5ML solution auto-injector empagliflozin (Jardiance) 25 MG Mixed hyperlipidemia ([facility]) Relevant Medications atorvastatin (Lipitor) 10 MG tablet Morbid (severe) obesity due to excess calories ([facility]) Discussed with patient their BMI [...] with sciatica Recent ER trip, notes reviewed has gone twice for lumbar sxs No help with current meds Has cancelled several PT visits, has made it to 3 PT sessions Xray shows mild DDD, worse at L4-L5 Continues to have give out of Right LE At this point difficulty tolerating PT, no improvement in symptoms Has trialed: NSAID, muscle relaxants, pain meds Recommend MRI lumbar spine: No hard sherwood, mild claustrophobia, no recent surgery Gastroesophageal reflux disease without esophagitis Recommendations: freq small meals, nothing to eat or drink at least 2 hours prior to bed, limit caffeine, alcohol, as well as spicy foods Meds to limit or avoid if possible: NSAIDS Elevate HOB if possible Current med: pantoprazole Relevant Medications pantoprazole (ProtoNix) 40 MG EC tablet Body mass index (BMI) 40.0-44.9, adult ([facility]) Lumbar back pain with radiculopathy affecting right lower extremity - Primary Failed NSAID, MR, pain meds, steroids, is already on gabapentin PT: difficulty tolerating, has been 3 times Right LE is giving out, recent fall knee injury Using walker Failed conservative treatment Request MRI: lumbar without No metal, no recent surgery, mild claustorphobia Relevant Orders MR lumbar spine wo contrast Acute pain of right knee S/p fall yesterday d/t lumbar sxs Will review xray, pt stated sm fracture, ER notes do not mention that, physical exam seems more c/w contusion and sprain Ice, NSAID, gentle ROM May use walker for safety Associated Problem(s): Back pain of lumbosacral region with sciatica Recent ER trip, notes reviewed has gone twice for lumbar sxs No help with current meds Has cancelled several PT visits, has made it to 3 PT sessions Xray shows mild DDD, worse at L4-L5 Continues to have give out of Right LE At this point difficulty tolerating PT, no improvement in symptoms Has trialed: NSAID, muscle relaxants, pain meds Recommend MRI lumbar spine: No hard sherwood, mild claustrophobia, no recent surgery Associated Problem(s): Morbid (severe) obesity due to excess calories ([facility]) Discussed with patient their BMI [...] for her DM documented in this encounter [facility] 10-24-2024 Instructions Janki Mora NP - 10/24/2024 2:20 PM EST Will try to get an MRI lumbar spine Try to keep going to PT as tolerated Ice to knee, gentle ROM documented in this encounter [facility] 10-22-2024 Telephone encounter Note She had called noting she had fallen outside and unable to get up. I asked if she had assistance and she said her son was there; I advised an EMS should be contacted moises. She said her son was going to do that. On her next PT 10/25/24 she said we'll have to try to rs. I noted if unable to make 3/6 to call at her earliest convenience. [facility] 10-22-2024 Miscellaneous Notes She had called noting she had fallen outside and unable to get up. I asked if she had assistance and she said her son was there; I advised an EMS should be contacted moises. She said her son was going to do that. On her next PT 10/25/24 she said we'll have to try to rs. I noted if unable to make 3/6 to call at her earliest convenience. documented in this encounter [facility] 10-22-2024 Telephone encounter Note She contacted and confirmed her PT today @ 2:30. [facility] 10-22-2024 Miscellaneous Notes She contacted and confirmed her PT today @ 2:30. Tried to contact to check her status and to remind of PT today @ 2:30; had to lm. I noted a call back is needed to keep scheduled and to fu on her status. Tried to contact but there was no answer; unable to lm regarding PT today has been missed. documented in this encounter [facility] 10-22-2024 Telephone encounter Note Tried to contact to check her status and to remind of PT today @ 2:30; had to lm. I noted a call back is needed to keep scheduled and to fu on her status. [facility] 10-19-2024 Telephone encounter Note Tried to contact but there was no answer; unable to lm regarding PT today has been missed. [facility] 10-16-2024 Telephone encounter Note She called noting she is unable to move leg due to pain and inflammation. She said she will not be able to make PT today; cx today and she confirmed 10/19 and rs into next week 2x's. [facility] 10-16-2024 Miscellaneous Notes She called noting she is unable to move leg due to pain and inflammation. She said she will not be able to make PT today; cx today and she confirmed 10/19 and rs into next week 2x's. documented in this encounter [facility] 10-11-2024 Telephone encounter Note No acute fracture on lumbar spine xray, does show deg disc disease, so at this point start the PT etc [place] [facility] 10-11-2024 Miscellaneous Notes No acute fracture on lumbar spine xray, does show deg disc disease, so at this point start the PT etc [place] documented in this encounter [facility] 10-09-2024 Telephone encounter Note She was seen for PT Eval 10/09 and scheduled out 10/19/24. [facility] 10-09-2024 Miscellaneous Notes She was seen for PT Eval 10/09 and scheduled out 10/19/24. She had called another office re: PT Eval that was cx. I was informed she was uncertain about that and wanted to rs. I tried to contact but there was no answer; will try again. Called but had to lm re: CX of PT eval that was scheduled on 10/09/24 thru web; Need to note we need to rs @ her earliest convenience. documented in this encounter [facility] 10-08-2024 Telephone encounter Note In response to needing something stronger for her leg pain: At her last appt I ordered a plain film xray: no results as of yet, and ordered PT: looks like the appt was cancelled. Why was this cancelled? I could send in Gabapentin 300mg for at bedtime for her leg pain, but emphasis is on her need for PT etc [place] [facility] 10-08-2024 Miscellaneous Notes In response to needing something stronger for her leg pain: At her last appt I ordered a plain film xray: no results as of yet, and ordered PT: looks like the appt was cancelled. Why was this cancelled? I could send in Gabapentin 300mg for at bedtime for her leg pain, but emphasis is on her need for PT etc [place] documented in this encounter [facility] 10-08-2024 Telephone encounter Note She had called another office re: PT Eval that was cx. I was informed she was uncertain about that and wanted to rs. I tried to contact but there was no answer; will try again. [facility] 10-08-2024 Telephone encounter Note Called but had to lm re: CX of PT eval that was scheduled on 10/09/24 thru web; Need to note we need to rs @ her earliest convenience. [facility] 10-04-2024 History of Present illness Narrative Pt [...] exercises. Ice therapy for 20 mins Zelda Sanchez is a 44 y.o. female [...] 20 mg, Every 6 hours PRN Drug [place] Unilet Lancets 33G misc USE DIRECTED to [...] complication, without long-term current use of insulin ([facility]) Relevant Medications metFORMIN (Glucophage) 500 MG tablet Anxiety and depression ([facility]) Relevant Medications DULoxetine (Cymbalta) [address] capsule Morbid (severe) obesity due to excess calories ([facility]) Discussed with patient their BMI [...] Therapy Body mass index (BMI) 40.0-44.9, adult ([facility]) Associated Problem(s): Back pain of [...] Morbid (severe) obesity due to excess calories ([facility]) Discussed with patient their BMI [...] for her DM documented in this encounter [facility] 10-04-2024 Instructions Janki Mora NP - 10/04/2024 10:20 AM EST Finish steroids, once finished with steroids, THEN start Naproxen-take with food stop methocarbamol, Trial tizanidine 4mg 1 pill every 12 hours needed for muscle relaxer Check back xray Order PT-[facility], they should call Ice to low back area 4-5 times daily documented in this encounter [facility] 09-10-2024 History of Present illness Narrative Associated Problem(s): Type 2 diabetes mellitus without complication, without long-term current use of insulin ([facility]) Please check blood pressure daily [...] being taken. 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 SUBJECTIVE: MEDICATIONS: Current Outpatient Medications Medication Instructions Alcohol Swabs (B-D SINGLE USE SWABS REGULAR) pads 1 each, Daily ARIPiprazole (ABILIFY) 5 mg, Oral, Daily atorvastatin (LIPITOR) 10 mg, Oral, Nightly Blood Glucose Monitoring Suppl (Blood Glucose System Jasvir) kit 1 kit, Does not apply, Daily dicyclomine (BENTYL) 20 mg, Every 6 hours PRN Drug [place] Unilet Lancets 33[place] [facility] [place]ED to test BLOOD SUGAR [...] had hyst, non compliant with fu with Construction [employer] Onc Encouraged pt to schedule Primary hypertension [...] depression (CMS/HCC) - Primary Last appt added meagan, she [...] had hyst, non compliant with fu with Construction [employer] Onc Encouraged pt to schedule Associated Problem(s): Primary hypertension (CMS/HCC) Please check blood pressure daily and record DASH diet Limit caffeine Take medication as directed Contact office if chest pain, pressure, dizziness, shortness of breath, swelling legs Recommend slow position changes Current med sonia documented in this encounter [facility] 09-10-2024 Instructions Janki Mora NP - 09/10/2024 2:00 PM EST No changes in meds Keep working on weight loss documented in this encounter [facility] 07-30-2024 History of Present illness Narrative Associated Problem(s): Psoriasis (CMS/HCC) Refer to derm, could not see [facility] derm d/t bill not paid Will trial [facility] Associated Problem(s): Malignant neoplasm of ovary (CMS/HCC) Has had hyst, non compliant with fu with [employer]c Encouraged pt to schedule Associated Problem(s): [...] 20 mg, Every 6 hours PRN Drug [place] Unilet Lancets 33G [facility] [place] DIRECTED to test BLOOD SUGAR [...] had hyst, 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/HCC) Please check blood pressure daily and record DASH diet Limit caffeine Take medication as directed Contact office if chest pain, pressure, dizziness, shortness of breath, swelling legs Recommend slow position changes Current med sonia Relevant Medications lisinopril 40 MG tablet Type 2 diabetes mellitus without complication, without long-term current use of insulin ([facility]) - Primary Please check blood pressure daily and record DASH diet Limit caffeine Take medication as directed Contact office if chest pain, pressure, dizziness, shortness of breath, swelling legs Recommend slow position changes A1c 7.4%, 8 was 9%, 7 months ago 10.1%-great job [...] ARIPiprazole (Abilify) 5 MG tablet Mixed hyperlipidemia (CMS/[facility]) Relevant Medications atorvastatin (Lipitor) 10 MG tablet Morbid obesity (CMS/[facility]) Discussed with patient their BMI [...] Has lost 23 pounds so far Psoriasis ([facility]) Refer to derm, could not [...] complication, without long-term current use of insulin ([facility]) Please check blood pressure daily [...] Current med sonia documented in this encounter [facility] 07-30-2024 Instructions Janki Mora NP - 07/30/2024 2:00 PM EST Doing great on your diabetes management and your weight loss, keep up the great work Psoriasis: I will send referral to [facility] in [facility], they should call you, if no call [...] if these occur. documented in this encounter [facility] 05-29-2024 History of Present illness Narrative Associated [...] use of metamucil Associated Problem(s): Primary hypertension ([facility]) At goal no changes Fu [...] the good work documented in this encounter [facility] 02-24-2024 Miscellaneous Notes ----- Message from ROMMEL [...] sent to pharmacy. documented in this encounter [facility] 02-24-2024 Telephone encounter Note ----- Message from ROMMEL Aguilar sent at 02/24/2024 10:59 AM EDT ----- Regarding: FW: Can you guys send over flagyl 500 tid x 5 days and diflucan 150 once? ----- Message ----- From: Interface - Lab Results/Orders In Sent: 02/23/2024 7:36 AM EDT To: ROMMEL Matthews [facility] 02-24-2024 Telephone encounter Note Left VM. Relayed results and KB recommendations. Meds sent to pharmacy. [facility] 02-22-2024 History of Present illness Narrative Subjective: Zelda Sanchez is a 43 y.o. female who presents [...] 11/15/2017 Performed by Dhaval Upton MD at [facility] REMOVAL OF OVARY(S) Past Medical History: Diagnosis [...] masses or organomegaly Vulva: normal, Bartholin's, Urethra, [place]'s normal Vagina: Atrophy: yes Vaginal Cuff: yes [...] mood, behavior, speech, dress, and thought processes Photographer'S Model Present: Yes - Amy Maria, MA Assessment: Patient is diagnosed with Patient Active Problem List Diagnosis Malignant neoplasm of ovary ([facility]-HCC) Menopause Plan: Hx of mucinous borderline ovarian [...] procedures Referring and communicating with other health career development counselor (not separately reported) Documenting clinical information in the electronic or other health record Independently interpreting results (not separately reported) and communicating results to the patient/family/caregiver Care coordination (not separately reported) Dr. Shepherd was physically present in the office, available for the entirety of the patient's visit, and participated in the coordination of treatment plan. ROMMEL MATTHEWS APRN-CNP 02/22/24 1442 documented in this encounter [facility] 02-20-2024 Miscellaneous Notes Corner Cutter called patient regarding scheduled appt on 02/21 with Aliyah BROWNING @ 1430. Corner Cutter was calling to see if patient can come in sooner than scheduled time. Appt times of 1300 or 1400 were provided. Advised patient give out office a c/b. Office number was provided. documented in this encounter [facility] 02-20-2024 Telephone encounter Note Corner Cutter called patient regarding scheduled appt on 02/21 with Aliyah BROWNING @ 1430. Corner Cutter was calling to see if patient can come in sooner than scheduled time. Appt times of 1300 or 1400 were provided. Advised patient give out office a c/b. Office number was provided. [facility] 12-29-2023 Miscellaneous Notes Called patient regarding her missed 3:30 PM appointment with Aliyah HOGAN. Patient did not answer. Voicemail was left encouraging patient to call our office and get appointment rescheduled. Office number was provided. documented in this encounter [facility] 12-29-2023 Telephone encounter Note Called patient regarding her missed 3:30 PM appointment with Aliyah HOGAN. Patient did not answer. Voicemail was left encouraging patient to call our office and get appointment rescheduled. Office number was provided. [facility] Evaluation note Diagnosis Primary hypertension (CMS/HCC)- Primary Unspecified essential hypertension Type 2 diabetes mellitus without complication, without long-term current use of insulin (CMS/HCC) Diarrhea, unspecified type Morbid obesity (CMS/HCC) Morbid obesity [facility] Diagnosis Type 2 diabetes mellitus without complication, without long-term current use of insulin (CMS/HCC)- Primary Primary hypertension (CMS/HCC) Unspecified essential hypertension Encounter for screening mammogram for malignant neoplasm of breast Dysuria Anxiety and depression (CMS/HCC) Primary hypertension ([facility]/HCC)- Primary Unspecified essential hypertension Type 2 diabetes [...] complication, without long-term current use of insulin ([facility]/HCC)- Primary Primary hypertension (CMS/HCC) Unspecified essential hypertension Mixed hyperlipidemia ([facility]/HCC) Mixed hyperlipidemia Type 2 diabetes mellitus with hyperglycemia ([facility]) Morbid (severe) obesity due to excess calories ([facility]) Body mass index (BMI) 45.0-49.9, adult ([facility]) Malignant neoplasm of unspecified ovary ([facility]) Lumbar back pain Lumbago Abdominal cramping Abdominal pain, unspecified site Morbid obesity ([facility]/HCC) Morbid obesity Malignant neoplasm of ovary, unspecified laterality ([facility]) Psoriasis (CMS/[facility]) Other psoriasis Primary hypertension ([facility])- Primary Unspecified essential hypertension Type 2 diabetes mellitus with hyperglycemia ([facility]) Gastroesophageal reflux disease without esophagitis Esophageal reflux Vaginal yeast infection Candidiasis of vulva and vagina Right acute otitis media Unspecified otitis media Type 2 diabetes mellitus without complication, without long-term current use of insulin ([facility]) Anxiety and depression ([facility] Dysuria Primary hypertension ([facility])- Primary Unspecified essential hypertension Type 2 diabetes mellitus without complication, without long-term current use of insulin ([facility]) Diarrhea, unspecified type Morbid obesity ([facility]) Morbid obesity Anxiety and depression ([facility]/HCC) Gastroesophageal reflux disease without esophagitis Esophageal reflux Primary hypertension ([facility]/HCC) Unspecified essential hypertension Mixed hyperlipidemia ([facility]/HCC) Mixed hyperlipidemia Unspecified abdominal pain documented in this encounter [facility]* Diagnosis Type 2 diabetes mellitus without complication, without long-term current use of insulin ([facility])- Primary Primary hypertension (CMS/HCC) Unspecified essential hypertension Encounter for screening mammogram for malignant neoplasm of breast Dysuria Anxiety and depression ([facility]/HCC) Primary hypertension (CMS/HCC)- Primary Unspecified essential hypertension [...] complication, without long-term current use of insulin ([facility]/HCC)- Primary Primary hypertension (CMS/HCC) Unspecified essential hypertension Mixed hyperlipidemia (CMS/HCC) Mixed hyperlipidemia Type 2 diabetes mellitus with hyperglycemia ([facility]) Morbid (severe) obesity due to excess calories ([facility]) Body mass index (BMI) 45.0-49.9, adult ([facility]) Malignant neoplasm of unspecified ovary (CMS/HCC) Lumbar back pain Lumbago Abdominal cramping Abdominal pain, unspecified site Morbid obesity ([facility]) Morbid obesity Malignant neoplasm of ovary, unspecified laterality ([facility]/HCC) Psoriasis ([facility]/HCC) Other psoriasis Primary hypertension ([facility])- Primary Unspecified essential hypertension Type 2 diabetes mellitus with hyperglycemia ([facility]) Gastroesophageal reflux disease without esophagitis Esophageal reflux Vaginal yeast infection Candidiasis of vulva and vagina Right acute otitis media Unspecified otitis media Type 2 diabetes mellitus without complication, without long-term current use of insulin ([facility]/HCC) Anxiety and depression ([facility] Dysuria Primary hypertension ([facility])- Primary Unspecified essential hypertension Type 2 diabetes mellitus without complication, without long-term current use of insulin ([facility]) Diarrhea, unspecified type Morbid obesity ([facility]/HCC) Morbid obesity Type 2 diabetes mellitus without complication, without long-term current use of insulin ([facility])- Primary Primary hypertension ([facility]) Unspecified essential hypertension Gastroesophageal reflux disease without esophagitis Esophageal reflux Anxiety and depression (CMS/HCC) Morbid obesity ([facility]/HCC) Morbid obesity Mixed hyperlipidemia ([facility]/HCC) Mixed hyperlipidemia Malignant neoplasm of ovary, unspecified laterality ([facility]/HCC) Psoriasis ([facility]) Other psoriasis documented in this encounter [facility] HealthcareEvaluation [facility]* Diagnosis Type 2 diabetes mellitus without complication, without long-term current use of insulin ([facility]) documented in this encounter [facility]* Diagnosis Vaginal yeast infection Candidiasis of vulva and vagina documented in this encounter [facility]* Diagnosis Type 2 diabetes mellitus without complication, without long-term current use of insulin ([facility])- Primary Primary hypertension ([facility] Unspecified essential hypertension Encounter for screening mammogram for malignant neoplasm of breast Dysuria Anxiety and depression ([facility]) Primary hypertension ([facility])- Primary Unspecified essential hypertension Type 2 diabetes mellitus without complication, without long-term current use of insulin ([facility]) Morbid obesity ([facility]) Morbid obesity Type 2 diabetes mellitus without complication, without long-term current use of insulin ([facility])- Primary Primary hypertension ([facility] Unspecified essential hypertension Anxiety and depression ([facility] Mixed hyperlipidemia ([facility]) Mixed hyperlipidemia Morbid obesity ([facility]) Morbid obesity Type 2 diabetes mellitus without complication, without long-term current use of insulin ([facility])- Primary Primary hypertension ([facility] Unspecified essential hypertension Mixed hyperlipidemia ([facility] Mixed hyperlipidemia Type 2 diabetes mellitus with hyperglycemia ([facility] Morbid (severe) obesity due to excess calories ([facility]) Body mass index (BMI) 45.0-49.9, adult ([facility]) Malignant neoplasm of unspecified ovary ([facility]) Lumbar back pain Lumbago Abdominal cramping Abdominal pain, unspecified site Morbid obesity ([facility]) Morbid obesity Malignant neoplasm of ovary, unspecified laterality ([facility]) Psoriasis ([facility] Other psoriasis Primary hypertension ([facility])- Primary Unspecified essential hypertension Type 2 diabetes mellitus with hyperglycemia ([facility]) Gastroesophageal reflux disease without esophagitis Esophageal reflux Vaginal yeast infection Candidiasis of vulva and vagina Right acute otitis media Unspecified otitis media Type 2 diabetes mellitus without complication, without long-term current use of insulin ([facility]) Anxiety and depression ([facility] Dysuria Primary hypertension ([facility])- Primary Unspecified essential hypertension Type 2 diabetes mellitus without complication, without long-term current use of insulin ([facility]) Diarrhea, unspecified type Morbid obesity ([facility]) Morbid obesity Type 2 diabetes mellitus without complication, without long-term current use of insulin ([facility])- Primary Primary hypertension ([facility]) Unspecified essential hypertension Gastroesophageal reflux disease without esophagitis Esophageal reflux Anxiety and depression (CMS/HCC) Morbid obesity (CMS/HCC) Morbid obesity Mixed hyperlipidemia (CMS/HCC) Mixed hyperlipidemia Malignant neoplasm of ovary, unspecified laterality (CMS/HCC) Psoriasis (CMS/HCC) Other psoriasis Other secondary gout, multiple sites, unspecified chronicity- Primary documented in this encounter [facility] HealthcareEvaluation note* Diagnosis Type 2 diabetes mellitus without complication, without long-term current use of insulin (CMS/[facility])- Primary Primary hypertension (CMS/HCC) Unspecified essential hypertension Encounter for screening mammogram for malignant neoplasm of breast Dysuria Anxiety and depression (CMS/[facility]) Primary hypertension (CMS/HCC)- Primary Unspecified essential hypertension Type 2 diabetes mellitus without complication, without long-term current use of insulin (CMS/[facility]) Morbid obesity (CMS/HCC) Morbid obesity Type 2 diabetes mellitus without complication, without long-term current use of insulin (CMS/HCC)- Primary Primary hypertension (CMS/HCC) Unspecified essential hypertension Anxiety and depression (CMS/HCC) Mixed hyperlipidemia (CMS/HCC) Mixed hyperlipidemia Morbid obesity (CMS/HCC) Morbid obesity Type 2 diabetes mellitus without complication, without long-term current use of insulin ([facility])- Primary Primary hypertension (CMS/HCC) Unspecified essential hypertension Mixed hyperlipidemia (CMS/HCC) Mixed hyperlipidemia Type 2 diabetes mellitus with hyperglycemia (CMS/HCC) Morbid (severe) obesity due to excess calories ([facility]) Body mass index (BMI) 45.0-49.9, adult (CMS/[facility]) Malignant neoplasm of unspecified ovary (CMS/HCC) Lumbar back pain Lumbago Abdominal cramping Abdominal pain, unspecified site Morbid obesity (CMS/HCC) Morbid obesity Malignant neoplasm of ovary, unspecified laterality (CMS/HCC) Psoriasis (CMS/HCC) Other psoriasis Primary hypertension ([facility]/HCC)- Primary Unspecified essential hypertension Type 2 diabetes mellitus with hyperglycemia (CMS/[facility]) Gastroesophageal reflux disease without esophagitis Esophageal reflux Vaginal yeast infection Candidiasis of vulva and vagina Right acute otitis media Unspecified otitis media Type 2 diabetes mellitus without complication, without long-term current use of insulin (CMS/HCC) Anxiety and depression (CMS/HCC) Dysuria Primary hypertension ([facility])- Primary Unspecified essential hypertension Type 2 diabetes mellitus without complication, without long-term current use of insulin ([facility]) Diarrhea, unspecified type Morbid obesity (CMS/HCC) Morbid [...] (CMS/HCC) Mixed hyperlipidemia documented in this encounter [facility] HealthcareEvaluation note* Diagnosis Type 2 diabetes mellitus [...] hypertension Type 2 diabetes mellitus with hyperglycemia (CMS/[facility]) Gastroesophageal reflux disease without esophagitis Esophageal reflux Vaginal yeast infection Candidiasis of vulva and vagina Right acute otitis media Unspecified otitis media Type 2 diabetes mellitus without complication, without long-term current use of insulin ([facility]) Anxiety and depression ([facility] Dysuria Primary hypertension ([facility])- Primary Unspecified essential hypertension Type 2 diabetes mellitus without complication, without long-term current use of insulin ([facility]) Diarrhea, unspecified type Morbid obesity ([facility]) Morbid obesity Type 2 diabetes mellitus without complication, without long-term current use of insulin ([facility])- Primary Primary hypertension ([facility] Unspecified essential hypertension Gastroesophageal reflux disease without esophagitis Esophageal reflux Anxiety and depression ([facility] Morbid obesity ([facility]) Morbid obesity Mixed hyperlipidemia ([facility]) Mixed hyperlipidemia Malignant neoplasm of ovary, unspecified laterality ([facility]) Psoriasis ([facility]) Other psoriasis Anxiety and depression ([facility])- Primary Morbid (severe) obesity due to excess calories ([facility]) Body mass index (BMI) 40.0-44.9, adult ([facility]) Malignant neoplasm of unspecified ovary ([facility]) Primary hypertension ([facility]) Unspecified essential hypertension Type 2 diabetes mellitus without complication, without long-term current use of insulin ([facility]) Mixed hyperlipidemia ([facility]) Mixed hyperlipidemia Back pain of lumbosacral region with sciatica- Primary Morbid (severe) obesity due to excess calories ([facility]) Body mass index (BMI) 40.0-44.9, adult ([facility]) Type 2 diabetes mellitus without complication, without long-term current use of insulin ([facility]) Anxiety [facility] depression ([facility]) documented in this encounter [facility] HealthcareEvaluation note* Diagnosis Vaginal itching- Primary Pruritus of genital organs History of ovarian cancer Personal history of malignant neoplasm of ovary Visit for screening mammogram Urinary frequency Hot flashes due to surgical menopause BMI 40.0-44.9, adult ([facility]) Vaginal bleeding Other specified noninflammatory disorder of vagina Malignant neoplasm of ovary, unspecified laterality ([facility]) Menopause Symptomatic menopausal or female climacteric states documented in this encounter [facility] SystemEvaluation note* Diagnosis BV (bacterial vaginosis)- Primary Unspecified vaginitis and vulvovaginitis Vaginal yeast infection Candidiasis of vulva and vagina documented in this encounter [facility] SystemEvaluation note* Diagnosis Type 2 diabetes mellitus without complication, without long-term current use of insulin ([facility])- Primary Primary hypertension ([facility] Unspecified essential hypertension Encounter for screening mammogram for malignant neoplasm of breast Dysuria Anxiety and depression ([facility]) Primary hypertension ([facility])- Primary Unspecified essential hypertension Type 2 diabetes mellitus without complication, without long-term current use of insulin ([facility]) Morbid obesity ([facility]) Morbid obesity Type 2 diabetes mellitus without complication, without long-term current use of insulin ([facility])- Primary Primary hypertension ([facility] Unspecified essential hypertension Anxiety and depression ([facility] Mixed hyperlipidemia ([facility]) Mixed hyperlipidemia Morbid obesity ([facility]) Morbid obesity Type 2 diabetes mellitus without complication, without long-term current use of insulin ([facility])- Primary Primary hypertension ([facility] Unspecified essential hypertension Mixed hyperlipidemia ([facility] Mixed hyperlipidemia Type 2 diabetes mellitus with hyperglycemia ([facility]) Morbid (severe) obesity due to excess calories ([facility]) Body mass index (BMI) 45.0-49.9, adult ([facility]) Malignant neoplasm of unspecified ovary ([facility]) Lumbar back pain Lumbago Abdominal cramping Abdominal pain, unspecified site Morbid obesity ([facility]) Morbid obesity Malignant neoplasm of ovary, unspecified laterality ([facility]) Psoriasis ([facility] Other psoriasis Primary hypertension ([facility])- Primary Unspecified essential hypertension Type 2 diabetes mellitus with hyperglycemia ([facility]) Gastroesophageal reflux disease without esophagitis Esophageal reflux Vaginal yeast infection Candidiasis of vulva and vagina Right acute otitis media Unspecified otitis media Type 2 diabetes mellitus without complication, without long-term current use of insulin ([facility]) Anxiety and depression ([facility] Dysuria Primary hypertension ([facility])- Primary Unspecified essential hypertension Type 2 diabetes mellitus without complication, without long-term current use of insulin ([facility]) Diarrhea, unspecified type Morbid obesity ([facility]) Morbid obesity Type 2 diabetes mellitus without complication, without long-term current use of insulin ([facility])- Primary Primary hypertension ([facility]) Unspecified essential hypertension Gastroesophageal reflux disease without esophagitis Esophageal reflux Anxiety and depression ([facility]) Morbid obesity (CMS/HCC) Morbid obesity Mixed hyperlipidemia [...] of insulin (CMS/HCC) Anxiety and depression (CMS/HCC) Back pain of lumbosacral region with sciatica- Primary documented in this encounter [facility] HealthcareEvaluation note* Diagnosis Type 2 diabetes [...] (CMS/HCC) Body mass index (BMI) 40.0-44.9, adult ([facility]) Malignant neoplasm of unspecified ovary (CMS/HCC) Primary hypertension (CMS/HCC) Unspecified essential hypertension Type 2 diabetes mellitus without complication, without long-term current use of insulin (CMS/HCC) Mixed hyperlipidemia (CMS/HCC) Mixed hyperlipidemia Back pain of lumbosacral region with sciatica- Primary Morbid (severe) obesity due to excess calories (CMS/[facility]) Body mass index (BMI) 40.0-44.9, adult (CMS/[facility]) Type 2 diabetes mellitus without complication, without long-term current use of insulin (CMS/HCC) Anxiety and depression (CMS/HCC) Back pain of lumbosacral region with sciatica- Primary documented in this encounter [facility] HealthcareEvaluation note* Diagnosis Type 2 diabetes mellitus without complication, without long-term current use of insulin (CMS/[facility])- Primary Primary hypertension (CMS/HCC) Unspecified essential hypertension Encounter for screening mammogram for malignant neoplasm of breast Dysuria Anxiety and depression (CMS/HCC) Primary hypertension ([facility]/HCC)- Primary Unspecified essential hypertension Type 2 diabetes [...] hyperlipidemia Type 2 diabetes mellitus with hyperglycemia (CMS/[facility]) Morbid (severe) obesity due to excess calories ([facility]) Body mass index (BMI) 45.0-49.9, adult ([facility]) Malignant neoplasm of unspecified ovary (CMS/HCC) Lumbar back pain Lumbago Abdominal cramping Abdominal pain, unspecified site Morbid obesity (CMS/HCC) Morbid obesity Malignant neoplasm of ovary, unspecified laterality (CMS/HCC) Psoriasis (CMS/HCC) Other psoriasis Primary hypertension ([facility]/HCC)- Primary Unspecified essential hypertension Type 2 diabetes mellitus with hyperglycemia (CMS/[facility]) Gastroesophageal reflux disease without esophagitis Esophageal reflux Vaginal yeast infection Candidiasis of vulva and vagina Right acute otitis media Unspecified otitis media Type 2 diabetes mellitus without complication, without long-term current use of insulin ([facility]) Anxiety and depression (CMS/[facility]) Dysuria Primary hypertension ([facility]/HCC)- Primary Unspecified essential hypertension Type 2 diabetes mellitus without complication, without long-term current use of insulin ([facility]) Diarrhea, unspecified type Morbid obesity ([facility]/HCC) Morbid obesity Type 2 diabetes mellitus without complication, without long-term current use of insulin ([facility]/HCC)- Primary Primary hypertension ([facility]/HCC) Unspecified essential hypertension Gastroesophageal reflux disease without esophagitis Esophageal reflux Anxiety and depression (CMS/HCC) Morbid obesity (CMS/HCC) Morbid obesity Mixed hyperlipidemia (CMS/HCC) Mixed hyperlipidemia Malignant neoplasm of ovary, unspecified laterality (CMS/HCC) Psoriasis (CMS/HCC) Other psoriasis Anxiety and depression ([facility]/HCC)- Primary Morbid (severe) obesity due to excess calories ([facility]) Body mass index (BMI) 40.0-44.9, adult ([facility]) Malignant neoplasm of unspecified ovary (CMS/HCC) Primary hypertension ([facility]/HCC) Unspecified essential hypertension Type 2 diabetes mellitus without complication, without long-term current use of insulin ([facility]) Mixed hyperlipidemia ([facility]/HCC) Mixed hyperlipidemia Back pain of lumbosacral region with sciatica- Primary Morbid (severe) obesity due to excess calories ([facility]) Body mass index (BMI) 40.0-44.9, adult ([facility]) Type 2 diabetes mellitus without complication, without long-term current use of insulin ([facility]) Anxiety and depression ([facility]) Back pain of lumbosacral region with sciatica- Primary documented in this encounter [facility] HealthcareEvaluation note* Diagnosis Type 2 diabetes mellitus without complication, without long-term current use of insulin ([facility])- Primary Primary hypertension ([facility] Unspecified essential hypertension Encounter for screening mammogram for malignant neoplasm of breast Dysuria Anxiety and depression ([facility]) Primary hypertension ([facility])- Primary Unspecified essential hypertension Type 2 diabetes mellitus without complication, without long-term current use of insulin ([facility]) Morbid obesity ([facility]) Morbid obesity Type 2 diabetes mellitus without complication, without long-term current use of insulin ([facility])- Primary Primary hypertension ([facility]) Unspecified essential hypertension Anxiety and depression ([facility] Mixed hyperlipidemia ([facility]) Mixed hyperlipidemia Morbid obesity ([facility]) Morbid obesity Type 2 diabetes mellitus without complication, without long-term current use of insulin ([facility])- Primary Primary hypertension ([facility] Unspecified essential hypertension Mixed hyperlipidemia ([facility] Mixed hyperlipidemia Type 2 diabetes mellitus with hyperglycemia ([facility]) Morbid (severe) obesity due to excess calories ([facility]) Body mass index (BMI) 45.0-49.9, adult ([facility]) Malignant neoplasm of unspecified ovary ([facility]/HCC) Lumbar back pain Lumbago Abdominal cramping Abdominal pain, unspecified site Morbid obesity ([facility]) Morbid obesity Malignant neoplasm of ovary, unspecified laterality ([facility]) Psoriasis ([facility] Other psoriasis Primary hypertension ([facility])- Primary Unspecified essential hypertension Type 2 diabetes mellitus with hyperglycemia ([facility]) Gastroesophageal reflux disease without esophagitis [...] hyperlipidemia Malignant neoplasm of ovary, unspecified laterality (CMS/[facility]) Psoriasis (CMS/[facility]) Other psoriasis Anxiety and depression ([facility]/HCC)- Primary Morbid (severe) obesity due to excess calories (CMS/[facility]) Body mass index (BMI) 40.0-44.9, adult ([facility]) Malignant neoplasm of unspecified ovary (CMS/HCC) Primary hypertension (CMS/HCC) Unspecified essential hypertension Type 2 diabetes mellitus without complication, without long-term current use of insulin (CMS/HCC) Mixed hyperlipidemia (CMS/HCC) Mixed hyperlipidemia Back pain of lumbosacral region with sciatica- Primary Morbid (severe) obesity due to excess calories (CMS/[facility]) Body mass index (BMI) 40.0-44.9, adult ([facility]) Type 2 diabetes mellitus without complication, without long-term current use of insulin ([facility]/HCC) Anxiety and depression (CMS/[facility]) Lumbar back pain with radiculopathy affecting right lower extremity- Primary Body mass index (BMI) 40.0-44.9, adult ([facility]) Morbid (severe) obesity due to excess calories (CMS/HCC) Back pain of lumbosacral region with sciatica Gastroesophageal reflux disease without esophagitis Esophageal reflux Mixed hyperlipidemia (CMS/HCC) Mixed hyperlipidemia Type 2 diabetes mellitus without complication, without long-term current use of insulin ([facility]/HCC) Primary hypertension ([facility]/HCC) Unspecified essential hypertension Acute pain of right knee documented in this encounter [facility] HealthcareEvaluation note* Diagnosis Type 2 diabetes mellitus without complication, without long-term current use of insulin ([facility])- Primary Primary hypertension (CMS/HCC) Unspecified essential hypertension Encounter for screening mammogram for malignant neoplasm of breast Dysuria Anxiety and depression ([facility]/HCC) Primary hypertension ([facility]/HCC)- Primary Unspecified essential hypertension Type 2 diabetes mellitus without complication, without long-term current use of insulin ([facility]/HCC) Morbid obesity ([facility]/HCC) Morbid obesity Type 2 diabetes mellitus without complication, without long-term current use of insulin ([facility])- Primary Primary hypertension (CMS/HCC) Unspecified essential hypertension Anxiety and depression (CMS/HCC) Mixed hyperlipidemia (CMS/HCC) Mixed hyperlipidemia Morbid obesity ([facility]/HCC) Morbid obesity Type 2 diabetes mellitus without complication, without long-term current use of insulin ([facility])- Primary Primary hypertension (CMS/HCC) Unspecified essential hypertension Mixed hyperlipidemia ([facility]/HCC) Mixed hyperlipidemia Type 2 diabetes mellitus with hyperglycemia ([facility]) Morbid (severe) obesity due to excess calories ([facility]) Body mass index (BMI) 45.0-49.9, adult ([facility]) Malignant neoplasm of unspecified ovary ([facility]) Lumbar back pain Lumbago Abdominal cramping Abdominal pain, unspecified site Morbid obesity ([facility]) Morbid obesity Malignant neoplasm of ovary, unspecified laterality ([facility]) Psoriasis ([facility]/HCC) Other psoriasis Primary hypertension ([facility])- Primary Unspecified essential hypertension Type 2 diabetes mellitus with hyperglycemia ([facility]) Gastroesophageal reflux disease without esophagitis Esophageal reflux Vaginal yeast infection Candidiasis of vulva and vagina Right acute otitis media Unspecified otitis media Type 2 diabetes mellitus without complication, without long-term current use of insulin ([facility]) Anxiety and depression ([facility] Dysuria Primary hypertension ([facility])- Primary Unspecified essential hypertension Type 2 diabetes mellitus without complication, without long-term current use of insulin ([facility]) Diarrhea, unspecified type Morbid obesity ([facility]) Morbid obesity Type 2 diabetes mellitus without complication, without long-term current use of insulin ([facility])- Primary Primary hypertension ([facility] Unspecified essential hypertension Gastroesophageal reflux disease without esophagitis Esophageal reflux Anxiety and depression ([facility]/HCC) Morbid obesity ([facility]/HCC) Morbid obesity Mixed hyperlipidemia ([facility]) Mixed hyperlipidemia Malignant neoplasm of ovary, unspecified laterality ([facility]) Psoriasis ([facility]) Other psoriasis Anxiety [facility] depression ([facility]/HCC)- Primary Morbid (severe) obesity due to excess calories ([facility]) Body mass index (BMI) 40.0-44.9, adult (CMS/HCC) [...] of insulin (CMS/HCC) Anxiety and depression (CMS/HCC) Lumbar back pain with radiculopathy affecting right lower extremity- Primary Body mass index (BMI) 40.0-44.9, adult (CMS/HCC) Morbid (severe) obesity due to excess calories (CMS/HCC) Back pain of lumbosacral region with sciatica Gastroesophageal reflux disease without esophagitis Esophageal reflux Mixed hyperlipidemia (CMS/HCC) Mixed hyperlipidemia Type 2 diabetes mellitus without complication, without long-term current use of insulin (CMS/HCC) Primary hypertension (CMS/HCC) Unspecified essential hypertension Acute pain of right knee Back pain of lumbosacral region with sciatica- Primary documented in this encounter [facility] HealthcareEvaluation note* Diagnosis Type 2 diabetes [...] (CMS/HCC) Body mass index (BMI) 45.0-49.9, adult (CMS/[facility]) Malignant neoplasm of unspecified ovary (CMS/HCC) Lumbar back pain Lumbago Abdominal cramping Abdominal pain, unspecified site Morbid obesity (CMS/HCC) Morbid obesity Malignant neoplasm of ovary, unspecified laterality (CMS/HCC) Psoriasis (CMS/HCC) Other psoriasis Primary hypertension (CMS/HCC)- Primary Unspecified essential hypertension Type 2 diabetes mellitus with hyperglycemia (CMS/[facility]) Gastroesophageal reflux disease without esophagitis Esophageal reflux Vaginal yeast infection Candidiasis of vulva and vagina Right acute otitis media Unspecified otitis media Type 2 diabetes mellitus without complication, without long-term current use of insulin (CMS/[facility]) Anxiety and depression (CMS/[facility]) Dysuria Primary hypertension (CMS/[facility])- Primary Unspecified essential hypertension Type 2 diabetes mellitus without complication, without long-term current use of insulin (CMS/[facility]) Diarrhea, unspecified type Morbid obesity (CMS/[facility]) Morbid obesity Type 2 diabetes mellitus without complication, without long-term current use of insulin ([facility])- Primary Primary hypertension (CMS/[facility]) Unspecified essential hypertension Gastroesophageal reflux disease without esophagitis Esophageal reflux Anxiety and depression (CMS/HCC) Morbid obesity (CMS/HCC) Morbid obesity Mixed hyperlipidemia (CMS/HCC) Mixed hyperlipidemia Malignant neoplasm of ovary, unspecified laterality (CMS/HCC) Psoriasis (CMS/HCC) Other psoriasis Anxiety and depression (CMS/HCC)- Primary Morbid (severe) obesity due to excess calories (CMS/HCC) Body mass index (BMI) 40.0-44.9, adult ([facility]) Malignant neoplasm of unspecified ovary (CMS/HCC) Primary hypertension ([facility]/HCC) Unspecified essential hypertension Type 2 diabetes mellitus without complication, without long-term current use of insulin (CMS/[facility]) Mixed hyperlipidemia (CMS/HCC) Mixed hyperlipidemia Back pain of lumbosacral region with sciatica- Primary Morbid (severe) obesity due to excess calories (CMS/HCC) Body mass index (BMI) 40.0-44.9, adult ([facility]) Type 2 diabetes mellitus without complication, without long-term current use of insulin (CMS/HCC) Anxiety and depression (CMS/[facility]) Lumbar back pain with radiculopathy affecting right lower extremity- Primary Body mass index (BMI) 40.0-44.9, adult (CMS/[facility]) Morbid (severe) obesity due to excess calories (CMS/HCC) Back pain of lumbosacral region with sciatica Gastroesophageal reflux disease without esophagitis Esophageal reflux Mixed hyperlipidemia (CMS/HCC) Mixed hyperlipidemia Type 2 diabetes mellitus without complication, without long-term current use of insulin (CMS/HCC) Primary hypertension (CMS/HCC) Unspecified essential hypertension Acute pain of right knee Lumbar back pain with radiculopathy affecting right lower extremity- Primary documented in this encounter [facility] HealthcareEvaluation note* Diagnosis Type 2 diabetes mellitus without complication, without long-term current use of insulin (CMS/[facility])- Primary Primary hypertension (CMS/HCC) Unspecified essential hypertension Encounter for screening mammogram for malignant neoplasm of breast Dysuria Anxiety and depression ([facility]/HCC) Primary hypertension (CMS/HCC)- Primary Unspecified essential hypertension Type 2 diabetes mellitus without complication, without long-term current use of insulin (CMS/[facility]) Morbid obesity (CMS/HCC) Morbid obesity [...] Morbid (severe) obesity due to excess calories ([facility]) Body mass index (BMI) 45.0-49.9, adult ([facility]) Malignant neoplasm of unspecified ovary [...] of insulin (CMS/HCC) Anxiety and depression (CMS/HCC) Lumbar back pain with radiculopathy affecting right lower extremity- Primary Body mass index (BMI) 40.0-44.9, adult (CMS/HCC) Morbid (severe) obesity due to excess calories (CMS/HCC) Back pain of lumbosacral region with sciatica Gastroesophageal reflux disease without esophagitis Esophageal reflux Mixed hyperlipidemia (CMS/HCC) Mixed hyperlipidemia Type 2 diabetes mellitus without complication, without long-term current use of insulin (CMS/HCC) Primary hypertension (CMS/HCC) Unspecified essential hypertension Acute pain of right knee Lumbar back pain with radiculopathy affecting right lower extremity- Primary Morbid (severe) obesity due to excess calories (CMS/HCC) Type 2 diabetes mellitus without complication, without long-term current use of insulin (CMS/HCC) Back pain of lumbosacral region with sciatica Anxiety and depression (CMS/HCC) Acute right ankle pain Full incontinence of feces documented in this encounter [facility] HealthcareInstructionsNot on filedocumented in this encounterPro[facility] SystemInstructionsNot on filedocumented in this encounterPro[facility] SystemInstructionsNot on filedocumented in this encounterProMercy [facility] SystemReason for visit Narrative* Consultation (Stat) - Authorized Specialty Diagnoses / Procedures Referred By Contac t Referred To Contact Physical Therapy Diagnoses Back pain of lumbosacral region with sciatica Procedures [place] OFFICE/OUTPATIENT NEW HIGH MDM 60 MINUTES Janki Mora, [employer] [address] [address] Phone: tel: fax: Martha Coles, PT [address] [address] Phone: tel: fax: Referral ID Status Reason Start Date Expiration Date Visits Requested Visits Authorized [id number] Authorized Consult and Treat 10/09/2024 04/02/2025 8 8 [facility] HealthcareReason for visit Narrative* Consultation (Stat) - Authorized Specialty Diagnoses / Procedures Referred By Contcelia t Referred To Contact Physical Therapy Diagnoses Back pain of lumbosacral region with sciatica Procedures [place] OFFICE/OUTPATIENT NEW HIGH MDM 60 MINUTES Janki Mora NP [address] [address] Phone: tel: fax: Martha Coles, PT [address] [address] Phone: tel: fax: Referral ID Status Reason Start Date Expiration Date Visits Requested Visits Authorized [id number] Authorized Consult and Treat 10/09/2024 08/21/2025 8 8 [facility] HealthcareReason for visit Narrative* Consultation (Stat) - Authorized Specialty Diagnoses / Procedures Referred By Contac t Referred To Contact Physical Therapy Diagnoses Back pain of lumbosacral region with sciatica Procedures [place] OFFICE/OUTPATIENT NEW HIGH MDM 60 MINUTES Janki Mora, APPAREL DESIGNER [address] [place] [address] Phone: tel: fax: Martha Coles, PT [address] [address] Phone: tel: fax: Referral ID Status Reason Start Date Expiration Date Visits Requested Visits Authorized [id number] Authorized Consult and Treat 10/09/2024 08/21/2025 20 20 [facility] Summary Purpose Family History No [...] section and content) DATE CREATED AUTHOR 02/15/2018 [facility] DATE CREATED AUTHOR AUTHOR'S ORGANIZ ATION 09/13/2021 [facility] DATE CREATED AUTHOR AUTHOR'S ORGANIZ ATION 08/20/2022 [facility] DATE CREATED AUTHOR AUTHOR'S ORGANIZ ATION 02/24/2024 [facility] DATE CREATED AUTHOR AUTHOR'S ORGANIZ ATION 02/24/2024 [facility] DATE CREATED AUTHOR AUTHOR'S ORGANIZ ATION 03/08/2024 [facility] DATE CREATED AUTHOR AUTHOR'S ORGANIZ ATION 11/08/2024 [facility] dical Specialists EPIC Care Teams (unrecognized sec tion and content) Warp Placer Relationship Specialty Start Date End Date Srinath Lay MD [address] [place] [address] PCP - General Family Medicine 03/18/23 Janki Mora NP [address] [place] [address] Referring Physician Nurse Practitioner 03/18/23 Warp Placer Relationship Specialty Start Date End Date Srinath Lay MD [address] [place] [address] PCP - General Family Medicine 03/18/23 Janki Mora NP [address] [place] [address] Referring Physician Nurse Practitioner 03/18/23 Warp Placer Relationship Specialty Start Date End Date Srinath Lay MD [address] [place] [address] PCP - [facility] 03/18/23 Janki Mora NP [address] [place] [address] Referring Physician Nurse Practitioner 03/18/23 Warp Placer Relationship Specialty Start Date End Date Srinath Lay MD [address] [place] [address] PCP - General Family Medicine 03/18/23 Janki Mora NP [address] [place] [address] [facility] 05/22/24 Janki Mora NP [address] [place] [address] Referring Physician Nurse Practitioner 03/18/23 Warp Placer Relationship Specialty Start Date End Date Srinath Lay MD [address] [place] [address] PCP - General Family Medicine 03/18/23 Janki Mora NP [address] [place] [address] PCP [facility] 05/22/24 Janki Mora NP [address] [place] [address] Referring Physician Nurse Practitioner 03/18/23 Warp Placer Relationship Specialty Start Date End Date Srinath Lay MD [address] [place] [address] PCP - General Family [facility] 03/18/23 Janki Mora NP [address] [place] [address] Referring Physician Nurse Practitioner 03/18/23 Warp Placer Relationship Specialty Start Date End Date Srinath Lay MD [address] [place] [address] PCP - General Family [facility] 03/18/23 Janki Mora NP [address] [place] [address] Referring Physician Nurse Practitioner 03/18/23 Warp Placer Relationship Specialty Start Date End Date Srinath Lay MD [address] [place] [address] PCP - General Family Medicine 03/18/23 Janki Mora NP [address] [place] [address] [facility] 05/22/24 Janki Mora NP [address] [place] [address] Referring Physician Nurse Practitioner 03/18/23 Warp Placer Relationship Specialty Start Date End Date Srinath Lay MD [address] [place] [address] PCP - General Family Medicine 03/18/23 Janki Mora NP [address] [place] [address] [facility] 05/22/24 Janki Mora NP [address] [place] [address] Referring Physician Nurse Practitioner 03/18/23 Warp Placer Relationship Specialty Start Date End Date Srinath Lay MD [address] [place] [address] PCP - General Family [facility] 03/18/23 Janki Mora NP [address] [place] [address] [facility] 05/22/24 Janki Mora NP [address] [place] [address] Referring Physician Nurse Practitioner 03/18/23 Warp Placer Relationship Specialty Start Date End Date Janki Mora, PRECISION INSTRUMENT MAKER-MEDICAL MANAGER [address] [place] [address] PCP - General Nurse Practitioner 10/17/17 Warp Placer Relationship Specialty Start Date End Date Srinath Lay MD [address] [place] [address] PCP - [facility] 03/18/23 Janki Mora NP [address] [place] [address] [facility] 05/22/24 Janki Mora NP [address] [place] [address] Referring Physician Nurse Practitioner 03/18/23 Warp Placer Relationship Specialty Start Date End Date Srinath Lay MD [address] [place] [address] PCP - [facility] 03/18/23 Janki Mora NP [address] [place] [address] PCP - [facility] 05/22/24 Janki Mora NP [address] [place] [address] Referring Physician Nurse Practitioner 03/18/23 Warp Placer Relationship Specialty Start Date End Date Janki Mora, PRECISION INSTRUMENT MAKER-MEDICAL MANAGER [address] [place] [address] PCP - General Nurse Practitioner 10/17/17 Warp Placer Relationship Specialty Start Date End Date Janki Mora, PRECISION INSTRUMENT MAKER-MEDICAL MANAGER [address] [place] [address] PCP - General Nurse Practitioner 10/17/17 Warp Placer Relationship Specialty Start Date End Date Srinath Lay MD [address] [place] [address] PCP - General Family Medicine 03/18/23 Janki Mora NP [address] [place] [address] [facility] 05/22/24 Janki Mora NP [address] [place] [address] Referring Physician Nurse Practitioner 03/18/23 Warp Placer Relationship Specialty Start Date End Date Srinath Lay MD [address] [place] [address] PCP - [facility] 03/18/23 Janki Mora NP [address] [place] [address] [facility] 05/22/24 Janki Mora NP [address] [place] [address] Referring Physician Nurse Practitioner 03/18/23 Warp Placer Relationship Specialty Start Date End Date Srinath Lay MD [address] [place] [address] PCP - General Family Medicine 03/18/23 Janki Mora NP [address] [place] [address] PCP - [facility] 05/22/24 Janki Mora NP [address] [place] [address] Referring Physician Nurse Practitioner 03/18/23 Warp Placer Relationship Specialty Start Date End Date Srinath Lay MD [address] [place] [address] PCP - [facility] 03/18/23 Janki Mora NP [address] [place] [address] [facility] 05/22/24 Janki Mora NP [address] [place] [address] Referring Physician Nurse Practitioner 03/18/23 Warp Placer Relationship Specialty Start Date End Date Srinath Lay MD [address] [place] [address] PCP - General Family [facility] 03/18/23 Janki Mora NP [address] [place] [address] [facility] 05/22/24 Janki Mora NP [address] [place] [address] Referring Physician Nurse Practitioner 03/18/23 Warp Placer Relationship Specialty Start Date End Date Srinath Lay MD [address] [place] [address] PCP - [facility] 03/18/23 Janki Mora NP [address] [place] [address] [facility] 05/22/24 Janki Mora NP [address] [place] [address] Referring Physician Nurse Practitioner 03/18/23 Warp Placer Relationship Specialty Start Date End Date Srinath Lay MD [address] [place] [address] PCP - [facility] 03/18/23 Janki Mora NP [address] [place] [address] [facility] 05/22/24 Janki Mora NP [address] [place] [address] Referring Physician Nurse Practitioner 03/18/23 Warp Placer Relationship Specialty Start Date End Date Srinath Lay MD [address] [place] [address] PCP - General [facility] 03/18/23 Janki Mora NP [address] [place] [address] [facility] 05/22/24 Janki Mora NP [address] [place] [address] Referring Physician Nurse Practitioner 03/18/23 Warp Placer Relationship Specialty Start Date End Date Srinath Lay MD [address] [place] [address] PCP - [facility] 03/18/23 Janki Mora NP [address] [place] [address] [facility] 05/22/24 Janki Mora NP [address] [place] [address] Referring Physician Nurse Practitioner 03/18/23 Warp Placer Relationship Specialty Start Date End Date Srinath Lay MD [address] [place] [address] PCP - [facility] 03/18/23 Janki Mora NP [address] [place] [address] [facility] 05/22/24 Janki Mora NP [address] [place] [address] Referring Physician Nurse Practitioner 03/18/23 Warp Placer Relationship Specialty Start Date End Date Srinath Lay MD [address] [place] [address] PCP - General Family [facility] 03/18/23 Janki Mora NP [address] [place] [address] [facility] 05/22/24 Janki Mora NP [address] [place] [address] Referring Physician Nurse Practitioner 03/18/23 Warp Placer Relationship Specialty Start Date End Date Srinath Lay MD [address] [place] [address] PCP - [facility] 03/18/23 Janki Mora NP [address] [place] [address] PCP [facility] 05/22/24 Janki Mora NP [address] [place] [address] Referring Physician Nurse Practitioner 03/18/23 Warp Placer Relationship Specialty Start Date End Date Srinath Lay MD [address] [place] [address] PCP - General Family Medicine 03/18/23 Janki Mora NP [address] [place] [address] PCP - [facility] 05/22/24 Janki Mora NP [address] [place] [address] Referring Physician Nurse Practitioner 03/18/23 Reason for Visit (unrecogniz ed section and content) Reason Comments Med Refill Reason Comments Hypertension Reason Comments Diabetes Reason Comments Back Pain Reason Comments Annual Exam Reason Onset Date Comments PT CX per pt 10/09; RS needed 10/08/2024 FU 10/08/2024 Reason Onset Date Comments CX PT today 10/16/2024 Reason Onset Date Comments Missed PT today 10/19/2024 Unable to contac t; will retry if no hearback. FU 10/22/2024 Confirmation 10/22/2024 Reason Onset Date Comments CX PT 10/22/24 10/22/2024 Reason Comments Pain Reason Comments Pain Lumbar back and legs FOR RECORDS PERTAINING TO PATIENTS WHO ARE [...] BE BASED ON THE PRIMARY CLINICAL RECORDS. [employer] provides no warranty or guarantee of the accuracy or completeness of information in this document.
== END 2024-11-15 10:48 | disposition home or self-care (01) ==
PROVIDERS: PCP Nurse Practitioner; Visit Provider Nurse Practitioner
DX: M25.571 Pain in right ankle and joints of right foot (principal); M25.471 Effusion, right ankle
CPT/HCPCS: 73610

== ENCOUNTER 2024-11-29 12:49 | Outpatient (OUT) | payer OTHER, SELFPAY ==
--- NOTE | 2024-11-29 12:55 | MR_ITS ---
[address] [address] Patient Name: ZELDA SANCHEZ MRN: [id number] date: 1980 Sex: F Assigned Patient Location: MRI Current Patient Location: MRI Accession/Order Number: [id number] Exam Date: 11/29/2024 14:57 Report Date: 11/29/2024 15:01 At the request of: MICKIE ALVAREZ NP Procedure: MR lumbar spine wo con EXAMINATION: MRI LUMBAR SPINE WITHOUT IV CONTRAST CLINICAL HISTORY: Low back pain radiating into right leg with right leg weakness for 3 months. COMPARISON: None TECHNIQUE: Multiecho imaging was performed in the sagittal and axial planes without contrast administration. FINDINGS: Vertebral body heights appear maintained. No bone marrow edema is present. Spinal cord terminates in normal position without abnormal cord signal. No paraspinal mass. Visualized retroperitoneum demonstrates no acute process. At L1-L2: No posterior disc pathology. No neural canal or foraminal stenosis. At L2-L3: No posterior disc pathology. No neural canal or foraminal stenosis. At L3-L4: No posterior disc pathology. No neural canal or foraminal stenosis. At L4-L5: Diffuse broad-based disc bulge is present with central protrusion type disc herniation noted displacing the thecal sac towards the left. There is ligamentum flavum hypertrophy and facet joint degenerative changes. Findings are causing moderate canal and bilateral neural foraminal stenosis. At L5-S1: Mild broad-based disc bulge is present with facet joint degenerative changes. Findings are causing no significant canal or neural foraminal stenosis. MR/MR lumbar spine wo con IMPRESSION: At L4-L5, there is a broad-based disc bulge present with central protrusion type disc herniation displacing the thecal sac towards the left. Findings are causing moderate canal and bilateral neural foraminal stenosis. Impression dictated by: Herbert Espinoza Jr., D.O.11/29/2024 3:01 PM Dictation Location: [place] [address] Electronically authenticated by: [id number] Y Date: 11/29/2024 15:01
== END 2024-11-29 12:50 | disposition home or self-care (01) ==
LOC: MRI 12:49
PROVIDERS: PCP Nurse Practitioner; Visit Provider Nurse Practitioner
DX: M54.16 Radiculopathy, lumbar region (principal); M51.369 Other intervertebral disc degeneration, lumbar region without mention of lumbar back pain or lower extremity pain; M48.062 Spinal stenosis, lumbar region with neurogenic claudication
CPT/HCPCS: 72148

== ENCOUNTER 2025-03-18 12:20 | Outpatient (OUT) | payer OTHER, SELFPAY ==
[2025-03-18 12:54] LABS: Hematocrit 41.4 % (36.0-48.0); Hemoglobin 13.3 g/dL (12.0-16.0); Immature Granulocytes Abs Auto 0.04 10^3/uL (0.00-0.03); Immature Granulocytes Pct Auto 0.7 % (0.0-0.5); Lymphocytes Absolute Auto 2.5 10^3/uL (1.2-3.8); Mean Corpuscular HGB Conc 32.1 g/dL (29.9-35.2); Mean Corpuscular Hemoglobin 27.4 pg (26.7-34.0); Mean Corpuscular Volume 85.2 fL (81.0-99.0); Platelet Count 178 10^3/uL (150-450); Red Blood Count 4.86 10^6/uL (4.20-5.40); White Blood Count 5.6 10^3/uL (4.0-11.0)
[2025-03-18 12:56] LABS: Glucose Urine UA >=1000 mg/dL (NEGATIVE)
[2025-03-18 13:01] LABS: Microalbum Creatinine Ratio Ur 20.3 mg/g (0.0-29.9)
[2025-03-18 13:44] LABS: Alanine Aminotransferase 29 U/L (14-59); Albumin Globulin Ratio 0.8; Albumin Level 3.5 g/dL (3.4-5.0); Alkaline Phosphatase 54 U/L (46-116); Anion Gap 12.9; Aspartate Amino Transferase 16 U/L (15-37); Blood Urea Nitrogen 23.0 mg/dL (7.0-18.0); Calcium 9.2 mg/dL (8.5-10.1); Carbon Dioxide 29.7 mmol/L (21.0-32.0); Chloride 100 mmol/L (98-107); Estimated GFR (African America >60 (>=60 mL/min/1.73m^2); Estimated GFR (Non-African Ame >60 (>=60 mL/min/1.73m^2); Globulin 4.5 g/dL; Glucose 108 mg/dL (74-106); Potassium 4.6 mmol/L (3.5-5.1); Sodium 138 mmol/L (136-145); Total Protein 8.0 g/dL (6.4-8.2); Uric Acid 4.8 mg/dL (2.6-6.0)
[2025-03-18 14:06] LABS: Thyroid Stimulating Hormone 4.449 uIU/mL (0.358-3.740)
== END 2025-03-18 12:21 | disposition home or self-care (01) ==
LOC: LAB 12:21
PROVIDERS: PCP Nurse Practitioner; Visit Provider Nurse Practitioner
DX: E78.2 Mixed hyperlipidemia (principal); E11.9 Type 2 diabetes mellitus without complications; E66.01 Morbid (severe) obesity due to excess calories; M10.49 Other secondary gout, multiple sites; I10 Essential (primary) hypertension
CPT/HCPCS: 36415; 80048; 80076; 81003; 82043; 82570; 84443; 84550; 85025